=== PATIENT | male | born 1945 | race Caucasian/White ===

== ENCOUNTER → 2017-11-26 | Outpatient (CLI) | payer MEDICARE ==
[2017-11-26 09:13] LABS: HCT 44.1 % (39.0-53.0); HGB 14.8 gm/dL (13.0-17.5); MCH 30.3 pg (25.0-35.0); MCHC 33.7 g/dL (31.0-37.0); MCV 90.1 fL (80.0-100.0); Mean Platelet Volume 7.8; Platelet Count 109 k/uL (150-450); RBC 4.89 m/uL (4.30-5.90); RDW 13.8 % (11.5-15.5); WBC 4.8 k/uL (3.8-10.6)
[2017-11-26 09:18] LABS: INR 1.3 (<1.2); Prothrombin Time 12.3 sec (9.0-12.0)
[2017-11-26 09:37] LABS: ALT 45 U/L (21-72); AST 44 U/L (17-59); Albumin 3.7 g/dL (3.5-5.0); Alkaline Phosphatase 67 U/L (38-126); Anion Gap 9 mmol/L; Blood Urea Nitrogen 13 mg/dL (9-20); Calcium 9.2 mg/dL (8.4-10.2); Carbon Dioxide 33 mmol/L (22-30); Chloride 101 mmol/L (98-107); Glucose 141 mg/dL (74-99); Potassium 4.5 mmol/L (3.5-5.1); Sodium 143 mmol/L (137-145); Total Bilirubin 1.7 mg/dL (0.2-1.3); Total Protein 6.6 g/dL (6.3-8.2)
== END | disposition home or self-care (01) ==
LOC: LABWHC1 08:07
PROVIDERS: ATTEND Internal Medicine Gastroenterology
DX: K74.60 Unspecified cirrhosis of liver (principal)
CPT/HCPCS: 36415; 80053; 82105; 85027; 85610

== ENCOUNTER 2018-06-10 18:20 | Inpatient (IN) | payer MEDICARE ==
[2018-06-10] MEDS ORDERED: PANTOPRAZOLE 40 MG/10 ML VIAL IVP STA (18:28)
[2018-06-10] MEDS ORDERED: SODIUM CHLORIDE 0.9% 1,000 ML IV STA (18:28)
[2018-06-10] MEDS ORDERED: OCTREOTIDE 100 MCG/ML INJ IVP STA (18:28)
--- NOTE | 2018-06-10 18:46 | ED ---
General Adult HPI - General Chief complaint: GI Bleed Stated complaint: throwing up blood Time Seen by Provider: 06/10/18 18:35 Source: patient, family, EMS, RN notes reviewed Mode of arrival: EMS Limitations: no limitations - History of Present Illness Initial comments: This is a 73-year-old male who has a past medical history significant for esophageal varices. Patient comes in today because he is having black stools for a week and today he vomited up blood. Patient states she's also noticed lately he has been weaker lightheaded and sometimes short of breath. Patient states earlier in the week she vomited and there may been a little blood in there at that time as well per patient denies being on any blood thinners. Patient states in the past they've had ago when and take care of the bleeding in his throat. Patient denies any recent fever chills per patient denies chest pain palpitations difficulty breathing or shortness of breath. He shouldn't states he feels better laying down but he has been lightheaded recently and a one time thought he might pass out. - Related Data Home Medications Medication Instructions Recorded Confirmed Aspirin [[place] Aspirin EC] 81 mg PO HS 06/10/18 06/10/18 Benralizumab [Fasenra] 30 mg IM Q56D 06/10/18 06/10/18 Cholecalciferol [Vitamin D3] 1,000 unit PO DAILY 06/10/18 06/10/18 Cyanocobalamin (Vitamin B-12) 1,000 mcg PO DAILY 06/10/18 06/10/18 [Vitamin B-12] Ezetimibe [Zetia] 10 mg PO DAILY 06/10/18 06/10/18 Furosemide [Lasix] 20 mg PO DAILY PRN 06/10/18 06/10/18 Insulin Glargine,Hum.rec.anlog 14 unit SQ HS 06/10/18 06/10/18 [Lantus Solostar] Loratadine 10 mg PO DAILY 06/10/18 06/10/18 Losartan [Cozaar] 25 mg PO DAILY 06/10/18 06/10/18 Multivitamins, Thera [Multivitamin 1 tab PO DAILY 06/10/18 06/10/18 (formulary)] Omeprazole 20 mg PO AC-SUPPER 06/10/18 06/10/18 Propranolol [Inderal] 10 mg PO TID 06/10/18 06/10/18 Spironolactone [Aldactone] 25 mg PO DAILY 06/10/18 06/10/18 metFORMIN HCL 1,000 mg PO TID 06/10/18 06/10/18 Allergies Allergy/AdvReac Type Severity Reaction Status Date / Time naproxen Allergy Rash/Hives Verified 06/10/18 19:41 tramadol Allergy Itching Verified 06/10/18 19:41 Review of Systems ROS Statement: Those systems with pertinent positive or pertinent negative responses have been documented in the HPI. ROS Other: All systems not noted in ROS Statement are negative. Past Medical History Past Medical History: Asthma, COPD, Diabetes Mellitus History of Any Multi-Drug Resistant Organisms: None Reported Past Surgical History: Back Surgery, Joint Replacement, Orthopedic Surgery, Tonsillectomy Additional Past Surgical History / Comment(s): shoulder, foot, ankle, vein stripping, hip replacment Past Psychological History: No Psychological Hx Reported Smoking Status: Former smoker Past Alcohol Use History: None Reported Past Drug Use History: None Reported General Exam - General Exam Comments Initial Comments: GENERAL: Patient is well-developed and well-nourished. Patient is nontoxic and well- hydrated and is in mild distress. ENT: Neck is soft and supple. Oropharynx is clear. Moist mucous membranes. Neck has full range of motion without eliciting any pain. EYES: The sclera were anicteric and pale were pink and moist. Extraocular movements were intact and pupils were equal round and reactive to light. Eyelids were unremarkable. PULMONARY: Unlabored respirations. Good breath sounds bilaterally. No audible rales rhonchi or wheezing was noted. CARDIOVASCULAR: There is a regular rate and rhythm without any murmurs gallops or rubs. ABDOMEN: Soft and nontender with normal bowel sounds. No palpable organomegaly was noted. There is no palpable pulsatile mass. SKIN: Patient's skin is pale NEUROLOGIC: Patient is alert and oriented x3. Cranial nerves II through XII are grossly intact. Motor and sensory are also intact. Normal speech, volume and content. Symmetrical smile. MUSCULOSKELETAL: Normal extremities with adequate strength and full range of motion. No lower extremity swelling or edema. No calf tenderness. LYMPHATICS: No significant lymphadenopathy is noted PSYCHIATRIC: Normal psychiatric evaluation. Limitations: no limitations Course Vital Signs 06/10/18 18:32 Temperature 97.5 F L Pulse Rate 98 Respiratory 20 Rate Blood Pressure 80/41 O2 Sat by Pulse 92 L Oximetry Medical Decision Making - Medical Decision Making EKG shows normal sinus rhythm at 96 bpm TX interval 142 QRS 96 QT interval 358 QTC is 452. Patient's EKG shows no ST segment elevation or depression or T wave abnormalities are noted. Patient has Q waves in leads II, III, and F aVF. New. Patient's hemoglobin dropped 12.5 of discussed with 8.5. I gave the patient Protonix as well as octreotide. I spoke with Dr. Obrien which she agreed with the Protonix and octreotide one of them continued. Dr. Obrien wanted the patient admitted to the ICU. I wrote admitting orders I did serial CBCs I contacted Dr. Mclaughlin and Dr. Perez. - Lab Data Result diagrams: 06/10/18 18:25 06/10/18 18:25 Lab Results 06/10/18 06/10/18 06/10/18 Range/Units 18:25 18:25 18:25 WBC 11.8 H (3.8-10.6) k/uL RBC 2.70 L (4.30-5.90) m/uL Hgb 8.5 L (13.0-17.5) gm/dL Hct 25.1 L (39.0-53.0) % MCV 92.9 (80.0-100.0) fL MCH 31.5 (25.0-35.0) pg MCHC 33.9 (31.0-37.0) g/dL RDW 15.7 H (11.5-15.5) % Plt Count 195 (150-450) k/uL Neutrophils % 87 % Lymphocytes % 6 % Monocytes % 5 % Eosinophils % 1 % Basophils % 0 % Neutrophils # 10.3 H (1.3-7.7) k/uL Lymphocytes # 0.7 L (1.0-4.8) k/uL Monocytes # 0.6 (0-1.0) k/uL Eosinophils # 0.1 (0-0.7) k/uL Basophils # 0.0 (0-0.2) k/uL Poikilocytosis Slight PT (9.0-12.0) sec INR (<1.2) APTT (22.0-30.0) sec Sodium 135 L (137-145) mmol/L Potassium 4.8 (3.5-5.1) mmol/L Chloride 103 (98-107) mmol/L Carbon Dioxide 23 (22-30) mmol/L Anion Gap 9 mmol/L BUN 48 H (9-20) mg/dL Creatinine 0.72 (0.66-1.25) mg/dL Est GFR (CKD-EPI)AfAm >90 (>60 ml/min/1.73 sqM) Est GFR (CKD-EPI)NonAf >90 (>60 ml/min/1.73 sqM) Glucose 289 H (74-99) mg/dL Calcium 9.6 (8.4-10.2) mg/dL Magnesium 1.6 (1.6-2.3) mg/dL Total Bilirubin 1.2 (0.2-1.3) mg/dL AST 20 (17-59) U/L ALT 28 (21-72) U/L Alkaline Phosphatase 39 (38-126) U/L Total Creatine Kinase <20 L (55-170) U/L CK-MB (CK-2) 1.1 (0.0-2.4) ng/mL CK-MB (CK-2) Rel Index Troponin I <0.012 (0.000-0.034) ng/mL Total Protein 4.8 L (6.3-8.2) g/dL Albumin 2.5 L (3.5-5.0) g/dL 06/10/18 Range/Units 18:25 WBC (3.8-10.6) k/uL RBC (4.30-5.90) m/uL Hgb (13.0-17.5) gm/dL Hct (39.0-53.0) % MCV (80.0-100.0) fL MCH (25.0-35.0) pg MCHC (31.0-37.0) g/dL RDW (11.5-15.5) % Plt Count (150-450) k/uL Neutrophils % % Lymphocytes % % Monocytes % % Eosinophils % % Basophils % % Neutrophils # (1.3-7.7) k/uL Lymphocytes # (1.0-4.8) k/uL Monocytes # (0-1.0) k/uL Eosinophils # (0-0.7) k/uL Basophils # (0-0.2) k/uL Poikilocytosis PT 12.1 H (9.0-12.0) sec INR 1.2 H (<1.2) APTT 23.1 (22.0-30.0) sec Sodium (137-145) mmol/L Potassium (3.5-5.1) mmol/L Chloride (98-107) mmol/L Carbon Dioxide (22-30) mmol/L Anion Gap mmol/L BUN (9-20) mg/dL Creatinine (0.66-1.25) mg/dL Est GFR (CKD-EPI)AfAm (>60 ml/min/1.73 sqM) Est GFR (CKD-EPI)NonAf (>60 ml/min/1.73 sqM) Glucose (74-99) mg/dL Calcium (8.4-10.2) mg/dL Magnesium (1.6-2.3) mg/dL Total Bilirubin (0.2-1.3) mg/dL AST (17-59) U/L ALT (21-72) U/L Alkaline Phosphatase (38-126) U/L Total Creatine Kinase (55-170) U/L CK-MB (CK-2) (0.0-2.4) ng/mL CK-MB (CK-2) Rel Index Troponin I (0.000-0.034) ng/mL Total Protein (6.3-8.2) g/dL Albumin (3.5-5.0) g/dL Critical Care Time Critical Care Time: Yes Total Critical Care Time: 35 Disposition Clinical Impression: Upper GI bleed, Anemia Disposition: ADMITTED IP TO THIS [facility] Referrals: Axel Mcclure MD [Primary Care Provider] - 1-2 days Time of Disposition: 19:58
[2018-06-10 19:04] LABS: Basophils % (A) 0 %; Eosinophils # (A) 0.1 k/uL (0-0.7); Eosinophils % (A) 1 %; HCT 25.1 % (39.0-53.0); HGB 8.5 gm/dL (13.0-17.5); Lymphocytes # (A) 0.7 k/uL (1.0-4.8); Lymphocytes % (A) 6 %; MCH 31.5 pg (25.0-35.0); MCHC 33.9 g/dL (31.0-37.0); MCV 92.9 fL (80.0-100.0); Mean Platelet Volume 7.9; Monocytes # (A) 0.6 k/uL (0-1.0); Monocytes % (A) 5 %; Neutrophils # (A) 10.3 k/uL (1.3-7.7); Neutrophils % (A) 87 %; Platelet Count 195 k/uL (150-450); Poikilocytosis Slight; RDW 15.7 % (11.5-15.5); WBC 11.8 k/uL (3.8-10.6)
[2018-06-10 19:14] LABS: INR 1.2 (<1.2)
[2018-06-10 19:15] LABS: Partial Thromboplastin Time 23.1 sec (22.0-30.0); Prothrombin Time 12.1 sec (9.0-12.0)
[2018-06-10 19:16] LABS: ALT 28 U/L (21-72); AST 20 U/L (17-59); Albumin 2.5 g/dL (3.5-5.0); Alkaline Phosphatase 39 U/L (38-126); Anion Gap 9 mmol/L; Blood Urea Nitrogen 48 mg/dL (9-20); Calcium 9.6 mg/dL (8.4-10.2); Carbon Dioxide 23 mmol/L (22-30); Chloride 103 mmol/L (98-107); Creatine Kinase <20 U/L (55-170); Glucose 289 mg/dL (74-99); Magnesium 1.6 mg/dL (1.6-2.3); Potassium 4.8 mmol/L (3.5-5.1); Sodium 135 mmol/L (137-145); Total Bilirubin 1.2 mg/dL (0.2-1.3); Total Protein 4.8 g/dL (6.3-8.2)
[2018-06-10 19:28] LABS: Creatine Kinase MB 1.1 ng/mL (0.0-2.4); Troponin I <0.012 ng/mL (0.000-0.034)
[2018-06-10] MEDS ORDERED: NALOXONE 0.4 MG/ML 1 ML VIAL IV PRN (20:01)
[2018-06-10] MEDS: OCTREOTIDE 200 MCG in SODIUM CHLORIDE 0.9% 100 ML IV ONE (20:47)
[2018-06-10 21:08] LABS: Basophils % (A) 0 %; Eosinophils % (A) 0 %; HCT 23.6 % (39.0-53.0); HGB 8.2 gm/dL (13.0-17.5); Lymphocytes # (A) 0.7 k/uL (1.0-4.8); Lymphocytes % (A) 6 %; MCH 31.6 pg (25.0-35.0); MCHC 34.6 g/dL (31.0-37.0); MCV 91.5 fL (80.0-100.0); Mean Platelet Volume 7.6; Monocytes # (A) 0.5 k/uL (0-1.0); Monocytes % (A) 5 %; Neutrophils # (A) 10.5 k/uL (1.3-7.7); Neutrophils % (A) 88 %; Platelet Count 194 k/uL (150-450); Poikilocytosis Slight; RBC 2.58 m/uL (4.30-5.90); RDW 15.8 % (11.5-15.5); WBC 11.9 k/uL (3.8-10.6)
[2018-06-11 01:20] LABS: Glucose,Whole Blood 344 mg/dL (75-99)
[2018-06-11] MEDS: OCTREOTIDE 200 MCG in SODIUM CHLORIDE 0.9% 100 ML IV ONE (03:06)
[2018-06-11 03:08] LABS: Anisocytosis Slight; Basophils % (A) 0 %; Eosinophils # (A) 0.1 k/uL (0-0.7); Eosinophils % (A) 1 %; HCT 22.5 % (39.0-53.0); HGB 7.4 gm/dL (13.0-17.5); Lymphocytes # (A) 0.6 k/uL (1.0-4.8); Lymphocytes % (A) 8 %; MCH 31.4 pg (25.0-35.0); MCHC 32.8 g/dL (31.0-37.0); MCV 95.7 fL (80.0-100.0); Mean Platelet Volume 7.8; Monocytes # (A) 0.5 k/uL (0-1.0); Monocytes % (A) 6 %; Neutrophils # (A) 6.9 k/uL (1.3-7.7); Neutrophils % (A) 84 %; Platelet Count 157 k/uL (150-450); Poikilocytosis Slight; RBC 2.35 m/uL (4.30-5.90); RDW 16.3 % (11.5-15.5); WBC 8.3 k/uL (3.8-10.6)
[2018-06-11 04:05] LABS: Anion Gap 7 mmol/L; Blood Urea Nitrogen 61 mg/dL (9-20); Calcium 9.6 mg/dL (8.4-10.2); Carbon Dioxide 25 mmol/L (22-30); Chloride 106 mmol/L (98-107); Glucose 297 mg/dL (74-99); Magnesium 1.7 mg/dL (1.6-2.3); Phosphorus 4.7 mg/dL (2.5-4.5); Potassium 5.5 mmol/L (3.5-5.1); Sodium 138 mmol/L (137-145)
[2018-06-11 06:13] LABS: Glucose,Whole Blood 364 mg/dL (75-99)
[2018-06-11] MEDS: INSULIN ASPART 100 UNIT/ML 1 ML 10 ML VIAL SQ SCH ×3 (06:56→18:33)
[2018-06-11] MEDS ORDERED: Magnesium Replacement Protocol 1 EACH MISC MISCELLANE PRN (07:17)
[2018-06-11] MEDS: MAGNESIUM SULFATE-D5W PMX 1 GM in DEXTROSE/WATER 1 100ML.BAG IVPB SCH ×2 (07:34→09:39)
[2018-06-11 08:30] LABS: Anisocytosis Slight; MCHC 33.9 g/dL (31.0-37.0); MCV 94.3 fL (80.0-100.0); Mean Platelet Volume 7.8; Platelet Count 191 k/uL (150-450); Poikilocytosis Slight; RBC 2.08 m/uL (4.30-5.90); RDW 16.8 % (11.5-15.5); WBC 8.8 k/uL (3.8-10.6)
[2018-06-11 08:33] LABS: HCT 19.6 % (39.0-53.0); HGB 6.6 gm/dL (13.0-17.5)
[2018-06-11] MEDS ORDERED: PANTOPRAZOLE 40 MG/10 ML VIAL IV SCH (09:00)
[2018-06-11 09:22] LABS: Band Neutrophils % 1 %; Lymphocytes # (M) 0.79 k/uL (1.0-4.8); Monocytes # (M) 0.26 k/uL (0-1.0); Myelocytes # (M) 0.09 k/uL (0); Myelocytes % 1 %; Neutrophils % (M) 88 %; Nucleated Red Blood Cells 0 /100 WBC (0-0); Total Cells Counted 200
[2018-06-11 09:32] LABS: Poikilocytosis (M) Present; Polychromasia Present
[2018-06-11] MEDS: PANTOPRAZOLE 40 MG/10 ML VIAL IV SCH ×2 (09:39→20:16)
[2018-06-11] MEDS: SODIUM CHLORIDE 0.9% 1,000 ML IV SCH ×2 (09:39→22:13)
[2018-06-11] MEDS ORDERED: LIDOCAINE 1% INJ 10MG/ML (20 ML MDV) ONE (10:00)
[2018-06-11] MEDS ORDERED: ETOMIDATE 2 MG/ML 10 ML VIAL ONE (10:00)
[2018-06-11] MEDS ORDERED: LACTATED RINGERS 1,000 ML IV ONE (10:05)
[2018-06-11] MEDS: OCTREOTIDE 200 MCG in SODIUM CHLORIDE 0.9% 100 ML IV SCH ×2 (11:17→20:16)
--- NOTE | 2018-06-11 11:17 | P.PCN ---
Date of Procedure: 06/11/18 Description of Procedure: BRIEF HISTORY: 73-year-old male who has a past medical history significant for decompensated alcoholic cirrhosis (no longer consumed alcohol) with previously seen esophageal varices in 2015 on nonselective beta arnulfo therapy who presented with complaints of hematemesis and melena. Patient presented to the hospital because he was having black stools for a week and today he vomited up blood. Patient states he's also noticed lately he has been weaker lightheaded and sometimes short of breath. Patient states earlier in the week she vomited and there may been a little blood in there at that time as well per patient denies being on any blood thinners. Patient states in the past they've had ago when and take care of the bleeding in his throat. Patient denies any recent fever chills per patient denies chest pain palpitations difficulty breathing or shortness of breath. PROCEDURE PERFORMED: Esophagogastroduodenoscopy with variceal banding. PREOPERATIVE DIAGNOSIS: Anemia of acute blood loss, hematemesis, melena, history of esophageal varices. ESTIMATED BLOOD LOSS: Minimal. IV sedation per anesthesia. PROCEDURE: After informed consent was obtained, the patient was brought into the endoscopy unit. IV sedation was administered by Anesthesia under continuous monitoring. Initially the Olympus GIF-190 video endoscope was inserted into the mouth. Esophagus intubated without any difficulty. It was gradually advanced into the stomach and duodenum and carefully examined. The bulb and the second part of the duodenum appeared normal with evidence of hemolyzed blood. The scope at this time was withdrawn to the stomach, adequately insufflated with air , and upon careful examination, mucosa of the antrum, body, cardia and the fundus appeared grossly normal however visualization was limited as there was a large amount of hemolyzed blood in the stomach. No active bleeding was noted in the stomach. The scope was then withdrawn into the esophagus where columns of actively bleeding large varices were noted. Esophageal banding was performed with placement of 5 bands and successful hemostasis. The GE junction was located at 39 cm from the incisors. The patient tolerated the procedure well, and there was no active bleeding at the end of the procedure. IMPRESSION: 1. Actively bleeding, large esophageal varices treated with esophageal variceal banding with successful hemostasis. 2. Hemolyzed blood noted in the stomach and small bowel with no gross abnormalities seen or active bleeding noted. RECOMMENDATIONS: The findings of this examination were discussed with the patient and his . Patient to be monitored in the ICU. Continue octreotide, ceftriaxone, and Protonix therapy. Patient should remain nothing by mouth, okay for a few ice chips. Continue to monitor hemoglobin and transfuse as needed. Patient's situation is critical and prognosis is guarded given multiple comorbidities and actively bleeding esophageal varices on presentation. His has been communicated with the and all her questions were answered to her satisfaction.
--- NOTE | 2018-06-11 11:25 | P.CONS ---
History of Present Illness - Reason for Consult Consult date: 06/11/18 Hematemesis Requesting physician: Jered Mclaughlin - Chief Complaint Hematemesis - History of Present Illness 73-year-old male with a history of remote alcohol liver cirrhosis, portal hypertension, esophageal varices 2015, asthma, diabetes, COPD, cholecystectomy. Admitted with acute hematemesis and melena intermittently 1 week. Hemoglobin 8.2 decreased to 6.6. MCV 94. White count 8.8. Platelet 191. INR 1.2. BUN 48. Creatinine 0.7. LFTs within normal limits. Denies fever chills weight loss or hematochezia. He is status post EGD this morning with findings of actively bleeding large esophageal varices treated with aerosol banding 5 with hemostasis. No evidence of peptic ulcer disease. Review of Systems Constitutional: Denies fever, chills, sweats, weight gain, or loss. HEENT: Negative for migraines, blurred vision or loss, earaches, drainage, tinnitus, oral mucosal lesions, dysphagia, or odynophagia. Cardiac: Negative for chest pain, arrhythmias, or palpitation. Respiratory: Negative for shortness of breath, hemoptysis, cough, or sputum production. Gastrointestinal: See HPI for pertinent findings. Genitourinary: Negative for hematuria, urgency, frequency, polyuria, dysuria, or penile discharge. Musculoskeletal: Negative for muscle aches, swelling, arthritis, and arthralgias. Neurologic: Negative for stroke or TIA. Endocrine: Negative for thyroid problems. Skin: Negative for rash or itching. Psychiatric: Negative history for depression and anxiety Past Medical History Past Medical History: Asthma, COPD, Diabetes Mellitus, Liver Disease, Osteoarthritis (OA) Additional Past Medical History / Comment(s): Pt states, "Ischemic heart, cataracts, esophageal varices" 3L home O2 for "about a year". History of Any Multi-Drug Resistant Organisms: None Reported Past Surgical History: Back Surgery, Cholecystectomy, Joint Replacement, Orthopedic Surgery, Tonsillectomy Additional Past Surgical History / Comment(s): right rotator cuff, right foot fx with pins 1996, ankle, vein stripping, right hip replacment Past Anesthesia/Blood Transfusion Reactions: No Reported Reaction Past Psychological History: No Psychological Hx Reported Smoking Status: Former smoker Additional Past Alcohol Use History / Comment(s): Reports a history of 7-8 drinks on weekends, but no use in over a year. Past Drug Use History: None Reported - Past Family History Father Family Medical History: Cancer Additional Family Medical History / Comment(s): Lung Cancer Mother Family Medical History: COPD Sister(s) Family Medical History: Cancer Additional Family Medical History / Comment(s): Lung Cancer Medications and Allergies Home Medications Medication Instructions Recorded Confirmed Type Aspirin [[place] Aspirin EC] 81 mg PO HS 06/10/18 06/10/18 History Benralizumab [Fasenra] 30 mg IM Q56D 06/10/18 06/10/18 History Cholecalciferol [Vitamin D3] 1,000 unit PO DAILY 06/10/18 06/10/18 History Cyanocobalamin (Vitamin B-12) 1,000 mcg PO DAILY 06/10/18 06/10/18 History [Vitamin B-12] Ezetimibe [Zetia] 10 mg PO DAILY 06/10/18 06/10/18 History Furosemide [Lasix] 20 mg PO DAILY PRN 06/10/18 06/10/18 History Insulin Glargine,Hum.rec.anlog 14 unit SQ HS 06/10/18 06/10/18 History [Lantus Solostar] Loratadine 10 mg PO DAILY 06/10/18 06/10/18 History Losartan [Cozaar] 25 mg PO DAILY 06/10/18 06/10/18 History Multivitamins, Thera [Multivitamin 1 tab PO DAILY 06/10/18 06/10/18 History (formulary)] Omeprazole 20 mg PO AC-SUPPER 06/10/18 06/10/18 History Propranolol [Inderal] 10 mg PO TID 06/10/18 06/10/18 History Spironolactone [Aldactone] 25 mg PO DAILY 06/10/18 06/10/18 History metFORMIN HCL 1,000 mg PO TID 06/10/18 06/10/18 History Allergies Allergy/AdvReac Type Severity Reaction Status Date / Time naproxen Allergy Rash/Hives Verified 06/10/18 19:41 tramadol Allergy Itching Verified 06/10/18 19:41 Physical Exam Vitals: Vital Signs Temp Pulse Resp BP Pulse Ox 06/11/18 11:10 97.6 F 98 18 107/52 95 06/11/18 11:00 101 H 16 111/48 94 L 18 09:00 96 16 110/50 94 L 06/11/18 08:00 98.0 F 96 21 109/47 96 06/11/18 07:26 96 18 07:00 95 24 99/45 96 18 06:30 92 15 105/46 95 18 06:00 92 17 98/43 95 06/11/18 05:30 90 17 93/46 95 06/11/18 05:00 96 29 H 92/40 95 2018 04:30 87 19 92/43 95 06/11/18 04:00 97.8 F 92 18 96/44 95 06/11/18 03:30 94 22 93/44 94 L 06/11/18 03:00 90 14 101/46 97 06/11/18 02:30 89 11 L 94/42 97 06/11/18 02:10 89 19 94/42 95 06/11/18 02:00 98.1 F 89 17 91/43 98 06/11/18 01:50 88 20 91/43 96 06/11/18 01:40 88 16 94/45 96 06/11/18 01:30 98.1 F 87 20 90/44 95 06/11/18 01:10 106/47 06/11/18 01:00 90 19 95/60 93 L 06/11/18 00:50 90 18 95/60 94 L 06/11/18 00:49 98.6 F 06/11/18 00:47 98.6 F 06/11/18 00:40 89 18 95/47 92 L 06/11/18 00:04 89 2 L 91/44 92 L 06/10/18 23:50 89 13 91/44 95 19/18 23:40 90 12 93/46 94 L 06/10/18 23:30 92 13 94/47 93 L 06/10/18 23:20 91 15 94/47 93 L 06/10/18 23:10 90 16 95/45 94 L 06/10/18 23:00 91 16 100/56 96 19/18 22:50 91 11 L 100/56 95 19/18 22:40 90 9 L 107/48 95 06/10/18 22:30 90 19 88/35 97 12/19/18 22:20 89 10 L 108/38 98 06/10/18 22:01 87 6 L 86/40 96 06/10/18 21:50 89 19 86/43 96 06/10/18 21:40 89 14 93/44 96 06/10/18 21:30 89 19 91/45 97 06/10/18 21:20 89 16 91/45 97 06/10/18 21:10 89 14 82/62 98 06/10/18 20:53 94 95/50 95 06/10/18 20:50 92 14 95/50 96 06/10/18 20:40 92 14 94/44 98 06/10/18 20:32 92 16 99/44 98 06/10/18 20:10 89 17 90/48 100 06/10/18 19:50 92 15 106/51 98 06/10/18 19:30 91 14 102/42 06/10/18 19:10 89 16 109/58 99 06/10/18 18:32 97.5 F L 98 20 80/41 92 L 06/10/18 18:21 94 L Intake and Output 06/10/18 06/11/18 06/11/18 22:59 06:59 14:59 Intake Total 304.716 375 Output Total 350 Balance -45.284 375 Intake: IV 225 375 0.9 225 75 Intake, IV Titration 79.716 Amount Octreotide 200 mcg In 79.716 Sodium Chloride 0.9% 100 ml @ 25 MCG/HR 12.62 mls/ hr IV .Q8H1M ONE Rx#: [id number] Oral 0 Blood Product 0 Rc As-3 Unit 0 [id number] Output: Urine 350 Other: Voiding Method Urinal # Voids 0 0 Weight 130.181 kg 131 kg General appearance: The patient is alert, oriented, in no acute distress. HET: Head is normocephalic and atraumatic. Pupils are equal and reactive. Oropharynx is clear without lesions. Neck: Supple without lymphadenopathy. Trachea midline. Heart: S1 S2. Regular rate and rhythm. Lungs: No crackles or wheezes are heard. Abdomen: Soft, nontender, nondistended with bowel sounds. No peritoneal signs. No palpable organomegaly or masses. Extremities: Normal skin color and turgor. No cyanosis, rash, ulceration, clubbing, or edema. Radial and pedal pulses are 2/4 bilaterally. Neurological: No focal deficits. Strength and sensation are grossly intact. Results CBC & Chem 7: 06/11/18 07:56 06/11/18 02:45 Labs: Abnormal Lab Results - Last 24 Hours (Table) 06/10/18 06/10/18 06/10/18 Range/Units 18:25 18:25 18:25 WBC 11.8 H (3.8-10.6) k/uL RBC 2.70 L (4.30-5.90) m/uL Hgb 8.5 L (13.0-17.5) gm/dL Hct 25.1 L (39.0-53.0) % RDW 15.7 H (11.5-15.5) % Neutrophils # 10.3 H (1.3-7.7) k/uL Neutrophils # (Manual) (1.3-7.7) k/uL Lymphocytes # 0.7 L (1.0-4.8) k/uL Lymphocytes # (Manual) (1.0-4.8) k/uL Myelocytes # (Manual) (0) k/uL PT (9.0-12.0) sec INR (<1.2) Sodium 135 L (137-145) mmol/L Potassium (3.5-5.1) mmol/L BUN 48 H (9-20) mg/dL Glucose 289 H (74-99) mg/dL POC Glucose (mg/dL) (75-99) mg/dL Phosphorus (2.5-4.5) mg/dL Total Creatine Kinase <20 L (55-170) U/L Total Protein 4.8 L (6.3-8.2) g/dL Albumin 2.5 L (3.5-5.0) g/dL Crossmatch 06/10/18 06/10/18 06/10/18 Range/Units 18:25 18:25 20:55 WBC 11.9 H (3.8-10.6) k/uL RBC 2.58 L (4.30-5.90) m/uL Hgb 8.2 L (13.0-17.5) gm/dL Hct 23.6 L (39.0-53.0) % RDW 15.8 H (11.5-15.5) % Neutrophils # 10.5 H (1.3-7.7) k/uL Neutrophils # (Manual) (1.3-7.7) k/uL Lymphocytes # 0.7 L (1.0-4.8) k/uL Lymphocytes # (Manual) (1.0-4.8) k/uL Myelocytes # (Manual) (0) k/uL PT 12.1 H (9.0-12.0) sec INR 1.2 H (<1.2) Sodium (137-145) mmol/L Potassium (3.5-5.1) mmol/L BUN (9-20) mg/dL Glucose (74-99) mg/dL POC Glucose (mg/dL) (75-99) mg/dL Phosphorus (2.5-4.5) mg/dL Total Creatine Kinase (55-170) U/L Total Protein (6.3-8.2) g/dL Albumin (3.5-5.0) g/dL Crossmatch See Detail 06/11/18 06/11/18 06/11/18 Range/Units 01:18 02:45 02:45 WBC (3.8-10.6) k/uL RBC 2.35 L (4.30-5.90) m/uL Hgb 7.4 L (13.0-17.5) gm/dL Hct 22.5 L (39.0-53.0) % RDW 16.3 H (11.5-15.5) % Neutrophils # (1.3-7.7) k/uL Neutrophils # (Manual) (1.3-7.7) k/uL Lymphocytes # 0.6 L (1.0-4.8) k/uL Lymphocytes # (Manual) (1.0-4.8) k/uL Myelocytes # (Manual) (0) k/uL PT (9.0-12.0) sec INR (<1.2) Sodium (137-145) mmol/L Potassium 5.5 H (3.5-5.1) mmol/L BUN 61 H (9-20) mg/dL Glucose 297 H (74-99) mg/dL POC Glucose (mg/dL) 344 H (75-99) mg/dL Phosphorus 4.7 H (2.5-4.5) mg/dL Total Creatine Kinase (55-170) U/L Total Protein (6.3-8.2) g/dL Albumin (3.5-5.0) g/dL Crossmatch 06/11/18 06/11/18 Range/Units 06:12 07:56 WBC (3.8-10.6) k/uL RBC 2.08 L (4.30-5.90) m/uL Hgb 6.6 L* (13.0-17.5) gm/dL Hct 19.6 L* (39.0-53.0) % RDW 16.8 H (11.5-15.5) % Neutrophils # (1.3-7.7) k/uL Neutrophils # (Manual) 7.80 H (1.3-7.7) k/uL Lymphocytes # (1.0-4.8) k/uL Lymphocytes # (Manual) 0.79 L (1.0-4.8) k/uL Myelocytes # (Manual) 0.09 H (0) k/uL PT (9.0-12.0) sec INR (<1.2) Sodium (137-145) mmol/L Potassium (3.5-5.1) mmol/L BUN (9-20) mg/dL Glucose (74-99) mg/dL POC Glucose (mg/dL) 364 H (75-99) mg/dL Phosphorus (2.5-4.5) mg/dL Total Creatine Kinase (55-170) U/L Total Protein (6.3-8.2) g/dL Albumin (3.5-5.0) g/dL Crossmatch Assessment and Plan (1) Upper GI bleed Narrative/Plan: 73-year-old male with a history of remote alcohol liver cirrhosis portal hypertension and esophageal varices presents with 1 week history of intermittent melena and new onset of hematemesis status post EGD with findings of actively bleeding large esophageal varices status post banding 5. No evidence of peptic ulcer disease. Current Visit: Yes Status: Acute Code(s): K92.2 - GASTROINTESTINAL HEMORRHAGE, UNSPECIFIED SNOMED Code(s): 25256712 (2) Acute blood loss anemia Current Visit: Yes Status: Acute Code(s): D62 - ACUTE POSTHEMORRHAGIC ANEMIA SNOMED Code(s): 917266434 (3) Esophageal varices Current Visit: Yes Status: Acute Code(s): I85.00 - ESOPHAGEAL VARICES WITHOUT BLEEDING SNOMED Code(s): 12756674 (4) Portal hypertension Current Visit: Yes Status: Acute Code(s): K76.6 - PORTAL HYPERTENSION SNOMED Code(s): 73839481 (5) Liver disease, chronic, with cirrhosis Current Visit: Yes Status: Acute Code(s): K74.60 - UNSPECIFIED CIRRHOSIS OF LIVER; K76.9 - LIVER DISEASE, UNSPECIFIED SNOMED Code(s): 732627082 Plan: 1. Continue Protonix 40 mg IV twice daily. Continue with IV Sandostatin and Rocephin. Nothing by mouth except meds and ice chips. CBC monitoring. Thank you for this kind referral and the opportunity to participate in the care of your patient. This consultation was discussed with Dr. Hurley. The impression and plan of care have been directed as dictated.
--- NOTE | 2018-06-11 11:28 | CONS ---
CONSULTATION This is a very pleasant 73-year-old male who was seen in the emergency room last night by Dr. Corral. The patient apparently was vomiting up blood and had tarry stools for 1 week. He has a known history of esophageal varices presumed secondary to previous heavy alcohol abuse. He has not smoked week. He has not drunk recently, though. He came in because of the vomiting up blood and the black tarry stools. The patient was found to have a hemoglobin of 7.4. The patient was started on octreotide. He has not received any blood. The patient is currently on a saline IV at 75 mL/ hour. GI was consulted. The patient is somewhat of a poor historian. As I mentioned, he is currently on Sandostatin at 25 mcg/minute. His. PAST MEDICAL HISTORY: Is positive for previous have heavy alcohol use, diabetes, GERD, hypertension, hyperlipidemia, esophageal varices, and asthma. He is currently on a very new drug for his asthma called Benralizumab or Fasenra. Currently, the patient is doing reasonably well. Denies any pain. Denies any fever or chills. Not coughing up any phlegm. Not coughing up any blood. Patient is currently not on any blood thinners, other than a baby aspirin. HOME MEDICATIONS: Include baby aspirin, Fasenra, vitamin D3, vitamin B12, Zetia, Lasix, insulin, loratadine, Cozaar, multivitamins, omeprazole, Inderal, Aldactone, and metformin. ALLERGIES: NAPROXEN and TRAMADOL. MEDICAL HISTORY: As mentioned above includes diabetes, asthma, GERD, hypertension, hyperlipidemia , esophageal varices and previous heavy alcohol use. He is a former smoker. Does not smoke currently. No alcohol or illicit drug use currently. SURGICAL HISTORY: Includes back surgery, joint replacement, tonsillectomy, vein stripping, and some other minor procedures. FAMILY HISTORY: Not noted. OCCUPATION HISTORY: Not noted. REVIEW OF SYSTEMS: CONSTITUTIONAL: Weakness. NEUROLOGIC: Negative. HEENT: Negative. CARDIOVASCULAR: Negative. PULMONARY: Negative. GI: Black tarry stools and vomiting bright red blood. : Negative. RHEUMATOLOGIC: Negative. IMMUNOLOGIC: Negative ENDOCRINOLOGIC: Negative. Current vital signs are stable and include a temperature which is 97.8, a heart rate which is 87, respiratory rate 15, blood pressure 105/46, mean 65 and a saturation on 2 L is 95%, on 3 L 96%. Appears in no acute distress. HEENT examination is grossly unremarkable. Mucous membranes are dry. Neck is supple. Full range of motion. No adenopathy, thyromegaly or neck vein distention. Cardiovascular examination reveals regular rhythm and rate. S1, S2 normal. Heart rate about 85 beats per minute. Lungs reveal clear breath sounds. No wheezes or rhonchi. No crackles. Abdomen is soft. Bowel sounds are heard. Extremities are intact. No cyanosis, clubbing, or edema. Skin is pale. Neurologic examination is brief but nonfocal. The patient is currently on saline at 75 mL an hour. White count is 8.8, hemoglobin 6.6, hematocrit 19.6, platelet count 191,000. Sodium 138, potassium 5.5, chloride 106, CO2 is 25, BUN and creatinine were 61 and 0.85, suggesting prerenal azotemia. No chest x-ray was done. Medications are reviewed. Currently, he is on insulin. He is on magnesium replacement Narcan, Sandostatin at 25 mcg/minute, Protonix IV and saline IV. ASSESSMENT: 1. Presumed upper gastrointestinal bleed secondary to esophageal varices. 2. Previous history of heavy alcohol abuse. 3. Presumed alcoholic liver disease and portal hypertension. 4. Diabetes mellitus. 5. Gastroesophageal reflux disease. 6. Hypertension. 7. Hyperlipidemia. 8. History of asthma. 9. Anemia secondary to acute gastrointestinal bleed. PLAN: The patient medications are reviewed. Labs are reviewed. Most recent hemoglobin 6.6. The patient should receive 1 unit of blood. GI has been consulted. He is currently on octreotide 25 mcg/minute. No additional recommendations are made. Prognosis is guarded. Will continue to follow. MMODL / IJN: [id number] / TRISHA
[2018-06-11 12:14] LABS: Glucose,Whole Blood 347 mg/dL (75-99)
[2018-06-11 16:50] LABS: Anisocytosis Slight; HCT 22.5 % (39.0-53.0); HGB 7.6 gm/dL (13.0-17.5); MCH 31.4 pg (25.0-35.0); MCHC 33.6 g/dL (31.0-37.0); MCV 93.3 fL (80.0-100.0); Mean Platelet Volume 8.5; Platelet Count 179 k/uL (150-450); Poikilocytosis Slight; RBC 2.41 m/uL (4.30-5.90); RDW 16.2 % (11.5-15.5); WBC 11.1 k/uL (3.8-10.6)
[2018-06-11 18:30] LABS: Glucose,Whole Blood 324 mg/dL (75-99)
[2018-06-11 19:52] LABS: Hemoglobin A1C 7.6 % (4.0-6.0)
[2018-06-11] MEDS ORDERED: INSULIN DETEMIR 100 UNIT/ML 10 ML VIAL SQ SCH (21:00)
[2018-06-11 22:21] LABS: Anisocytosis Slight; HCT 21.6 % (39.0-53.0); HGB 7.1 gm/dL (13.0-17.5); MCH 30.6 pg (25.0-35.0); MCHC 32.7 g/dL (31.0-37.0); MCV 93.8 fL (80.0-100.0); Mean Platelet Volume 8.1; Platelet Count 179 k/uL (150-450); Poikilocytosis Slight; RBC 2.31 m/uL (4.30-5.90); RDW 17.9 % (11.5-15.5)
--- NOTE | 2018-06-11 23:16 | P.HPIM ---
History of Present Illness H&P Date: 06/11/18 Chief Complaint: Vomiting blood History of present complaint: This is a 73-year-old patient who follows with Dr. Axel Cowan. Chronic stable medical conditions include COPD, diabetes, osteoarthritis chronic hypoxic respiratory failure on 3 L oxygen at home. Patient presented to the ER. Patient did vomit blood at home.. about a cup. Also has some dark stools. Patient has been diagnosed with cirrhosis. Possibly alcohol related. Earlier today was taken to the or by Dr. Nicole from GI. Found to have bleeding esophageal varices. 5 bands were placed. Patient was transferred back to the ICU. Resting in bed. Most of the history is obtained with the at the bedside. No abdominal pain. Patient is alcohol intake gone down about 1-2 years ago. Does feel tired and rundown lethargic currently. Is in the ICU. Hemoglobin did drop from 8.5 on presentation to 6.6 this morning. Patient was given a unit of blood. Review of systems: GEN.: Tired EYES: None HEENT: None NECK: None RESPIRATORY: None CARDIOVASCULAR: None GASTROINTESTINAL: As above] GENITOURINARY: None MUSCULOSKELETAL: Pain in the joints LYMPHATICS: None HEMATOLOGICAL: None PSYCHIATRY: None NEUROLOGICAL: None Social history: Did alcohol more than the weekends previously up to the 1 or 2 years ago. Did smoke in the past. . Family history: Lung cancer Physical examination: VITAL SIGNS: 97.5, 98, 20, blood pressure 80 x 41 pulse ox 92% room air GENERAL: BMI 38.1, well built, laying in bed, lethargic but arousable. EYES: Pupils equal. Conjunctiva palel. HEENT: External appearance of nose and ears normal, oral cavity grossly normal. NECK: JVD unable to assess; masses not palpable. HEART: First and second heart sounds are normal; no edema. LUNGS: Respiratory rate normal; clear to auscultation. ABDOMEN: Soft, nontender, liver spleen not palpable, no masses palpable. LYMPHATICS: No lymph nodes palpable in the axilla and neck. PSYCH: Lethargic but arousedl. NEUROLOGICAL: Cranial nerves grossly intact; no facial asymmetry, unable to assess further Labs: Reviewed in the clinical context. Hemoglobin initially was 8.5 did drop to 6.6 platelets 195 potassium 4.8 BUN 48 creatinine 0.7 to Assessment: -Acute severe upper GI bleed from esophageal varices secondary to cirrhosis probably alcohol-related followed by emergent esophageal banding 5 -Acute severe blood loss anemia from his initial bleeding requiring blood transfusion -Acute hypotensive shock blood pressure dropping down to the 80s requiring blood transfusion -Alcoholic cirrhosis leading to portal hypertension and esophageal varices -Chronic hypoxic respiratory failure on 3 L oxygen at home -Primary osteoarthritis -Diabetes mellitus type 2 chronically on insulin -History of essential hypertension Plan: Patient remains in the ICU. at the bedside. Patient was just care unit of blood. Getting IV fluids. Status post EGD with esophageal banding. Accu- Cheks and sliding scale was started. Other medications be held. Close hemodynamic monitoring. Aspirin of course is being held. Prognosis guarded. Consultation to critical care and GI was done. Past Medical History Past Medical History: Asthma, COPD, Diabetes Mellitus, Liver Disease, Osteoarthritis (OA) Additional Past Medical History / Comment(s): Pt states, "Ischemic heart, cataracts, esophageal varices" 3L home O2 for "about a year". History of Any Multi-Drug Resistant Organisms: None Reported Past Surgical History: Back Surgery, Cholecystectomy, Joint Replacement, Orthopedic Surgery, Tonsillectomy Additional Past Surgical History / Comment(s): right rotator cuff, right foot fx with pins 1996, ankle, vein stripping, right hip replacment Past Anesthesia/Blood Transfusion Reactions: No Reported Reaction Past Psychological History: No Psychological Hx Reported Smoking Status: Former smoker Additional Past Alcohol Use History / Comment(s): Reports a history of 7-8 drinks on weekends, but no use in over a year. Past Drug Use History: None Reported - Past Family History Father Family Medical History: Cancer Additional Family Medical History / Comment(s): Lung Cancer Mother Family Medical History: COPD Sister(s) Family Medical History: Cancer Additional Family Medical History / Comment(s): Lung Cancer Medications and Allergies Home Medications Medication Instructions Recorded Confirmed Type Aspirin [[place] Aspirin EC] 81 mg PO HS 06/10/18 06/10/18 History Benralizumab [Fasenra] 30 mg IM Q56D 06/10/18 06/10/18 History Cholecalciferol [Vitamin D3] 1,000 unit PO DAILY 06/10/18 06/10/18 History Cyanocobalamin (Vitamin B-12) 1,000 mcg PO DAILY 06/10/18 06/10/18 History [Vitamin B-12] Ezetimibe [Zetia] 10 mg PO DAILY 06/10/18 06/10/18 History Furosemide [Lasix] 20 mg PO DAILY PRN 06/10/18 06/10/18 History Insulin Glargine,Hum.rec.anlog 14 unit SQ HS 06/10/18 06/10/18 History [Lantus Solostar] Loratadine 10 mg PO DAILY 06/10/18 06/10/18 History Losartan [Cozaar] 25 mg PO DAILY 06/10/18 06/10/18 History Multivitamins, Thera [Multivitamin 1 tab PO DAILY 06/10/18 06/10/18 History (formulary)] Omeprazole 20 mg PO AC-SUPPER 06/10/18 06/10/18 History Propranolol [Inderal] 10 mg PO TID 06/10/18 06/10/18 History Spironolactone [Aldactone] 25 mg PO DAILY 06/10/18 06/10/18 History metFORMIN HCL 1,000 mg PO TID 06/10/18 06/10/18 History Allergies Allergy/AdvReac Type Severity Reaction Status Date / Time naproxen Allergy Rash/Hives Verified 06/10/18 19:41 tramadol Allergy Itching Verified 06/10/18 19:41 Physical Exam Vitals: Vital Signs Temp Pulse Resp BP Pulse Ox 06/11/18 14:00 95 19 102/46 97 06/11/18 13:00 96 17 95/52 97 06/11/18 12:00 98.0 F 99 17 101/37 95 06/11/18 11:50 98.0 F 98 17 99/50 95 06/11/18 11:20 97.9 F 98 13 102/49 96 06/11/18 11:10 97.6 F 98 18 107/52 95 06/11/18 11:00 101 H 16 111/48 94 L 06/11/18 09:00 96 16 110/50 94 L 06/11/18 08:00 98.0 F 96 21 109/47 96 06/11/18 07:26 96 06/11/18 07:00 95 24 99/45 96 06/11/18 06:30 92 15 105/46 95 06/11/18 06:00 92 17 98/43 95 12/20/18 05:30 90 17 93/46 95 20/18 05:00 96 29 H 92/40 95 20/18 04:30 87 19 92/43 95 20/18 04:00 97.8 F 92 18 96/44 95 20/18 03:30 94 22 93/44 94 L 20/18 03:00 90 14 101/46 97 20/18 02:30 89 11 L 94/42 97 18 02:10 89 19 94/42 95 20/18 02:00 98.1 F 89 17 91/43 98 20/18 01:50 88 20 91/43 96 20/18 01:40 88 16 94/45 96 06/11/18 01:30 98.1 F 87 20 90/44 95 20/18 01:10 106/47 06/11/18 01:00 90 19 95/60 93 L 06/11/18 00:50 90 18 95/60 94 L 20/18 00:49 98.6 F 20/18 00:47 98.6 F 06/11/18 00:40 89 18 95/47 92 L 06/11/18 00:04 89 2 L 91/44 92 L 06/10/18 23:50 89 13 91/44 95 19/18 23:40 90 12 93/46 94 L 19/18 23:30 92 13 94/47 93 L 19/18 23:20 91 15 94/47 93 L 06/10/18 23:10 90 16 95/45 94 L 06/10/18 23:00 91 16 100/56 96 19/18 22:50 91 11 L 100/56 95 19/18 22:40 90 9 L 107/48 95 19/18 22:30 90 19 88/35 97 1219/18 22:20 89 10 L 108/38 98 19/18 22:01 87 6 L 86/40 96 19/18 21:50 89 19 86/43 96 1219/18 21:40 89 14 93/44 96 19/18 21:30 89 19 91/45 97 19/18 21:20 89 16 91/45 97 06/10/18 21:10 89 14 82/62 98 06/10/18 20:53 94 95/50 95 06/10/18 20:50 92 14 95/50 96 06/10/18 20:40 92 14 94/44 98 06/10/18 20:32 92 16 99/44 98 06/10/18 20:10 89 17 90/48 100 06/10/18 19:50 92 15 106/51 98 06/10/18 19:30 91 14 102/42 06/10/18 19:10 89 16 109/58 99 06/10/18 18:32 97.5 F L 98 20 80/41 92 L 06/10/18 18:21 94 L Intake and Output 06/11/18 06/11/18 06/11/18 06:59 14:59 22:59 Intake Total 322.471 3626.4 Output Total 350 475 Balance -45.284 925.4 Intake: IV 225 1350.4 0.9 225 75 Magnesium Sulfate-D5w Pmx 100 1 gm In Dextrose/Water 1 100ml.bag @ 100 mls/hr IVPB Q1H [facility] Rx#: [id number] Octreotide 200 mcg In 50.4 Sodium Chloride 0.9% 100 ml @ 25 MCG/HR 12.62 mls/ hr IV .Q8H1M [facility] Rx#: [id number] Sodium Chloride 0.9% 1, 775 000 ml @ 125 mls/hr IV . Q8H [facility] Rx#:[id number] cefTRIAXone 1,000 mg In 50 Sodium Chloride 0.9% 50 ml @ 100 mls/hr IVPB ONCE [facility] Rx#:[id number] Intake, IV Titration 79.716 Amount Octreotide 200 mcg In 79.716 Sodium Chloride 0.9% 100 ml @ 25 MCG/HR 12.62 mls/ hr IV .Q8H1M [facility] Rx#: [id number] Oral 0 50 Blood Product 0 Rc As-3 Unit 0 [id number] Output: Urine 350 475 Other: Voiding Method Urinal Urinal # Voids 0 350 Weight 131 kg Results CBC & Chem 7: 06/11/18 22:09 06/11/18 02:45 Labs: Abnormal Lab Results - Last 24 Hours (Table) 06/10/18 06/10/18 06/10/18 Range/Units 18:25 18:25 18:25 WBC 11.8 H (3.8-10.6) k/uL RBC 2.70 L (4.30-5.90) m/uL Hgb 8.5 L (13.0-17.5) gm/dL Hct 25.1 L (39.0-53.0) % RDW 15.7 H (11.5-15.5) % Neutrophils # 10.3 H (1.3-7.7) k/uL Neutrophils # (Manual) (1.3-7.7) k/uL Lymphocytes # 0.7 L (1.0-4.8) k/uL Lymphocytes # (Manual) (1.0-4.8) k/uL Myelocytes # (Manual) (0) k/uL PT (9.0-12.0) sec INR (<1.2) Sodium 135 L (137-145) mmol/L Potassium (3.5-5.1) mmol/L BUN 48 H (9-20) mg/dL Glucose 289 H (74-99) mg/dL POC Glucose (mg/dL) (75-99) mg/dL Phosphorus (2.5-4.5) mg/dL Total Creatine Kinase <20 L (55-170) U/L Total Protein 4.8 L (6.3-8.2) g/dL Albumin 2.5 L (3.5-5.0) g/dL Crossmatch 06/10/18 06/10/18 06/10/18 Range/Units 18:25 18:25 20:55 WBC 11.9 H (3.8-10.6) k/uL RBC 2.58 L (4.30-5.90) m/uL Hgb 8.2 L (13.0-17.5) gm/dL Hct 23.6 L (39.0-53.0) % RDW 15.8 H (11.5-15.5) % Neutrophils # 10.5 H (1.3-7.7) k/uL Neutrophils # (Manual) (1.3-7.7) k/uL Lymphocytes # 0.7 L (1.0-4.8) k/uL Lymphocytes # (Manual) (1.0-4.8) k/uL Myelocytes # (Manual) (0) k/uL PT 12.1 H (9.0-12.0) sec INR 1.2 H (<1.2) Sodium (137-145) mmol/L Potassium (3.5-5.1) mmol/L BUN (9-20) mg/dL Glucose (74-99) mg/dL POC Glucose (mg/dL) (75-99) mg/dL Phosphorus (2.5-4.5) mg/dL Total Creatine Kinase (55-170) U/L Total Protein (6.3-8.2) g/dL Albumin (3.5-5.0) g/dL Crossmatch See Detail 06/11/18 06/11/18 06/11/18 Range/Units 01:18 02:45 02:45 WBC (3.8-10.6) k/uL RBC 2.35 L (4.30-5.90) m/uL Hgb 7.4 L (13.0-17.5) gm/dL Hct 22.5 L (39.0-53.0) % RDW 16.3 H (11.5-15.5) % Neutrophils # (1.3-7.7) k/uL Neutrophils # (Manual) (1.3-7.7) k/uL Lymphocytes # 0.6 L (1.0-4.8) k/uL Lymphocytes # (Manual) (1.0-4.8) k/uL Myelocytes # (Manual) (0) k/uL PT (9.0-12.0) sec INR (<1.2) Sodium (137-145) mmol/L Potassium 5.5 H (3.5-5.1) mmol/L BUN 61 H (9-20) mg/dL Glucose 297 H (74-99) mg/dL POC Glucose (mg/dL) 344 H (75-99) mg/dL Phosphorus 4.7 H (2.5-4.5) mg/dL Total Creatine Kinase (55-170) U/L Total Protein (6.3-8.2) g/dL Albumin (3.5-5.0) g/dL Crossmatch 06/11/18 06/11/18 06/11/18 Range/Units 06:12 07:56 12:12 WBC (3.8-10.6) k/uL RBC 2.08 L (4.30-5.90) m/uL Hgb 6.6 L* (13.0-17.5) gm/dL Hct 19.6 L* (39.0-53.0) % RDW 16.8 H (11.5-15.5) % Neutrophils # (1.3-7.7) k/uL Neutrophils # (Manual) 7.80 H (1.3-7.7) k/uL Lymphocytes # (1.0-4.8) k/uL Lymphocytes # (Manual) 0.79 L (1.0-4.8) k/uL Myelocytes # (Manual) 0.09 H (0) k/uL PT (9.0-12.0) sec INR (<1.2) Sodium (137-145) mmol/L Potassium (3.5-5.1) mmol/L BUN (9-20) mg/dL Glucose (74-99) mg/dL POC Glucose (mg/dL) 364 H 347 H (75-99) mg/dL Phosphorus (2.5-4.5) mg/dL Total Creatine Kinase (55-170) U/L Total Protein (6.3-8.2) g/dL Albumin (3.5-5.0) g/dL Crossmatch Thrombosis Risk Factor Assmnt - Choose All That Apply Any of the Below Risk Factors Present?: Yes Each Factor Represents 1 point: Abnormal pulmonary function (COPD), Obesity ( BMI >25), Swollen legs (current), Varicose veins Each Risk Factor Represents 2 Points: Age 61-74 years Thrombosis Risk Factor Assessment Total Risk Factor Score: 6 Thrombosis Risk Factor Assessment Level: High Risk
[2018-06-12 00:09] LABS: Glucose,Whole Blood 315 mg/dL (75-99)
[2018-06-12] MEDS: INSULIN ASPART 100 UNIT/ML 1 ML 10 ML VIAL SQ SCH ×4 (00:26→17:20)
[2018-06-12 02:43] LABS: Glucose,Whole Blood 288 mg/dL (75-99)
[2018-06-12 05:12] LABS: Anion Gap 1 mmol/L; Blood Urea Nitrogen 49 mg/dL (9-20); Calcium 8.3 mg/dL (8.4-10.2); Carbon Dioxide 28 mmol/L (22-30); Chloride 109 mmol/L (98-107); Glucose 231 mg/dL (74-99); Magnesium 1.8 mg/dL (1.6-2.3); Phosphorus 3.1 mg/dL (2.5-4.5); Potassium 4.8 mmol/L (3.5-5.1); Sodium 138 mmol/L (137-145)
[2018-06-12 05:13] LABS: Anisocytosis Slight; HCT 20.3 % (39.0-53.0); MCH 32.1 pg (25.0-35.0); MCHC 34.4 g/dL (31.0-37.0); MCV 93.3 fL (80.0-100.0); Mean Platelet Volume 7.5; Platelet Count 160 k/uL (150-450); Poikilocytosis Slight; RBC 2.18 m/uL (4.30-5.90); RDW 17.7 % (11.5-15.5)
[2018-06-12] MEDS: MAGNESIUM SULFATE-D5W PMX 1 GM in DEXTROSE/WATER 1 100ML.BAG IVPB SCH ×2 (05:26→06:39)
[2018-06-12] MEDS: OCTREOTIDE 200 MCG in SODIUM CHLORIDE 0.9% 100 ML IV SCH ×4 (05:29→23:10)
[2018-06-12 05:34] LABS: Band Neutrophils % 1 %; Neutrophils % (M) 88 %; Nucleated Red Blood Cells 2 /100 WBC (0-0); Total Cells Counted 200
[2018-06-12 05:35] LABS: Lymphocytes # (M) 0.58 k/uL (1.0-4.8); Monocytes # (M) 0.58 k/uL (0-1.0); Polychromasia Present; WBC 9.6 k/uL (3.8-10.6)
[2018-06-12] MEDS: SODIUM CHLORIDE 0.9% 1,000 ML IV SCH ×2 (06:39→15:24)
[2018-06-12] MEDS: PANTOPRAZOLE 40 MG/10 ML VIAL IV SCH ×2 (08:28→22:57)
[2018-06-12 09:56] VITALS: BMI 39.1
--- NOTE | 2018-06-12 11:36 | P.PN ---
Subjective Progress Note Date: 06/12/18 Principal diagnosis: acute upper GI bleed s/p esophageal variceal banding yesterday. No bleeding post procedure. HGB 7. Tolerating clear liquids. Afebrile. Denies abdominal pain, N/V. Objective - Vital Signs Vital signs: Vital Signs Temp 97.6 F 06/12/18 04:00 Pulse 101 H 06/12/18 07:00 Resp 26 H 06/12/18 07:00 BP 105/51 06/12/18 07:00 Pulse Ox 96 06/12/18 07:00 Intake & Output 06/11/18 06/12/18 06/12/18 18:59 06:59 18:59 Intake Total 2498.6 2215.1 Output Total 1175 800 225 Balance 1323.6 1415.1 -225 Weight 134.4 kg 134.4 kg Intake: IV 1938.6 1863.1 0.9 75 Magnesium Sulfate-D5w Pmx 100 200 1 gm In Dextrose/Water 1 100ml.bag @ 100 mls/hr IVPB Q1H [facility] Rx#: [id number] Octreotide 200 mcg In 138.6 163.1 Sodium Chloride 0.9% 100 ml @ 25 MCG/HR 12.62 mls/ hr IV .Q8H1M [facility] Rx#: [id number] Sodium Chloride 0.9% 1, 1275 1500 000 ml @ 125 mls/hr IV . Q8H [facility] Rx#:[id number] cefTRIAXone 1,000 mg In 50 Sodium Chloride 0.9% 50 ml @ 100 mls/hr IVPB ONCE [facility] Rx#:[id number] Intake, IV Titration 202 Amount Octreotide 200 mcg In 202 Sodium Chloride 0.9% 100 ml @ 25 MCG/HR 12.62 mls/ hr IV .Q8H1M [facility] Rx#: [id number] Oral 250 150 Blood Product 310 Rc As-3 Unit 310 [id number] Output: Urine 1175 800 225 Other: Voiding Method Urinal Urinal # Voids 350 0 - Constitutional General appearance: Present: average body habitus, obese - EENT Eyes: Present: normal appearance ENT: Present: hard of hearing Ears: bilateral: normal - Neck Neck: Present: normal ROM - Respiratory Respiratory: bilateral: CTA - Cardiovascular Heart sounds: normal: S1, S2 - Gastrointestinal General gastrointestinal: Present: soft - Neurologic Neurologic: Present: CNII-XII intact - Psychiatric Psychiatric: Present: A&O x's 3 - Labs CBC & Chem 7: 06/12/18 04:26 06/12/18 04:26 Labs: Abnormal Lab Results - Last 24 Hours (Table) 06/10/18 06/11/18 06/11/18 Range/Units 18:25 07:56 12:12 WBC (3.8-10.6) k/uL RBC (4.30-5.90) m/uL Hgb (13.0-17.5) gm/dL Hct (39.0-53.0) % RDW (11.5-15.5) % Neutrophils # (Manual) (1.3-7.7) k/uL Lymphocytes # (Manual) (1.0-4.8) k/uL Nucleated RBCs (0-0) /100 WBC Chloride (98-107) mmol/L BUN (9-20) mg/dL Creatinine (0.66-1.25) mg/dL Glucose (74-99) mg/dL POC Glucose (mg/dL) 347 H (75-99) mg/dL Hemoglobin A1c 7.6 H (4.0-6.0) % Calcium (8.4-10.2) mg/dL Crossmatch See Detail 06/11/18 06/11/18 06/11/18 Range/Units 16:21 18:28 22:09 WBC 11.1 H 12.0 H (3.8-10.6) k/uL RBC 2.41 L 2.31 L (4.30-5.90) m/uL Hgb 7.6 L 7.1 L (13.0-17.5) gm/dL Hct 22.5 L 21.6 L (39.0-53.0) % RDW 16.2 H 17.9 H (11.5-15.5) % Neutrophils # (Manual) (1.3-7.7) k/uL Lymphocytes # (Manual) (1.0-4.8) k/uL Nucleated RBCs (0-0) /100 WBC Chloride (98-107) mmol/L BUN (9-20) mg/dL Creatinine (0.66-1.25) mg/dL Glucose (74-99) mg/dL POC Glucose (mg/dL) 324 H (75-99) mg/dL Hemoglobin A1c (4.0-6.0) % Calcium (8.4-10.2) mg/dL Crossmatch 06/12/18 06/12/18 06/12/18 Range/Units 00:07 02:42 04:26 WBC (3.8-10.6) k/uL RBC 2.18 L (4.30-5.90) m/uL Hgb 7.0 L (13.0-17.5) gm/dL Hct 20.3 L (39.0-53.0) % RDW 17.7 H (11.5-15.5) % Neutrophils # (Manual) 8.50 H (1.3-7.7) k/uL Lymphocytes # (Manual) 0.58 L (1.0-4.8) k/uL Nucleated RBCs 2 H (0-0) /100 WBC Chloride (98-107) mmol/L BUN (9-20) mg/dL Creatinine (0.66-1.25) mg/dL Glucose (74-99) mg/dL POC Glucose (mg/dL) 315 H 288 H (75-99) mg/dL Hemoglobin A1c (4.0-6.0) % Calcium (8.4-10.2) mg/dL Crossmatch 06/12/18 Range/Units 04:26 WBC (3.8-10.6) k/uL RBC (4.30-5.90) m/uL Hgb (13.0-17.5) gm/dL Hct (39.0-53.0) % RDW (11.5-15.5) % Neutrophils # (Manual) (1.3-7.7) k/uL Lymphocytes # (Manual) (1.0-4.8) k/uL Nucleated RBCs (0-0) /100 WBC Chloride 109 H (98-107) mmol/L BUN 49 H (9-20) mg/dL Creatinine 0.64 L (0.66-1.25) mg/dL Glucose 231 H (74-99) mg/dL POC Glucose (mg/dL) (75-99) mg/dL Hemoglobin A1c (4.0-6.0) % Calcium 8.3 L (8.4-10.2) mg/dL Crossmatch Assessment and Plan (1) Upper GI bleed Narrative/Plan: 73-year-old male with a history of remote alcohol liver cirrhosis portal hypertension and esophageal varices presents with 1 week history of intermittent melena and new onset of hematemesis status post EGD with findings of actively bleeding large esophageal varices status post banding 5. No evidence of peptic ulcer disease. Current Visit: Yes Status: Acute Code(s): K92.2 - GASTROINTESTINAL HEMORRHAGE, UNSPECIFIED SNOMED Code(s): 60699415 (2) Acute blood loss anemia Current Visit: Yes Status: Acute Code(s): D62 - ACUTE POSTHEMORRHAGIC ANEMIA SNOMED Code(s): 203004450 (3) Esophageal varices Current Visit: Yes Status: Acute Code(s): I85.00 - ESOPHAGEAL VARICES WITHOUT BLEEDING SNOMED Code(s): 64377490 (4) Portal hypertension Current Visit: Yes Status: Acute Code(s): K76.6 - PORTAL HYPERTENSION SNOMED Code(s): 97139746 (5) Liver disease, chronic, with cirrhosis Current Visit: Yes Status: Acute Code(s): K74.60 - UNSPECIFIED CIRRHOSIS OF LIVER; K76.9 - LIVER DISEASE, UNSPECIFIED SNOMED Code(s): 543280934 Plan: 1. Continue Protonix 40 mg IV twice daily. Continue with IV Sandostatin x 48 hours DC 0530 in am. Continue Rocephin/abx x 7 days. Clear liquids. CBC monitoring daily. Assessment and plan of care discussed with Dr. Hurley
[2018-06-12 11:50] LABS: Glucose,Whole Blood 285 mg/dL (75-99)
--- NOTE | 2018-06-12 12:49 | PN ---
PROGRESS NOTE DATE OF SERVICE: 06/12/2018 This is a very pleasant 73-year-old male who I saw in consultation yesterday. He has a history of previous heavy alcohol use, diabetes, GERD, hypertension, hyperlipidemia, esophageal varices and asthma. The patient was brought in because of black tarry stools and also vomiting up blood. The patient went for an EGD yesterday. He had a banding of esophageal varices x5. Today's hemoglobin is 7. The patient remains on saline at 125 mL an hour and Sandostatin which is octreotide 25 mcg/minute. The patient is doing reasonably well. Has not had any additional bleeding up to this point. The patient is on nasal O2 at 3 L. The patient is feeling reasonably well. I explained to him what happened yesterday. He understands. He is not ready to leave the unit. He is still at risk for bleeding. He is also still on the octreotide infusion. Again, that is running at 25 mcg/minute. Because of his age and because of his alcoholic liver disease, esophageal varices and previous history of GI bleed, he is at high risk for rebleeding. Current vital signs are reviewed. Temperature 97.6, heart rate 101, respiratory rate 22, blood pressure 105/51, mean 69 and 3 L saturations 96% to 97%. He appears in no acute distress. HEENT examination is grossly unremarkable. Mucous membranes are moist. No oral lesions. NECK: Supple. Full range of motion. No adenopathy or thyromegaly. Neck veins are flat. Cardiovascular examination reveals regular rhythm and rate. Heart rate right around 100 beats per minute. S1, S2 normal. No murmur. Lungs reveal clear breath sounds. No wheezes, rhonchi, or crackles. Breath sounds are equal bilaterally. Abdomen is soft. Bowel sounds are heard. No tenderness on palpation. Extremities are intact. No cyanosis, clubbing, or edema. Skin without rash. Neurologic examination is brief but nonfocal. Labs are reviewed. White count 9.6, hemoglobin 7, hematocrit 20.3, platelet count is 168,000. Sodium and potassium normal. Chloride 109, CO2 of 28. BUN and creatinine were 49 and 0.64. No chest x-ray to report. Microbiologic studies are negative or pending. Medications are reviewed. He is on the ceftriaxone, insulin, magnesium, Narcan, octreotide, Protonix, and his IV. ASSESSMENT: 1. Upper gastrointestinal bleed secondary to esophageal varices, status post EGD with banding of esophageal varices x5 on June 11, 2018. 2. Previous history of heavy alcohol abuse and presumed alcoholic liver disease with portal hypertension. 3. Diabetes mellitus. 4. Gastroesophageal reflux disease. 5. Hypertension. 6. Hyperlipidemia. 7. History of asthma. 8. Anemia secondary to acute gastrointestinal bleeding. PLAN: The patient will remain in the ICU. He is still critically ill. The patient remains on Sandostatin. Because of his age and multiple medical problems as listed above, he is a high risk for rebleed. His hemoglobin is borderline. We will continue to watch that carefully. His respiratory status and hemodynamic status at this time is relatively stable. No additional recommendations are made. Prognosis is guarded. CRITICAL CARE TIME: 32 minutes. KADI / ARTEMIO: [id number] /
[2018-06-12 13:04] LABS: Anisocytosis Slight; HCT 20.6 % (39.0-53.0); MCH 31.9 pg (25.0-35.0); MCHC 33.2 g/dL (31.0-37.0); MCV 96.1 fL (80.0-100.0); Macrocytosis Slight; Mean Platelet Volume 7.9; Platelet Count 148 k/uL (150-450); Poikilocytosis Slight; RBC 2.15 m/uL (4.30-5.90); RDW 18.4 % (11.5-15.5); WBC 9.4 k/uL (3.8-10.6)
[2018-06-12 13:16] LABS: HGB 6.8 gm/dL (13.0-17.5)
[2018-06-12 17:15] LABS: Glucose,Whole Blood 327 mg/dL (75-99)
[2018-06-12 17:22] LABS: Anisocytosis Slight; HCT 21.3 % (39.0-53.0); HGB 7.2 gm/dL (13.0-17.5); MCH 32.4 pg (25.0-35.0); MCHC 33.8 g/dL (31.0-37.0); MCV 95.9 fL (80.0-100.0); Macrocytosis Slight; Mean Platelet Volume 8.1; Platelet Count 137 k/uL (150-450); Poikilocytosis Slight; RBC 2.22 m/uL (4.30-5.90); RDW 17.7 % (11.5-15.5); WBC 9.1 k/uL (3.8-10.6)
[2018-06-12] MEDS ORDERED: INSULIN DETEMIR 100 UNIT/ML 10 ML VIAL SQ SCH (21:00)
[2018-06-12 22:12] LABS: Anisocytosis Slight; MCH 31.6 pg (25.0-35.0); MCHC 33.7 g/dL (31.0-37.0); MCV 93.8 fL (80.0-100.0); Macrocytosis Slight; Mean Platelet Volume 7.6; Platelet Count 140 k/uL (150-450); Poikilocytosis Slight; RBC 2.08 m/uL (4.30-5.90); WBC 8.3 k/uL (3.8-10.6)
[2018-06-12 22:13] LABS: HCT 19.5 % (39.0-53.0); HGB 6.6 gm/dL (13.0-17.5)
[2018-06-12 23:48] LABS: Glucose,Whole Blood 286 mg/dL (75-99)
[2018-06-13] MEDS: INSULIN ASPART 100 UNIT/ML 1 ML 10 ML VIAL SQ SCH ×5 (00:41→20:50)
[2018-06-13 05:29] LABS: Anion Gap 2 mmol/L; Blood Urea Nitrogen 23 mg/dL (9-20); Calcium 7.9 mg/dL (8.4-10.2); Carbon Dioxide 29 mmol/L (22-30); Chloride 106 mmol/L (98-107); Glucose 181 mg/dL (74-99); Magnesium 1.9 mg/dL (1.6-2.3); Phosphorus 2.5 mg/dL (2.5-4.5); Potassium 3.8 mmol/L (3.5-5.1); Sodium 137 mmol/L (137-145)
[2018-06-13 05:47] LABS: Anisocytosis Slight; Basophils % (A) 0 %; Eosinophils % (A) 0 %; HCT 20.3 % (39.0-53.0); Lymphocytes # (A) 0.6 k/uL (1.0-4.8); Lymphocytes % (A) 10 %; MCH 31.6 pg (25.0-35.0); MCHC 33.7 g/dL (31.0-37.0); MCV 93.9 fL (80.0-100.0); Macrocytosis Slight; Mean Platelet Volume 8.3; Monocytes # (A) 0.4 k/uL (0-1.0); Monocytes % (A) 7 %; Neutrophils # (A) 4.8 k/uL (1.3-7.7); Neutrophils % (A) 80 %; Platelet Count 127 k/uL (150-450); Poikilocytosis Slight; RBC 2.16 m/uL (4.30-5.90); WBC 6.1 k/uL (3.8-10.6)
[2018-06-13] MEDS ORDERED: POTASSIUM CHLORIDE ER 20 MEQ TAB.ER PO SCH (06:00)
[2018-06-13 06:03] LABS: HGB 6.8 gm/dL (13.0-17.5)
[2018-06-13] MEDS: SODIUM CHLORIDE 0.9% 1,000 ML IV SCH ×3 (06:48→14:50)
[2018-06-13 06:49] LABS: Glucose,Whole Blood 244 mg/dL (75-99)
[2018-06-13] MEDS: MAGNESIUM SULFATE-D5W PMX 1 GM in DEXTROSE/WATER 1 100ML.BAG IVPB SCH ×2 (06:49→09:25)
[2018-06-13 06:54] LABS: Anisocytosis Slight; Basophils % (A) 0 %; Eosinophils % (A) 1 %; HCT 20.4 % (39.0-53.0); Lymphocytes # (A) 0.6 k/uL (1.0-4.8); Lymphocytes % (A) 11 %; MCH 31.7 pg (25.0-35.0); MCHC 33.5 g/dL (31.0-37.0); MCV 94.6 fL (80.0-100.0); Macrocytosis Slight; Mean Platelet Volume 7.7; Monocytes # (A) 0.4 k/uL (0-1.0); Monocytes % (A) 7 %; Neutrophils % (A) 77 %; Platelet Count 121 k/uL (150-450); Poikilocytosis Slight; RBC 2.15 m/uL (4.30-5.90); RDW 18.3 % (11.5-15.5); WBC 5.2 k/uL (3.8-10.6)
[2018-06-13 06:59] LABS: HGB 6.8 gm/dL (13.0-17.5)
--- NOTE | 2018-06-13 08:44 | PN ---
PROGRESS NOTE DATE OF SERVICE: June 12, 2018. PRESENTING COMPLAINT: Hematemesis. INTERVAL HISTORY: This patient presented with a variceal bleed status post banding, remains in the ICU. Remains on octreotide drip. Is on clear liquids. Sitting up in a chair, more awake. is present. Patient did have a dark stool today. REVIEW OF SYSTEMS: Done for constitutional, cardiovascular, GI, pulmonary; relevant findings as above. MEDICATIONS: Current medications reviewed that include IV ceftriaxone and IV octreotide, IV Protonix and IV fluids. PHYSICAL EXAMINATION: VITAL SIGNS: Temperature 98.6. Pulse 101, respirations 17, blood pressure 106/49, pulse ox 94 percent on 3 L. GENERAL APPEARANCE: Sitting up in a chair, awake. More awake. EYES: Pupils equal. Conjunctivae pale. NECK: JVD unable to assess. Mass not palpable. RESPIRATORY: Effort normal. LUNGS: Clear. CARDIOVASCULAR: 1st and 2nd sounds normal. No edema. ABDOMEN: Soft, nontender. Liver and spleen not palpable. PSYCHIATRY: Awake, answering questions appropriately. INVESTIGATIONS: White count 9.1, hemoglobin 7.2. Accu-Cheks noted. ASSESSMENT: 1. Acute severe upper gastrointestinal bleed from esophageal varices secondary to cirrhosis, probably alcohol-related followed by esophageal banding x5. 2. The patient remains on IV octreotide drip. 3. Acute severe blood loss anemia from esophageal bleeding, requiring blood transfusion. 4. Acute hypotensive shock requiring blood transfusion. 5. 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 6. Chronic hypoxic respiratory failure on 3 L oxygen at home. 7. Primary osteoarthritis. 8. Diabetes mellitus type 2, chronically on insulin uncontrolled with hyperglycemia. 9. History of essential hypertension. PLAN: The patient remains in the ICU. Keep a close eye on H and H. Remains on octreotide drip, IV Protonix, IV fluids. Care was discussed with the patient and at the bedside. Follow. MMODL / IJN: [id number] /
[2018-06-13] MEDS: PANTOPRAZOLE 40 MG/10 ML VIAL IV SCH ×2 (09:25→20:52)
[2018-06-13] MEDS: OCTREOTIDE 200 MCG in SODIUM CHLORIDE 0.9% 100 ML IV SCH (09:26)
--- NOTE | 2018-06-13 10:45 | PN ---
PROGRESS NOTE DATE OF SERVICE: June 13, 2018 Patient is a 73-year-old pleasant white male admitted to hospital with acute esophageal variceal bleeding. He underwent an upper endoscopy by Dr. Hurley 2 days ago with variceal ligation. The patient is doing well. He denies any symptoms. Up in the chair. He did have one black tarry stools yesterday. He dropped his hemoglobin to 6.8 g/dL this morning, and received 1 unit of blood transfusion. So far he received total of 2 units since admission to the hospital. Last hemoglobin was 6.8, and he is scheduled to receive a third unit this morning. He denies any symptoms. PHYSICAL EXAMINATION: He appears comfortable. No apparent distress. VITAL SIGNS: Stable. Blood pressure is 110/55, pulse rate 92, temperature 98.8. HEENT examination unremarkable. Conjunctivae pink. Sclerae anicteric. Oral cavity no lesions. Neck: No jugular venous distention or lymph node enlargement. The chest was clear to auscultation. HEART: Regular rate and rhythm. ABDOMEN: Soft. Bowel sounds are positive. It was slightly distended. Extremities: Trace pedal edema. Skin no rashes. NEUROLOGIC: Alert and oriented x3. No focal deficits. LABS: From today WBC 5.2, hemoglobin 6.8, platelets 121, BUN 23, creatinine 0.6. IMPRESSION: 1. Acute esophageal variceal bleed, status post EGD with variceal ligation 2 days ago with no recurrent bleeding. Hemoglobin has gradually decreased. Today hemoglobin was 6.8, status post 2 units of blood transfusion and receiving a third unit this morning, clinically no further evidence of bleeding. He was on IV Sandostatin for 2 days, which has been stopped this morning. 2. Nonalcoholic fatty liver disease with cirrhosis/portal hypertension. 3. Mild pancytopenia. RECOMMENDATIONS: 1. Advance diet to full liquids. 2. Agree with one more unit of blood transfusion. 3. Serial CBCs every 12 hours. 4. If remains stable, he can be discharged to the floor, transferred to the floor tomorrow. Thank you for this consultation. MMPAULETTEL / ARTEMIO: [id number] /
[2018-06-13 11:58] LABS: Glucose,Whole Blood 287 mg/dL (75-99)
--- NOTE | 2018-06-13 12:14 | PN ---
PROGRESS NOTE DATE OF SERVICE: 06/13/2018. This is a 73-year-old male with a history of a previous heavy alcohol use and alcoholic liver disease, portal hypertension, esophageal varices, diabetes, GERD, hypertension, hyperlipidemia, and chronic bronchial asthma. He was brought into the ICU because of black tarry stools and also vomiting up blood. The patient went for an EGD. He was found to have esophageal varices and he was banded x5. The patient is currently doing reasonably well. He is on O2 at 2 L by nasal cannula. He has an IV 0.9 at 125 mL an hour to be dropped down to 75 mL an hour. He was on octreotide 25 mcg/minute, but it was discontinued at 5:30 am. The patient has received 1 unit of PRBCs. Hemoglobin is 6.8. He received 3 units of PRBCs since he has been here. The patient seems to be doing relatively well. He is pale. He is still at risk for additional bleeding. He will stay in the ICU at least another 24 hours. He is at high risk given a number of different factors as mentioned above, including his age. Current vital signs include a temperature which is 97.6, heart rate which is 91, respiratory rate 18, blood pressure 112/56, mean 74 and a 2 L saturation 94%. Appears in no acute distress. HEENT examination is grossly unremarkable. Mucous membranes are moist. No oral lesions. Nasal O2 in place. Neck is supple. Cardiovascular examination reveals a regular rhythm and rate. Heart rate 90. It is regular. A soft systolic murmur is heard. S1, S2 normal. Lungs reveal mostly clear breath sounds. A few scattered mild rhonchi. No wheezes or crackles. Abdomen is soft bowel sounds are heard. There is no tenderness on palpation. No masses. Extremities are intact. No cyanosis, clubbing, or edema. Skin without rash. Neurologic examination is brief but nonfocal. LABS: Reviewed. White count 5.2, hemoglobin 6.8, hematocrit 20.4, platelet count 121,000. Sodium, potassium, chloride, CO2 normal. BUN and creatinine were 23 and 0.69. Anion gap is normal. No chest x-rays reviewed. Microbiologic studies are negative. Medications are reviewed. ASSESSMENT: 1. Upper gastrointestinal bleed secondary to esophageal varices, status post EGD with banding of esophageal varices x5 on June 11, 2018. 2. Previous history of heavy alcohol abuse and presumed alcoholic liver disease with portal hypertension. 3. Diabetes mellitus. 4. Gastroesophageal reflux disease. 5. Hypertension. 6. Hyperlipidemia. 7. History of asthma. 8. History of anemia secondary to gastrointestinal bleed, requiring a total of 3 units of PRBCs thus far. PLAN: The patient will stay in the ICU. The patient's octreotide was discontinued at 5:30 am. We will continue to follow closely. His hemoglobin will be followed closely. He has received a total of 3 units of PRBCs. His respiratory status is stable. Hemodynamics are stable. He is not having any flank pain. No additional bleeding thus far. We will continue to watch closely. Critical care time is 33 minutes. KADI / EMETERION: [id number] /
[2018-06-13 13:12] LABS: Anisocytosis Slight; HCT 24.7 % (39.0-53.0); HGB 8.1 gm/dL (13.0-17.5); MCH 31.5 pg (25.0-35.0); MCV 95.7 fL (80.0-100.0); Macrocytosis Slight; Mean Platelet Volume 7.8; Platelet Count 119 k/uL (150-450); Poikilocytosis Slight; RBC 2.58 m/uL (4.30-5.90); RDW 19.1 % (11.5-15.5); WBC 6.6 k/uL (3.8-10.6)
[2018-06-13 17:09] LABS: Glucose,Whole Blood 286 mg/dL (75-99)
[2018-06-13 18:25] LABS: Anisocytosis Slight; HCT 24.5 % (39.0-53.0); HGB 8.3 gm/dL (13.0-17.5); MCH 31.7 pg (25.0-35.0); MCHC 33.9 g/dL (31.0-37.0); MCV 93.5 fL (80.0-100.0); Macrocytosis Slight; Mean Platelet Volume 8.1; Platelet Count 115 k/uL (150-450); Poikilocytosis Slight; RBC 2.62 m/uL (4.30-5.90); RDW 18.1 % (11.5-15.5); WBC 6.4 k/uL (3.8-10.6)
[2018-06-13 20:29] LABS: Glucose,Whole Blood 268 mg/dL (75-99)
[2018-06-13] MEDS ORDERED: INSULIN DETEMIR 100 UNIT/ML 10 ML VIAL SQ SCH (21:00)
--- NOTE | 2018-06-13 23:54 | PN ---
PROGRESS NOTE DATE OF SERVICE: 06/13/2018. PRESENTING COMPLAINT: Hematemesis. INTERVAL HISTORY: This patient presented with bleeding status post esophageal banding. Remains in the ICU. Octreotide drip was discontinued this morning. Hemoglobin dropped again and patient was given a unit of blood today. Overall feels better. The patient on a clear liquid diet, advanced to full liquid this afternoon. The patient had another dark stool today. No abdominal pain. Patient did sit up on a chair also. is at the bedside next. REVIEW OF SYSTEMS: Done for constitutional, cardiovascular, GI, pulmonary; relevant findings as above. CURRENT MEDICATIONS: Reviewed, include IV ceftriaxone, normal saline. EXAMINATION: VITAL SIGNS: Temp 97.9, pulse 96, respirations 22, blood pressure 105/60, pulse ox 94 percent on 2 L. GENERAL APPEARANCE: Sitting up, awake. EYES: Pupils equal. Conjunctivae pale. NECK: JVD unable to assess. Mass not palpable. Respiratory effort normal. LUNGS: Clear. CARDIOVASCULAR: 1st and 2nd sounds normal. No edema. ABDOMEN: Distended, soft. Liver and spleen not palpable. PSYCHIATRY: Alert and oriented x3. Mood and affect normal. INVESTIGATIONS: White count 6.4, hemoglobin this morning was 6.8, after transfusion went up to 8.1, platelets 119,000. Accu-Cheks noted 287, 286. ASSESSMENT: 1. Acute severe upper gastrointestinal bleed from esophageal varices secondary to cirrhosis, probably alcohol, status post esophageal banding. 2. The patient's IV octreotide drip has now been discontinued. 3. Acute severe blood loss anemia from esophageal bleeding requiring 3 units of blood. 4. Acute hypertensive shock requiring blood transfusion initially. 5. 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 6. Chronic hypoxic respiratory failure on 3 L oxygen at home. 7. Primary osteoarthritis. 8. Diabetes mellitus type 2, chronically on insulin, uncontrolled with hypoglycemia. 9. History of essential hypertension. PLAN: The patient's dose of Lantus will be increased tonight. The patient has been advanced to full liquids. Octreotide was discontinued. If hemoglobin remains stable, patient can be moved out of the ICU. MMODL / IJN: [id number] /
[2018-06-14 05:00] LABS: Anisocytosis Slight; HCT 22.6 % (39.0-53.0); HGB 7.8 gm/dL (13.0-17.5); MCH 31.8 pg (25.0-35.0); MCHC 34.5 g/dL (31.0-37.0); MCV 92.1 fL (80.0-100.0); Macrocytosis Slight; Mean Platelet Volume 7.3; Platelet Count 119 k/uL (150-450); Poikilocytosis Slight; RBC 2.45 m/uL (4.30-5.90)
[2018-06-14 05:01] LABS: Anion Gap 3 mmol/L; Blood Urea Nitrogen 14 mg/dL (9-20); Carbon Dioxide 29 mmol/L (22-30); Chloride 105 mmol/L (98-107); Glucose 142 mg/dL (74-99); Phosphorus 2.9 mg/dL (2.5-4.5); Potassium 3.5 mmol/L (3.5-5.1); Sodium 137 mmol/L (137-145)
[2018-06-14 05:02] LABS: Calcium 7.9 mg/dL (8.4-10.2)
[2018-06-14 05:32] LABS: Band Neutrophils % 1 %; Lymphocytes # (M) 0.38 k/uL (1.0-4.8); Monocytes # (M) 0.33 k/uL (0-1.0); Myelocytes # (M) 0.33 k/uL (0); Myelocytes % 7 %; Neutrophils % (M) 78 %; Nucleated Red Blood Cells 6 /100 WBC (0-0); Total Cells Counted 200; WBC 4.7 k/uL (3.8-10.6)
[2018-06-14 05:33] LABS: Basophilic Stippling Present; Polychromasia Present
[2018-06-14 06:32] LABS: Glucose,Whole Blood 168 mg/dL (75-99)
[2018-06-14] MEDS: POTASSIUM CHLORIDE ER 20 MEQ TAB.ER PO SCH ×2 (06:38→07:45)
[2018-06-14] MEDS: INSULIN ASPART 100 UNIT/ML 1 ML 10 ML VIAL SQ SCH ×5 (06:40→21:41)
[2018-06-14] MEDS: PANTOPRAZOLE 40 MG/10 ML VIAL IV SCH (08:20)
--- NOTE | 2018-06-14 09:07 | PN ---
PROGRESS NOTE DATE OF SERVICE: 06/14/2018. HISTORY: This is a very pleasant 73-year-old gentleman with a history of upper gastrointestinal bleed secondary to esophageal varices. He went to the endoscopy suite on June 11 and had EGD with banding of esophageal varices x5. The patient has a previous history of heavy alcohol abuse and presumed alcoholic liver disease and portal hypertension. He also has history of diabetes, gastroesophageal reflux disease, hypertension, hyperlipidemia, asthma, and anemia. The patient is currently on 2 L nasal cannula. He is getting an IV 0.9 at 25 mL an hour. His hemoglobin this morning is 7.8. Throughout this hospitalization he has received a total of 3 units of PRBCs. From my perspective, the patient will be transferred out of the ICU. He is stable. He is doing well. He has no major complaints. No pain. No additional bleeding. PHYSICAL EXAMINATION: Current vital signs include temperature 97.8, heart rate 92, respiratory rate 17, blood pressure 105/52, mean 69, and a 2 L saturation of 97%. Appears no acute distress. HEENT examination is grossly unremarkable. Mucous membranes are moist. No oral lesions. Neck is supple. Full range of motion. No adenopathy or thyromegaly. Cardiovascular examination reveals regular rhythm and rate. S1, S2 normal. No S3, S4, or murmur. Lungs reveal clear breath sounds. No wheezes, rhonchi, or crackles. Abdomen is mildly distended. No tenderness. Bowel sounds are noted. Abdomen is otherwise negative. Extremities are intact. No cyanosis, clubbing, or edema. Skin without rash. Neurologic examination is brief but nonfocal. LABORATORY DATA: Reviewed. White count 4.7, hemoglobin 7.8, hematocrit 22.6, platelet count 119,000. Sodium, potassium, chloride, CO2 normal. Anion gap 3. BUN and creatinine were 14, 0.63. Microbiologic studies are negative. No new chest x-ray to report. MEDICATIONS: Reviewed. ASSESSMENT: 1. Upper gastrointestinal bleed secondary to esophageal varices, status post esophagogastroduodenoscopy on June 11, with banding of esophageal varices x5. 2. History of heavy alcohol abuse with alcoholic liver disease and portal hypertension. 3. Diabetes mellitus. 4. Gastroesophageal reflux disease. 5. Hypertension. 6. Hyperlipidemia. 7. History of asthma. 8. Anemia, secondary to GI bleed, status post 3 units of PRBCs. PLAN: The patient seems to be doing relatively well. He could be transferred out of the ICU. He is on IV of 0.9 at 25 mL an hour. He is getting 2 L nasal cannula. He has received a total of 3 units of PRBCs. His morning hemoglobin was 7.8. No additional bleeding. He is from the hemodynamic and respiratory standpoint. We will continue to follow. No additional recommendations are made. Prognosis is guarded. MMODL / IJN: [id number] /
[2018-06-14 11:49] LABS: Glucose,Whole Blood 243 mg/dL (75-99)
--- NOTE | 2018-06-14 14:03 | PN ---
PROGRESS NOTE DATE OF SERVICE: June 14, 2018 Patient is a 73-year-old pleasant white female with history of fatty liver disease/cirrhosis of the liver, admitted to hospital with acute esophageal variceal bleeding. He is status post EGD with variceal ligation 3 years ago. He is doing well. He had 2 black tarry stools last night. He denies any abdominal pain. Overall, he is feeling better. He received total of 3 units of blood transfusion and last hemoglobin was 7.8 g/dL. PHYSICAL EXAMINATION: He appears comfortable. No apparent distress. VITAL SIGNS: Stable. Blood pressure is 105/56, pulse rate 103, and afebrile. HEENT examination unremarkable. Conjunctivae pink. Sclerae anicteric. Oral cavity no lesions. Neck: No JVD or lymph node enlargement. Chest was clear to auscultation. HEART: Regular rate and rhythm. Abdomen is slightly distended. Small amount of free fluid noted in the abdomen. Extremities 1+ pedal edema. Skin no rashes. NEUROLOGIC: Alert and oriented x3. No focal deficits. LABS: From today WBC 4.7, hemoglobin 7.8, platelets 119, BUN 14, creatinine 0.63. IMPRESSION: 1. Acute esophageal variceal bleeding status post recent ligation 3 days ago, was on IV Sandostatin for 2 days, discontinued yesterday. Presently on IV Protonix. No further bleeding. Hemoglobin stable at 7.8, status post total of 3 units of blood transfusion during this hospitalization. 2. Nonalcoholic fatty liver disease/cirrhosis of the liver with portal hypertension. 3. Mild ascites. RECOMMENDATIONS: 1. Advance diet as tolerated. 2. He can be transferred to [facility]. 3. Continue Protonix 40 mg b.i.d. 4. He can be discharged home tomorrow with an outpatient follow up in 2-3 weeks at which time we will plan on a repeat upper endoscopy with variceal ligation on an outpatient basis. Thank you for this consultation. MMODL / IJN: [id number] /
[2018-06-14] MEDS ORDERED: Potassium Replacement Protocol 1 EACH MISC MISCELLANE PRN (15:58)
--- NOTE | 2018-06-14 15:59 | US ---
EXAMINATION TYPE: US abdomen limited DATE OF EXAM: 06/14/2018 COMPARISON: NONE CLINICAL HISTORY: liver cirrhosis, abd distension r/o ascites. Mild amount of ascites visualized in the RUQ and RLQ IMPRESSION: This limited exam demonstrates moderate ascites fluid in the right upper quadrant and ri ght lower quadrant.
[2018-06-14] MEDS ORDERED: POTASSIUM CHLORIDE ER 20 MEQ TAB.ER PO SCH (16:00)
[2018-06-14 16:57] LABS: Glucose,Whole Blood 268 mg/dL (75-99)
[2018-06-14] MEDS: PANTOPRAZOLE 40 MG TABLET PO SCH (17:08)
[2018-06-14 20:10] LABS: Anisocytosis Slight; HCT 24.7 % (39.0-53.0); HGB 8.8 gm/dL (13.0-17.5); MCH 32.5 pg (25.0-35.0); MCHC 35.5 g/dL (31.0-37.0); MCV 91.5 fL (80.0-100.0); Mean Platelet Volume 8.4; Platelet Count 134 k/uL (150-450); Poikilocytosis Slight; RDW 18.1 % (11.5-15.5); WBC 7.2 k/uL (3.8-10.6)
[2018-06-14] MEDS ORDERED: INSULIN DETEMIR 100 UNIT/ML 10 ML VIAL SQ SCH (21:00)
[2018-06-14 21:19] LABS: Glucose,Whole Blood 249 mg/dL (75-99)
--- NOTE | 2018-06-14 23:43 | PN ---
PROGRESS NOTE DATE OF SERVICE: 06/14/2018. PRESENTING COMPLAINT: Hematemesis. INTERVAL HISTORY: This patient presented with esophageal bleeding followed by banding. The patient has underlying cirrhosis status post octreotide drip status post blood transfusion. The patient is advanced to a regular diet. Sugars were running high, hence insulin was further adjusted. The patient has been up to the bathroom. Some abdominal distention. REVIEW OF SYSTEMS: Done for constitutional, cardiovascular, GI, pulmonary; relevant findings as above. CURRENT MEDICATIONS: Reviewed, that include IV ceftriaxone, insulin. PHYSICAL EXAMINATION: Temperature 97.9, pulse 105, respirations 19, blood pressure 107/54, pulse ox 96% on room air. GENERAL APPEARANCE: Sitting in a chair, awake, comfortable eyes. HEENT: Conjunctivae pale. NECK: JVD unable to assess. Mass not palpable. Respiratory effort normal. LUNGS: Slightly decreased breath sounds. CARDIOVASCULAR: 1st and 2nd heart sounds, no edema. ABDOMEN: Distended, soft. Liver and spleen not palpable. PSYCHIATRY: Alert and oriented x3. Mood and affect normal. DIAGNOSTIC STUDIES: Ultrasound showing ascites. Hemoglobin is 8.8, platelets 134,000. ASSESSMENT: 1. Acute severe upper gastrointestinal bleeding from esophageal varices secondary to cirrhosis, probably alcohol use, status post esophageal banding. 2. IV Octreotide drip discontinued. 3. Acute severe blood loss anemia from above, requiring 3 units of blood. 4. Acute hypotensive shock requiring blood transfusion. 5. Alcoholic cirrhosis leading to portal hypertension. 6. Esophageal varices. 7. Chronic hypoxic respiratory failure, on 3 L oxygen at home. 8. Primary osteoarthritis. 9. Diabetes mellitus type 2, chronically on insulin, uncontrolled with hyper- and hypoglycemia. 10.History of essential hypertension. PLAN: The patient's dose of Lantus is further increased. The scheduled NovoLog is added as patient is getting better. The patient was found to have ascites on the ultrasound. We will resume patient's metformin, Aldactone, Inderal. Care was discussed with the patient. MMODL / IJN: [id number] /
[2018-06-15 05:49] LABS: Anion Gap 2 mmol/L; Blood Urea Nitrogen 11 mg/dL (9-20); Calcium 7.7 mg/dL (8.4-10.2); Carbon Dioxide 28 mmol/L (22-30); Chloride 105 mmol/L (98-107); Glucose 161 mg/dL (74-99); Magnesium 1.9 mg/dL (1.6-2.3); Potassium 3.6 mmol/L (3.5-5.1); Sodium 135 mmol/L (137-145)
[2018-06-15 05:51] LABS: Anisocytosis Slight; HCT 23.2 % (39.0-53.0); HGB 7.7 gm/dL (13.0-17.5); MCHC 33.2 g/dL (31.0-37.0); MCV 93.6 fL (80.0-100.0); Macrocytosis Slight; Mean Platelet Volume 8.4; Platelet Count 118 k/uL (150-450); Poikilocytosis Slight; RBC 2.48 m/uL (4.30-5.90); RDW 18.3 % (11.5-15.5)
[2018-06-15 06:06] LABS: Glucose,Whole Blood 200 mg/dL (75-99)
[2018-06-15 06:29] LABS: Band Neutrophils % 3 %; Lymphocytes # (M) 0.54 k/uL (1.0-4.8); Metamyelocytes # (M) 0.14 k/uL (0); Metamyelocytes % 3 %; Monocytes # (M) 0.32 k/uL (0-1.0); Myelocytes # (M) 0.05 k/uL (0); Myelocytes % 1 %; Neutrophils % (M) 76 %; Nucleated Red Blood Cells 4 /100 WBC (0-0); Polychromasia Present; Total Cells Counted 200; WBC 4.5 k/uL (3.8-10.6)
[2018-06-15] MEDS: PANTOPRAZOLE 40 MG TABLET PO SCH ×2 (07:05→15:17)
[2018-06-15] MEDS: INSULIN ASPART 100 UNIT/ML 1 ML 10 ML VIAL SQ SCH ×6 (07:06→15:16)
[2018-06-15] MEDS ORDERED: FUROSEMIDE 20 MG TAB PO PRN (07:49)
[2018-06-15 08:38] VITALS: PULSE 110
[2018-06-15] MEDS: PROPRANOLOL 10 MG TAB PO SCH ×2 (08:43→15:20)
[2018-06-15] MEDS ORDERED: CYANOCOBALAMIN 500 MCG TAB PO SCH (09:00)
[2018-06-15] MEDS ORDERED: metFORMIN 500 MG TAB PO SCH (09:00)
[2018-06-15] MEDS ORDERED: SPIRONOLACTONE 25 MG TAB PO SCH (09:00)
[2018-06-15] MEDS ORDERED: EZETIMIBE 10 MG TAB PO SCH (09:00)
[2018-06-15 11:13] LABS: Glucose,Whole Blood 225 mg/dL (75-99)
--- NOTE | 2018-06-15 11:31 | PN ---
PROGRESS NOTE DATE OF DICTATION: June 15, 2018 The patient is a 73 -year-old white male admitted to the hospital with acute variceal bleeding status post EGD with variceal ligation 4 days ago, doing well, transferred from the ICU yesterday. He had 1 small black tarry stools yesterday. Hemoglobin stable at 7.7 g/dL. He received total of 3 units of blood transfusion during this hospitalization. He is feeling good. No new symptoms. PHYSICAL EXAMINATION: Appears comfortable. No apparent distress. VITAL SIGNS: Stable. Blood pressure 103/76, pulse 97, temperature 97.7. HEENT examination unremarkable. Conjunctivae pale. Sclerae anicteric. Oral cavity no lesions. NECK: No jugular venous distention or lymph node enlargement. Chest was clear to auscultation. HEART: Regular rate and rhythm. Abdomen is slightly distended. EXTREMITIES: 2+ pedal edema. LABS: Today WBC 4.5, hemoglobin 7.7, platelets 118. BUN 11, creatinine 0.6. IMPRESSION: 1. Fatty liver disease/cirrhosis of the liver. 2. Upper gastrointestinal bleed secondary to esophageal varices status post EGD with variceal ligation by Dr. Hurley 4 days ago, now stable hemoglobin 7.7 g/dL. 3. History of diabetes mellitus. RECOMMENDATIONS: The patient can be discharged home today with outpatient follow up in 2 weeks. We will schedule for repeat upper endoscopy with variceal ligation on an outpatient basis. Thank you for this consultation. LARRYL / EMETERION: [id number] /
[2018-06-15] MEDS ORDERED: MULTIVITAMINS, THERA 1 EACH TAB PO SCH (12:00)
[2018-06-15 12:09] VITALS: BP 115/54; RESP 20; TEMP 98
--- NOTE | 2018-06-16 12:42 | DS ---
DISCHARGE SUMMARY DATE OF ADMISSION: 06/10/2018. DATE OF DISCHARGE: 06/15/2018. FINAL DIAGNOSES: 1. Acute upper gastrointestinal bleed from esophageal varices secondary to cirrhosis, probably from alcohol, status post esophageal banding. 2. Acute severe blood loss anemia from above, requiring 3 units of blood. 3. Acute hypertensive shock requiring blood transfusion. 4. Alcoholic cirrhosis leading to portal hypertension. 5. Esophageal varices. 6. Chronic hypoxic respiratory failure on 3 L oxygen at home. 7. Primary osteoarthritis. 8. Diabetes mellitus type 2, chronically on insulin, uncontrolled with hyper- and hypoglycemia. 9. History of essential hypertension. HOSPITAL COURSE: This is a very pleasant gentleman who presented with bloody stools. Underwent EGD with banding, 5 bands were placed. Sugars were running high, hence insulin was adjusted. The patient is currently put back on home medications. Today, tolerating his diet. Abdominal ultrasound shows some ascites. The patient was initially in the ICU. CONSULTATION: Dr. Shaheed Obrien/Dr. Hurley from GI, Dr. Guardado from Critical Care. PHYSICAL EXAMINATION: Temperature 97.3, pulse 88, respirations 20, blood pressure 105/54, pulse ox 98% on room air. Lungs fair entry. Cardiovascular 1st and 2nd sounds normal. INVESTIGATIONS: White count 4.5, hemoglobin 7.7, platelets 118, potassium 3.6. DISCHARGE MEDICATIONS: 1. Fasenra 30 mg IM every 56 days. 2. Vitamin D3, 1000 units p.o. daily. 3. Vitamin B12, 1000 mcg p.o. daily. 4. Zetia 10 mg p.o. daily. 5. Multivitamin 1 tablet p.o. daily. 6. Omeprazole 20 mg before supper. 7. Inderal 10 mg t.i.d. 8. Metformin 1000 mg b.i.d. 9. NovoLog 8 units subcu with meals and t.i.d. 10.Lantus 35 units subcu at bedtime. 11.Aldactone 100 mg p.o. daily. FOLLOWUP: 1. CBC in [address] Mcclure. 2. Followup Dr. Mcclure in 3 days. 3. Follow up with Dr. Hurley in 10 days. DISCHARGE INSTRUCTIONS: 1. Low-sodium diet. 2. Carbohydrate consistent diet. Care was discussed with the patient and his . Questions were answered. MMODL / IJN: [id number] /
== END 2018-06-15 16:04 | disposition home or self-care (01) | DRG 432 ==
LOC: EC 18:20 → 2SICU 20:01 → 3SCARD 06-15 05:03
PROVIDERS: ADMIT Hospitalist; ATTEND Hospitalist
PROC: 30233N1 Transfusion of Nonautologous Red Blood Cells into Peripheral Vein, Percutaneous Approach (ICD-10-PCS; 2018-06-11)
PROC: 06L38CZ Occlusion of Esophageal Vein with Extraluminal Device, Via Natural or Artificial Opening Endoscopic (ICD-10-PCS; principal; 2018-06-11 09:05)
DX: K70.31 Alcoholic cirrhosis of liver with ascites (principal); I85.11 Secondary esophageal varices with bleeding; R57.8 Other shock; K76.6 Portal hypertension; D62 Acute posthemorrhagic anemia; Z68.41 Body mass index [BMI] 40.0-44.9, adult; D61.818 Other pancytopenia; J96.11 Chronic respiratory failure with hypoxia; E11.649 Type 2 diabetes mellitus with hypoglycemia without coma; E66.9 Obesity, unspecified; E11.65 Type 2 diabetes mellitus with hyperglycemia; J44.9 Chronic obstructive pulmonary disease, unspecified; I25.9 Chronic ischemic heart disease, unspecified; K76.0 Fatty (change of) liver, not elsewhere classified; I10 Essential (primary) hypertension; K21.9 Gastro-esophageal reflux disease without esophagitis; E78.5 Hyperlipidemia, unspecified; M19.91 Primary osteoarthritis, unspecified site; H91.90 Unspecified hearing loss, unspecified ear; F10.21 Alcohol dependence, in remission; H26.9 Unspecified cataract; Z71.3 Dietary counseling and surveillance; Z99.81 Dependence on supplemental oxygen; Z79.82 Long term (current) use of aspirin; Z79.4 Long term (current) use of insulin; Z79.899 Other long term (current) drug therapy; Z96.641 Presence of right artificial hip joint; Z87.891 Personal history of nicotine dependence; Z90.49 Acquired absence of other specified parts of digestive tract; Z88.5 Allergy status to narcotic agent; Z88.8 Allergy status to other drugs, medicaments and biological substances; Z80.1 Family history of malignant neoplasm of trachea, bronchus and lung; Z82.5 Family history of asthma and other chronic lower respiratory diseases
CPT/HCPCS: 36415; 43255; 76705; 80048; 80053; 82550; 82553; 83036; 83735; 84100; 84132; 84484; 85025; 85027; 85610; 85730; 86850; 86900; 86901; 86920; 93005; 96361; 96374; 96375; 99291

== ENCOUNTER → 2018-07-08 | Outpatient (CLI) | payer MEDICARE ==
[2018-07-08 16:09] LABS: HCT 30.3 % (39.0-53.0); Hypochromasia Marked; MCH 28.7 pg (25.0-35.0); MCHC 32.2 g/dL (31.0-37.0); MCV 89.3 fL (80.0-100.0); Platelet Count 162 k/uL (150-450); Poikilocytosis Moderate; RDW 15.3 % (11.5-15.5); WBC 3.3 k/uL (3.8-10.6)
[2018-07-08 16:16] LABS: HGB 9.8 gm/dL (13.0-17.5)
[2018-07-08 16:21] LABS: INR 1.1 (<1.2); Prothrombin Time 11.7 sec (9.0-12.0)
[2018-07-09 04:29] LABS: Albumin 3.6 g/dL (3.80-4.90); Albumin/Globulin Ratio 1.71 (1.20-2.10); Anion Gap 6.8 mmol/L (4.00-12.00); Calcium 8.9 mg/dL (8.7-10.3); Carbon Dioxide 28.2 mmol/L (21.6-31.8); Globulin 2.1 g/dL (1.6-3.3); Potassium 4.2 mmol/L (3.5-5.5); Total Protein 5.7 g/dL (6.2-8.2)
== END | disposition home or self-care (01) ==
LOC: LABWHC1 15:07
PROVIDERS: ATTEND Internal Medicine Gastroenterology
DX: K74.60 Unspecified cirrhosis of liver (principal)
CPT/HCPCS: 36415; 80053; 82105; 85027; 85610

== ENCOUNTER 2018-07-24 12:32 | Day surgery (SDC) | payer MEDICARE ==
[2018-07-22 16:21] VITALS: BMI 38.9
[~2018-07-24 12:32] MED LIST: LACTATED RINGERS 1,000 ML IV SCH; LIDOCAINE 1% 20 ML VIAL (10MG/ML) FOR IV START INTRADERMA PRN
[2018-07-24 13:13] LABS: Glucose,Whole Blood 128 mg/dL (75-99)
[2018-07-24] MEDS ORDERED: ONDANSETRON 4 MG/2 ML VIAL IVP ONE (13:15)
[2018-07-24] MEDS ORDERED: PROPOFOL 10 MG/ML 20 ML VIAL IV ONE (13:17)
[2018-07-24] MEDS ORDERED: LIDOCAINE 1% INJ 10MG/ML (20 ML MDV) ONE (13:17)
[2018-07-24 13:26] VITALS: TEMP 97.3
[2018-07-24 13:53] VITALS: BP 112/62; PULSE 75; RESP 20
--- NOTE | 2018-07-24 14:00 | P.PCN ---
Date of Procedure: 07/24/18 Procedure(s) Performed: BRIEF HISTORY: Patient is a 73-year-old, pleasant, male, scheduled for an upper endoscopy as a part of the follow-up of esophageal varices. Patient has history of fatty liver disease with cirrhosis of the liver and recent episode of esophageal variceal bleeding for which she was admitted to the hospital in May 2018. He underwent an upper endoscopy with variceal ligation. He scheduled for a follow-up upper endoscopy today. PROCEDURE PERFORMED: Esophagogastroduodenoscopy with variceal ligation. PREOPERATIVE DIAGNOSIS: Follow-up esophageal varices. IV sedation per anesthesia. PROCEDURE: After informed consent was obtained, the patient was brought into the endoscopy unit. IV sedation was administered by Anesthesia under continuous monitoring. Initially the Olympus GIF-140 video endoscope was inserted into the mouth. Esophagus intubated without any difficulty. It was gradually advanced into the stomach and duodenum and carefully examined. The bulb and the second part of the duodenum appeared normal. The scope at this time was withdrawn to the stomach, adequately insufflated with air, and upon careful examination, mucosa of the antrum, body, had changes consistent with portal hypertensive gastropathy. The cardia and the fundus appeared normal. The scope was then withdrawn into the esophagus. The GE junction was located at 43 cm from the incisors. There were small esophageal varices noted in the mid and distal esophagus. At this time the scope was removed, esophageal variceal ligation equipment was introduced into the tip of the scope and esophagus intubated without any difficulty. It was gradually advanced into the distal esophagus. Using suction out of 5 bands were deployed in the distal and midesophagus and the patient tolerated the procedure well. IMPRESSION: 1. Small mid and distal esophageal varices status post variceal ligation as described above. 2. Mild portal hypertensive gastropathy. RECOMMENDATIONS: The findings of this examination were discussed with the patient as well as his family. He will continue with his medications. We will plan on repeat upper endoscopy with variceal ligation in 6 months.
== END 2018-07-24 14:19 | disposition home or self-care (01) ==
LOC: ORWHC2ENDO 12:32
PROVIDERS: ATTEND Internal Medicine Gastroenterology
DX: I85.00 Esophageal varices without bleeding (principal); K76.6 Portal hypertension; K31.89 Other diseases of stomach and duodenum; K76.0 Fatty (change of) liver, not elsewhere classified; K74.60 Unspecified cirrhosis of liver; J44.9 Chronic obstructive pulmonary disease, unspecified; I10 Essential (primary) hypertension; I25.10 Atherosclerotic heart disease of native coronary artery without angina pectoris; E11.9 Type 2 diabetes mellitus without complications; K21.9 Gastro-esophageal reflux disease without esophagitis; Z99.81 Dependence on supplemental oxygen; Z79.4 Long term (current) use of insulin; Z79.899 Other long term (current) drug therapy; Z88.6 Allergy status to analgesic agent; Z88.5 Allergy status to narcotic agent; Z88.8 Allergy status to other drugs, medicaments and biological substances
CPT/HCPCS: 43244; J2405; J2001; J2704; 43255

== ENCOUNTER → 2018-09-02 | Outpatient (CLI) | payer MEDICARE ==
[2018-09-02 14:56] LABS: Anisocytosis Slight; HCT 40.6 % (39.0-53.0); HGB 11.9 gm/dL (13.0-17.5); Hypochromasia Marked; MCH 24.8 pg (25.0-35.0); MCHC 29.3 g/dL (31.0-37.0); MCV 84.7 fL (80.0-100.0); Mean Platelet Volume 7.7; Platelet Count 148 k/uL (150-450); RBC 4.79 m/uL (4.30-5.90); RDW 16.5 % (11.5-15.5); WBC 4.4 k/uL (3.8-10.6)
[2018-09-02 18:39] LABS: Albumin 3.7 g/dL (3.80-4.90); Albumin/Globulin Ratio 1.61 (1.60-3.17); Anion Gap 6.3 mmol/L (4.00-12.00); Calcium 9.2 mg/dL (8.7-10.3); Carbon Dioxide 31.7 mmol/L (21.6-31.8); Globulin 2.3 g/dL (1.6-3.3); Potassium 4.2 mmol/L (3.5-5.5); Total Bilirubin 1.2 mg/dL (0.2-1.2)
== END | disposition home or self-care (01) ==
LOC: LABWHC1 13:58
PROVIDERS: ATTEND Internal Medicine Gastroenterology
DX: K74.60 Unspecified cirrhosis of liver (principal)
CPT/HCPCS: 36415; 80053; 85027

== ENCOUNTER → 2018-11-23 | Outpatient (CLI) | payer MEDICARE ==
[2018-11-23 14:43] LABS: HCT 44.4 % (39.0-53.0); HGB 13.8 gm/dL (13.0-17.5); Hypochromasia Slight; MCH 26.8 pg (25.0-35.0); MCHC 31.2 g/dL (31.0-37.0); MCV 86.1 fL (80.0-100.0); Mean Platelet Volume 7.5; Platelet Count 132 k/uL (150-450); RBC 5.15 m/uL (4.30-5.90); RDW 15.5 % (11.5-15.5); WBC 5.3 k/uL (3.8-10.6)
[2018-11-23 18:25] LABS: Albumin 3.7 g/dL (3.80-4.90); Albumin/Globulin Ratio 1.68 (1.60-3.17); Anion Gap 5.2 mmol/L (4.00-12.00); Calcium 9.2 mg/dL (8.7-10.3); Carbon Dioxide 30.8 mmol/L (21.6-31.8); Globulin 2.2 g/dL (1.6-3.3); Potassium 4.4 mmol/L (3.5-5.5); Total Bilirubin 1.5 mg/dL (0.3-1.2); Total Protein 5.9 g/dL (6.2-8.2)
== END | disposition home or self-care (01) ==
LOC: LABWHC1 13:32
PROVIDERS: ATTEND Internal Medicine Gastroenterology
DX: K74.60 Unspecified cirrhosis of liver (principal)
CPT/HCPCS: 36415; 80053; 85027

== ENCOUNTER → 2019-02-25 | Outpatient (CLI) | payer MEDICARE ==
[2019-02-25 10:25] LABS: HCT 45.8 % (39.0-53.0); HGB 15.1 gm/dL (13.0-17.5); INR 1.2 (<1.2); MCH 29.6 pg (25.0-35.0); MCV 89.6 fL (80.0-100.0); Mean Platelet Volume 7.5; Platelet Count 121 k/uL (150-450); Prothrombin Time 12.3 sec (9.0-12.0); RBC 5.11 m/uL (4.30-5.90); WBC 4.9 k/uL (3.8-10.6)
[2019-02-25 17:25] LABS: Albumin 3.9 g/dL (3.80-4.90); Albumin/Globulin Ratio 1.63 (1.60-3.17); Anion Gap 7.8 mmol/L (4.00-12.00); BUN/Creat Ratio 15.71 Ratio (12.00-20.00); Calcium 9.4 mg/dL (8.7-10.3); Carbon Dioxide 32.2 mmol/L (21.6-31.8); Chol/HDL Ratio 3.62; Globulin 2.4 g/dL (1.6-3.3); Potassium 4.7 mmol/L (3.5-5.5); Total Protein 6.3 g/dL (6.2-8.2)
== END | disposition home or self-care (01) ==
LOC: LABWHC1 09:34
PROVIDERS: ATTEND Internal Medicine Endocrinology, Diabetes & Metabolism
DX: E11.65 Type 2 diabetes mellitus with hyperglycemia (principal); K74.60 Unspecified cirrhosis of liver
CPT/HCPCS: 36415; 80053; 80061; 82043; 82105; 82570; 84443; 85027; 85610

== ENCOUNTER → 2019-03-08 | Outpatient (CLI) | payer OTHER ==
--- NOTE | 2019-03-08 10:07 | US ---
EXAMINATION TYPE: US liver DATE OF EXAM: 03/08/2019 COMPARISON: NONE CLINICAL HISTORY: 73-year-old male K74.60 Unspecified cirrhosis of liver. Patient states no symptoms, history of cholecystectomy TECHNIQUE: Multiple sonographic images of the right upper quadrant are obtained. FINDINGS: EXAM MEASUREMENTS: Liver Length: 18.6 cm Gallbladder: surgically absent CBD: 0.5 cm Right Kidney: 11.4 x 5.6 x 5.9 cm Patients Transporter notes:Difficult and limited study due to patient body habitus Pancreas: obscured by overlying midline bowel gas Liver: Mildly enlarged, heterogeneous, dilated portal vein with sluggish hepatopedal flow. Velocity is under 10 cm/s. Gallbladder: surgically absent Evidence for sonographic Rodríguez's sign: no CBD: visualized portions wnl, limited by overlying bowel gas Right Kidney: visualized portions wnl, limited by overlying bowel gas . No hydronephrosis. IMPRESSION: 1. Difficult and limited study due to patient body habitus. 2. Mild hepatomegaly with heterogeneous liver parenchyma. The main portal vein is dilated with somewh at sluggish flow. Correlate for possible cirrhosis/hepatocellular disease and secondary portal venous hypertension. 3. Status post cholecystectomy. No biliary ductal dilatation.
== END | disposition home or self-care (01) ==
LOC: RADUSWWP 08:33
DX: I87.8 Other specified disorders of veins (principal); R16.0 Hepatomegaly, not elsewhere classified; Z90.49 Acquired absence of other specified parts of digestive tract
CPT/HCPCS: 76705

== ENCOUNTER 2019-04-07 06:46 | Day surgery (SDC) | payer MEDICARE, OTHER ==
[2019-04-05 12:19] VITALS: BMI 36.9
[2019-04-07] MEDS ORDERED: LACTATED RINGERS 1,000 ML IV SCH (07:43)
[2019-04-07] MEDS ORDERED: LIDOCAINE 1% 20 ML VIAL (10MG/ML) FOR IV START INTRADERMA PRN (07:43)
[2019-04-07] MEDS ORDERED: LIDOCAINE 1% INJ 10MG/ML (20 ML MDV) ONE (07:54)
[2019-04-07] MEDS ORDERED: PROPOFOL 10 MG/ML 20 ML VIAL IV ONE (07:54)
[2019-04-07] MEDS ORDERED: LACTATED RINGERS 1,000 ML IV ONE ×2 (07:57→07:58)
[2019-04-07 08:23] VITALS: PULSE 76
--- NOTE | 2019-04-07 08:23 | P.PCN ---
Date of Procedure: 04/07/19 Procedure(s) Performed: BRIEF HISTORY: Patient is a 74-year-old, pleasant, white male, scheduled for an upper endoscopy as a part of esophageal variceal ligation as a part of follow-up of prior history of esophageal variceal bleeding in May 2018. Has history of nonalcoholic cirrhosis of the liver.. PROCEDURE PERFORMED: Esophagogastroduodenoscopy with variceal ligation. PREOPERATIVE DIAGNOSIS: Follow-up esophageal varices. IV sedation per anesthesia. PROCEDURE: After informed consent was obtained, the patient was brought into the endoscopy unit. IV sedation was administered by Anesthesia under continuous monitoring. Initially the Olympus GIF-140 video endoscope was inserted into the mouth. Esophagus intubated without any difficulty. It was gradually advanced into the stomach and duodenum and carefully examined. The bulb and the second part of the duodenum appeared normal. The scope at this time was withdrawn to the stomach, adequately insufflated with air, and upon careful examination, mucosa of the antrum, body, cardia and the fundus appeared normal had changes consistent with mild portal hypertensive gastropathy.. The scope was then withdrawn into the esophagus. The GE junction was located at 39 cm from the incisors. There where a large mid/distal esophageal varices identified. The rest of the esophagus appeared normal. There were no erosions or ulcerations seen. At this time the scope was removed esophageal variceal ligation equipment was introduced onto per the scope and esophagus intubated without any difficulty. It was gradually advanced into the distal esophagus. Using suction total of 7 bands were deployed in a spiral fashion starting from the distal eso phagus to the midesophagus. The proximal esophagus appeared normal and the patient tolerated the procedure well. IMPRESSION: 1. Large mid and distal esophageal varices status post variceal ligation as described above. 2. Mild portal hypertensive gastropathy. RECOMMENDATIONS: The findings of this examination were discussed with the patient as well as his family. He was advised to r have a repeat upper endoscopy with variceal ligation and 6 months..
[2019-04-07 08:47] VITALS: BP 117/72; RESP 18
[2019-04-07 09:44] VITALS: TEMP 97.6
[2019-04-08 08:29] LABS: Glucose,Whole Blood 155 mg/dL (75-99)
== END 2019-04-07 09:24 | disposition home or self-care (01) ==
LOC: ORWHC2ENDO 06:46
PROVIDERS: ATTEND Internal Medicine Gastroenterology
DX: I85.00 Esophageal varices without bleeding (principal); K74.69 Other cirrhosis of liver; K76.6 Portal hypertension; K31.89 Other diseases of stomach and duodenum; J44.9 Chronic obstructive pulmonary disease, unspecified; E11.9 Type 2 diabetes mellitus without complications; Z96.641 Presence of right artificial hip joint; Z79.4 Long term (current) use of insulin; Z99.81 Dependence on supplemental oxygen; Z79.899 Other long term (current) drug therapy; Z88.6 Allergy status to analgesic agent; Z88.5 Allergy status to narcotic agent; Z88.8 Allergy status to other drugs, medicaments and biological substances
CPT/HCPCS: 43244; J2001; J2704; 43255

== ENCOUNTER 2019-10-16 19:05 | Emergency (ER) | payer MEDICARE ==
--- NOTE | 2019-10-16 19:37 | ED ---
General Adult HPI - General Chief complaint: Shortness of Breath Stated complaint: SOB Time Seen by Provider: 10/16/19 19:26 Source: patient, family Mode of arrival: wheelchair Limitations: no limitations - History of Present Illness Initial comments: Patient presents the ED with his for evaluation. Patient states that he has been feeling dyspneic for the past 2 weeks or so. Patient feels that his dyspnea may be secondary to anxiety. Patient denies having any other symptoms or complaints. Patient denies having any pain, fever or chills, headache, focal neuro deficit, chest pain or pressure, cough or cold symptoms, palpitations, dizziness, nausea/vomiting/diarrhea, bloody or melanotic stool, urinary symptoms, decreased urine output, leg or calf swelling or pain, or any other symptoms or complaints. Patient states that he is normally on 3 L of home O2. - Related Data Home Medications Medication Instructions Recorded Confirmed Benralizumab [Fasenra] 30 mg IM Q56D 06/10/18 10/16/19 Ezetimibe [Zetia] 10 mg PO HS 06/10/18 10/16/19 Multivitamins, Thera [Multivitamin 1 tab PO DAILY 06/10/18 10/16/19 (formulary)] Omeprazole 20 mg PO AC-SUPPER 06/10/18 10/16/19 Propranolol [Inderal] 10 mg PO TID 06/10/18 10/16/19 metFORMIN HCL 1,000 mg PO BID 06/10/18 10/16/19 Insulin Glargine,Hum.rec.anlog 26 unit SQ HS 04/05/19 10/16/19 [Lantus Solostar] Ascorbic Acid [Vitamin C] 1,000 mg PO DAILY 10/16/19 10/16/19 Budesonide [Pulmicort] 0.5 mg INHALATION RT-BID 10/16/19 10/16/19 Furosemide [Lasix] 20 mg PO DAILY 10/16/19 10/16/19 Insulin Aspart [NovoLOG Flexpen] 8 units SQ AC-TID 10/16/19 10/16/19 Ipratropium-Albuterol Nebulize 3 ml INHALATION RT-TID 10/16/19 10/16/19 [Duoneb 0.5 mg-3 mg/3 ml Soln] Loratadine [Claritin] 10 mg PO DAILY 10/16/19 10/16/19 Spironolactone [Aldactone] 25 mg PO DAILY 10/16/19 10/16/19 Tamsulosin HCl [Flomax] 0.8 mg PO HS 10/16/19 10/16/19 Previous Rx's Medication Instructions Recorded Doxycycline Hyclate 100 mg PO BID 7 Days #14 tab 10/16/19 Allergies Allergy/AdvReac Type Severity Reaction Status Date / Time naproxen Allergy Rash/Hives Verified 10/16/19 21:24 spironolactone Allergy Itching Verified 10/16/19 21:24 tramadol Allergy Itching Verified 10/16/19 21:24 Review of Systems ROS Statement: Those systems with pertinent positive or pertinent negative responses have been documented in the HPI. ROS Other: All systems not noted in ROS Statement are negative. Past Medical History Past Medical History: Asthma, COPD, Diabetes Mellitus, Liver Disease, Osteoarthritis (OA) Additional Past Medical History / Comment(s): Pt states, "Ischemic heart, esophageal varices" 3L home O2 for "about a year". Hospitalized 2017 for bleeding from Esophageal varices. History of Any Multi-Drug Resistant Organisms: None Reported Past Surgical History: Back Surgery, Cholecystectomy, Hernia Repair, Joint Replacement, Orthopedic Surgery, Tonsillectomy Additional Past Surgical History / Comment(s): right rotator cuff, right foot fx with pins 1996, ankle, vein stripping, right hip replacment, EGD WITH DILATATION, BILAT CATARACTS REMOVED Past Anesthesia/Blood Transfusion Reactions: No Reported Reaction Additional Past Anesthesia/Blood Transfusion Reaction / Comment(s): Hard to awake. wears O2. Past Psychological History: No Psychological Hx Reported Smoking Status: Former smoker Past Alcohol Use History: None Reported Past Drug Use History: None Reported - Past Family History Father Family Medical History: Cancer Additional Family Medical History / Comment(s): Lung Cancer Mother Family Medical History: COPD Sister(s) Family Medical History: Cancer Additional Family Medical History / Comment(s): Lung Cancer General Exam Limitations: no limitations General appearance: alert, in no apparent distress Head exam: Present: atraumatic, normocephalic Eye exam: Present: normal appearance, EOMI ENT exam: Present: mucous membranes moist Neck exam: Present: other (Trachea is in midline) Respiratory exam: Present: normal lung sounds bilaterally. Absent: respiratory distress, wheezes, rales, rhonchi Cardiovascular Exam: Present: regular rate, normal rhythm, normal heart sounds, other (Normal radial pulses bilaterally) GI/Abdominal exam: Present: soft. Absent: distended, tenderness Extremities exam: Present: other (Negative Homans sign bilaterally). Absent: tenderness, pedal edema, calf tenderness Neurological exam: Present: alert, oriented X3. Absent: motor sensory deficit Psychiatric exam: Present: normal affect, normal mood Skin exam: Present: warm, dry, intact, normal color Course Vital Signs 10/16/19 10/16/19 10/16/19 19:08 20:19 21:50 Temperature 98.0 F Pulse Rate 81 76 74 Respiratory 22 18 20 Rate Blood Pressure 120/67 129/51 104/50 O2 Sat by Pulse 94 L 96 97 Oximetry - Reevaluation(s) Reevaluation #1: 10/16/19 23:30 Patient remains alert and breathing comfortably. Patient denies development of any new symptoms while in the ED, and he denies feeling dyspneic currently. Patient and are aware of the patient's test results. I have recommended hospital admission to the patient given his CT finding of infiltrates and concern for pneumonia, but patient refuses hospital admission and wishes to be treated with oral antibiotics at home. Patient understands the risks of being discharged home and the risks of this decision. Patient was clearly explained return and follow-up instructions, and he feels comfortable with this plan. Patient was instructed to follow up closely with his primary care provider, and to return to the ED immediately should he develop new or worsening symptoms. EKG Findings - EKG Comments: EKG Findings:: Normal sinus rhythm, ventricular rate of 75 bpm, no ectopy, normal CT and QRS intervals, normal QT interval, normal axis, no ST or T-wave abnormality Medical Decision Making - Medical Decision Making Patient's troponin is negative. Patient's CT angiogram chest is negative for pulmonary embolus. Patient's Covid study is negative. Patient's CT angiogram chest is positive for pulmonary infiltrates. I suspect that the patient's dyspnea is likely secondary to pneumonia. Patient has refused my recommendation for hospital admission. Will discharge the patient home with a course of oral doxycycline at this time. Patient was instructed to return to the ED should he develop new or worsening symptoms, and to follow up closely with his primary care provider. - Lab Data Result diagrams: 10/16/19 19:38 10/16/19 19:38 Lab Results 10/16/19 10/16/19 10/16/19 Range/Units 19:38 19:38 19:38 WBC 5.6 (3.8-10.6) k/uL RBC 4.95 (4.30-5.90) m/uL Hgb 14.8 (13.0-17.5) gm/dL Hct 44.5 (39.0-53.0) % MCV 89.9 (80.0-100.0) fL MCH 29.9 (25.0-35.0) pg MCHC 33.3 (31.0-37.0) g/dL RDW 14.6 (11.5-15.5) % Plt Count 125 L (150-450) k/uL Neutrophils % 84 % Lymphocytes % 6 % Monocytes % 7 % Eosinophils % 0 % Basophils % 0 % Neutrophils # 4.8 (1.3-7.7) k/uL Lymphocytes # 0.3 L (1.0-4.8) k/uL Monocytes # 0.4 (0-1.0) k/uL Eosinophils # 0.0 (0-0.7) k/uL Basophils # 0.0 (0-0.2) k/uL PT 11.4 (9.0-12.0) sec INR 1.1 (<1.2) APTT 28.5 (22.0-30.0) sec D-Dimer 1.32 H (<0.60) mg/L FEU Sodium 135 L (137-145) mmol/L Potassium 4.7 (3.5-5.1) mmol/L Chloride 98 (98-107) mmol/L Carbon Dioxide 29 (22-30) mmol/L Anion Gap 8 mmol/L BUN 11 (9-20) mg/dL Creatinine 0.57 L (0.66-1.25) mg/dL Est GFR (CKD-EPI)AfAm >90 (>60 ml/min/1.73 sqM) Est GFR (CKD-EPI)NonAf >90 (>60 ml/min/1.73 sqM) Glucose 172 H (74-99) mg/dL Plasma Lactic Acid Warner (0.7-2.0) mmol/L Calcium 9.1 (8.4-10.2) mg/dL Total Bilirubin 1.9 H (0.2-1.3) mg/dL AST 49 (17-59) U/L ALT 19 (4-49) U/L Alkaline Phosphatase 87 (38-126) U/L Troponin I (0.000-0.034) ng/mL NT-Pro-B Natriuret Pep pg/mL Total Protein 6.9 (6.3-8.2) g/dL Albumin 3.6 (3.5-5.0) g/dL Coronavirus (PCR) (Not Detectd) Influenza Type A RNA Influenza Type B (PCR) 10/16/19 10/16/19 10/16/19 Range/Units 19:38 19:38 19:38 WBC (3.8-10.6) k/uL RBC (4.30-5.90) m/uL Hgb (13.0-17.5) gm/dL Hct (39.0-53.0) % MCV (80.0-100.0) fL MCH (25.0-35.0) pg MCHC (31.0-37.0) g/dL RDW (11.5-15.5) % Plt Count (150-450) k/uL Neutrophils % % Lymphocytes % % Monocytes % % Eosinophils % % Basophils % % Neutrophils # (1.3-7.7) k/uL Lymphocytes # (1.0-4.8) k/uL Monocytes # (0-1.0) k/uL Eosinophils # (0-0.7) k/uL Basophils # (0-0.2) k/uL PT (9.0-12.0) sec INR (<1.2) APTT (22.0-30.0) sec D-Dimer (<0.60) mg/L FEU Sodium (137-145) mmol/L Potassium (3.5-5.1) mmol/L Chloride (98-107) mmol/L Carbon Dioxide (22-30) mmol/L Anion Gap mmol/L BUN (9-20) mg/dL Creatinine (0.66-1.25) mg/dL Est GFR (CKD-EPI)AfAm (>60 ml/min/1.73 sqM) Est GFR (CKD-EPI)NonAf (>60 ml/min/1.73 sqM) Glucose (74-99) mg/dL Plasma Lactic Acid Warner 3.0 H* (0.7-2.0) mmol/L Calcium (8.4-10.2) mg/dL Total Bilirubin (0.2-1.3) mg/dL AST (17-59) U/L ALT (4-49) U/L Alkaline Phosphatase (38-126) U/L Troponin I <0.012 (0.000-0.034) ng/mL NT-Pro-B Natriuret Pep 121 pg/mL Total Protein (6.3-8.2) g/dL Albumin (3.5-5.0) g/dL Coronavirus (PCR) (Not Detectd) Influenza Type A RNA Influenza Type B (PCR) 10/16/19 Range/Units 19:55 WBC (3.8-10.6) k/uL RBC (4.30-5.90) m/uL Hgb (13.0-17.5) gm/dL Hct (39.0-53.0) % MCV (80.0-100.0) fL MCH (25.0-35.0) pg MCHC (31.0-37.0) g/dL RDW (11.5-15.5) % Plt Count (150-450) k/uL Neutrophils % % Lymphocytes % % Monocytes % % Eosinophils % % Basophils % % Neutrophils # (1.3-7.7) k/uL Lymphocytes # (1.0-4.8) k/uL Monocytes # (0-1.0) k/uL Eosinophils # (0-0.7) k/uL Basophils # (0-0.2) k/uL PT (9.0-12.0) sec INR (<1.2) APTT (22.0-30.0) sec D-Dimer (<0.60) mg/L FEU Sodium (137-145) mmol/L Potassium (3.5-5.1) mmol/L Chloride (98-107) mmol/L Carbon Dioxide (22-30) mmol/L Anion Gap mmol/L BUN (9-20) mg/dL Creatinine (0.66-1.25) mg/dL Est GFR (CKD-EPI)AfAm (>60 ml/min/1.73 sqM) Est GFR (CKD-EPI)NonAf (>60 ml/min/1.73 sqM) Glucose (74-99) mg/dL Plasma Lactic Acid Warner (0.7-2.0) mmol/L Calcium (8.4-10.2) mg/dL Total Bilirubin (0.2-1.3) mg/dL AST (17-59) U/L ALT (4-49) U/L Alkaline Phosphatase (38-126) U/L Troponin I (0.000-0.034) ng/mL NT-Pro-B Natriuret Pep pg/mL Total Protein (6.3-8.2) g/dL Albumin (3.5-5.0) g/dL Coronavirus (PCR) Not Detected (Not Detectd) Influenza Type A RNA Cancelled Influenza Type B (PCR) Cancelled - Radiology Data Radiology results: report reviewed (Chest x-ray shows: Borderline cardiomegaly, left hilar prominence, diffuse interstitial density, mild patchy atelectasis versus early infiltrate at left lung base; CT angiogram chest shows: Mild interstitial pulmonary infiltrates, right pleural effusion and right basilar infiltrate and atelectasis, no evidence of pulmonary embolus, mild bronchial adenopathy ) Disposition Clinical Impression: Pneumonia Disposition: HOME SELF-CARE Condition: Stable Instructions (If sedation given, give patient instructions): Dyspnea (ED), Pneumonia (ED) Additional Instructions: Return to the ER immediately should you develop increased shortness of breath, chest pain, a fever, vomiting, feeling dizzy or faint, or new or worsening symptoms. Follow up closely with your primary care provider. Prescriptions: Doxycycline Hyclate 100 mg PO BID 7 Days #14 tab Is patient prescribed a controlled substance at d/c from ED?: No Referrals: Axel Mcclure MD [Primary Care Provider] - 1-2 days Time of Disposition: 23:37
[2019-10-16 20:01] LABS: Basophils % (A) 0 %; Eosinophils % (A) 0 %; HCT 44.5 % (39.0-53.0); HGB 14.8 gm/dL (13.0-17.5); Lymphocytes # (A) 0.3 k/uL (1.0-4.8); Lymphocytes % (A) 6 %; MCH 29.9 pg (25.0-35.0); MCHC 33.3 g/dL (31.0-37.0); MCV 89.9 fL (80.0-100.0); Mean Platelet Volume 7.8; Monocytes # (A) 0.4 k/uL (0-1.0); Monocytes % (A) 7 %; Neutrophils # (A) 4.8 k/uL (1.3-7.7); Neutrophils % (A) 84 %; Platelet Count 125 k/uL (150-450); RBC 4.95 m/uL (4.30-5.90); RDW 14.6 % (11.5-15.5); WBC 5.6 k/uL (3.8-10.6)
--- NOTE | 2019-10-16 20:05 | XR ---
EXAMINATION TYPE: XR chest 2V DATE OF EXAM: 10/16/2019 COMPARISON: None HISTORY: 74 year-old male shortness of breath, difficulty breathing TECHNIQUE: PA and lateral views FINDINGS: Heart borderline enlarged. Diffuse interstitial density. Mild patchy left basilar opacity. Left hilar prominence. No consolidation or pleural effusion. IMPRESSION: 1. Borderline cardiomegaly. 2. Left hilar prominence, possible underlying pulmonary arterial hypertension. Follow-up nonemergent contrast enhanced CT chest to exclude underlying lymphadenopathy. 3. Diffuse interstitial density of unknown chronicity; correlate to exclude bronchitis or chronic ast hma. 4. Mild patchy atelectasis versus early infiltrate at the left base.
[2019-10-16 20:14] LABS: INR 1.1 (<1.2); Partial Thromboplastin Time 28.5 sec (22.0-30.0); Prothrombin Time 11.4 sec (9.0-12.0)
[2019-10-16 20:22] LABS: D-Dimer 1.32 mg/L FEU (<0.60)
[2019-10-16 20:26] LABS: ALT 19 U/L (4-49); AST 49 U/L (17-59); African American GFR (CKD) >90 (>60 ml/min/1.73 sqM); Albumin 3.6 g/dL (3.5-5.0); Alkaline Phosphatase 87 U/L (38-126); Anion Gap 8 mmol/L; Blood Urea Nitrogen 11 mg/dL (9-20); Calcium 9.1 mg/dL (8.4-10.2); Carbon Dioxide 29 mmol/L (22-30); Chloride 98 mmol/L (98-107); Glucose 172 mg/dL (74-99); Non-African American GFR(CKD) >90 (>60 ml/min/1.73 sqM); Potassium 4.7 mmol/L (3.5-5.1); Sodium 135 mmol/L (137-145); Total Bilirubin 1.9 mg/dL (0.2-1.3); Total Protein 6.9 g/dL (6.3-8.2)
[2019-10-16] MEDS ORDERED: SODIUM CHLORIDE 0.9% 1,000 ML IV ONE (21:21)
--- NOTE | 2019-10-16 22:27 | CT ---
EXAMINATION TYPE: CT chest angio for PE DATE OF EXAM: 10/16/2019 COMPARISON: None HISTORY: Dyspnea, elevated d-dimer. CT DLP: 957.1 mGycm Automated exposure control for dose reduction was used. CONTRAST: Performed with IV Contrast, patient injected with 100 mL of Isovue 370. There are 3-D post processed images. There is no mediastinal adenopathy. There are a few paratracheal lymph nodes that measure up to 1 cm. There is no pericardial effusion. There is pleural fluid and infiltrate or atelectasis right lung ba se. There is no pericardial effusion. There is small hiatal hernia. There are bilateral multiple bronchial lymph nodes that measure up to 1 cm. I see no filling defects in the pulmonary arteries. Thoracic aorta is atheromatous. There is no aneurysm or dissection. Ascend ing aorta measures 3.3 cm. There is coarse groundglass interstitial density in the lungs. There are spondylotic changes in the t horacic spine. IMPRESSION: Mild interstitial pulmonary infiltrates. Right pleural effusion and right basilar infiltrate and atel ectasis. No evidence of pulmonary embolism. Mild bronchial adenopathy.
[2019-10-16] MEDS ORDERED: DOXYCYCLINE 100 MG CAP PO STA (23:30)
[2019-10-16 23:47] VITALS: BP 123/63; PULSE 73; RESP 18; TEMP 98.1
== END 2019-10-16 23:47 | disposition home or self-care (01) ==
LOC: EC 19:05
DX: Z03.818 Encounter for observation for suspected exposure to other biological agents ruled out (principal); J18.9 Pneumonia, unspecified organism; J44.9 Chronic obstructive pulmonary disease, unspecified; E11.9 Type 2 diabetes mellitus without complications; M19.90 Unspecified osteoarthritis, unspecified site; Z79.51 Long term (current) use of inhaled steroids; Z79.899 Other long term (current) drug therapy; Z79.4 Long term (current) use of insulin; Z88.8 Allergy status to other drugs, medicaments and biological substances; Z88.5 Allergy status to narcotic agent; Z88.6 Allergy status to analgesic agent; Z99.81 Dependence on supplemental oxygen; Z53.20 Procedure and treatment not carried out because of patient's decision for unspecified reasons; Z87.891 Personal history of nicotine dependence; Z86.79 Personal history of other diseases of the circulatory system; Z96.641 Presence of right artificial hip joint
CPT/HCPCS: 36415; 93005; 85379; 83880; 80053; 83605; 84484; 85025; 85610; 85730; 87635; 71046; 71275; 99285; 96360; 96361; Q9967

== ENCOUNTER → 2019-10-28 | Outpatient (CLI) | payer MEDICARE ==
[2019-10-28 08:53] LABS: HCT 43.3 % (39.0-53.0); MCH 29.5 pg (25.0-35.0); MCHC 32.3 g/dL (31.0-37.0); MCV 91.2 fL (80.0-100.0); Mean Platelet Volume 8.4; Platelet Count 111 k/uL (150-450); RBC 4.75 m/uL (4.30-5.90); RDW 14.3 % (11.5-15.5); WBC 4.5 k/uL (3.8-10.6)
[2019-10-28 09:02] LABS: INR 1.3 (<1.2); Prothrombin Time 12.9 sec (9.0-12.0)
[2019-10-28 17:09] LABS: African American GFR (CKD) 109.3 (60.0-200.0); Albumin 3.5 g/dL (3.80-4.90); Albumin/Globulin Ratio 1.35 (1.60-3.17); Anion Gap 12.8 mmol/L (4.00-12.00); BUN/Creat Ratio 15.71 Ratio (12.00-20.00); Calcium 9.2 mg/dL (8.7-10.3); Carbon Dioxide 33.2 mmol/L (21.6-31.8); Globulin 2.6 g/dL (1.6-3.3); Non-African American GFR(CKD) 94.3 (60.0-200.0); Potassium 3.9 mmol/L (3.5-5.5); Total Bilirubin 2.5 mg/dL (0.3-1.2); Total Protein 6.1 g/dL (6.2-8.2)
== END | disposition home or self-care (01) ==
LOC: LABWHC1 08:30
PROVIDERS: ATTEND Internal Medicine Gastroenterology
DX: K74.60 Unspecified cirrhosis of liver (principal)
CPT/HCPCS: 36415; 80053; 82105; 85027; 85610

== ENCOUNTER 2019-12-31 06:45 | Day surgery (SDC) | payer MEDICARE ==
[~2019-12-31 06:45] MED LIST changes: +LIDOCAINE 1% (10MG/ML) FOR IV START INTRADERMA PRN; -LIDOCAINE 1% 20 ML VIAL (10MG/ML) FOR IV START INTRADERMA PRN
[2019-12-31] MEDS ORDERED: PROPOFOL 10 MG/ML 20 ML VIAL IV ONE (07:38)
[2019-12-31] MEDS ORDERED: LIDOCAINE 1% INJ 10MG/ML (20 ML MDV) ONE (07:38)
--- NOTE | 2019-12-31 07:58 | P.PCN ---
Date of Procedure: 12/31/19 Procedure(s) Performed: BRIEF HISTORY: Patient is a 74-year-old, pleasant, white male scheduled for an upper endoscopy as a part of follow-up of esophageal varices with possible variceal ligation today. Patient with history of nonalcoholic cirrhosis of the liver and prior history of esophageal variceal bleeding.. Last EGD with variceal ligation was in July 2018.. PROCEDURE PERFORMED: Esophagogastroduodenoscopy with variceal ligation. PREOPERATIVE DIAGNOSIS: History of esophageal varices/cirrhosis of the liver. IV sedation per anesthesia. PROCEDURE: After informed consent was obtained, the patient was brought into the endoscopy unit. IV sedation was administered by Anesthesia under continuous monitoring. Initially the Olympus GIF-140 video endoscope was inserted into the mouth. Esophagus intubated without any difficulty. It was gradually advanced into the stomach and duodenum and carefully examined. The bulb and the second part of the duodenum appeared normal. The scope at this time was withdrawn to the stomach, adequately insufflated with air, and upon careful examination, muco sa of the antrum, body, cardia and the fundus showed changes consistent with portal hypertensive gastropathy. No gastric varices seen. The scope was then withdrawn into the esophagus. The GE junction was located at 39 cm from the incisors. There were large mid esophageal varices seen and small distal esophageal varices. At this time the scope was removed and esophageal varices elective ligation equipment was introduced onto the tip of the scope and esophagus intubated without any difficulty. It was gradually advanced into the distal esophagus. Total of 5 bands were deployed in a fight spiral fashion in the distal and mid esophagus of esophageal varices and the patient tolerated the procedure well. IMPRESSION: 1. Large mid esophageal varices status post variceal ligation as described above. 2. Mild to moderate portal hypertensive gastropathy. RECOMMENDATIONS: The findings of this examination were discussed with the patient as well as his family. He will be on a soft diet today. He will continue with Inderal 10 mg 3 times daily. He'll be seen in office in 3-4 weeks. Will plan repeat EGD with variceal ligation in 3 months.
[2019-12-31 08:23] LABS: Glucose,Whole Blood 146 mg/dL (75-99)
[2019-12-31 09:22] VITALS: BP 124/66; PULSE 69; RESP 16; TEMP 96.9; BMI 37.4
[2019-12-31 14:06] LABS: Glucose,Whole Blood 149 mg/dL (75-99)
== END 2019-12-31 08:49 | disposition home or self-care (01) ==
LOC: ORWHC2ENDO 06:45
PROVIDERS: ATTEND Internal Medicine Gastroenterology
DX: K74.60 Unspecified cirrhosis of liver (principal); I85.10 Secondary esophageal varices without bleeding; K31.89 Other diseases of stomach and duodenum; K76.6 Portal hypertension; I10 Essential (primary) hypertension; J44.9 Chronic obstructive pulmonary disease, unspecified; E11.9 Type 2 diabetes mellitus without complications; K21.9 Gastro-esophageal reflux disease without esophagitis; Z99.81 Dependence on supplemental oxygen; Z88.6 Allergy status to analgesic agent; Z88.8 Allergy status to other drugs, medicaments and biological substances; Z79.4 Long term (current) use of insulin; Z79.51 Long term (current) use of inhaled steroids; Z79.899 Other long term (current) drug therapy
CPT/HCPCS: 43244; J2001; J2704

== ENCOUNTER 2020-08-04 06:35 | Day surgery (SDC) | payer MEDICARE ==
[2020-08-03 13:09] VITALS: BMI 38.6
[2020-08-04 07:24] VITALS: RESP 16; TEMP 98.3
[2020-08-04 07:30] LABS: Glucose,Whole Blood 169 mg/dL (75-99)
[2020-08-04] MEDS ORDERED: PROPOFOL 10 MG/ML 20 ML VIAL IV ONE (07:50)
[2020-08-04] MEDS ORDERED: LIDOCAINE 1% INJ 10MG/ML (20 ML MDV) ONE (07:50)
--- NOTE | 2020-08-04 08:04 | P.PCN ---
Date of Procedure: 08/04/20 Procedure(s) Performed: BRIEF HISTORY: Patient is a 75-year-old, pleasant, white male with history of fatty liver disease with cirrhosis of the liver and prior history of esophageal variceal bleeding is scheduled for an upper endoscopy as a part of follow-up esophageal varices and possible esophageal variceal ligation.. PROCEDURE PERFORMED: Esophagogastroduodenoscop with variceal ligation y. PREOPERATIVE DIAGNOSIS: Follow-up esophageal varices/history of esophageal variceal bleeding. IV sedation per anesthesia. PROCEDURE: After informed consent was obtained, the patient was brought into the endoscopy unit. IV sedation was administered by Anesthesia under continuous monitoring. Initially the Olympus GIF-140 video endoscope was inserted into the mouth. Esophagus intubated without any difficulty. It was gradually advanced into the stomach and duodenum and carefully examined. The bulb and the second part of the duodenum appeared normal. The scope at this time was withdrawn to the stomach, adequately insufflated with air, and upon careful examination, mucosa of the antrum, appeared normal. There was changes of mild portal hypertensive gastropathy in the body, cardia and the fundus l. The scope was then withdrawn into the esophagus. The GE junction was located at 45 cm from the incisors. There were large mid/distal esophageal varices with red paz signs noted. No bleeding noted. At this time the scope was removed and esophageal basal ligation equipment was introduced onto the tip of the scope and esophagus intubated without any difficulty. The scope was advanced into the distal esophagus. Variceal ligation was performed in a spiral fashion and total of 6 bands were deployed. The proximal cervical esophagus appeared normal. Patient tolerated the procedure well. IMPRESSION: 1. Large mid/distal esophageal varices with red paz signs status post variceal ligation as discussed Above. 2. Mild portal hypertensive gastropathy. RECOMMENDATIONS: The findings of this examination were discussed with the patient as well as his family. He will continue with propranolol 10 mg 3 times daily and will schedule for repeat upper endoscopy in 6 months for follow-up of esophageal varices.
[2020-08-04 08:21] VITALS: BP 134/76; PULSE 68
== END 2020-08-04 08:37 | disposition home or self-care (01) ==
LOC: ORWHC2ENDO 06:35
PROVIDERS: ATTEND Internal Medicine Gastroenterology
DX: K74.60 Unspecified cirrhosis of liver (principal); I85.10 Secondary esophageal varices without bleeding; K76.6 Portal hypertension; K31.89 Other diseases of stomach and duodenum; Z79.4 Long term (current) use of insulin; Z79.51 Long term (current) use of inhaled steroids; Z79.899 Other long term (current) drug therapy; Z88.6 Allergy status to analgesic agent; J44.9 Chronic obstructive pulmonary disease, unspecified; E11.9 Type 2 diabetes mellitus without complications; M19.90 Unspecified osteoarthritis, unspecified site; Z97.2 Presence of dental prosthetic device (complete) (partial)
CPT/HCPCS: 43244; J2001; J2704

== ENCOUNTER 2021-05-28 19:41 | Inpatient (IN) | payer MEDICARE ==
[2021-05-28 20:32] LABS: Basophils % (A) 0 %; Eosinophils % (A) 0 %; HGB 13.9 gm/dL (13.0-17.5); Hyperchromasia Slight; Lymphocytes # (A) 0.4 k/uL (1.0-4.8); Lymphocytes % (A) 5 %; MCH 32.1 pg (25.0-35.0); MCHC 35.7 g/dL (31.0-37.0); MCV 89.9 fL (80.0-100.0); Mean Platelet Volume 7.9; Monocytes # (A) 0.6 k/uL (0-1.0); Monocytes % (A) 8 %; Neutrophils % (A) 84 %; Platelet Count 173 k/uL (150-450); Poikilocytosis Slight; RBC 4.33 m/uL (4.30-5.90); RDW 13.9 % (11.5-15.5); WBC 7.1 k/uL (3.8-10.6)
[2021-05-28 20:51] LABS: ALT 21 U/L (4-49); AST 39 U/L (17-59); African American GFR (CKD) >90 (>60 ml/min/1.73 sqM); Albumin 3.1 g/dL (3.5-5.0); Alkaline Phosphatase 107 U/L (38-126); Anion Gap 7 mmol/L; Blood Urea Nitrogen 21 mg/dL (9-20); C Reactive Protein 7.4 mg/dL (<1.0); Calcium 9.3 mg/dL (8.4-10.2); Carbon Dioxide 33 mmol/L (22-30); Chloride 98 mmol/L (98-107); Glucose 106 mg/dL (74-99); LDH 414 U/L (313-618); Magnesium 1.2 mg/dL (1.6-2.3); Non-African American GFR(CKD) 88 (>60 ml/min/1.73 sqM); Potassium 4.3 mmol/L (3.5-5.1); Sodium 138 mmol/L (137-145); Total Bilirubin 1.9 mg/dL (0.2-1.3); Total Protein 6.1 g/dL (6.3-8.2)
--- NOTE | 2021-05-28 20:57 | XR ---
EXAMINATION TYPE: XR chest 1V portable DATE OF EXAM: 05/28/2021 COMPARISON: 10/16/2019 HISTORY: Short of breath TECHNIQUE: Single view FINDINGS: There is opacification of the right hemithorax consistent with pleural effusion and right l ower lobe consolidation. There is some pulmonary vascular congestion. There is interstitial edema in the left lung. There are chest leads. Thoracic aorta is atheromatous. IMPRESSION: Pulmonary interstitial edema. Right pleural effusion and right lower lobe consolidation a ppears mostly new compared to old exam and consistent with pneumonia and congestive heart failure.
--- NOTE | 2021-05-28 21:38 | ED ---
SOB HPI - General Chief Complaint: Shortness of Breath Stated Complaint: Chest congestion Time Seen by Provider: 05/28/21 19:55 Source: patient, RN notes reviewed Mode of arrival: ambulatory Limitations: no limitations - History of Present Illness Initial Comments: Patient is a 76-year-old male that presents to the emergency department complaining of chest congestion and has a history of pneumonia. States that he has been having increasing shortness of breath over the past several days. Patient is on 3 L oxygen at home. Patient also has a history of COPD diabetes liver disease nostril started. Patient is otherwise well-appearing in no apparent distress. He notes that he is vaccinated for Covid. She denied any other issues or complaints at this time. He denied chest pain headache nausea vomiting diarrhea constipation fever fatigue chills. - Related Data Home Medications Medication Instructions Recorded Confirmed Benralizumab [Fasenra] 30 mg IM Q56D 06/10/18 08/04/20 Ezetimibe [Zetia] 10 mg PO HS 06/10/18 08/04/20 Multivitamins, Thera [Multivitamin 1 tab PO DAILY 06/10/18 08/04/20 (formulary)] Omeprazole 20 mg PO AC-SUPPER 06/10/18 08/04/20 Propranolol [Inderal] 10 mg PO TID 06/10/18 08/04/20 metFORMIN HCL [Glucophage] 1,000 mg PO BID 06/10/18 08/04/20 Insulin Glargine,Hum.rec.anlog 25 unit SQ HS 04/05/19 08/04/20 [Lantus Solostar Pen] Ascorbic Acid [Vitamin C] 1,000 mg PO DAILY 10/16/19 08/04/20 Budesonide [Pulmicort] 0.5 mg INHALATION RT-BID 10/16/19 08/04/20 Furosemide [Lasix] 20 mg PO DAILY 10/16/19 08/04/20 Insulin Aspart [NovoLOG Flexpen] 10 units SQ AC-TID 10/16/19 08/04/20 Ipratropium-Albuterol Nebulize 3 ml INHALATION RT-TID 10/16/19 08/04/20 [Duoneb 0.5 mg-3 mg/3 ml Soln] Loratadine [Claritin] 10 mg PO DAILY 10/16/19 08/04/20 Spironolactone [Aldactone] 25 mg PO DAILY 10/16/19 08/04/20 Cholecalciferol (Vitamin D3) 125 mcg PO DAILY 12/29/19 08/04/20 [Vitamin D3] Allergies Allergy/AdvReac Type Severity Reaction Status Date / Time naproxen Allergy Rash/Hives Verified 05/28/21 19:47 Review of Systems ROS Statement: Those systems with pertinent positive or pertinent negative responses have been documented in the HPI. ROS Other: All systems not noted in ROS Statement are negative. Past Medical History Past Medical History: Asthma, COPD, Diabetes Mellitus, GERD/Reflux, Liver Disease, Osteoarthritis (OA) Additional Past Medical History / Comment(s): Pt states, "Ischemic heart, esophageal varices" 3L home O2 for "about a year". PNEUMONIA 09/2019 History of Any Multi-Drug Resistant Organisms: None Reported Past Surgical History: Back Surgery, Cholecystectomy, Hernia Repair, Joint Replacement, Orthopedic Surgery, Tonsillectomy Additional Past Surgical History / Comment(s): right rotator cuff, right foot fx with pins 1996, ankle, vein stripping, right hip replacment, EGD WITH D ILATATION, BILAT CATARACTS REMOVED Past Anesthesia/Blood Transfusion Reactions: No Reported Reaction Additional Past Anesthesia/Blood Transfusion Reaction / Comment(s): Hard to awake. wears O2. Past Psychological History: No Psychological Hx Reported Smoking Status: Former smoker Past Alcohol Use History: None Reported Past Drug Use History: None Reported - Past Family History Father Family Medical History: Cancer Additional Family Medical History / Comment(s): Lung Cancer Mother Family Medical History: COPD Sister(s) Family Medical History: Cancer Additional Family Medical History / Comment(s): Lung Cancer General Exam Limitations: no limitations General appearance: alert, in no apparent distress Head exam: Present: atraumatic, normocephalic, normal inspection Eye exam: Present: normal appearance, PERRL, EOMI. Absent: scleral icterus, conjunctival injection, periorbital swelling ENT exam: Present: normal exam, mucous membranes moist Neck exam: Present: normal inspection Respiratory exam: Present: normal lung sounds bilaterally, decreased breath sounds (Lower lobes). Absent: respiratory distress, wheezes, rales, rhonchi, stridor Cardiovascular Exam: Present: regular rate, normal rhythm, normal heart sounds. Absent: systolic murmur, diastolic murmur, rubs, gallop, clicks GI/Abdominal exam: Present: soft, normal bowel sounds. Absent: distended, tenderness, guarding, rebound, rigid Extremities exam: Present: normal inspection Back exam: Present: normal inspection Neurological exam: Present: alert, oriented X3, CN II-XII intact Psychiatric exam: Present: normal affect, normal mood Skin exam: Present: warm, dry, intact, normal color. Absent: rash Course Vital Signs 05/28/21 19:44 Temperature 98.3 F Pulse Rate 79 Respiratory 20 Rate Blood Pressure 121/69 O2 Sat by Pulse 91 L Oximetry Procedures - [place] Protocol (Time Out) Nurse: Peggy Wiseman Medical Decision Making - Medical Decision Making 76-year-old male complaining of increased shortness of breath. Labs, EKG, visual merchandising specialist, 3 L of oxygen via nasal cannula, chest x-ray ordered. Labs: CBC unremarkable, CMP shows a lactic acid of 3.6, magnesium 1.2 C-reactive protein 7.4, Covid negative. 2 g of magnesium ordered to replenish. X-ray shows a right-sided pleural effusion and right sided lower lobe consolidation consistent with pneumonia. Levaquin and Zosyn ordered. Case discussed with Dr. Oconnor, patient will be admitted. Dr. Mclaughlin was consulted and will except the admit. - Lab Data Result diagrams: 05/28/21 20:27 05/28/21 20:27 Lab Results 05/28/21 05/28/21 05/28/21 Range/Units 20:27 20:27 20:27 WBC 7.1 (3.8-10.6) k/uL RBC 4.33 (4.30-5.90) m/uL Hgb 13.9 (13.0-17.5) gm/dL Hct 39.0 (39.0-53.0) % MCV 89.9 (80.0-100.0) fL MCH 32.1 (25.0-35.0) pg MCHC 35.7 (31.0-37.0) g/dL RDW 13.9 (11.5-15.5) % Plt Count 173 (150-450) k/uL MPV 7.9 Neutrophils % 84 % Lymphocytes % 5 % Monocytes % 8 % Eosinophils % 0 % Basophils % 0 % Neutrophils # 6.0 (1.3-7.7) k/uL Lymphocytes # 0.4 L (1.0-4.8) k/uL Monocytes # 0.6 (0-1.0) k/uL Eosinophils # 0.0 (0-0.7) k/uL Basophils # 0.0 (0-0.2) k/uL Hyperchromasia Slight Poikilocytosis Slight Sodium 138 (137-145) mmol/L Potassium 4.3 (3.5-5.1) mmol/L Chloride 98 (98-107) mmol/L Carbon Dioxide 33 H (22-30) mmol/L Anion Gap 7 mmol/L BUN 21 H (9-20) mg/dL Creatinine 0.80 (0.66-1.25) mg/dL Est GFR (CKD-EPI)AfAm >90 (>60 ml/min/1.73 sqM) Est GFR (CKD-EPI)NonAf 88 (>60 ml/min/1.73 sqM) Glucose 106 H (74-99) mg/dL Plasma Lactic Acid Warner 3.6 H* (0.7-2.0) mmol/L Calcium 9.3 (8.4-10.2) mg/dL Magnesium 1.2 L (1.6-2.3) mg/dL Total Bilirubin 1.9 H (0.2-1.3) mg/dL AST 39 (17-59) U/L ALT 21 (4-49) U/L Alkaline Phosphatase 107 (38-126) U/L Lactate Dehydrogenase 414 (313-618) U/L C-Reactive Protein 7.4 H (<1.0) mg/dL Total Protein 6.1 L (6.3-8.2) g/dL Albumin 3.1 L (3.5-5.0) g/dL Coronavirus (PCR) (Not Detectd) 05/28/21 Range/Units 20:30 WBC (3.8-10.6) k/uL RBC (4.30-5.90) m/uL Hgb (13.0-17.5) gm/dL Hct (39.0-53.0) % MCV (80.0-100.0) fL MCH (25.0-35.0) pg MCHC (31.0-37.0) g/dL RDW (11.5-15.5) % Plt Count (150-450) k/uL MPV Neutrophils % % Lymphocytes % % Monocytes % % Eosinophils % % Basophils % % Neutrophils # (1.3-7.7) k/uL Lymphocytes # (1.0-4.8) k/uL Monocytes # (0-1.0) k/uL Eosinophils # (0-0.7) k/uL Basophils # (0-0.2) k/uL Hyperchromasia Poikilocytosis Sodium (137-145) mmol/L Potassium (3.5-5.1) mmol/L Chloride (98-107) mmol/L Carbon Dioxide (22-30) mmol/L Anion Gap mmol/L BUN (9-20) mg/dL Creatinine (0.66-1.25) mg/dL Est GFR (CKD-EPI)AfAm (>60 ml/min/1.73 sqM) Est GFR (CKD-EPI)NonAf (>60 ml/min/1.73 sqM) Glucose (74-99) mg/dL Plasma Lactic Acid Warner (0.7-2.0) mmol/L Calcium (8.4-10.2) mg/dL Magnesium (1.6-2.3) mg/dL Total Bilirubin (0.2-1.3) mg/dL AST (17-59) U/L ALT (4-49) U/L Alkaline Phosphatase (38-126) U/L Lactate Dehydrogenase (313-618) U/L C-Reactive Protein (<1.0) mg/dL Total Protein (6.3-8.2) g/dL Albumin (3.5-5.0) g/dL Coronavirus (PCR) Not Detected (Not Detectd) - EKG Data -: EKG Interpreted by Ok EKG shows normal: sinus rhythm Rate: normal EKG Comments: Ventricular rate 85 bpm, HI interval 132 ms, QRS duration 98 ms, QTC 440 ms, PRT axes 5/72/63, normal sinus rhythm, normal EKG. - Radiology Data Radiology results: report reviewed, image reviewed Chest x-ray: Pulmonary interstitial edema. Right pleural effusion and right lower lobe consolidation appears mostly new compared to old exam consistent with pneumonia and congestive heart failure. Disposition Clinical Impression: Pneumonia, COPD exacerbation, Hypomagnesemia Disposition: ADMITTED IP TO THIS HOSP Condition: Stable Is patient prescribed a controlled substance at d/c from ED?: No Referrals: Axel Mcclure MD [Primary Care Provider] - 1-2 days Time of Disposition: 21:57
[2021-05-28] MEDS ORDERED: NALOXONE 0.4 MG/ML 1 ML VIAL IV PRN (21:54)
[2021-05-28] MEDS ORDERED: LEVOFLOXACIN 750MG-D5W PMX 750 MG in DEXTROSE/WATER 1 150ML.BAG IVPB SCH (22:00)
[2021-05-28] MEDS: SODIUM CHLORIDE 0.9% 1,000 ML IV SCH (22:26)
[2021-05-28] MEDS: PROPRANOLOL 10 MG TAB PO SCH (22:27)
[2021-05-28] MEDS: MAGNESIUM SULFATE-D5W PMX 1 GM in DEXTROSE/WATER 1 100ML.BAG IVPB SCH ×2 (22:31→23:12)
[2021-05-28] MEDS: PIPERACILLIN-TAZOBACTAM 3.375 GM in SODIUM CHLORIDE 0.9% 100 ML IVPB SCH (23:13)
[2021-05-28 23:20] LABS: INR 1.2 (<1.2); Prothrombin Time 12.3 sec (9.0-12.0)
[2021-05-29] MEDS: SODIUM CHLORIDE 0.9% 1,000 ML IV SCH ×2 (05:44→13:43)
[2021-05-29] MEDS: BUDESONIDE 0.5 MG/2 ML NEBU INHALATION SCH ×2 (07:07→19:17)
[2021-05-29] MEDS: IPRATROPIUM-ALBUTEROL 3 ML NEB INHALATION SCH ×4 (07:07→19:17)
[2021-05-29 07:44] LABS: Glucose,Whole Blood 136 mg/dL (75-99)
[2021-05-29] MEDS: SPIRONOLACTONE 25 MG TAB PO SCH (08:42)
[2021-05-29] MEDS: ASCORBIC ACID 500 MG TAB PO SCH (08:42)
[2021-05-29] MEDS: LORATADINE 10 MG TAB PO SCH (08:42)
[2021-05-29] MEDS: FUROSEMIDE 20 MG TAB PO SCH (08:42)
[2021-05-29] MEDS: metFORMIN 500 MG TAB PO SCH ×2 (08:42→21:29)
[2021-05-29] MEDS: MULTIVITAMINS, THERA 1 EACH TAB PO SCH (08:43)
[2021-05-29] MEDS: INSULIN ASPART (NovoLOG) 100 UNIT/ML VIAL SQ SCH ×3 (08:43→17:45)
[2021-05-29] MEDS: PIPERACILLIN-TAZOBACTAM 3.375 GM in SODIUM CHLORIDE 0.9% 100 ML IVPB SCH ×2 (08:44→16:27)
--- NOTE | 2021-05-29 08:44 | US ---
EXAMINATION TYPE: US chest DATE OF EXAM: 05/29/2021 COMPARISON: NONE CLINICAL HISTORY: Markings for thoracentesis by pulmonary staff. TECHNIQUE: Targeted ultrasound of the posterior lower bilateral hemithoraces Exam done portable EXAM MEASUREMENTS: Right Pleural Effusion pocket size: 14.9 cm Right skin surface to fluid distance: 4.2 cm Right side marked for possible thoracentesis outside the dept. Left side not marked for possible thoracentesis outside the dept. Pulmonologists are able to review the images in the patient?s EMR. IMPRESSIONS: Right pleural effusion
[2021-05-29] MEDS: PROPRANOLOL 10 MG TAB PO SCH ×3 (08:46→21:29)
[2021-05-29] MEDS: CHOLECALCIFEROL 125 MCG (5000 IU) TABLET PO SCH (08:53)
--- NOTE | 2021-05-29 09:10 | XR ---
EXAMINATION TYPE: XR chest 1V portable DATE OF EXAM: 05/29/2021 COMPARISON: 05/28/2021 INDICATION: Postthoracentesis right side TECHNIQUE: Single frontal view of the chest is obtained. FINDINGS: The heart size is normal. The pulmonary vasculature is somewhat prominent. Scattered infiltrates through the left lung. There is small right pleural effusion. This is diminishe d from prior examination. No pneumothorax is evident. IMPRESSION: 1. No pneumothorax postthoracentesis. 2. Small right pleural effusion, diminished. 3. Diffuse infiltrate in the left lung
--- NOTE | 2021-05-29 11:08 | PCN ---
PROCEDURE NOTE OPERATIVE REPORT: Right-sided thoracentesis. PREOPERATIVE DIAGNOSIS: Right sided pleural effusion. POSTOPERATIVE DIAGNOSIS: Right sided pleural effusion. ANESTHESIA USED: 2 mL of 1% lidocaine. PROCEDURE: The patient was placed in the upright position, the area below the right scapula was prepared in a sterile fashion. Drapes were applied. The fluid marking was done earlier by ultrasound guidance, and it correlated to the level of the ninth intercostal space and tip of the scapula. The area was locally anesthetized with lidocaine, and a 26-gauge needle was inserted at the same site, advanced into the pleural space until the fluid was localized. Then a small tiny incision was made. A 9-Liberian thoracentesis catheter was used, inserted at the same site, advanced into the pleural space until fluid was obtained and as soon as the fluid was obtained, the catheter was advanced over of the needle, the needle was pulled out of the pleural space. Freely flowing fluid was removed, roughly 2000 mL of dark yellow and slightly serosanguineous fluid was removed from the right pleural space. The fluid was sent for different diagnostic studies. Chest x-ray ordered postoperatively, no immediate postoperative complications. A chest x-ray is pending. MMODL / IJN: [id number] /
[2021-05-29 11:37] VITALS: BMI 38.0
[2021-05-29 11:45] LABS: Glucose,Whole Blood 107 mg/dL (75-99)
--- NOTE | 2021-05-29 12:41 | P.CNPUL ---
History of Present Illness Consult date: 05/29/21 Requesting physician: Jered Mclaughlin Reason for consult: dyspnea, abnormal CXR/CT Chief complaint: Shortness of breath History of present illness: This is a pleasant 76-year-old male patient who has a history of morbid obesity, limited mobility utilizes a motorized scooter, diabetes mellitus, chemical asthma and has home oxygen. 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 Previous heavy chronic tobacco dependence however quit in 1985. He presented here to the hospital with worsening shortness of breath cough and congestion. Chest x-ray revealed a moderate right-sided pleural effusion. We are consulted for the same. Ultrasound of the chest revealed a 14.9 cm pocket. White count 7.1. Hemoglobin 13.9. Lymphocytes 0.4. INR 1.2. Sodium 138. Potassium 4.3. Creatinine 0.80. Glucose 107. Pro-calcitonin 0.17. Ibrahim virus by PCR not detected. He is seen today in consultation on the regular medical floor. He is currently sitting up in a chair at the bedside. Awake and alert in no acute distress. Dyspneic with minimal conversation. Dyspneic with minimal exertion. No fever or chills. No hemoptysis. He had been initiated on Zosyn and Levaquin, oral diuretics, bronchodilators Review of Systems REVIEW OF SYSTEMS: CONSTITUTIONAL: Denies any recent significant weight loss or weight gain. EYES: Denies change in vision. EARS, NOSE, MOUTH, THROAT: Denies headaches, denies sore throat. CARDIOVASCULAR: Denies chest pain, palpitations or syncopal episodes. RESPIRATORY: Positive for shortness of breath, cough, congestion no hemoptysis. GASTROINTESTINAL: Denies change in appetite, denies abdominal pain GENITOURINARY: Denies hematuria, denies infections. MUSKULOSKELETAL: Denies pain, denies swelling. INTEGUMENTARY: Denies rash, denies eczema. NEUROLOGICAL: Denies recent memory loss, no recent seizure activity. PSYCHIATRIC: Denies anxiety, denies depression. HEMATOLOGIC/LYMPHATIC: Denies anemia, denies enlarged lymph nodes. Past Medical History Past Medical History: Asthma, COPD, Diabetes Mellitus, GERD/Reflux, Liver Disease, Osteoarthritis (OA) Additional Past Medical History / Comment(s): Pt states, "Ischemic heart, esophageal varices" 3L home O2. PNEUMONIA 09/2019 History of Any Multi-Drug Resistant Organisms: None Reported Past Surgical History: Back Surgery, Cholecystectomy, Hernia Repair, Joint Re placement, Orthopedic Surgery, Tonsillectomy Additional Past Surgical History / Comment(s): right rotator cuff, right foot fx with pins 1995, ankle, vein stripping, right hip replacment, EGD WITH DILATATION, BILAT CATARACTS REMOVED Past Anesthesia/Blood Transfusion Reactions: No Reported Reaction Additional Past Anesthesia/Blood Transfusion Reaction / Comment(s): Hard to awaken. wears O2. Past Psychological History: No Psychological Hx Reported Smoking Status: Former smoker Past Alcohol Use History: None Reported Additional Past Alcohol Use History / Comment(s): Reports a history of 7-8 drinks on weekends, but no use in many years. QUIT SMOKING 1985 Past Drug Use History: None Reported - Past Family History Father Family Medical History: Cancer Additional Family Medical History / Comment(s): Lung Cancer Mother Family Medical History: COPD Sister(s) Family Medical History: Cancer Additional Family Medical History / Comment(s): Lung Cancer Medications and Allergies Home Medications Medication Instructions Recorded Confirmed Type Benralizumab [Fasenra] 30 mg IM Q56D 06/10/18 05/28/21 History Ezetimibe [Zetia] 10 mg PO PC-SUPPER 06/10/18 05/28/21 History Multivitamins, Thera [Multivitamin 1 tab PO DAILY 06/10/18 05/28/21 History (formulary)] Omeprazole 20 mg PO AC-SUPPER 06/10/18 05/28/21 History Propranolol [Inderal] 10 mg PO TID 06/10/18 05/28/21 History metFORMIN HCL [Glucophage] 1,000 mg PO BID 06/10/18 05/28/21 History Insulin Glargine,Hum.rec.anlog 25 unit SQ HS 04/05/19 05/28/21 History [Lantus Solostar Pen] Ascorbic Acid [Vitamin C] 1,000 mg PO DAILY 10/16/19 05/28/21 History Budesonide [Pulmicort] 0.5 mg INHALATION RT-BID 10/16/19 05/28/21 History Furosemide [Lasix] 20 mg PO DAILY 10/16/19 05/28/21 History Insulin Aspart [NovoLOG Flexpen] 10 units SQ AC-TID 10/16/19 05/28/21 History Ipratropium-Albuterol Nebulize 3 ml INHALATION RT-TID 10/16/19 05/28/21 History [Duoneb 0.5 mg-3 mg/3 ml Soln] Loratadine [Claritin] 10 mg PO DAILY 10/16/19 05/28/21 History Spironolactone [Aldactone] 25 mg PO DAILY 10/16/19 05/28/21 History Cholecalciferol (Vitamin D3) 125 mcg PO DAILY 12/29/19 05/28/21 History [Vitamin D3] Allergies Allergy/AdvReac Type Severity Reaction Status Date / Time naproxen Allergy Rash/Hives Verified 05/28/21 19:47 Physical Exam Vitals: Vital Signs Temp Pulse Pulse Resp BP BP Pulse Ox 05/29/21 12:09 97.9 F 79 17 106/46 98 05/29/21 08:20 90 122/61 05/29/21 07:27 95 05/29/21 07:08 94 95 05/29/21 05:00 97.6 F 90 18 130/71 96 05/28/21 23:16 98.4 F 83 18 123/65 94 L 05/28/21 19:44 98.3 F 79 20 121/69 91 L Intake and Output 05/28/21 05/29/21 05/29/21 22:59 06:59 14:59 Other: Voiding Method Urinal Weight 127.006 kg 127.006 kg GENERAL EXAM: Alert, pleasant, morbidly obese 76-year-old gentleman, on 4 liters nasal cannula, fairly comfortable in no apparent distress. HEAD: Normocephalic. EYES: Normal reaction of pupils, equal size. NOSE: Clear with pink turbinates. THROAT: No erythema or exudates. NECK: No masses, no JVD. CHEST: No chest wall deformity. LUNGS: Equal air entry with crackles in the right lung base, diminished. CVS: S1 and S2 normal with no audible murmur, regular rhythm. ABDOMEN: No hepatosplenomegaly, normal bowel sounds, no guarding or rigidity. SPINE: No scoliosis or deformity SKIN: No rashes CENTRAL NERVOUS SYSTEM: No focal deficits, tone is normal in all 4 extremities. EXTREMITIES: There is no peripheral edema. No clubbing, no cyanosis. Per ipheral pulses are intact. Results - Laboratory Findings CBC and BMP: 05/28/21 20:27 05/28/21 20:27 PT/INR, D-dimer PT 12.3 sec (9.0-12.0) H 05/28/21 22:40 INR 1.2 (<1.2) H 05/28/21 22:40 Abnormal lab findings: Abnormal Labs 05/28/21 05/28/21 05/28/21 20:27 20:27 20:27 Lymphocytes # 0.4 L PT INR Carbon Dioxide 33 H BUN 21 H Glucose 106 H POC Glucose (mg/dL) Plasma Lactic Acid Warner 3.6 H* Magnesium 1.2 L Total Bilirubin 1.9 H C-Reactive Protein 7.4 H Total Protein 6.1 L Albumin 3.1 L Procalcitonin 05/28/21 05/28/21 05/28/21 20:27 22:40 23:28 Lymphocytes # PT 12.3 H INR 1.2 H Carbon Dioxide BUN Glucose POC Glucose (mg/dL) Plasma Lactic Acid Warner 2.4 H* Magnesium Total Bilirubin C-Reactive Protein Total Protein Albumin Procalcitonin 0.17 H 05/29/21 05/29/21 07:42 11:43 Lymphocytes # PT INR Carbon Dioxide BUN Glucose POC Glucose (mg/dL) 136 H 107 H Plasma Lactic Acid Warner Magnesium Total Bilirubin C-Reactive Protein Total Protein Albumin Procalcitonin - Diagnostic Findings Chest x-ray: image reviewed Assessment and Plan Assessment: 1 Acute on chronic hypoxemic respiratory failure secondary to an acute moderate to large side right pleural effusion. Status post thoracentesis today with 2 L of dark turbulent fluid removed. Suspect exudate in nature. 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 Marion performed a right-sided thoracentesis 2 L of turbulent fluid removed, suspect exudate Cultures, fluid analysis and cytology pending Continue antibiotics Check a proBNP Check an echocardiogram Titrate the FiO2 as tolerated Continue bronchodilators We will continue to follow and make further recommendations based on his clinical status I, the cosigning physician, performed a history & physical examination of the patient. Lungs sounds with crackles in the right lung base, diminished. Maintaining good O2 saturations in the 90s on 4 L/m per nasal cannula. I discussed the assessment and plan of care with my nurse practitioner, Karin Richardson. I attest to the above consultation as dictated by her. Time with Patient: Greater than 30
[2021-05-29 15:20] LABS: Appearance,BF Cloudy; Color,BF Orange
[2021-05-29 15:21] LABS: Nucleated Cells, Body Fluid 900 /uL
[2021-05-29 15:22] LABS: RBC, Body Fluid 6100 /uL
[2021-05-29 15:24] LABS: Mononuclear WBC,Body Fluid 100 %; Total Cells Counted,Body Fluid 100
[2021-05-29] MEDS ORDERED: MELATONIN 3 MG TABLET PO PRN (16:21)
[2021-05-29] MEDS ORDERED: ACETAMINOPHEN TAB 325 MG TAB PO PRN (16:21)
[2021-05-29] MEDS ORDERED: CALCIUM CARBONATE 500 MG CHEWABLE PO PRN (16:21)
[2021-05-29] MEDS ORDERED: ALPRAZolam 0.25 MG TAB PO PRN (16:21)
[2021-05-29] MEDS ORDERED: LACTULOSE 20 GM/30 ML CUP PO PRN (16:21)
--- NOTE | 2021-05-29 16:23 | P.HPIM ---
History of Present Illness H&P Date: 05/29/21 Chief Complaint: Short of breath This is a pleasant 76-year-old patient who follows with Dr. Axel Cowan. Chronic stable medical conditions include cirrhosis with esophageal varices this, osteoarthritis, diabetes, COPD on home oxygen 3 L. Patient is chronically short of breath. More so in the last 2 weeks. Also some cough. Was bringing up some phlegm but decreased in the last 2 days. No fever no chills. Decreased appetite. She also lost some weight. Tired. Earlier today 2 L of harriet colored pleural effusion removed from the right site by Dr. Marion. Review of systems: GEN.: Tired decreased appetite and weight loss EYES: None HEENT: None NECK: None RESPIRATORY: As above CARDIOVASCULAR: None GASTROINTESTINAL: None GENITOURINARY: None MUSCULOSKELETAL: Some joint pains LYMPHATICS: None HEMATOLOGICAL: None PSYCHIATRY: None NEUROLOGICAL: Does use a scooter to get about Past medical history to include: COPD, diabetes, GERD, cirrhosis with esophageal varices, home oxygen 3 L Social history: . Used to drink 7-8 drinks on the weekends not certain a few years. Did smoke in the past, stopped smoking in 1985. Family history: Lung cancer Physical examination: VITAL SIGNS: 98.3, 79, 20, 121/69, 91% on 3 L GENERAL: BMI 38, sitting up in a chair reclining awake. EYES: Pupils equal. Conjunctiva normal. HEENT: External appearance of nose and ears normal, oral cavity grossly normal. NECK: JVD not raised; masses not palpable. HEART: First and second heart sounds are normal; edema present. LUNGS: Respiratory rate increased decreased breath sound. ABDOMEN: Soft, nontender, liver spleen not palpable, no masses palpable. PSYCH: Alert and oriented x3; mood and affect normal. NEUROLOGICAL: Cranial nerves grossly intact; no facial asymmetry, power and sensation grossly intact. LYMPHATICS: No lymph nodes palpable in the axilla and neck INVESTIGATIONS, reviewed in the clinical context: White count 7.1 hemoglobin 13.9 platelets 173 sodium 138 potassium 4.3 BUN 21- 0.8 CRP 7.4 pro-calcitonin 0.17 Coronavirus [PCR]: Not detected EKG tracing personally reviewed by me-normal sinus rhythm, rate 85 Chest x-ray film personally reviewed by me-large right pleural effusion. 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 Thoracentesis carried out 2 L removed. Sent off for biochemical and microbiology studies - cirrhosis with esophageal varices secondary to alcoholism in the past Follow clinically. Aldactone -Portal hypertension from cirrhosis Inderal 10 mg 3 times a day -COPD in a prior smoker Pulmicort 0.5 mg twice a day. DuoNeb 4 times a day -Diabetes mellitus type 2, on oral hypoglycemic, insulin Metformin thousand milligrams twice a day, Lantus. Follow Accu-Cheks -GERD Protonix 40 mg -Primary osteoarthritis Pain medications as needed -Hyperlipidemia zetia 10 mg daily Right-sided thoracentesis carried out. IV Zosyn. Oxygen. Home medications resumed. DC IV fluids. Follow Accu-Cheks. Pulmonary consulted. Discussed with the patient. Given the complexity and severity of patient's condition expect the patient to be in the hospital at least for 2 overnights Past Medical History Past Medical History: Asthma, COPD, Diabetes Mellitus, GERD/Reflux, Liver Disease, Osteoarthritis (OA) Additional Past Medical History / Comment(s): Pt states, "Ischemic heart, esophageal varices" 3L home O2. PNEUMONIA 09/2019 History of Any Multi-Drug Resistant Organisms: None Reported Past Surgical History: Back Surgery, Cholecystectomy, Hernia Repair, Joint Replacement, Orthopedic Surgery, Tonsillectomy Additional Past Surgical History / Comment(s): right rotator cuff, right foot fx with pins 1996, ankle, vein stripping, right hip replacment, EGD WITH DILATATION, BILAT CATARACTS REMOVED Past Anesthesia/Blood Transfusion Reactions: No Reported Reaction Additional Past Anesthesia/Blood Transfusion Reaction / Comment(s): Hard to awaken. wears O2. Past Psychological History: No Psychological Hx Reported Smoking Status: Former smoker Past Alcohol Use History: None Reported Additional Past Alcohol Use History / Comment(s): Reports a history of 7-8 drinks on weekends, but no use in many years. QUIT SMOKING 1985 Past Drug Use History: None Reported - Past Family History Father Family Medical History: Cancer Additional Family Medical History / Comment(s): Lung Cancer Mother Family Medical History: COPD Sister(s) Family Medical History: Cancer Additional Family Medical History / Comment(s): Lung Cancer Medications and Allergies Home Medications Medication Instructions Recorded Confirmed Type Benralizumab [Fasenra] 30 mg IM Q56D 06/10/18 05/28/21 History Ezetimibe [Zetia] 10 mg PO PC-SUPPER 06/10/18 05/28/21 History Multivitamins, Thera [Multivitamin 1 tab PO DAILY 06/10/18 05/28/21 History (formulary)] Omeprazole 20 mg PO AC-SUPPER 06/10/18 05/28/21 History Propranolol [Inderal] 10 mg PO TID 06/10/18 05/28/21 History metFORMIN HCL [Glucophage] 1,000 mg PO BID 06/10/18 05/28/21 History Insulin Glargine,Hum.rec.anlog 25 unit SQ HS 04/05/19 05/28/21 History [Lantus Solostar Pen] Ascorbic Acid [Vitamin C] 1,000 mg PO DAILY 10/16/19 05/28/21 History Budesonide [Pulmicort] 0.5 mg INHALATION RT-BID 10/16/19 05/28/21 History Furosemide [Lasix] 20 mg PO DAILY 10/16/19 05/28/21 History Insulin Aspart [NovoLOG Flexpen] 10 units SQ AC-TID 10/16/19 05/28/21 History Ipratropium-Albuterol Nebulize 3 ml INHALATION RT-TID 10/16/19 05/28/21 History [Duoneb 0.5 mg-3 mg/3 ml Soln] Loratadine [Claritin] 10 mg PO DAILY 10/16/19 05/28/21 History Spironolactone [Aldactone] 25 mg PO DAILY 10/16/19 05/28/21 History Cholecalciferol (Vitamin D3) 125 mcg PO DAILY 12/29/19 05/28/21 History [Vitamin D3] Allergies Allergy/AdvReac Type Severity Reaction Status Date / Time naproxen Allergy Rash/Hives Verified 05/28/21 19:47 Physical Exam Vitals: Vital Signs Temp Pulse Pulse Resp BP BP Pulse Ox 05/29/21 08:20 90 122/61 05/29/21 07:27 95 05/29/21 07:08 94 95 05/29/21 05:00 97.6 F 90 18 130/71 96 05/28/21 23:16 98.4 F 83 18 123/65 94 L 05/28/21 19:44 98.3 F 79 20 121/69 91 L Intake and Output 05/28/21 05/29/21 05/29/21 22:59 06:59 14:59 Other: Weight 127.006 kg Results CBC & Chem 7: 05/28/21 20:27 05/28/21 20:27 Labs: Abnormal Lab Results - Last 24 Hours (Table) 05/28/21 05/28/21 05/28/21 Range/Units 20:27 20:27 20:27 Lymphocytes # 0.4 L (1.0-4.8) k/uL PT (9.0-12.0) sec INR (<1.2) Carbon Dioxide 33 H (22-30) mmol/L BUN 21 H (9-20) mg/dL Glucose 106 H (74-99) mg/dL POC Glucose (mg/dL) (75-99) mg/dL Plasma Lactic Acid Warner 3.6 H* (0.7-2.0) mmol/L Magnesium 1.2 L (1.6-2.3) mg/dL Total Bilirubin 1.9 H (0.2-1.3) mg/dL C-Reactive Protein 7.4 H (<1.0) mg/dL Total Protein 6.1 L (6.3-8.2) g/dL Albumin 3.1 L (3.5-5.0) g/dL Procalcitonin (0.02-0.09) ng/mL 05/28/21 05/28/21 05/28/21 Range/Units 20:27 22:40 23:28 Lymphocytes # (1.0-4.8) k/uL PT 12.3 H (9.0-12.0) sec INR 1.2 H (<1.2) Carbon Dioxide (22-30) mmol/L BUN (9-20) mg/dL Glucose (74-99) mg/dL POC Glucose (mg/dL) (75-99) mg/dL Plasma Lactic Acid Warner 2.4 H* (0.7-2.0) mmol/L Magnesium (1.6-2.3) mg/dL Total Bilirubin (0.2-1.3) mg/dL C-Reactive Protein (<1.0) mg/dL Total Protein (6.3-8.2) g/dL Albumin (3.5-5.0) g/dL Procalcitonin 0.17 H (0.02-0.09) ng/mL 05/29/21 Range/Units 07:42 Lymphocytes # (1.0-4.8) k/uL PT (9.0-12.0) sec INR (<1.2) Carbon Dioxide (22-30) mmol/L BUN (9-20) mg/dL Glucose (74-99) mg/dL POC Glucose (mg/dL) 136 H (75-99) mg/dL Plasma Lactic Acid Warner (0.7-2.0) mmol/L Magnesium (1.6-2.3) mg/dL Total Bilirubin (0.2-1.3) mg/dL C-Reactive Protein (<1.0) mg/dL Total Protein (6.3-8.2) g/dL Albumin (3.5-5.0) g/dL Procalcitonin (0.02-0.09) ng/mL Thrombosis Risk Factor Assmnt - Choose All That Apply Each Factor Represents 1 point: Obesity (BMI >25) Each Risk Factor Represents 2 Points: Age 61-74 years Thrombosis Risk Factor Assessment Total Risk Factor Score: 3 Thrombosis Risk Factor Assessment Level: Moderate Risk
[2021-05-29 17:21] LABS: Glucose,Whole Blood 156 mg/dL (75-99)
[2021-05-29] MEDS ORDERED: PANTOPRAZOLE 40 MG TABLET PO SCH (17:30)
[2021-05-29 20:11] LABS: Glucose,Whole Blood 157 mg/dL (75-99)
[2021-05-29] MEDS ORDERED: INSULIN DETEMIR (LEVEMIR) 100 UNIT/ML SYR SQ SCH (21:00)
[2021-05-29] MEDS ORDERED: EZETIMIBE 10 MG TAB PO SCH (21:00)
[2021-05-30] MEDS: PIPERACILLIN-TAZOBACTAM 3.375 GM in SODIUM CHLORIDE 0.9% 100 ML IVPB SCH ×2 (03:53→08:13)
[2021-05-30 06:04] LABS: Glucose, BF Source Pleural Fluid; Glucose, Body Fluid 113 mg/dL; LDH, Body Fluid Source Pleural Fluid; Total Protein, Body Fluid 4130 mg/dL
[2021-05-30 07:41] LABS: Glucose,Whole Blood 103 mg/dL (75-99)
[2021-05-30] MEDS: SPIRONOLACTONE 25 MG TAB PO SCH (08:12)
[2021-05-30] MEDS: LORATADINE 10 MG TAB PO SCH (08:12)
[2021-05-30] MEDS: FUROSEMIDE 20 MG TAB PO SCH (08:12)
[2021-05-30] MEDS: metFORMIN 500 MG TAB PO SCH (08:12)
[2021-05-30] MEDS: ASCORBIC ACID 500 MG TAB PO SCH (08:12)
[2021-05-30] MEDS: PROPRANOLOL 10 MG TAB PO SCH (08:13)
[2021-05-30] MEDS: CHOLECALCIFEROL 125 MCG (5000 IU) TABLET PO SCH (08:13)
[2021-05-30] MEDS: MULTIVITAMINS, THERA 1 EACH TAB PO SCH (08:13)
[2021-05-30] MEDS: INSULIN ASPART (NovoLOG) 100 UNIT/ML VIAL SQ SCH (08:13)
[2021-05-30] MEDS: IPRATROPIUM-ALBUTEROL 3 ML NEB INHALATION SCH ×2 (08:43→11:08)
[2021-05-30] MEDS: BUDESONIDE 0.5 MG/2 ML NEBU INHALATION SCH (08:43)
--- NOTE | 2021-05-30 09:57 | ECHOF ---
Referral Reason:Pleural effusion, CHF MEASUREMENTS -------- HEIGHT: 182.9 cm WEIGHT: 127.0 kg BP: 106/46 IVSd: 1.3 cm (0.6 - 1.1) LVIDd: 4.2 cm (3.9 - 5.3) LVPWd: 1.3 cm (0.6 - 1.1) EDV(Teich): 78 ml IVSs: 1.7 cm LVIDs: 3.1 cm LVPWs: 1.4 cm %IVS Thck: 33 % ESV(Teich): 37 ml EF(Teich): 52 % %FS: 26 % SV(Teich): 40 ml LALs A4C: 5.9 cm LAAs A4C: 21.4 cm LAESV A-L A4C: 66 ml LAESV MOD A4C: 59 ml MV E Keshav: 0.80 m/s MV DecT: 208 ms MV Dec [place]: 3.9 m/s MV A Keshav: 1.02 m/s MV E/A Ratio: 0.79 MV PHT: 60 ms LVOT Vmax: 0.95 m/s LVOT maxP.63 mmHg AV Vmax: 1.85 m/s AV maxP.64 mmHg FINDINGS -------- Sinus rhythm. This was a technically difficult study with suboptimal views. The left ventricular size is normal. There is mild concentric left ventricular hypertrophy. Overa ll left ventricular systolic function is mildly impaired with, an EF between 45 - 50 %. Mid anteros eptal LV wall motion is hypokinetic. Apical septum LV wall motion is hypokinetic. The RV was not well visualized. The left atrium was not well visualized. The right atrium was not well visualized. xx ml of Lumason was utilized for enhancement of images. The aortic valve was not well visualized. There is no evidence of aortic regurgitation. There is no evidence of aortic stenosis. The mitral valve was not well visualized. No mitral regurgitation. The tricuspid valve was not well visualized. Unable to estimate RVSP due to inadequate TR jet spect ral doppler profile. The pulmonic valve was not well visualized. IVC Not well visulized. There is no pericardial effusion. CONCLUSIONS -------- 1. The left ventricular size is normal. 2. There is mild concentric left ventricular hypertrophy. 3. Overall left ventricular systolic function is mildly impaired with, an EF between 45 - 50 %. 4. Mid anteroseptal LV wall motion is hypokinetic. 5. Apical septum LV wall motion is hypokinetic. PLANT ETIOLOGIST: Glenna Lala RDCS
[2021-05-30] MEDS ORDERED: RX INFO: IV CONTRAST WAS GIVEN 1 EACH MISC MISCELLANE PRN (11:34)
--- NOTE | 2021-05-30 11:46 | P.PN ---
Subjective Progress Note Date: 05/30/21 This is a pleasant 76-year-old male patient who has a history of morbid obesity, limited mobility utilizes a motorized scooter, diabetes mellitus, chemical asthma and has home oxygen. 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 Previous heavy chronic tobacco dependence however quit in 1985. He presented here to the hospital with worsening shortness of breath cough and congestion. Chest x-ray revealed a moderate right-sided pleural effusion. We are consulted for the same. Ultrasound of the chest revealed a 14.9 cm pocket. White count 7.1. Hemoglobin 13.9. Lymphocytes 0.4. INR 1.2. Sodium 138. Potassium 4.3. Creatinine 0.80. Glucose 107. Pro-calcitonin 0.17. Ibrahim virus by PCR not detected. He is seen today in consultation on the regular medical floor. He is currently sitting up in a chair at the bedside. Awake and alert in no acute distress. Dyspneic with minimal conversation. Dyspneic with minimal exertion. No fever or chills. No hemoptysis. He had been initiated on Zosyn and Levaquin, oral diuretics, bronchodilators The patient is seen today 05/30/2021 in follow-up on the regular medical floor. He is currently sitting up in bed. Awake and alert in no acute distress. He did undergo thoracentesis on the right chest yesterday with 2 L of dark turbid fluid removed. Exudative. Protein 4.1, LDH 215. Cultures and cytology pending. He denies any worsening shortness of breath, cough or congestion. He's been afebrile. Hemodynamically stable. He is maintaining good O2 saturations in the 90s on 4 L/m per nasal cannula. He remains on DuoNeb inhal ations, Pulmicort inhalations, antibiotics in the form of Zosyn. Oral diuretics. ProBNP 219. Mildly impaired left ventricular systolic function with ejection fraction 45-50%. Suboptimal study. Objective - Vital Signs Vital signs: Vital Signs Temp 98.8 F 05/30/21 05:00 Pulse 92 05/30/21 11:19 Resp 20 05/30/21 05:00 BP 114/66 05/30/21 05:00 Pulse Ox 94 L 05/30/21 09:58 Intake & Output 05/29/21 05/30/21 05/30/21 18:59 06:59 18:59 Intake Total 1300 100 Output Total 240 420 Balance 1060 -320 Weight 127.006 kg Intake: Intake, IV Titration 1300 100 Amount Piperacillin-Tazobactam 3 100 .375 gm In Sodium Chloride 0.9% 100 ml @ 25 mls/hr IVPB Q8HR MARNIE Rx# :[id number] Sodium Chloride 0.9% 1, 1300 000 ml @ 130 mls/hr IV . [id number] MARNIE Rx#:[id number] Output: Urine 240 420 Other: Voiding Method Toilet Toilet Urinal Urinal # Voids 2 # Bowel Movements 1 - Exam GENERAL EXAM: Alert, pleasant, morbidly obese 76-year-old gentleman, on 4 liters nasal cannula, fairly comfortable in no apparent distress. HEAD: Normocephalic. EYES: Normal reaction of pupils, equal size. NOSE: Clear with pink turbinates. THROAT: No erythema or exudates. NECK: No masses, no JVD. CHEST: No chest wall deformity. LUNGS: Equal air entry with crackles in the right lung base, diminished. CVS: S1 and S2 normal with no audible murmur, regular rhythm. ABDOMEN: No hepatosplenomegaly, normal bowel sounds, no guarding or rigidity. SPINE: No scoliosis or deformity SKIN: No rashes CENTRAL NERVOUS SYSTEM: No focal deficits, tone is normal in all 4 extremities. EXTREMITIES: There is no peripheral edema. No clubbing, no cyanosis. Peripheral pulses are intact. - Labs CBC & Chem 7: 05/28/21 20:27 05/28/21 20:27 Labs: Abnormal Lab Results - Last 24 Hours (Table) 05/29/21 05/29/21 05/29/21 Range/Units 11:43 17:20 19:51 POC Glucose (mg/dL) 107 H 156 H 157 H (75-99) mg/dL 05/30/21 Range/Units 07:40 POC Glucose (mg/dL) 103 H (75-99) mg/dL Microbiology - Last 24 Hours (Table) 05/29/21 08:30 Gram Stain - Preliminary Pleural Fluid Body Fluid Culture - Preliminary 05/29/21 08:30 Acid Fast Bacilli Culture - Preliminary Pleural Fluid 05/29/21 08:30 Fungal Culture - Preliminary Pleural Fluid Assessment and Plan Assessment: 1 Acute on chronic hypoxemic respiratory failure secondary to an acute moderate to large side right pleural effusion. Status post thoracentesis 05/29/2021 with 2 L of dark turbulent fluid removed. Exudate in nature. Suspect malignancy versus parapneumonic 2 Chronic hypoxic respiratory failure secondary to asthma/COPD 3 History of heavy tobacco dependence however quit in 1985 4 Morbid obesity 5 Diabetes mellitus 6 Poor functional performance and utilizes a motorized scooter with limited ambulation Plan: The patient was seen and evaluated today Status right-sided thoracentesis 2 L of turbulent fluid removed, exudate Cultures and cytology pending Computed tomography scan of the chest pending Titrate the FiO2 as tolerated, has home O2 Continue bronchodilators Could be discharged from the pulmonary standpoint if no significant findings on computed tomography scan Follow up in the office in 1 week for cytology results I, the cosigning physician, performed a history & physical examination of the patient. Lungs sounds with crackles in the right lung base, diminished. Maintaining good O2 saturations in the 90s on 4 L/m per nasal cannula. I discussed the assessment and plan of care with my nurse practitioner, Karin dempsey. I attest to the above note as dictated by her.
[2021-05-30 11:53] LABS: Glucose,Whole Blood 130 mg/dL (75-99)
[2021-05-30 12:24] VITALS: BP 108/47; PULSE 90; RESP 19; TEMP 98.1
--- NOTE | 2021-05-30 15:43 | CT ---
EXAMINATION TYPE: CT chest w con DATE OF EXAM: 05/30/2021 COMPARISON: Chest CT 10/16/2019 HISTORY: Shortness of breath CT DLP: 913 mGycm Automated exposure control for dose reduction was used. CONTRAST: CT scan of the chest is performed with IV Contrast, patient injected with 100 mL of Isovue 300. FINDINGS: LUNGS: The lungs are remarkable for emphysematous changes at the apices, some scattered areas of grou ndglass opacity are present within the lungs, interstitium is increased. There are air bronchograms i n the right lower lobe, associated right pleural effusion. Scattered granuloma are present. There i s no pleural effusion or pneumothorax seen. The tracheobronchial tree is patent. MEDIASTINUM: There is a soft tissue mass anterior to the right atrium, axial image 56 measuring 2.3 x 3.3 cm which has increased in size compared to prior exam. Pulmonary artery is dilated, correlate fo r pulmonary artery hypertension. There are coronary artery calcifications. AORTA: Proximal descending aorta is aneurysmal at 3.9 cm, calcifications are present along the aorti c valves OTHER: Serpiginous areas of increased density noted at the level of the left upper quadrant may repr esent varices. Liver shows a nodular contour. Nonobstructive right renal calculi are noted, larger me asures approximately 5 mm. Spleen is enlarged. Bridging osteophytes with preservation of disc height suggest underlying diffuse idiopathic skeletal hyperostosis. IMPRESSION: Correlate for possible pneumonia or interstitial edema. There is a right pleural effusio n, evidence of old granulomatous disease. Suspect lymphadenopathy in the mediastinum, correlate for p ulmonary artery hypertension, there is aortic aneurysm. Possible underlying cirrhosis, gastroesophage al varices, consider portal hypertension, splenomegaly. Right nephrolithiasis. Additional findings ab ove.
--- NOTE | 2021-05-30 21:34 | P.DS ---
Providers Date of admission: 05/28/21 21:54 Expected date of discharge: 05/30/21 Attending physician: Jered Mclaughlin Consults: 05/28/21 21:54 Consult Physician Urgent Consulting Provider: Rosa Marion Reason/Comments: pneumonia, copd Do you want consulting provider notified?: Yes Primary care physician: [facility] Course: Chief Complaint: Short of breath This is a pleasant 76-year-old patient who follows with Dr. Axel Cowan. Chronic stable medical conditions include cirrhosis with esophageal varices this, osteoarthritis, diabetes, COPD on home oxygen 3 L. Patient is chronically short of breath. More so in the last 2 weeks. Also some cough. Was bringing up some phlegm but decreased in the last 2 days. No fever no chills. Decreased appetite. She also lost some weight. Tired. Earlier today 2 L of harriet colored pleural effusion removed from the right site by Dr. Marion. Today: Computed tomography scan of the chest showed possible right-sided pneumonia. Other findings noted. Patient doing well.. By pulmonary for discharge. She'll follow-up in that office. Respiratory symptoms improved. Will switch to oral Augmentin. Discussion and discharge planning more than 35 minutes Consultation: Dr. Marion from pulmonary Past medical history to include: COPD, diabetes, GERD, cirrhosis with esophageal varices, home oxygen 3 L Social history: . Used to drink 7-8 drinks on the weekends not certain a few years. Did smoke in the past, stopped smoking in 1985. Family history: Lung cancer Physical examination: VITAL SIGNS: 98.1, 90, 19, 108/47, 97% on 4 L GENERAL: BMI 38, sitting up in a chair reclining comfortable EYES: Pupils equal. Conjunctiva normal. HEENT: External appearance of nose and ears normal, oral cavity grossly normal. NECK: JVD not raised; masses not palpable. HEART: First and second heart sounds are normal; edema present. LUNGS: Respiratory rate increased decreased breath sound. ABDOMEN: Soft, nontender, liver spleen not palpable, no masses palpable. PSYCH: Alert and oriented x3; mood and affect normal. INVESTIGATIONS, reviewed in the clinical context: CT chest: Some right pleural effusion. Infiltrate. Signs of cirrhosis and portal hypertension. Kidney stones. White count 7.1 hemoglobin 13.9 platelets 173 sodium 138 potassium 4.3 BUN 21- 0.8 CRP 7.4 pro-calcitonin 0.17 Coronavirus [PCR]: Not detected EKG tracing personally reviewed by me-normal sinus rhythm, rate 85 Chest x-ray film personally reviewed by me-large right pleural effusion. Assessment and plan: -Right-sided pneumonia with a parapneumonic effusion. 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 Thoracentesis carried out 2 L removed. Sent off for biochemical and microbiology studies - cirrhosis with esophageal varices secondary to alcoholism in the past Follow clinically. Aldactone -Portal hypertension from cirrhosis Inderal 10 mg 3 times a day -COPD in a prior smoker Pulmicort 0.5 mg twice a day. DuoNeb 4 times a day -Diabetes mellitus type 2, on oral hypoglycemic, insulin Metformin thousand milligrams twice a day, Lantus. Follow Accu-Cheks -GERD Protonix 40 mg -Primary osteoarthritis Pain medications as needed -Hyperlipidemia zetia 10 mg daily Disposition: Home Plan - Discharge Summary New Discharge Prescriptions: New Amoxicillin/Potassium Clav [Augmentin 875-125 Tablet] 1 tab PO BID 1 Days #10 tab Continue metFORMIN HCL [Glucophage] 1,000 mg PO BID Propranolol [Inderal] 10 mg PO TID Omeprazole 20 mg PO AC-SUPPER Multivitamins, Thera [Multivitamin (formulary)] 1 tab PO DAILY Ezetimibe [Zetia] 10 mg PO PC-SUPPER Benralizumab [Fasenra] 30 mg IM Q56D Insulin Glargine,Hum.rec.anlog [Lantus Solostar Pen] 25 unit SQ HS Loratadine [Claritin] 10 mg PO DAILY Ipratropium-Albuterol Nebulize [Duoneb 0.5 mg-3 mg/3 ml Soln] 3 ml INHALATION RT-TID Budesonide [Pulmicort] 0.5 mg INHALATION RT-BID Ascorbic Acid [Vitamin C] 1,000 mg PO DAILY Insulin Aspart [NovoLOG Flexpen] 10 units SQ AC-TID Furosemide [Lasix] 20 mg PO DAILY Spironolactone [Aldactone] 25 mg PO DAILY Cholecalciferol (Vitamin D3) [Vitamin D3 (5000 Iu)] 125 mcg PO DAILY Discharge Medication List Benralizumab [Fasenra] 30 mg IM Q56D 06/10/18 [History] Ezetimibe [Zetia] 10 mg PO PC-SUPPER 06/10/18 [History] Multivitamins, Thera [Multivitamin (formulary)] 1 tab PO DAILY 06/10/18 [History] Omeprazole 20 mg PO AC-SUPPER 06/10/18 [History] Propranolol [Inderal] 10 mg PO TID 06/10/18 [History] metFORMIN HCL [Glucophage] 1,000 mg PO BID 06/10/18 [History] Insulin Glargine,Hum.rec.anlog [Lantus Solostar Pen] 25 unit SQ HS 04/05/19 [History] Ascorbic Acid [Vitamin C] 1,000 mg PO DAILY 10/16/19 [History] Budesonide [Pulmicort] 0.5 mg INHALATION RT-BID 10/16/19 [History] Furosemide [Lasix] 20 mg PO DAILY 10/16/19 [History] Insulin Aspart [NovoLOG Flexpen] 10 units SQ AC-TID 10/16/19 [History] Ipratropium-Albuterol Nebulize [Duoneb 0.5 mg-3 mg/3 ml Soln] 3 ml INHALATION RT-TID 10/16/19 [History] Loratadine [Claritin] 10 mg PO DAILY 10/16/19 [History] Spironolactone [Aldactone] 25 mg PO DAILY 10/16/19 [History] Cholecalciferol (Vitamin D3) [Vitamin D3 (5000 Iu)] 125 mcg PO DAILY 12/29/19 [History] Amoxicillin/Potassium Clav [Augmentin 875-125 Tablet] 1 tab PO BID 1 Days #10 tab 05/30/21 [Rx] Follow up Appointment(s)/Referral(s): Rosa Marion MD [STAFF PHYSICIAN] - 06/21/21 2:45 pm (You will see Karin.) Axel Mcclure MD [Primary Care Provider] - 1-2 days (The office is closed for lunch please call and make follow up appointment.) Discharge Disposition: HOME SELF-CARE
[2021-06-01] MEDS ORDERED: metFORMIN 500 MG TAB PO SCH (21:00)
[2021-06-08] MEDS ORDERED: NON FORMULARY DRUG (Benralizumab [Fasenra] 30 MG/ML Syringe) IM SCH (09:00)
== END 2021-05-30 14:21 | disposition home or self-care (01) | DRG 193 ==
LOC: EC 19:41 → 5NMEDONC 21:54
PROVIDERS: ADMIT Hospitalist; ATTEND Hospitalist
PROC: 0W993ZX Drainage of Right Pleural Cavity, Percutaneous Approach, Diagnostic (ICD-10-PCS; principal; 2021-05-29)
DX: J18.9 Pneumonia, unspecified organism (principal); J96.21 Acute and chronic respiratory failure with hypoxia; J91.8 Pleural effusion in other conditions classified elsewhere; J44.0 Chronic obstructive pulmonary disease with (acute) lower respiratory infection; J44.1 Chronic obstructive pulmonary disease with (acute) exacerbation; I85.10 Secondary esophageal varices without bleeding; K76.6 Portal hypertension; K70.30 Alcoholic cirrhosis of liver without ascites; F10.20 Alcohol dependence, uncomplicated; E11.9 Type 2 diabetes mellitus without complications; J68.3 Other acute and subacute respiratory conditions due to chemicals, gases, fumes and vapors; E66.01 Morbid (severe) obesity due to excess calories; Z79.4 Long term (current) use of insulin; Z20.822 Contact with and (suspected) exposure to COVID-19; E83.42 Hypomagnesemia; E78.5 Hyperlipidemia, unspecified; K21.9 Gastro-esophageal reflux disease without esophagitis; M19.91 Primary osteoarthritis, unspecified site; T54.91XS Toxic effect of unspecified corrosive substance, accidental (unintentional), sequela; Z68.38 Body mass index [BMI] 38.0-38.9, adult; Z99.81 Dependence on supplemental oxygen; Z87.01 Personal history of pneumonia (recurrent); Z79.84 Long term (current) use of oral hypoglycemic drugs; Z79.51 Long term (current) use of inhaled steroids; Z79.899 Other long term (current) drug therapy; Z87.891 Personal history of nicotine dependence; Z88.6 Allergy status to analgesic agent; Z90.49 Acquired absence of other specified parts of digestive tract; Z87.19 Personal history of other diseases of the digestive system; Z90.89 Acquired absence of other organs; Z96.641 Presence of right artificial hip joint; Z87.39 Personal history of other diseases of the musculoskeletal system and connective tissue; Z87.81 Personal history of (healed) traumatic fracture; Z98.42 Cataract extraction status, left eye; Z98.41 Cataract extraction status, right eye; Z86.79 Personal history of other diseases of the circulatory system; Z71.3 Dietary counseling and surveillance; Z98.890 Other specified postprocedural states; Z80.1 Family history of malignant neoplasm of trachea, bronchus and lung; Z82.5 Family history of asthma and other chronic lower respiratory diseases
CPT/HCPCS: 36415; 71045; 71260; 76604; 80053; 82728; 82945; 83605; 83615; 83735; 83880; 84145; 84157; 85025; 85610; 85730; 86140; 87070; 87102; 87116; 87205; 87206; 87252; 87496; 87498; 87502; 87529; 87634; 87635; 87798; 88108; 88305; 88341; 88342; 89050; 93005; 93306; 94640; 94667; 94760; 99285

== ENCOUNTER 2021-07-24 13:01 | Emergency (ER) | payer MEDICARE ==
[2021-07-24 13:17] VITALS: TEMP 97.6
[2021-07-24 15:08] LABS: Basophils % (A) 0 %; Eosinophils # (A) 0.2 k/uL (0-0.7); Eosinophils % (A) 3 %; HCT 34.9 % (39.0-53.0); HGB 11.4 gm/dL (13.0-17.5); Lymphocytes # (A) 0.3 k/uL (1.0-4.8); Lymphocytes % (A) 5 %; MCH 31.6 pg (25.0-35.0); MCHC 32.6 g/dL (31.0-37.0); Mean Platelet Volume 7.5; Monocytes # (A) 0.3 k/uL (0-1.0); Monocytes % (A) 5 %; Neutrophils # (A) 4.6 k/uL (1.3-7.7); Neutrophils % (A) 84 %; Platelet Count 167 k/uL (150-450); RDW 14.1 % (11.5-15.5); WBC 5.5 k/uL (3.8-10.6)
[2021-07-24 15:09] LABS: MCV 96.9 fL (80.0-100.0)
[2021-07-24 15:13] LABS: Albumin 3.2 g/dL (3.5-5.0); Calcium 9.7 mg/dL (8.4-10.2); Potassium 5.1 mmol/L (3.5-5.1); Total Bilirubin 1.3 mg/dL (0.2-1.3); Total Protein 6.7 g/dL (6.3-8.2)
[2021-07-24 15:15] LABS: INR 1.1 (<1.2); Partial Thromboplastin Time 27.1 sec (22.0-30.0)
--- NOTE | 2021-07-24 16:16 | XR ---
EXAMINATION TYPE: XR chest 2V DATE OF EXAM: 07/24/2021 COMPARISON: 05/29/2021 HISTORY: Shortness of breath TECHNIQUE: Frontal and lateral views of the chest are obtained. FINDINGS: Scattered senescent parenchymal changes noted. Hyperinflation compatible with COPD. Increasing right lower lobe opacities likely combination of effusion, atelectasis and/or infiltrate. Appropriate follow-up is advised. Heart size is stable. Mediastinal structures are stable and grossly unremarkable. No evidence for hilar prominence. Degenerative changes dorsal spine. IMPRESSION: 1. Increasing right lower lobe opacities likely combination of effusion, atelectasis and/or infiltrat e. Appropriate follow-up is advised.
--- NOTE | 2021-07-24 16:23 | ED ---
SOB HPI - General Chief Complaint: Shortness of Breath Stated Complaint: SOB Source: patient, family Mode of arrival: wheelchair Limitations: no limitations - History of Present Illness Initial Comments: 76-year-old male past history of COPD, diabetes, liver disease who wears 3 L of oxygen presents to emergency room with shortness of breath. States that for the past month he has had increased worker breathing. He checks his pulse ox and it is normally between 90 and 94 however he feels as if he is working harder. 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 He denies fevers or sick contacts. Does have a chronic cough that is no worse than his baseline. He denies any chest pain. He has been using his inhalers as directed without any improvement in his symptoms. Last hospitalization the patient did have considerable pleural effusion that needed drainage. Patient is concerned for similar at this time. He is increased lower extremity edema. Patient is on 2 diuretics and states he has been taking them as directed without any missed doses. He follows with Dr. Narayan from pulmonology. No other alleviating, precipitating or modifying factors - Related Data Home Medications Medication Instructions Recorded Confirmed Benralizumab [Fasenra] 30 mg IM Q56D 06/10/18 05/28/21 Ezetimibe [Zetia] 10 mg PO PC-SUPPER 06/10/18 05/28/21 Multivitamins, Thera [Multivitamin 1 tab PO DAILY 06/10/18 05/28/21 (formulary)] Omeprazole 20 mg PO AC-SUPPER 06/10/18 05/28/21 Propranolol [Inderal] 10 mg PO TID 06/10/18 05/28/21 metFORMIN HCL [Glucophage] 1,000 mg PO BID 06/10/18 05/28/21 Insulin Glargine,Hum.rec.anlog 25 unit SQ HS 04/05/19 05/28/21 [Lantus Solostar Pen] Ascorbic Acid [Vitamin C] 1,000 mg PO DAILY 10/16/19 05/28/21 Budesonide [Pulmicort] 0.5 mg INHALATION RT-BID 10/16/19 05/28/21 Furosemide [Lasix] 20 mg PO DAILY 10/16/19 05/28/21 Insulin Aspart [NovoLOG Flexpen] 10 units SQ AC-TID 10/16/19 05/28/21 Ipratropium-Albuterol Nebulize 3 ml INHALATION RT-TID 10/16/19 05/28/21 [Duoneb 0.5 mg-3 mg/3 ml Soln] Loratadine [Claritin] 10 mg PO DAILY 10/16/19 05/28/21 Spironolactone [Aldactone] 25 mg PO DAILY 10/16/19 05/28/21 Cholecalciferol (Vitamin D3) 125 mcg PO DAILY 12/29/19 05/28/21 [Vitamin D3 (5000 Iu)] Previous Rx's Medication Instructions Recorded Amoxicillin/Potassium Clav 1 tab PO BID 1 Days #10 tab 05/30/21 [Augmentin 875-125 Tablet] Allergies Allergy/AdvReac Type Severity Reaction Status Date / Time naproxen Allergy Rash/Hives Verified 07/24/21 13:13 Review of Systems ROS Statement: Those systems with pertinent positive or pertinent negative responses have been documented in the HPI. ROS Other: All systems not noted in ROS Statement are negative. Past Medical History Past Medical History: Asthma, COPD, Diabetes Mellitus, GERD/Reflux, Liver Disea se, Osteoarthritis (OA) Additional Past Medical History / Comment(s): Pt states, "Ischemic heart, esophageal varices" 3L home O2. PNEUMONIA 09/2019 History of Any Multi-Drug Resistant Organisms: None Reported Past Surgical History: Back Surgery, Cholecystectomy, Hernia Repair, Joint Replacement, Orthopedic Surgery, Tonsillectomy Additional Past Surgical History / Comment(s): right rotator cuff, right foot fx with pins 1996, ankle, vein stripping, right hip replacment, EGD WITH DILATATION, BILAT CATARACTS REMOVED Past Anesthesia/Blood Transfusion Reactions: No Reported Reaction Additional Past Anesthesia/Blood Transfusion Reaction / Comment(s): Hard to awaken. wears O2. Past Psychological History: No Psychological Hx Reported Smoking Status: Former smoker Past Alcohol Use History: None Reported Past Drug Use History: None Reported - Past Family History Father Family Medical History: Cancer Additional Family Medical History / Comment(s): Lung Cancer Mother Family Medical History: COPD Sister(s) Family Medical History: Cancer Additional Family Medical History / Comment(s): Lung Cancer General Exam Limitations: no limitations Course Vital Signs 07/24/21 07/24/21 07/24/21 13:13 15:44 17:26 Temperature 97.6 F Pulse Rate 88 93 103 H Respiratory 22 20 18 Rate Blood Pressure 99/63 123/69 110/32 O2 Sat by Pulse 97 100 100 Oximetry Medical Decision Making - Medical Decision Making Upon arrival patient was placed into room 4. History and physical exam is performed. IV is established laboratory studies are conducted. Creatinine sightly elevated at 1.2. Coban not detected. Chest x-ray demonstrates a increasing right lower lobe opacity with a combination of effusion, atelectasis and infiltrate. I do speak with Dr. Freeman in regards the patient. He does come down to the ED and performs a thoracentesis with 1.9 L out. Chest x-ray is performed after the procedure and demonstrates decreased pleural effusion. Patient will be discharged home at this time and follow up in office. Return for any worsening symptoms. Patient discharged in stable condition - Lab Data Result diagrams: 07/24/21 14:53 07/24/21 14:53 Lab Results 07/24/21 07/24/21 07/24/21 Range/Units 13:20 14:53 14:53 WBC 5.5 (3.8-10.6) k/uL RBC 3.60 L (4.30-5.90) m/uL Hgb 11.4 L (13.0-17.5) gm/dL Hct 34.9 L (39.0-53.0) % MCV 96.9 D (80.0-100.0) fL MCH 31.6 (25.0-35.0) pg MCHC 32.6 (31.0-37.0) g/dL RDW 14.1 (11.5-15.5) % Plt Count 167 (150-450) k/uL MPV 7.5 Neutrophils % 84 % Lymphocytes % 5 % Monocytes % 5 % Eosinophils % 3 % Basophils % 0 % Neutrophils # 4.6 (1.3-7.7) k/uL Lymphocytes # 0.3 L (1.0-4.8) k/uL Monocytes # 0.3 (0-1.0) k/uL Eosinophils # 0.2 (0-0.7) k/uL Basophils # 0.0 (0-0.2) k/uL PT 12.0 (9.0-12.0) sec INR 1.1 (<1.2) APTT 27.1 (22.0-30.0) sec Sodium (137-145) mmol/L Potassium (3.5-5.1) mmol/L Chloride (98-107) mmol/L Carbon Dioxide (22-30) mmol/L Anion Gap mmol/L BUN (9-20) mg/dL Creatinine (0.66-1.25) mg/dL Est GFR (CKD-EPI)AfAm (>60 ml/min/1.73 sqM) Est GFR (CKD-EPI)NonAf (>60 ml/min/1.73 sqM) Glucose (74-99) mg/dL Calcium (8.4-10.2) mg/dL Total Bilirubin (0.2-1.3) mg/dL AST (17-59) U/L ALT (4-49) U/L Alkaline Phosphatase (38-126) U/L Troponin I (0.000-0.034) ng/mL NT-Pro-B Natriuret Pep pg/mL Total Protein (6.3-8.2) g/dL Albumin (3.5-5.0) g/dL Coronavirus (PCR) Not Detected (Not Detectd) 07/24/21 07/24/21 07/24/21 Range/Units 14:53 14:53 14:53 WBC (3.8-10.6) k/uL RBC (4.30-5.90) m/uL Hgb (13.0-17.5) gm/dL Hct (39.0-53.0) % MCV (80.0-100.0) fL MCH (25.0-35.0) pg MCHC (31.0-37.0) g/dL RDW (11.5-15.5) % Plt Count (150-450) k/uL MPV Neutrophils % % Lymphocytes % % Monocytes % % Eosinophils % % Basophils % % Neutrophils # (1.3-7.7) k/uL Lymphocytes # (1.0-4.8) k/uL Monocytes # (0-1.0) k/uL Eosinophils # (0-0.7) k/uL Basophils # (0-0.2) k/uL PT (9.0-12.0) sec INR (<1.2) APTT (22.0-30.0) sec Sodium 138 (137-145) mmol/L Potassium 5.1 (3.5-5.1) mmol/L Chloride 97 L (98-107) mmol/L Carbon Dioxide 35 H (22-30) mmol/L Anion Gap 6 mmol/L BUN 27 H (9-20) mg/dL Creatinine 1.28 H (0.66-1.25) mg/dL Est GFR (CKD-EPI)AfAm 63 (>60 ml/min/1.73 sqM) Est GFR (CKD-EPI)NonAf 55 (>60 ml/min/1.73 sqM) Glucose 116 H (74-99) mg/dL Calcium 9.7 (8.4-10.2) mg/dL Total Bilirubin 1.3 (0.2-1.3) mg/dL AST 42 (17-59) U/L ALT 22 (4-49) U/L Alkaline Phosphatase 128 H (38-126) U/L Troponin I <0.012 (0.000-0.034) ng/mL NT-Pro-B Natriuret Pep 445 pg/mL Total Protein 6.7 (6.3-8.2) g/dL Albumin 3.2 L (3.5-5.0) g/dL Coronavirus (PCR) (Not Detectd) - EKG Data EKG Comments: EKG demonstrates a sinus tachycardia with ventricular rate of 102. WA interval 138. QRS 84. QTC 458. No acute ST segment elevations or depressions concerning for ischemic changes Disposition Clinical Impression: Pleural effusion, S/P thoracentesis Disposition: HOME SELF-CARE Condition: Stable Instructions (If sedation given, give patient instructions): Pleural Effusion (ED), Thoracentesis (DC) Additional Instructions: Please follow-up with the pulmonology office for further workup. Return for any new or worsening symptoms Is patient prescribed a controlled substance at d/c from ED?: No Referrals: Dale Mcclure MD [Primary Care Provider] - 1-2 days Rosa Marion MD [STAFF PHYSICIAN] - 1-2 days Time of Disposition: 17:38
[2021-07-24 17:27] VITALS: BP 110/32; PULSE 103; RESP 18
--- NOTE | 2021-07-24 17:29 | P.CNPUL ---
History of Present Illness Consult date: 07/24/21 Reason for consult: dyspnea, pleural effusion History of present illness: I was asked to evaluate this patient in the emergency department because of a recurrent right-sided pleural effusion. The patient was hospitalized back in May 2021 for the same. At that time, the total of 2 L of pleural fluid was aspirated from the right lung. The fluid wasn't next day based on the high protein and LDH content. Fluid cytology came back negative. There was incomplete expansion of the right lung. A CAT scan of the chest was also done that showed some atelectatic changes in the right lung base in addition to significant mediastinal lymphadenopathy and the subcarinal area. The CAT scan of the chest showed that the lungs showed some emphysematous changes and the patient had some scattered areas of groundglass opacity bilaterally. There was a 2.3 x 3.3 cm right atrial soft tissue mass that was noted. The pulmonary arteries were also dilated consistent with pulmonary hypertension. Liver was nodular consistent with liver cirrhosis. For now, the patient is coming in for the same complaint. The white cell count is at 5.5 with a hemoglobin of 11.4. Correlation profile was normal. Patient has serum bicarbonate 35 with a sodium level of 138, creatinine is at 1.2 with a BUN of 27. ProBNP level is 445. Echocardiogram that was done during his last admission showed mild impairment of the LV function with an ejection fraction of 40-45%. The patient was negative for COVID 19. His already been vaccinated. He does have home oxygen. He is on 2-3 L per minute nasal cannula and his current 99%. Review of Systems Constitutional: Reports fatigue, Reports weakness, Reports weight loss Eyes: denies as per HPI, denies blurred vision, denies bulging eye, denies decr eased vision, denies diplopia, denies discharge, denies dry eye, denies irritation, denies itching, denies pain, denies photophobia, denies loss of peripheral vision, denies loss of vision, denies tunnel vision/blind spots Ears: deny: decreased hearing, ear discharge, earache, tinnitus Ears, nose, mouth and throat: Reports as per HPI Breasts: absent: as per HPI, gynecomastia Cardiovascular: Reports decreased exercise tolerance, Reports dyspnea on exertion Respiratory: Reports cough, Reports dyspnea Gastrointestinal: Reports as per HPI, Reports loss of appetite Genitourinary: Reports as per HPI Musculoskeletal: Reports as per HPI Musculoskeletal: absent: ankle pain, ankle stiffness, ankle swelling Integumentary: Reports as per HPI Neurological: Reports as per HPI Psychiatric: Reports as per HPI Endocrine: Reports as per HPI Hematologic/Lymphatic: Reports as per HPI Allergic/Immunologic: Reports as per HPI Past Medical History Past Medical History: COPD, Diabetes Mellitus, GERD/Reflux, Liver Disease, Osteoarthritis (OA) Additional Past Medical History / Comment(s): Pt states, "Ischemic heart, esophageal varices" 3L home O2. PNEUMONIA 09/2019 History of Any Multi-Drug Resistant Organisms: None Reported Past Surgical History: Back Surgery, Cholecystectomy, Hernia Repair, Joint Replacement, Orthopedic Surgery, Tonsillectomy Additional Past Surgical History / Comment(s): right rotator cuff, right foot fx with pins 1995, ankle, vein stripping, right hip replacment, EGD WITH DILATATION, BILAT CATARACTS REMOVED Past Anesthesia/Blood Transfusion Reactions: No Reported Reaction Additional Past Anesthesia/Blood Transfusion Reaction / Comment(s): Hard to awaken. wears O2. Past Psychological History: No Psychological Hx Reported Smoking Status: Former smoker Past Alcohol Use History: None Reported Past Drug Use History: None Reported - Past Family History Father Family Medical History: Cancer Additional Family Medical History / Comment(s): Lung Cancer Mother Family Medical History: COPD Sister(s) Family Medical History: Cancer Additional Family Medical History / Comment(s): Lung Cancer Medications and Allergies Home Medications Medication Instructions Recorded Confirmed Type Benralizumab [Fasenra] 30 mg IM Q56D 06/10/18 05/28/21 History Ezetimibe [Zetia] 10 mg PO PC-SUPPER 06/10/18 05/28/21 History Multivitamins, Thera [Multivitamin 1 tab PO DAILY 06/10/18 05/28/21 History (formulary)] Omeprazole 20 mg PO AC-SUPPER 06/10/18 05/28/21 History Propranolol [Inderal] 10 mg PO TID 06/10/18 05/28/21 History metFORMIN HCL [Glucophage] 1,000 mg PO BID 06/10/18 05/28/21 History Insulin Glargine,Hum.rec.anlog 25 unit SQ HS 04/05/19 05/28/21 History [Lantus Solostar Pen] Ascorbic Acid [Vitamin C] 1,000 mg PO DAILY 10/16/19 05/28/21 History Budesonide [Pulmicort] 0.5 mg INHALATION RT-BID 10/16/19 05/28/21 History Furosemide [Lasix] 20 mg PO DAILY 10/16/19 05/28/21 History Insulin Aspart [NovoLOG Flexpen] 10 units SQ AC-TID 10/16/19 05/28/21 History Ipratropium-Albuterol Nebulize 3 ml INHALATION RT-TID 10/16/19 05/28/21 History [Duoneb 0.5 mg-3 mg/3 ml Soln] Loratadine [Claritin] 10 mg PO DAILY 10/16/19 05/28/21 History Spironolactone [Aldactone] 25 mg PO DAILY 10/16/19 05/28/21 History Cholecalciferol (Vitamin D3) 125 mcg PO DAILY 12/29/19 05/28/21 History [Vitamin D3 (5000 Iu)] Amoxicillin/Potassium Clav 1 tab PO BID 1 Days #10 tab 05/30/21 Rx [Augmentin 875-125 Tablet] Allergies Allergy/AdvReac Type Severity Reaction Status Date / Time naproxen Allergy Rash/Hives Verified 07/24/21 13:13 Physical Exam Vitals: Vital Signs Temp Pulse Resp BP Pulse Ox 07/24/21 15:44 93 20 123/69 100 07/24/21 13:13 97.6 F 88 22 99/63 97 Intake and Output 07/24/21 07/24/21 07/24/21 06:59 14:59 22:59 Other: Weight 113.398 kg GENERAL EXAM: Alert, pleasant, morbidly obese 76-year-old gentleman, on 3 liters nasal cannula, fairly comfortable in no apparent distress. HEAD: Normocephalic. EYES: Normal reaction of pupils, equal size. NOSE: Clear with pink turbinates. THROAT: No erythema or exudates. NECK: No masses, no JVD. CHEST: No chest wall deformity. LUNGS: Equal air entry with crackles in the right lung base, diminished. CVS: S1 and S2 normal with no audible murmur, regular rhythm. ABDOMEN: No hepatosplenomegaly, normal bowel sounds, no guarding or rigidity. SPINE: No scoliosis or deformity SKIN: No rashes CENTRAL NERVOUS SYSTEM: No focal deficits, tone is normal in all 4 extremities. EXTREMITIES: There is no peripheral edema. No clubbing, no cyanosis. Peripheral pulses are intact. Results - Laboratory Findings CBC and BMP: 07/24/21 14:53 07/24/21 14:53 ABG WBC 5.5 k/uL (3.8-10.6) 07/24/21 14:53 RBC 3.60 m/uL (4.30-5.90) L 07/24/21 14:53 Hgb 11.4 gm/dL (13.0-17.5) L 07/24/21 14:53 Hct 34.9 % (39.0-53.0) L 07/24/21 14:53 MCV 96.9 fL (80.0-100.0) D 07/24/21 14:53 MCH 31.6 pg (25.0-35.0) 07/24/21 14:53 MCHC 32.6 g/dL (31.0-37.0) 07/24/21 14:53 RDW 14.1 % (11.5-15.5) 07/24/21 14:53 Plt Count 167 k/uL (150-450) 07/24/21 14:53 MPV 7.5 07/24/21 14:53 Neutrophils % 84 % 07/24/21 14:53 Lymphocytes % 5 % 07/24/21 14:53 Monocytes % 5 % 07/24/21 14:53 Eosinophils % 3 % 07/24/21 14:53 Basophils % 0 % 07/24/21 14:53 Neutrophils # 4.6 k/uL (1.3-7.7) 07/24/21 14:53 Lymphocytes # 0.3 k/uL (1.0-4.8) L 07/24/21 14:53 Monocytes # 0.3 k/uL (0-1.0) 07/24/21 14:53 Eosinophils # 0.2 k/uL (0-0.7) 07/24/21 14:53 Basophils # 0.0 k/uL (0-0.2) 07/24/21 14:53 PT 12.0 sec (9.0-12.0) 07/24/21 14:53 INR 1.1 (<1.2) 07/24/21 14:53 APTT 27.1 sec (22.0-30.0) 07/24/21 14:53 Sodium 138 mmol/L (137-145) 07/24/21 14:53 Potassium 5.1 mmol/L (3.5-5.1) 07/24/21 14:53 Chloride 97 mmol/L (98-107) L 07/24/21 14:53 Carbon Dioxide 35 mmol/L (22-30) H 07/24/21 14:53 Anion Gap 6 mmol/L 07/24/21 14:53 BUN 27 mg/dL (9-20) H 07/24/21 14:53 Creatinine 1.28 mg/dL (0.66-1.25) H 07/24/21 14:53 Est GFR (CKD-EPI)AfAm 63 (>60 ml/min/1.73 sqM) 07/24/21 14:53 Est GFR (CKD-EPI)NonAf 55 (>60 ml/min/1.73 sqM) 07/24/21 14:53 Glucose 116 mg/dL (74-99) H 07/24/21 14:53 Calcium 9.7 mg/dL (8.4-10.2) 07/24/21 14:53 Total Bilirubin 1.3 mg/dL (0.2-1.3) 07/24/21 14:53 AST 42 U/L (17-59) 07/24/21 14:53 ALT 22 U/L (4-49) 07/24/21 14:53 Alkaline Phosphatase 128 U/L (38-126) H 07/24/21 14:53 Troponin I <0.012 ng/mL (0.000-0.034) 07/24/21 14:53 NT-Pro-B Natriuret Pep 445 pg/mL 07/24/21 14:53 Total Protein 6.7 g/dL (6.3-8.2) 07/24/21 14:53 Albumin 3.2 g/dL (3.5-5.0) L 07/24/21 14:53 Coronavirus (PCR) Not Detected (Not Detectd) 07/24/21 13:20 PT/INR, D-dimer PT 12.0 sec (9.0-12.0) 07/24/21 14:53 INR 1.1 (<1.2) 07/24/21 14:53 Abnormal lab findings: Abnormal Labs 07/24/21 07/24/21 14:53 14:53 RBC 3.60 L Hgb 11.4 L Hct 34.9 L Lymphocytes # 0.3 L Chloride 97 L Carbon Dioxide 35 H BUN 27 H Creatinine 1.28 H Glucose 116 H Alkaline Phosphatase 128 H Albumin 3.2 L - Diagnostic Findings Chest x-ray: image reviewed Assessment and Plan Plan: 1 Acute on chronic hypoxemic respiratory failure secondary to an acute moderate to large side right pleural effusion. Status post thoracentesis 05/29/2021 with 2 L of dark turbulent fluid removed. Exudate in nature. Suspect malignancy , y et the fluid cytology came back negative for malignancy. The patient came into the emergency room because of recurrent right-sided pleural effusion. I performed another thoracentesis for a total of 1.9 L of pleural fluid was aspirated. The chest x-ray postthoracentesis showed incomplete expansion of the right lung and there is some volume loss. As such, this abnormality needs to be further investigated. Clinically the patient felt better. Less short of breath for now. He needs obviously further investigation. 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 This was not seen on the echocardiogram. 9 COPD 10 exposure to agent orange 11 history of liver cirrhosis Plan: Thoracentesis was done for symptom medical reasons in the emergency department and a total of 1.9 L of pleural fluid was aspirated. The pleural fluid will be sent for analysis again. Recommend outpatient PET scan and this will be arranged through our office The patient can potentially go home on the same medication to be followed up in the office and this will be a short-term follow-up within a week or so. Clinically felt better following the thoracentesis. Patient wants to go home and I think it's reasonable to discharge him home today to be followed up in the office.
--- NOTE | 2021-07-24 17:30 | P.PCN ---
Date of Procedure: 07/24/21 Preoperative Diagnosis: Pleural effusion, right-sided Postoperative Diagnosis: Pleural effusion, right-sided Procedure(s) Performed: Thoracentesis, right-sided Anesthesia: local Surgeon: Carlos Bermudez Estimated Blood Loss (ml): 0 Pathology: other Condition: stable Disposition: same day Operative Findings: A time out was performed and the chest x-ray was reviewed, the appropriate side was confirmed and marked. My hands were washed immediately prior to the procedure. I wore a surgical cap, mask with protective eyewear, sterile gown and sterile gloves throughout the procedure. The patient was prepped and draped in a sterile manner using chlorhexidine scrub after the appropriate level was percussed and confirmed by ultrasound. 1% lidocaine was used to anesthesize the skin, subcutaneous tissue, superior aspect of the rib periosteum and parietal pleura. A finder needle was then introduced over the superior aspect of the rib to locate the pleural fluid; 2colored fluid was aspirated at a depth of approximately 2 cm. A 10-blade scalpel was used to edson the skin at the in sertion site. The [id number] needle was then introduced through the skin incision into the pleural space using negative aspiration pressure and the red colometric indicator to confirm appropriate positioning of the needle. The thoracentesis catheter was then threaded without difficulty. 1900 ml of turbid colored fluid was removed without difficulty. The catheter was then removed. No immediate complications were noted during the procedure. A post-procedure chest x-ray is pending at the time of this note. The fluid will be sent for studies. Estimated blood loss is 0cc
--- NOTE | 2021-07-24 18:04 | XR ---
EXAMINATION TYPE: XR chest 1V portable DATE OF EXAM: 07/24/2021 COMPARISON: 07/24/2021 HISTORY: Short of breath thoracentesis TECHNIQUE: Single view FINDINGS: There is moderate size right pleural effusion. There is no obvious heart failure. Heart is probably enlarged. Left lung is clear consolidation. IMPRESSION: Right pleural effusion and right lower lobe consolidation. There is decrease in the pleur al fluid compared to exam earlier today before the thoracentesis. No pneumothorax.
[2021-07-25 02:12] LABS: Appearance,BF Cloudy
[2021-07-25 11:14] LABS: Cholesterol,BF Source Pleural Fluid; Cholesterol,Body Fluid 86 mg/dL; Glucose, BF Source Pleural Fluid; Glucose, Body Fluid 108 mg/dL; LDH, Body Fluid Source Pleural Fluid; Total Protein, Body Fluid 4700 mg/dL
== END 2021-07-24 17:53 | disposition home or self-care (01) ==
LOC: EC 13:01
DX: J90 Pleural effusion, not elsewhere classified (principal); E11.9 Type 2 diabetes mellitus without complications; J44.9 Chronic obstructive pulmonary disease, unspecified; K21.9 Gastro-esophageal reflux disease without esophagitis; M19.90 Unspecified osteoarthritis, unspecified site; Z87.891 Personal history of nicotine dependence; Z79.4 Long term (current) use of insulin; Z79.84 Long term (current) use of oral hypoglycemic drugs; Z79.899 Other long term (current) drug therapy
CPT/HCPCS: 32554; 36415; 71045; 71046; 80053; 82465; 82945; 83615; 83880; 84157; 84484; 85025; 85610; 85730; 87070; 87205; 87635; 89050; 93005; 99285

== ENCOUNTER 2021-08-24 12:04 | Inpatient (IN) | payer MEDICARE ==
[2021-08-24 13:00] LABS: Basophils % (A) 0 %; Eosinophils # (A) 0.1 k/uL (0-0.7); Eosinophils % (A) 2 %; HCT 28.1 % (39.0-53.0); Lymphocytes # (A) 0.3 k/uL (1.0-4.8); Lymphocytes % (A) 5 %; MCH 32.1 pg (25.0-35.0); MCHC 32.7 g/dL (31.0-37.0); MCV 98.4 fL (80.0-100.0); Mean Platelet Volume 7.7; Monocytes # (A) 0.4 k/uL (0-1.0); Monocytes % (A) 7 %; Neutrophils # (A) 5.2 k/uL (1.3-7.7); Neutrophils % (A) 84 %; Platelet Count 282 k/uL (150-450); RBC 2.85 m/uL (4.30-5.90); RDW 13.9 % (11.5-15.5); WBC 6.2 k/uL (3.8-10.6)
[2021-08-24 13:09] LABS: HGB 9.2 gm/dL (13.0-17.5)
[2021-08-24 13:11] LABS: Calcium 9.4 mg/dL (8.4-10.2); Potassium 5.4 mmol/L (3.5-5.1)
[2021-08-24 13:12] LABS: Magnesium 1.4 mg/dL (1.6-2.3)
--- NOTE | 2021-08-24 13:42 | ED ---
General Adult HPI - General Source: patient, RN notes reviewed Mode of arrival: wheelchair Limitations: no limitations <Gerry Acosta - Last Filed: 08/24/21 13:51> <Lauren Mendez - Last Filed: 08/26/21 16:34> - General Chief complaint: Recheck/Abnormal Lab/Rx Stated complaint: Abnormal Labs,Dr sent pt in Time Seen by Provider: 08/24/21 12:20 - History of Present Illness Initial comments: This a 76-year-old male presents emergency Department chief complaint of abnormal labs. Patient states that he received a phone call stating that his potassium was 5.8. Patient states he has no specific complaints she does admit that he is tired he doesn't present to diuretics. Patient states she is non-no potassium replacement. Patient states that he had labs for cough, and appointment with GI. Patient denies any increasing shortness breath denies chest pain. Denies fevers or chills. (Gerry Acosta) - Related Data Home Medications Medication Instructions Recorded Confirmed Ezetimibe [Zetia] 10 mg PO PC-SUPPER 06/10/18 08/24/21 Propranolol [Inderal] 10 mg PO TID 06/10/18 08/24/21 metFORMIN HCL [Glucophage] 1,000 mg PO BID 06/10/18 08/24/21 Insulin Glargine,Hum.rec.anlog 10 unit SQ HS 04/05/19 08/24/21 [Lantus Solostar Pen] Budesonide [Pulmicort] 0.5 mg INHALATION RT-BID 10/16/19 08/24/21 Ipratropium-Albuterol Nebulize 3 ml INHALATION RT-TID 10/16/19 08/24/21 [Duoneb 0.5 mg-3 mg/3 ml Soln] Loratadine [Claritin] 10 mg PO DAILY PRN 10/16/19 08/24/21 Spironolactone [Aldactone] 25 mg PO DAILY 10/16/19 08/24/21 Furosemide [Lasix] 40 mg PO DAILY 08/24/21 08/24/21 Omeprazole 40 mg PO DAILY 08/24/21 08/24/21 traMADol HCL 50 mg PO DAILY PRN 08/24/21 08/24/21 Allergies Allergy/AdvReac Type Severity Reaction Status Date / Time naproxen Allergy Rash/Hives Verified 08/24/21 13:26 Review of Systems ROS Other: All systems not noted in ROS Statement are negative. <Gerry Acosta - Last Filed: 08/24/21 13:51> ROS Other: All systems not noted in ROS Statement are negative. <Lauren Mendez Shannon - Last Filed: 08/26/21 16:34> ROS Statement: Those systems with pertinent positive or pertinent negative responses have been documented in the HPI. Past Medical History Past Medical History: Asthma, COPD, Diabetes Mellitus, GERD/Reflux, Liver Disease, Osteoarthritis (OA) Additional Past Medical History / Comment(s): Pt states, "Ischemic heart, esophageal varices" 3L home O2. PNEUMONIA 09/2019 History of Any Multi-Drug Resistant Organisms: None Reported Past Surgical History: Back Surgery, Cholecystectomy, Hernia Repair, Joint Replacement, Orthopedic Surgery, Tonsillectomy Additional Past Surgical History / Comment(s): right rotator cuff, right foot fx with pins 1996, ankle, vein stripping, right hip replacment, EGD WITH DILATA TION, BILAT CATARACTS REMOVED Past Anesthesia/Blood Transfusion Reactions: No Reported Reaction Additional Past Anesthesia/Blood Transfusion Reaction / Comment(s): Hard to awaken. wears O2. Past Psychological History: No Psychological Hx Reported Smoking Status: Former smoker Past Alcohol Use History: None Reported Past Drug Use History: None Reported - Past Family History Father Family Medical History: Cancer Additional Family Medical History / Comment(s): Lung Cancer Mother Family Medical History: COPD Sister(s) Family Medical History: Cancer Additional Family Medical History / Comment(s): Lung Cancer <Gerry Acosta - Last Filed: 08/24/21 13:51> General Exam Limitations: no limitations General appearance: alert, in no apparent distress Head exam: Present: atraumatic, normocephalic, normal inspection Eye exam: Present: normal appearance, PERRL, EOMI. Absent: scleral icterus, conjunctival injection, periorbital swelling Respiratory exam: Present: decreased breath sounds. Absent: normal lung sounds bilaterally, respiratory distress, wheezes, rales, rhonchi, stridor Cardiovascular Exam: Present: regular rate, normal rhythm, normal heart sounds. Absent: systolic murmur, diastolic murmur, rubs, gallop, clicks GI/Abdominal exam: Present: soft, normal bowel sounds. Absent: distended, tenderness, guarding, rebound, rigid <Gerry Acosta - Last Filed: 08/24/21 13:51> Course Vital Signs 08/24/21 12:10 Temperature 98.2 F Pulse Rate 78 Respiratory 18 Rate Blood Pressure 116/60 O2 Sat by Pulse 95 Oximetry Medical Decision Making - Lab Data Result diagrams: 08/24/21 12:44 08/24/21 12:44 <Gerry Acosta - Last Filed: 08/24/21 13:51> - Lab Data Result diagrams: 08/26/21 06:01 08/26/21 06:01 <Lauren Mendez - Last Filed: 08/26/21 16:34> - Medical Decision Making 76-year-old presented for possible abnormal labs. Patient potassium 5.4 though mag is 1.4, patient acute renal failure with creatinine of 2.1, GFR 33 which is new for the patient. Patient's been having increasing diuresis stated he the cause. (Gerry Acosta) I was available for consultation in the emergency department. The history and physical exam were done by the midlevel provider. I was consulted for this patients care. I reviewed the case with the midlevel provider and based on their presentation of the patient, I agree with the assessment, medical decision making and plan of care as documented. Chart was dictated using [employer]isu dictation software. Attempts were made to correct any dictation errors however some typographical errors may persist. (Lauren Mendez) - Lab Data Lab Results 08/24/21 08/24/21 Range/Units 12:44 12:44 WBC 6.2 (3.8-10.6) k/uL RBC 2.85 L (4.30-5.90) m/uL Hgb 9.2 L D (13.0-17.5) gm/dL Hct 28.1 L (39.0-53.0) % MCV 98.4 (80.0-100.0) fL MCH 32.1 (25.0-35.0) pg MCHC 32.7 (31.0-37.0) g/dL RDW 13.9 (11.5-15.5) % Plt Count 282 (150-450) k/uL MPV 7.7 Neutrophils % 84 % Lymphocytes % 5 % Monocytes % 7 % Eosinophils % 2 % Basophils % 0 % Neutrophils # 5.2 (1.3-7.7) k/uL Lymphocytes # 0.3 L (1.0-4.8) k/uL Monocytes # 0.4 (0-1.0) k/uL Eosinophils # 0.1 (0-0.7) k/uL Basophils # 0.0 (0-0.2) k/uL Sodium 136 L (137-145) mmol/L Potassium 5.4 H (3.5-5.1) mmol/L Chloride 103 (98-107) mmol/L Carbon Dioxide 29 (22-30) mmol/L Anion Gap 4 mmol/L BUN 37 H (9-20) mg/dL Creatinine 2.10 H (0.66-1.25) mg/dL Est GFR (CKD-EPI)AfAm 35 (>60 ml/min/1.73 sqM) Est GFR (CKD-EPI)NonAf 30 (>60 ml/min/1.73 sqM) Glucose 102 H (74-99) mg/dL Calcium 9.4 (8.4-10.2) mg/dL Magnesium 1.4 L (1.6-2.3) mg/dL Disposition <Gerry Acosta - Last Filed: 08/24/21 13:51> <Lauren Mendez - Last Filed: 08/26/21 16:34> Clinical Impression: Hyperkalemia, Acute renal failure, Hypomagnesemia Disposition: ADMITTED IP TO THIS HOSP Condition: Fair
[2021-08-24] MEDS ORDERED: MAGNESIUM SULFATE-D5W PMX 1 GM in DEXTROSE/WATER 1 100ML.BAG IVPB ONE (13:51)
[2021-08-24] MEDS ORDERED: NALOXONE 0.4 MG/ML 1 ML VIAL IV PRN (13:57)
[2021-08-24] MEDS ORDERED: ACETAMINOPHEN TAB 325 MG TAB PO PRN (13:57)
[2021-08-24] MEDS ORDERED: ONDANSETRON 4 MG/2 ML VIAL IVP PRN (13:57)
[2021-08-24] MEDS ORDERED: traMADol 50 MG TAB PO PRN (13:58)
[2021-08-24] MEDS ORDERED: LORATADINE 10 MG TAB PO PRN (13:58)
[2021-08-24] MEDS: PROPRANOLOL 10 MG TAB PO SCH ×2 (16:55→21:18)
[2021-08-24] MEDS ORDERED: SODIUM ZIRCONIUM CYCLOSILICATE 10 GM PACKET PO ONE (17:00)
[2021-08-24 17:44] LABS: Glucose,Whole Blood 128 mg/dL (75-99)
[2021-08-24] MEDS: INSULIN ASPART (NovoLOG) 100 UNIT/ML VIAL SQ SCH ×2 (17:51→21:18)
[2021-08-24] MEDS: EZETIMIBE 10 MG TAB PO SCH (19:05)
[2021-08-24 20:08] LABS: Glucose,Whole Blood 144 mg/dL (75-99)
[2021-08-24] MEDS: IPRATROPIUM-ALBUTEROL 3 ML NEB INHALATION SCH (20:21)
[2021-08-24] MEDS: BUDESONIDE 0.5 MG/2 ML NEBU INHALATION SCH (20:21)
[2021-08-24] MEDS: INSULIN DETEMIR (LEVEMIR) 100 UNIT/ML SYR SQ SCH (21:19)
--- NOTE | 2021-08-24 23:15 | P.HPIM ---
History of Present Illness H&P Date: 08/24/21 Chief Complaint: High potassium This is a pleasant 76-year-old patient who follows with Dr. Axel Mcclure. Chronic stable medical conditions include cirrhosis with esophageal varices , osteoarthritis, diabetes, COPD on home oxygen 3 L. chronically short of breath. Patient was sent in because he had his labs drawn at the [place]. Found to have a potassium of 5.8. Patient chronically feels tired and weak. Increase appetite. Does drink V8 and drape and cranberry juice every morning. Denies any fever and chills. Fair urine output. Tired and rundown. Does use electric wheelchair to get about Review of systems: GEN.: Tired decreased appetite EYES: None HEENT: Decreased hearing NECK: None RESPIRATORY: None CARDIOVASCULAR: None GASTROINTESTINAL: None GENITOURINARY: None MUSCULOSKELETAL: Joint pains LYMPHATICS: None HEMATOLOGICAL: None PSYCHIATRY: None NEUROLOGICAL: None Past medical history to include: COPD, diabetes, GERD, cirrhosis with esophageal varices, home oxygen 3 L Social history: . Used to drink 7-8 drinks on the weekends not certain a few years. Did smoke in the past, stopped smoking in 1985. Family history: Lung cancer Physical examination: VITAL SIGNS: 97.9, 71, 18, 108/62, 97% on 3 L GENERAL: BMI 35.6, reclining by diabetic tired. EYES: Pupils equal. Conjunctiva normal. HEENT: External appearance of nose and ears normal, oral cavity grossly normal. NECK: JVD not raised; masses not palpable. HEART: First and second heart sounds are normal; no edema. LUNGS: Respiratory rate normal; decreased breath sounds. ABDOMEN: Soft, nontender, liver spleen not palpable, no masses palpable. PSYCH: Alert and oriented x3; mood and affect normal. MUSCULOSKELETAL:No Clubbing/cyanosis;muscles-grossly intact NEUROLOGICAL: Cranial nerves grossly intact; no facial asymmetry, power and sensation grossly intact. LYMPHATICS: No lymph nodes palpable in the axilla and neck INVESTIGATIONS, reviewed in the clinical context: White count 6.2 hemoglobin 9.2 platelets 22 potassium 5.4 BUN 37 creatinine 2.10 magnesium 1.4 Previous labs: Creatinine 1.28 on 06/23/2021, 0.8 on 05/28/2021 Assessment and plan: -Hyperkalemia secondary to acute kidney injury. 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 Gentle hydration - cirrhosis with esophageal varices secondary to alcoholism in the past Follow clinically. Fluid restriction -Portal hypertension from cirrhosis Inderal 10 mg 3 times a day -COPD in a prior smoker Pulmicort 0.5 mg twice a day. DuoNeb 4 times a day -Diabetes mellitus type 2, on oral hypoglycemic, insulin Metformin thousand milligrams twice a day, Lantus. Follow Accu-Cheks -GERD Protonix 40 mg -Primary osteoarthritis Pain medications as needed -Hyperlipidemia zetia 10 mg daily Hold Lasix, Aldactone. lokelma. Renal diet. Saline at 50 mL an hour. Nephrology consulted. Other home medications resumed. Follow labs Past Medical History Past Medical History: Asthma, COPD, Diabetes Mellitus, GERD/Reflux, Liver Disease, Osteoarthritis (OA), Pneumonia, Respiratory Disorder Additional Past Medical History / Comment(s): Chronic asthma, chronic hypoxic respiratory failure, home oxygen at 3L/NC ATC, IDDM type II, neuriopathy bilateral feet, ischemic heart disease, liver cirrhosis/past ETOH abuse, portal hypertension, esophageal varicies, pneumonia, pneumonia with parapneumonic effusions/thoracentesis, umbilical hernias. History of Any Multi-Drug Resistant Organisms: None Reported Past Surgical History: Back Surgery, Cholecystectomy, Hernia Repair, Joint Replacement, Orthopedic Surgery, Tonsillectomy Additional Past Surgical History / Comment(s): Lumbar back surgery, R rotator cu ff repair, R foot fracture with hardware since removed, R ankle has hardware, r total hip arthroplasty, varicose vein stripping/pt cannot recall laterality, bilateral inguinal hernia repairs, EGD, colonoscopy, bilateral cataract removal/lens implants Past Anesthesia/Blood Transfusion Reactions: No Reported Reaction Additional Past Anesthesia/Blood Transfusion Reaction / Comment(s): Hard to awaken. wears O2. Smoking Status: Former smoker - Past Family History Father Family Medical History: Cancer Additional Family Medical History / Comment(s): Lung Cancer Mother Family Medical History: COPD Sister(s) Family Medical History: Cancer Additional Family Medical History / Comment(s): Lung Cancer Medications and Allergies Home Medications Medication Instructions Recorded Confirmed Type Ezetimibe [Zetia] 10 mg PO PC-SUPPER 06/10/18 08/24/21 History Propranolol [Inderal] 10 mg PO TID 06/10/18 08/24/21 History metFORMIN HCL [Glucophage] 1,000 mg PO BID 06/10/18 08/24/21 History Insulin Glargine,Hum.rec.anlog 10 unit SQ HS 04/05/19 08/24/21 History [Lantus Solostar Pen] Budesonide [Pulmicort] 0.5 mg INHALATION RT-BID 10/16/19 08/24/21 History Ipratropium-Albuterol Nebulize 3 ml INHALATION RT-TID 10/16/19 08/24/21 History [Duoneb 0.5 mg-3 mg/3 ml Soln] Loratadine [Claritin] 10 mg PO DAILY PRN 10/16/19 08/24/21 History Spironolactone [Aldactone] 25 mg PO DAILY 10/16/19 08/24/21 History Furosemide [Lasix] 40 mg PO DAILY 08/24/21 08/24/21 History Omeprazole 40 mg PO DAILY 08/24/21 08/24/21 History traMADol HCL 50 mg PO DAILY PRN 08/24/21 08/24/21 History Allergies Allergy/AdvReac Type Severity Reaction Status Date / Time naproxen Allergy Rash/Hives Verified 08/24/21 13:26 Physical Exam Vitals: Vital Signs Temp Pulse Pulse Resp BP BP Pulse Ox 08/24/21 20:51 98 F 80 18 112/61 100 08/24/21 20:37 97 08/24/21 20:32 72 08/24/21 20:22 83 08/24/21 15:28 97.9 F 71 18 108/62 100 08/24/21 12:10 98.2 F 78 18 116/60 95 Intake and Output 08/24/21 08/24/21 08/25/21 14:59 22:59 06:59 Intake Total 100 Balance 100 Intake: Intake, IV Titration 100 Amount Magnesium Sulfate-D5w Pmx 100 1 gm In Dextrose/Water 1 100ml.bag @ 100 mls/hr IVPB ONCE ONE Rx#: [id number] Other: Weight 122.47 kg Results CBC & Chem 7: 08/24/21 12:44 08/24/21 12:44 Labs: Abnormal Lab Results - Last 24 Hours (Table) 08/24/21 08/24/21 08/24/21 Range/Units 12:44 12:44 17:43 RBC 2.85 L (4.30-5.90) m/uL Hgb 9.2 L D (13.0-17.5) gm/dL Hct 28.1 L (39.0-53.0) % Lymphocytes # 0.3 L (1.0-4.8) k/uL Sodium 136 L (137-145) mmol/L Potassium 5.4 H (3.5-5.1) mmol/L BUN 37 H (9-20) mg/dL Creatinine 2.10 H (0.66-1.25) mg/dL Glucose 102 H (74-99) mg/dL POC Glucose (mg/dL) 128 H (75-99) mg/dL Magnesium 1.4 L (1.6-2.3) mg/dL 08/24/21 Range/Units 20:06 RBC (4.30-5.90) m/uL Hgb (13.0-17.5) gm/dL Hct (39.0-53.0) % Lymphocytes # (1.0-4.8) k/uL Sodium (137-145) mmol/L Potassium (3.5-5.1) mmol/L BUN (9-20) mg/dL Creatinine (0.66-1.25) mg/dL Glucose (74-99) mg/dL POC Glucose (mg/dL) 144 H (75-99) mg/dL Magnesium (1.6-2.3) mg/dL Thrombosis Risk Factor Assmnt - Choose All That Apply Any of the Below Risk Factors Present?: Yes Each Factor Represents 1 point: Abnormal pulmonary function (COPD), Obesity (BMI >25) Other Risk Factors: Yes Each Risk Factor Represents 2 Points: Age 61-74 years Other congenital or acquired thrombophilia - If yes, enter type in comment: No Thrombosis Risk Factor Assessment Total Risk Factor Score: 4 Thrombosis Risk Factor Assessment Level: Moderate Risk
[2021-08-25] MEDS: SODIUM CHLORIDE 0.9% 1,000 ML IV SCH ×3 (06:25→21:11)
[2021-08-25 07:35] LABS: Glucose,Whole Blood 93 mg/dL (75-99)
[2021-08-25] MEDS: BUDESONIDE 0.5 MG/2 ML NEBU INHALATION SCH ×2 (07:54→20:11)
[2021-08-25] MEDS: IPRATROPIUM-ALBUTEROL 3 ML NEB INHALATION SCH ×3 (07:55→20:11)
[2021-08-25 08:01] LABS: African American GFR (CKD) 37 (>60 ml/min/1.73 sqM); Anion Gap 0 mmol/L; Blood Urea Nitrogen 36 mg/dL (9-20); Calcium 9.2 mg/dL (8.4-10.2); Carbon Dioxide 31 mmol/L (22-30); Chloride 104 mmol/L (98-107); Glucose 91 mg/dL (74-99); Non-African American GFR(CKD) 32 (>60 ml/min/1.73 sqM); Potassium 5.3 mmol/L (3.5-5.1); Sodium 135 mmol/L (137-145)
[2021-08-25] MEDS: INSULIN ASPART (NovoLOG) 100 UNIT/ML VIAL SQ SCH ×4 (09:17→21:09)
[2021-08-25] MEDS: PROPRANOLOL 10 MG TAB PO SCH ×3 (09:29→20:52)
[2021-08-25] MEDS: PANTOPRAZOLE 40 MG TABLET PO SCH (09:30)
--- NOTE | 2021-08-25 09:45 | P.NPCON ---
History of Present Illness - Reason for Consult acute renal failure - History of Present Illness Reason for consultation: Acute kidney injury History of present illness: Patient is a 76-year-old male seen in consultation for acute kidney injury. Patient's baseline creatinine is near 1 and was elevated at 2.1 on admission and is 1.98 today. Patient had blood work done outpatient and potassium level was noted to be high at 5.8. He was advised to come to the hospital for further management. On admission his potassium was 5.4 and is 5.3 this morning. Patient denies history of kidney disease. He denies use of nonsteroidals. He was taking spironolactone at home which is currently held. He is receiving IV fluids. Blood pressure as controlled. Good urine output. No hematuria. Patient does have long-standing history of diabetes and is maintained on insulin. Also takes metformin. No evidence of acidosis. No chest pain or shortness of breath. No vomiting or diarrhea. No fever or chills. Vital signs are stable. General: The patient appeared well nourished and normally developed. HEENT: Head exam is unremarkable. LUNGS: Breath sounds decreased. HEART: Rate and Rhythm are regular. ABDOMEN: Soft, no distention. EXTREMITITES: No edema. Past Medical History Past Medical History: Asthma, COPD, Diabetes Mellitus, GERD/Reflux, Liver Disease, Osteoarthritis (OA), Pneumonia, Respiratory Disorder Additional Past Medical History / Comment(s): Chronic asthma, chronic hypoxic respiratory failure, home oxygen at 3L/[place] ATC, IDDM type II, neuriopathy bilateral feet, ischemic heart disease, liver cirrhosis/past ETOH abuse, portal hypertension, esophageal varicies, pneumonia, pneumonia with parapneumonic effusions/thoracentesis, umbilical hernias. History of Any Multi-Drug Resistant Organisms: None Reported Past Surgical History: Back Surgery, Cholecystectomy, Hernia Repair, Joint Replacement, Orthopedic Surgery, Tonsillectomy Additional Past Surgical History / Comment(s): Lumbar back surgery, R rotator cuff repair, R foot fracture with hardware since removed, R ankle has hardware, r total hip arthroplasty, varicose vein stripping/pt cannot recall laterality, bilateral inguinal hernia repairs, EGD, colonoscopy, bilateral cataract remova l/lens implants Past Anesthesia/Blood Transfusion Reactions: No Reported Reaction Additional Past Anesthesia/Blood Transfusion Reaction / Comment(s): Hard to awaken. wears O2. Smoking Status: Former smoker - Past Family History Father Family Medical History: Cancer Additional Family Medical History / Comment(s): Lung Cancer Mother Family Medical History: COPD Sister(s) Family Medical History: Cancer Additional Family Medical History / Comment(s): Lung Cancer Medications and Allergies Home Medications Medication Instructions Recorded Confirmed Type Ezetimibe [Zetia] 10 mg PO PC-SUPPER 06/10/18 08/24/21 History Propranolol [Inderal] 10 mg PO TID 06/10/18 08/24/21 History metFORMIN HCL [Glucophage] 1,000 mg PO BID 06/10/18 08/24/21 History Insulin Glargine,Hum.rec.anlog 10 unit SQ HS 04/05/19 08/24/21 History [Lantus Solostar Pen] Budesonide [Pulmicort] 0.5 mg INHALATION RT-BID 10/16/19 08/24/21 History Ipratropium-Albuterol Nebulize 3 ml INHALATION RT-TID 10/16/19 08/24/21 History [Duoneb 0.5 mg-3 mg/3 ml Soln] Loratadine [Claritin] 10 mg PO DAILY PRN 10/16/19 08/24/21 History Spironolactone [Aldactone] 25 mg PO DAILY 10/16/19 08/24/21 History Furosemide [Lasix] 40 mg PO DAILY 08/24/21 08/24/21 History Omeprazole 40 mg PO DAILY 08/24/21 08/24/21 History traMADol HCL 50 mg PO DAILY PRN 08/24/21 08/24/21 History Allergies Allergy/AdvReac Type Severity Reaction Status Date / Time naproxen Allergy Rash/Hives Verified 08/24/21 13:26 Physical Exam Vitals: Vital Signs Temp Pulse Pulse Resp BP BP Pulse Ox 08/25/21 09:24 80 116/78 08/25/21 08:10 86 08/25/21 07:57 90 08/25/21 05:05 98.0 F 84 18 107/63 99 08/24/21 20:51 98 F 80 18 112/61 100 08/24/21 20:37 97 08/24/21 20:32 72 08/24/21 20:22 83 08/24/21 15:28 97.9 F 71 18 108/62 100 08/24/21 12:10 98.2 F 78 18 116/60 95 Intake and Output 08/24/21 08/25/21 08/25/21 22:59 06:59 14:59 Intake Total 100 690 Balance 100 690 Intake: Intake, IV Titration 100 150 Amount Magnesium Sulfate-D5w Pmx 100 1 gm In Dextrose/Water 1 100ml.bag @ 100 mls/hr IVPB ONCE ONE Rx#: [id number] Sodium Chloride 0.9% 1, 150 000 ml @ 75 mls/hr IV . [id number] [facility] Rx#:[id number] Oral 540 Other: Voiding Method Urinal # Voids 6 Results - Lab Results Most recent lab results Calcium 9.2 mg/dL (8.4-10.2) 08/25/21 06:34 Magnesium 1.4 mg/dL (1.6-2.3) L 08/24/21 12:44 08/24/21 12:44 08/25/21 06:34 Assessment and Plan Plan: Assessment: 1. Acute kidney injury secondary to ATN. Rule out retention and obstruction. Creatinine 2.1 on admission and is stable at 1.98 today. Creatinine was 0.8 in May 2021. 2. Hyperkalemia secondary to acute kidney injury and spironolactone. 3. Diabetes mellitus. 4. Hypomagnesemia anemia from poor intake and diuretic. Replaced. Plan: Maintain IV fluids. Check UA. Check renal ultrasound. Check bladder scan to rule out urinary retention. Hold spironolactone. Repeat lokelman 10 g once today. Continue to monitor renal function and urine output. Thank you for the consultation. I will continue to follow the patient with you during his hospital stay.
[2021-08-25] MEDS ORDERED: SODIUM ZIRCONIUM CYCLOSILICATE 10 GM PACKET PO ONE (10:00)
[2021-08-25 11:06] VITALS: BMI 35.6
[2021-08-25 11:31] LABS: Appearance,Urine Turbid (Clear); Bacteria,Urine Occasional /hpf; Bilirubin,Urine Negative (Negative); Blood,Urine Small (Negative); Color,Urine Yellow; Glucose,Urine (UA) Negative (Negative); Ketones,Urine Negative (Negative); Leukocyte Esterase,Urine Large (Negative); Mucus,Urine Rare /hpf; Nitrite,Urine Negative (Negative); Protein,Urine Trace (Negative); RBC,Urine 7 /hpf (0-5); Specific Gravity,Urine 1.013 (1.001-1.035); Squamous Epithelial Cell,Urine 1 /hpf (0-4); Urobilinogen,Urine <2.0 mg/dL (<2.0); WBC,Urine >182 /hpf (0-5)
--- NOTE | 2021-08-25 11:40 | US ---
EXAMINATION TYPE: US kidneys/renal and bladder DATE OF EXAM: 08/25/2021 COMPARISON: NONE CLINICAL HISTORY: grady. GRADY EXAM MEASUREMENTS: Right Kidney: 11.7 x 4.6 x 6.0 cm Left Kidney: not seen Right Kidney: 1.8cm simple cyst superior pole Left Kidney: not seen due to enlarged spleen and bowel gas obstructing view Bladder: not distended There is no evidence for hydronephrosis at this point in time. No nephrolithiasis is seen. No solid masses are identified. The urinary bladder is anechoic. Bilateral ureteral jets are seen. IMPRESSION: 1. Splenomegaly. 2. Poor visualization left kidney. 3. Right renal simple cysts.
[2021-08-25 12:09] LABS: Glucose,Whole Blood 114 mg/dL (75-99)
--- NOTE | 2021-08-25 14:50 | P.PN ---
Progress Note - Text Progress Note Date: 08/25/21 Chief Complaint: High potassium This is a pleasant 76-year-old patient who follows with Dr. Axel Mcclure. Chronic stable medical conditions include cirrhosis with esophageal varices , osteoarthritis, diabetes, COPD on home oxygen 3 L. chronically short of breath. Patient was sent in because he had his labs drawn at the [place]. Found to have a potassium of 5.8. Patient chronically feels tired and weak. Increase appetite. Does drink V8 and drape and cranberry juice every morning. Denies any fever and chills. Fair urine output. Tired and rundown. Does use electric wheelchair to get about Admitted with acute kidney injury, hyperkalemia. Diuretics held. August 25.: at the bedside. Continue with IV fluids 75 mL an hour. Care was discussed with the patient and at the bedside. Explained to the patient via needs to be here. Active Medications Acetaminophen (Acetaminophen Tab 325 Mg Tab) 650 mg PO Q6HR PRN PRN Reason: Mild Pain or Fever > 100.5 Albuterol/Ipratropium (Ipratropium-Albuterol 3 Ml Neb) 3 ml INHALATION RT-TID [facility] Last Admin: 08/25/21 11:37 Dose: 3 ml Documented by: Budesonide (Budesonide 0.5 Mg/2 Ml Nebu) 0.5 mg INHALATION RT-BID [facility] Last Admin: 08/25/21 07:54 Dose: 0.5 mg Documented by: Ezetimibe (Ezetimibe 10 Mg Tab) 10 mg PO PC-SUPPER [facility] Last Admin: 08/24/21 19:05 Dose: 10 mg Documented by: Sodium Chloride (Saline 0.9%) 1,000 mls @ 75 mls/hr IV .[id number] [facility] Last Admin: 08/25/21 06:25 Dose: 75 mls/hr Documented by: Insulin Aspart (Insulin Aspart (Novolog) 100 Unit/Ml Vial) 0 unit SQ [facility]; Protocol Last Admin: 08/25/21 13:28 Dose: Not Given Documented by: Insulin Detemir (Insulin Detemir (Levemir) 100 Unit/Ml Syr) 10 unit SQ [facility] Last Admin: 08/24/21 21:19 Dose: 10 unit Documented by: Loratadine (Loratadine 10 Mg Tab) 10 mg PO DAILY PRN PRN Reason: Allergy Symptoms Naloxone HCl (Naloxone 0.4 Mg/Ml 1 Ml Vial) 0.2 mg IV Q2M PRN PRN Reason: Opioid Reversal Ondansetron HCl (Ondansetron 4 Mg/2 Ml Vial) 4 mg IVP Q8HR PRN PRN Reason: Nausea And Vomiting Pantoprazole Sodium (Pantoprazole 40 Mg Tablet) 40 mg PO AC-BRKFST [facility] Last Admin: 08/25/21 09:30 Dose: 40 mg Documented by: Propranolol HCl (Propranolol 10 Mg Tab) 10 mg PO TID [facility] Last Admin: 08/25/21 09:29 Dose: 10 mg Documented by: Tramadol HCl (Tramadol 50 Mg Tab) 50 mg PO DAILY PRN PRN Reason: Pain Past medical history to include: COPD, diabetes, GERD, cirrhosis with esophageal varices, home oxygen 3 L Social history: . Used to drink 7-8 drinks on the weekends not certain a few years. Did smoke in the past, stopped smoking in 1985. Family history: Lung cancer Physical examination: VITAL SIGNS: 98, 83, 19, 110/62, 99% room air GENERAL: He planning in bed, awake EYES: Pupils equal. Conjunctiva normal. HEENT: External appearance of nose and ears normal, oral cavity grossly normal. NECK: JVD not raised; masses not palpable. HEART: First and second heart sounds are normal; no edema. LUNGS: Respiratory rate normal; decreased breath sounds. ABDOMEN: Soft, nontender, liver spleen not palpable, no masses palpable. PSYCH: Alert and oriented x3; mood and affect normal. MUSCULOSKELETAL:No Clubbing/cyanosis;muscles-grossly intact INVESTIGATIONS, reviewed in the clinical context: August 25: Potassium 5.3. BUN 36, creatinine 1.98 UA positive for leukoesterase WBC trace protein White count 6.2 hemoglobin 9.2 platelets 22 potassium 5.4 BUN 37 creatinine 2.10 magnesium 1.4 Previous labs: Creatinine 1.28 on 06/23/2021, 0.8 on 05/28/2021 Assessment and plan: -Hyperkalemia secondary to acute kidney injury. 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 Saline at 75 mL an hour. - cirrhosis with esophageal varices secondary to alcoholism in the past Follow clinically. Fluid restriction -Portal hypertension from cirrhosis Inderal 10 mg 3 times a day -COPD in a prior smoker Pulmicort 0.5 mg twice a day. DuoNeb 4 times a day -Diabetes mellitus type 2, on oral hypoglycemic, insulin Metformin thousand milligrams twice a day, Lantus. Follow Accu-Cheks -GERD Protonix 40 mg -Primary osteoarthritis Pain medications as needed -Hyperlipidemia zetia 10 mg daily Continue to hold diuretics.. Renal diet. Saline at 75 mL an hour. Discussed length with the patient later the bedside. Questions answered. Follow labs. Total time spent today 40 minutes with over 20 minutes of discussion.
[2021-08-25 17:14] LABS: Glucose,Whole Blood 154 mg/dL (75-99)
[2021-08-25] MEDS: EZETIMIBE 10 MG TAB PO SCH (17:24)
[2021-08-25 20:56] LABS: Glucose,Whole Blood 156 mg/dL (75-99)
[2021-08-25] MEDS: INSULIN DETEMIR (LEVEMIR) 100 UNIT/ML SYR SQ SCH (21:09)
[2021-08-26] MEDS: SODIUM CHLORIDE 0.9% 1,000 ML IV SCH ×2 (06:02→20:48)
[2021-08-26 06:39] LABS: African American GFR (CKD) 42 (>60 ml/min/1.73 sqM); Anion Gap 2 mmol/L; Blood Urea Nitrogen 34 mg/dL (9-20); Carbon Dioxide 29 mmol/L (22-30); Chloride 104 mmol/L (98-107); Glucose 100 mg/dL (74-99); Magnesium 1.6 mg/dL (1.6-2.3); Non-African American GFR(CKD) 37 (>60 ml/min/1.73 sqM); Potassium 4.6 mmol/L (3.5-5.1); Sodium 135 mmol/L (137-145)
[2021-08-26 07:06] LABS: Glucose,Whole Blood 113 mg/dL (75-99)
[2021-08-26] MEDS: INSULIN ASPART (NovoLOG) 100 UNIT/ML VIAL SQ SCH ×4 (07:21→20:47)
[2021-08-26] MEDS: PANTOPRAZOLE 40 MG TABLET PO SCH (07:23)
[2021-08-26] MEDS: PROPRANOLOL 10 MG TAB PO SCH ×3 (07:23→20:47)
[2021-08-26] MEDS: BUDESONIDE 0.5 MG/2 ML NEBU INHALATION SCH ×2 (07:34→19:48)
[2021-08-26] MEDS: IPRATROPIUM-ALBUTEROL 3 ML NEB INHALATION SCH ×3 (07:35→19:46)
--- NOTE | 2021-08-26 09:36 | P.PN ---
Subjective Patient is seen in follow-up for acute kidney injury. Renal function slowly improving. Good urine output. Blood pressure stable. No vomiting or diarrhea. Vital signs are stable. General: The patient appeared well nourished and normally developed. HEENT: Head exam is unremarkable. LUNGS: Breath sounds decreased. HEART: Rate and Rhythm are regular. ABDOMEN: Soft, no distention. EXTREMITITES: No edema. Objective - Vital Signs Vital signs: Vital Signs Temp 98 F 08/26/21 04:35 Pulse 84 08/26/21 07:54 Resp 20 08/26/21 04:35 BP 120/62 08/26/21 07:23 Pulse Ox 98 08/26/21 04:35 Intake & Output 08/25/21 08/26/21 08/26/21 18:59 06:59 18:59 Intake Total 240 300 Output Total 450 Balance -210 300 Weight 122.47 kg Intake: Oral 240 300 Output: Urine 400 Post Void Residual 50 Other: Voiding Method Urinal Urinal # Voids 1 3 # Bowel Movements 1 - Labs CBC & Chem 7: 08/24/21 12:44 08/26/21 06:01 Labs: Abnormal Lab Results - Last 24 Hours (Table) 08/25/21 08/25/21 08/25/21 Range/Units 10:45 12:08 17:12 Sodium (137-145) mmol/L BUN (9-20) mg/dL Creatinine (0.66-1.25) mg/dL Glucose (74-99) mg/dL POC Glucose (mg/dL) 114 H 154 H (75-99) mg/dL Urine Protein Trace H (Negative) Urine Blood Small H (Negative) Ur Leukocyte Esterase Large H (Negative) Urine RBC 7 H (0-5) /hpf Urine WBC >182 H (0-5) /hpf Urine WBC Clumps Many H (None) /hpf Urine Bacteria Occasional H (None) /hpf Urine Mucus Rare H (None) /hpf 08/25/21 08/26/21 08/26/21 Range/Units 20:48 06:01 07:05 Sodium 135 L (137-145) mmol/L BUN 34 H (9-20) mg/dL Creatinine 1.79 H (0.66-1.25) mg/dL Glucose 100 H (74-99) mg/dL POC Glucose (mg/dL) 156 H 113 H (75-99) mg/dL Urine Protein (Negative) Urine Blood (Negative) Ur Leukocyte Esterase (Negative) Urine RBC (0-5) /hpf Urine WBC (0-5) /hpf Urine WBC Clumps (None) /hpf Urine Bacteria (None) /hpf Urine Mucus (None) /hpf Assessment and Plan Plan: Assessment: 1. Acute kidney injury secondary to ATN. Rule out retention and obstruction. Creatinine 2.1 on admission and is 1.79 today. Creatinine was 0.8 in May 2021. Trace protein on UA. No hydronephrosis noted on kidney ultrasound. Left kidney poorly visualized. 2. Hyperkalemia secondary to acute kidney injury and spironolactone. Improved. 3. Diabetes mellitus. 4. Hypomagnesemia anemia from poor intake and diuretic. Replaced. Better. Plan: Maintain IV fluids. Hold spironolactone. Continue to monitor renal function and urine output. Add oral magnesium oxide.
[2021-08-26] MEDS: MAGNESIUM OXIDE 400 MG TAB PO SCH ×2 (10:33→20:47)
[2021-08-26 12:16] LABS: Glucose,Whole Blood 121 mg/dL (75-99)
[2021-08-26 13:42] LABS: Basophils % (A) 1 %; Eosinophils # (A) 0.1 k/uL (0-0.7); Eosinophils % (A) 3 %; HCT 24.7 % (39.0-53.0); HGB 7.8 gm/dL (13.0-17.5); Hypochromasia Moderate; Lymphocytes # (A) 0.2 k/uL (1.0-4.8); Lymphocytes % (A) 7 %; MCHC 31.7 g/dL (31.0-37.0); Macrocytosis Slight; Mean Platelet Volume 8.6; Monocytes # (A) 0.3 k/uL (0-1.0); Monocytes % (A) 8 %; Neutrophils # (A) 2.7 k/uL (1.3-7.7); Neutrophils % (A) 79 %; Platelet Count 180 k/uL (150-450); RBC 2.44 m/uL (4.30-5.90); RDW 14.5 % (11.5-15.5); WBC 3.4 k/uL (3.8-10.6)
--- NOTE | 2021-08-26 15:54 | P.PN ---
Progress Note - Text Progress Note Date: 08/26/21 Chief Complaint: High potassium This is a pleasant 76-year-old patient who follows with Dr. Axel Mcclure. Chronic stable medical conditions include cirrhosis with esophageal varices , osteoarthritis, diabetes, COPD on home oxygen 3 L. chronically short of breath. Patient was sent in because he had his labs drawn at the [place]. Found to have a potassium of 5.8. Patient chronically feels tired and weak. Increase appetite. Does drink V8 and drape and cranberry juice every morning. Denies any fever and chills. Fair urine output. Tired and rundown. Does use electric wheelchair to get about Admitted with acute kidney injury, hyperkalemia. Diuretics held. August 25.: at the bedside. Continue with IV fluids 75 mL an hour. Care was discussed with the patient and at the bedside. Explained to the patient via needs to be here. August 26: Continue with IV fluids 75 mL an hour. Slow improvement in creatinine. Discussed with patient. Active Medications Acetaminophen (Acetaminophen Tab 325 Mg Tab) 650 mg PO Q6HR PRN PRN Reason: Mild Pain or Fever > 100.5 Albuterol/Ipratropium (Ipratropium-Albuterol 3 Ml Neb) 3 ml INHALATION RT-TID [facility] Last Admin: 08/26/21 11:41 Dose: 3 ml Documented by: Budesonide (Budesonide 0.5 Mg/2 Ml Nebu) 0.5 mg INHALATION RT-BID [facility] Last Admin: 08/26/21 07:34 Dose: 0.5 mg Documented by: Ezetimibe (Ezetimibe 10 Mg Tab) 10 mg PO PC-SUPPER [facility] Last Admin: 08/25/21 17:24 Dose: 10 mg Documented by: Sodium Chloride (Saline 0.9%) 1,000 mls @ 75 mls/hr IV .[id number] [facility] Last Admin: 08/26/21 06:02 Dose: 75 mls/hr Documented by: Insulin Aspart (Insulin Aspart (Novolog) 100 Unit/Ml Vial) 0 unit SQ [facility]; Protocol Last Admin: 08/26/21 13:03 Dose: Not Given Documented by: Insulin Detemir (Insulin Detemir (Levemir) 100 Unit/Ml Syr) 10 unit SQ HS [facility] Last Admin: 08/25/21 21:09 Dose: 10 unit Documented by: Loratadine (Loratadine 10 Mg Tab) 10 mg PO DAILY PRN PRN Reason: Allergy Symptoms Magnesium Oxide (Magnesium Oxide 400 Mg Tab) 400 mg PO BID [facility] Last Admin: 08/26/21 10:33 Dose: 400 mg Documented by: Naloxone HCl (Naloxone 0.4 Mg/Ml 1 Ml Vial) 0.2 mg IV Q2M PRN PRN Reason: Opioid Reversal Ondansetron HCl (Ondansetron 4 Mg/2 Ml Vial) 4 mg IVP Q8HR PRN PRN Reason: Nausea And Vomiting Pantoprazole Sodium (Pantoprazole 40 Mg Tablet) 40 mg PO AC-BRKFST [facility] Last Admin: 08/26/21 07:23 Dose: 40 mg Documented by: Propranolol HCl (Propranolol 10 Mg Tab) 10 mg PO TID [facility] Last Admin: 08/26/21 07:23 Dose: 10 mg Documented by: Tramadol HCl (Tramadol 50 Mg Tab) 50 mg PO DAILY PRN PRN Reason: Pain Past medical history to include: COPD, diabetes, GERD, cirrhosis with esophageal varices, home oxygen 3 L Social history: . Used to drink 7-8 drinks on the weekends not certain a few years. Did smoke in the past, stopped smoking in 1985. Family history: Lung cancer Physical examination: VITAL SIGNS: 97.8, 92, 19, 116/67, 99% on 3 L GENERAL: A declining in bed, awake EYES: Pupils equal. Conjunctiva normal. HEENT: External appearance of nose and ears normal, oral cavity grossly normal. NECK: JVD not raised; masses not palpable. HEART: First and second heart sounds are normal; no edema. LUNGS: Respiratory rate normal; decreased breath sounds. ABDOMEN: Soft, nontender, liver spleen not palpable, no masses palpable. PSYCH: Alert and oriented x3; mood and affect normal. MUSCULOSKELETAL:No Clubbing/cyanosis;muscles-grossly intact INVESTIGATIONS, reviewed in the clinical context: August 26: White count 3.4 hemoglobin 7.8 potassium 4.6 BUN 34 creatinine 1.79 August 25: Potassium 5.3. BUN 36, creatinine 1.98 UA positive for leukoesterase WBC trace protein White count 6.2 hemoglobin 9.2 platelets 22 potassium 5.4 BUN 37 creatinine 2.10 magnesium 1.4 Previous labs: Creatinine 1.28 on 06/23/2021, 0.8 on 05/28/2021 Assessment and plan: -Hyperkalemia secondary to acute kidney injury. 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 Saline at 75 mL an hour. - cirrhosis with esophageal varices secondary to alcoholism in the past Follow clinically. Fluid restriction -Portal hypertension from cirrhosis Inderal 10 mg 3 times a day -COPD in a prior smoker Pulmicort 0.5 mg twice a day. DuoNeb 4 times a day -Diabetes mellitus type 2, on oral hypoglycemic, insulin Metformin thousand milligrams twice a day, Lantus. Follow Accu-Cheks -GERD Protonix 40 mg -Primary osteoarthritis Pain medications as needed -Hyperlipidemia zetia 10 mg daily Continue to hold diuretics.. Renal diet. Saline at 75 mL an hour. Discussed length with the patient later the bedside. Repeat labs
[2021-08-26] MEDS: EZETIMIBE 10 MG TAB PO SCH (17:10)
[2021-08-26 17:31] LABS: Glucose,Whole Blood 212 mg/dL (75-99)
[2021-08-26 20:30] LABS: Glucose,Whole Blood 196 mg/dL (75-99)
[2021-08-26] MEDS: INSULIN DETEMIR (LEVEMIR) 100 UNIT/ML SYR SQ SCH (20:47)
[2021-08-26 21:52] VITALS: RESP 16
[2021-08-27 07:37] LABS: Glucose,Whole Blood 109 mg/dL (75-99)
[2021-08-27] MEDS: IPRATROPIUM-ALBUTEROL 3 ML NEB INHALATION SCH ×2 (07:55→12:06)
[2021-08-27] MEDS: BUDESONIDE 0.5 MG/2 ML NEBU INHALATION SCH (07:55)
[2021-08-27] MEDS: INSULIN ASPART (NovoLOG) 100 UNIT/ML VIAL SQ SCH ×2 (08:04→12:54)
[2021-08-27] MEDS: MAGNESIUM OXIDE 400 MG TAB PO SCH (08:06)
[2021-08-27] MEDS: PANTOPRAZOLE 40 MG TABLET PO SCH (08:06)
[2021-08-27] MEDS: PROPRANOLOL 10 MG TAB PO SCH (08:06)
[2021-08-27 09:09] LABS: African American GFR (CKD) 40.7 (60.0-200.0); Anion Gap 8.8 mmol/L (10.00-18.00); BUN/Creat Ratio 13.62 Ratio (12.00-20.00); Blood Urea Nitrogen 25.2 mg/dL (9.0-27.0); Calcium 9.3 mg/dL (8.7-10.3); Carbon Dioxide 25.2 mmol/L (20.0-27.5); Magnesium 1.7 mg/dL (1.5-2.4); Non-African American GFR(CKD) 35.1 (60.0-200.0); Potassium 4.9 mmol/L (3.5-5.5)
[2021-08-27 11:54] VITALS: BP 96/52; TEMP 97.9
[2021-08-27 12:16] VITALS: PULSE 76
[2021-08-27 12:17] LABS: Glucose,Whole Blood 135 mg/dL (75-99)
--- NOTE | 2021-08-27 13:27 | P.PN ---
Subjective Patient is seen for follow-up for acute kidney injury. His renal function has been fluctuating with serum creatinine staying about 1.7-1.9 mg/dL. Previous creatinine was 0.8 on 05/28/2021. No evidence of obstruction on ultrasound. UA shows evidence of pyuria. Patient is asymptomatic Currently maintained on normal saline at 75 mL an hour. Lasix and Aldactone currently on hold Post void residual residual is not elevated Objective - Vital Signs Vital signs: Vital Signs Temp 97.9 F 08/27/21 11:14 Pulse 76 08/27/21 12:16 Resp 16 08/27/21 11:14 BP 96/52 08/27/21 11:14 Pulse Ox 99 08/27/21 11:14 Intake & Output 08/26/21 08/27/21 08/27/21 18:59 06:59 18:59 Intake Total 840 2090 Output Total 400 Balance 440 2090 Intake: Intake, IV Titration 600 1500 Amount Sodium Chloride 0.9% 1, 600 1500 000 ml @ 75 mls/hr IV . [id number] [facility] Rx#:[id number] Oral 240 590 Output: Urine 400 Other: Voiding Method Bedside Commode Bedside Commode Urinal Urinal # Voids 4 # Bowel Movements 1 - Exam Patient is comfortable awake not in any acute distress. Examination of the heart S1 and S2 Examination lungs bilateral breath sounds are heard Abdomen is soft nontender Examination lower extremity shows no evidence of edema JAVAS[employer]INE[employer] exam grossly intact - Labs CBC & Chem 7: 08/26/21 06:01 08/27/21 05:51 Labs: Abnormal Lab Results - Last 24 Hours (Table) 08/26/21 08/26/21 08/26/21 Range/Units 06:01 17:29 20:27 WBC 3.4 L (3.8-10.6) k/uL RBC 2.44 L (4.30-5.90) m/uL Hgb 7.8 L (13.0-17.5) gm/dL Hct 24.7 L (39.0-53.0) % MCV 101.0 H (80.0-100.0) fL Lymphocytes # 0.2 L (1.0-4.8) k/uL Anion Gap (10.00-18.00) mmol/L Creatinine (0.6-1.5) mg/dL Est GFR (CKD-EPI)AfAm (60.0-200.0) Est GFR (CKD-EPI)NonAf (60.0-200.0) Glucose (70-110) mg/dL POC Glucose (mg/dL) 212 H 196 H (75-99) mg/dL 08/27/21 08/27/21 08/27/21 Range/Units 05:51 07:34 12:10 WBC (3.8-10.6) k/uL RBC (4.30-5.90) m/uL Hgb (13.0-17.5) gm/dL Hct (39.0-53.0) % MCV (80.0-100.0) fL Lymphocytes # (1.0-4.8) k/uL Anion Gap 8.80 L (10.00-18.00) mmol/L Creatinine 1.9 H (0.6-1.5) mg/dL Est GFR (CKD-EPI)AfAm 40.7 L (60.0-200.0) Est GFR (CKD-EPI)NonAf 35.1 L (60.0-200.0) Glucose 116 H (70-110) mg/dL POC Glucose (mg/dL) 109 H 135 H (75-99) mg/dL Assessment and Plan Assessment: 1. Acute kidney injury, nonoliguric, most likely ATN, consider acute interstitial nephritis if renal function does not improve down the road. 2. History of liver cirrhosis 3. Hyperkalemia associated with acute kidney injury and Aldactone currently improved 4. Hypomagnesemia from poor oral intake and diuresis, status post replacement Plan: Okay to discharge patient. We will follow patient in 1 week as outpatient. Check random urine for eosinophils prior to discharge. We'll follow-up as outpatient Hold Azra for now
--- NOTE | 2021-08-27 16:49 | P.DS ---
Providers Date of admission: 08/24/21 14:01 Expected date of discharge: 08/27/21 Attending physician: Jered Mclaughlin Consults: 08/24/21 13:57 Consult Physician Urgent Consulting Provider: Jack Dubon Consult Reason/Comments: ARF Do you want consulting provider notified?: Yes Primary care physician: Axel Magallanes [facility] Course: Chief Complaint: High potassium This is a pleasant 76-year-old patient who follows with Dr. Axel Mcclure. Chronic stable medical conditions include cirrhosis with esophageal varices , osteoarthritis, diabetes, COPD on home oxygen 3 L. chronically short of breath. Patient was sent in because he had his labs drawn at the [facility]. Found to have a potassium of 5.8. Patient chronically feels tired and weak. Increase appetite. Does drink V8 and drape and cranberry juice every morning. Denies any fever and chills. Fair urine output. Tired and rundown. Does use electric wheelchair to get about Admitted with acute kidney injury, hyperkalemia. Diuretics held. August 25.: at the bedside. Continue with IV fluids 75 mL an hour. Care was discussed with the patient and at the bedside. Explained to the patient via needs to be here. August 26: Continue with IV fluids 75 mL an hour. Slow improvement in creatinine. Discussed with patient. August 27: Creatinine 1.9. Discussed with Dr. Ryan from nephrology. Okay for discharge. Nephrology will follow up outpatient.. We'll continue to hold patient's Lasix and Aldactone. Fluid restriction 2000 mL a day. Discussed with patient and Discussion and discharge planning more than 35 minutes Past medical history to include: COPD, diabetes, GERD, cirrhosis with esophageal varices, home oxygen 3 L Social history: . Used to drink 7-8 drinks on the weekends not certain a few years. Did smoke in the past, stopped smoking in 1985. Family history: Lung cancer Physical examination: VITAL SIGNS: 97.9, 80, 16, 96/52, 99% room air GENERAL: Reclining in chair, awake EYES: Pupils equal. Conjunctiva normal. HEENT: External appearance of nose and ears normal, oral cavity grossly normal. NECK: JVD not raised; masses not palpable. HEART: First and second heart sounds are normal; no edema. LUNGS: Respiratory rate normal; decreased breath sounds. ABDOMEN: Soft, nontender, liver spleen not palpable, no masses palpable. PSYCH: Alert and oriented x3; mood and affect normal. MUSCULOSKELETAL:No Clubbing/cyanosis;muscles-grossly intact INVESTIGATIONS, reviewed in the clinical context: August 27: BUN 25 creatinine 1.9 UA positive for leukoesterase WBC trace protein White count 6.2 hemoglobin 9.2 platelets 22 potassium 5.4 BUN 37 creatinine 2.10 magnesium 1.4 Previous labs: Creatinine 1.28 on 06/23/2021, 0.8 on 05/28/2021 Assessment and plan: -Hyperkalemia secondary to acute kidney injury. 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 Fluid restriction 2000 mL a day - cirrhosis with esophageal varices secondary to alcoholism in the past Follow clinically. Fluid restriction -Portal hypertension from cirrhosis Inderal 10 mg 3 times a day -COPD in a prior smoker Pulmicort 0.5 mg twice a day. DuoNeb 4 times a day -Diabetes mellitus type 2, on oral hypoglycemic, insulin Metformin discontinued, Lantus. Follow Accu-Cheks -GERD Protonix 40 mg -Primary osteoarthritis Pain medications as needed -Hyperlipidemia zetia 10 mg daily Disposition: Home Patient Condition at Discharge: Fair Plan - Discharge Summary Discharge Rx Participant: No New Discharge Prescriptions: Continue Propranolol [Inderal] 10 mg PO TID Ezetimibe [Zetia] 10 mg PO PC-SUPPER Insulin Glargine,Hum.rec.anlog [Lantus Solostar Pen] 10 unit SQ HS Loratadine [Claritin] 10 mg PO DAILY PRN PRN Reason: Allergy Symptoms Ipratropium-Albuterol Nebulize [Duoneb 0.5 mg-3 mg/3 ml Soln] 3 ml INHALATION RT-TID Budesonide [Pulmicort] 0.5 mg INHALATION RT-BID Omeprazole 40 mg PO DAILY traMADol HCL 50 mg PO DAILY PRN PRN Reason: Pain Discontinued metFORMIN HCL [Glucophage] 1,000 mg PO BID Spironolactone [Aldactone] 25 mg PO DAILY Furosemide [Lasix] 40 mg PO DAILY Discharge Medication List Ezetimibe [Zetia] 10 mg PO PC-SUPPER 06/10/18 [History] Propranolol [Inderal] 10 mg PO TID 06/10/18 [History] Insulin Glargine,Hum.rec.anlog [Lantus Solostar Pen] 10 unit SQ HS 04/05/19 [History] Budesonide [Pulmicort] 0.5 mg INHALATION RT-BID 10/16/19 [History] Ipratropium-Albuterol Nebulize [Duoneb 0.5 mg-3 mg/3 ml Soln] 3 ml INHALATION RT-TID 10/16/19 [History] Loratadine [Claritin] 10 mg PO DAILY PRN 10/16/19 [History] Omeprazole 40 mg PO DAILY 08/24/21 [History] traMADol HCL 50 mg PO DAILY PRN 08/24/21 [History] Follow up Appointment(s)/Referral(s): Axel Mcclure MD [Primary Care Provider] - 1-2 days (Patient instructed to call to make a follow up appointment.) Caterina Belcher [NON-STAFF] - 1 Week Jack Dubon DO [STAFF PHYSICIAN] - 09/18/21 2:40 pm Patient Instructions/Handouts: Acute Kidney Injury (DC), Hyperkalemia (DC), Hypomagnesemia (DC) Activity/Diet/Wound Care/Special Instructions: [facility] [place] [address] Ramp Construction ~ [facility] ([facility] serves adults with intellectual & developmental disabilities. Their programs are designed to help individuals in their quest to live & work in the community. Are you or someone you know in need of a wheelchair ramp? [facility] can help! The [employer] has been building in our community since 1996. They offer quality workmanship at competitive prices including decks, porches, whe elchair ramps, low-tread steps and other wood projects. Their ramps are constructed according to a design by the [facility] [employer] in [place]. Ramps conform to ADA standards and are ideal for northern climates. Moreover, compliance with local code requirements is guaranteed. [facility] funding provides financial assistance for qualifying residents who cannot afford necessary accessibility construction and repairs. COMMODE: [facility] - [phone] Counseling on Aging - [phone] [employer] - [phone] Lab work to be drawn - BMP in 5 days Discharge Disposition: HOME WITH HOME HEALTH SERVICES
== END 2021-08-27 15:29 | disposition home health service (06) | DRG 683 ==
LOC: EC 12:04 → SUPCPDRO 12:04 → 5NMEDONC 14:01
PROVIDERS: ADMIT Hospitalist; ATTEND Hospitalist
DX: N17.0 Acute kidney failure with tubular necrosis (principal); I85.10 Secondary esophageal varices without bleeding; J96.11 Chronic respiratory failure with hypoxia; K76.6 Portal hypertension; E11.9 Type 2 diabetes mellitus without complications; E78.5 Hyperlipidemia, unspecified; E83.42 Hypomagnesemia; E87.5 Hyperkalemia; I25.9 Chronic ischemic heart disease, unspecified; J44.9 Chronic obstructive pulmonary disease, unspecified; T54.91XD Toxic effect of unspecified corrosive substance, accidental (unintentional), subsequent encounter; J68.3 Other acute and subacute respiratory conditions due to chemicals, gases, fumes and vapors; J45.909 Unspecified asthma, uncomplicated; D64.9 Anemia, unspecified; K21.9 Gastro-esophageal reflux disease without esophagitis; K70.30 Alcoholic cirrhosis of liver without ascites; F10.21 Alcohol dependence, in remission; M19.91 Primary osteoarthritis, unspecified site; T50.2X5A Adverse effect of carbonic-anhydrase inhibitors, benzothiadiazides and other diuretics, initial encounter; Z79.4 Long term (current) use of insulin; Z99.81 Dependence on supplemental oxygen; Z79.51 Long term (current) use of inhaled steroids; Z79.84 Long term (current) use of oral hypoglycemic drugs; Z79.899 Other long term (current) drug therapy; Z80.1 Family history of malignant neoplasm of trachea, bronchus and lung; Z82.5 Family history of asthma and other chronic lower respiratory diseases; Z85.118 Personal history of other malignant neoplasm of bronchus and lung; Z87.891 Personal history of nicotine dependence; Z96.641 Presence of right artificial hip joint; Z98.42 Cataract extraction status, left eye; Z98.41 Cataract extraction status, right eye; Z96.1 Presence of intraocular lens; Z98.890 Other specified postprocedural states; Z87.01 Personal history of pneumonia (recurrent)
CPT/HCPCS: 36415; 76770; 80048; 81001; 83735; 85025; 87205; 94640; 94760; 99285

== ENCOUNTER 2021-10-12 10:45 | Inpatient (IN) | payer MEDICARE ==
--- NOTE | 2021-10-12 11:40 | ED ---
General Adult HPI - General Chief complaint: Weakness Stated complaint: weakness Time Seen by Provider: 10/12/21 10:51 Source: patient, RN notes reviewed, old records reviewed Mode of arrival: EMS - History of Present Illness Initial comments: 76-year-old male presenting for evaluation of increased confusion and generalized weakness. Patient is nonambulatory at baseline. History of dementia. Over the past one week he's had increased weakness and confusion. No headache, no fever, no pain complaints. No vomiting or diarrhea. - Related Data Home Medications Medication Instructions Recorded Confirmed Ezetimibe [Zetia] 10 mg PO PC-SUPPER 06/10/18 08/24/21 Propranolol [Inderal] 10 mg PO TID 06/10/18 08/24/21 Insulin Glargine,Hum.rec.anlog 10 unit SQ HS 04/05/19 08/24/21 [Lantus Solostar Pen] Budesonide [Pulmicort] 0.5 mg INHALATION RT-BID 10/16/19 08/24/21 Ipratropium-Albuterol Nebulize 3 ml INHALATION RT-TID 10/16/19 08/24/21 [Duoneb 0.5 mg-3 mg/3 ml Soln] Loratadine [Claritin] 10 mg PO DAILY PRN 10/16/19 08/24/21 Omeprazole 40 mg PO DAILY 08/24/21 08/24/21 traMADol HCL 50 mg PO DAILY PRN 08/24/21 08/24/21 Allergies Allergy/AdvReac Type Severity Reaction Status Date / Time naproxen Allergy Rash/Hives Verified 08/24/21 13:26 Review of Systems ROS Statement: Those systems with pertinent positive or pertinent negative responses have been documented in the HPI. ROS Other: All systems not noted in ROS Statement are negative. Past Medical History Past Medical History: Asthma, COPD, Diabetes Mellitus, GERD/Reflux, Liver Disease, Osteoarthritis (OA), Pneumonia, Respiratory Disorder Additional Past Medical History / Comment(s): Chronic asthma, chronic hypoxic respiratory failure, home oxygen at 3L/NC ATC, IDDM type II, neuriopathy bilateral feet, ischemic heart disease, liver cirrhosis/past ETOH abuse, portal hypertension, esophageal varicies, pneumonia, pneumonia with parapneumonic effusions/thoracentesis, umbilical hernias. History of Any Multi-Drug Resistant Organisms: None Reported Past Surgical History: Back Surgery, Cholecystectomy, Hernia Repair, Joint Replacement, Orthopedic Surgery, Tonsillectomy Additional Past Surgical History / Comment(s): Lumbar back surgery, R rotator cuff repair, R foot fracture with hardware since removed, R ankle has hardware, r total hip arthroplasty, varicose vein stripping/pt cannot recall laterality, bilateral inguinal hernia repairs, EGD, colonoscopy, bilateral cataract removal/lens implants Past Anesthesia/Blood Transfusion Reactions: No Reported Reaction Additional Past Anesthesia/Blood Transfusion Reaction / Comment(s): Hard to awaken. wears O2. Smoking Status: Former smoker - Past Family History Father Family Medical History: Cancer Additional Family Medical History / Comment(s): Lung Cancer Mother Family Medical History: COPD Sister(s) Family Medical History: Cancer Additional Family Medical History / Comment(s): Lung Cancer General Exam General appearance: alert, in no apparent distress Head exam: Present: atraumatic, normocephalic Eye exam: Present: normal appearance, PERRL ENT exam: Present: mucous membranes dry Neck exam: Present: normal inspection. Absent: tenderness, meningismus Respiratory exam: Present: decreased breath sounds. Absent: respiratory distress, wheezes, rales, rhonchi Cardiovascular Exam: Present: regular rate, normal rhythm, systolic murmur GI/Abdominal exam: Present: soft. Absent: distended, tenderness, guarding Extremities exam: Present: normal capillary refill, pedal edema Neurological exam: Present: alert, CN II-XII intact. Absent: oriented X3, motor sensory deficit Skin exam: Present: warm, dry, intact. Absent: cyanosis, diaphoretic Course Vital Signs 10/12/21 10:47 Temperature 97.7 F Pulse Rate 91 Respiratory 24 Rate Blood Pressure 112/63 O2 Sat by Pulse 99 Oximetry EKG Findings - EKG Comments: EKG Findings:: EKG: Sinus rhythm ventricular rate of 90 MN interval 177, QRS dur ation 87, QTC 384, no ST segment elevation. Medical Decision Making - Medical Decision Making 76-year-old male with increased weakness, confusion. Patient has normal white blood cell count, stable anemia with hemoglobin 9.3. He is acute on chronic renal failure with a creatinine of 3.96. Urinalysis and urine culture are pending but the urine is purulent. Cultures are obtained and the patient started on antibiotics as well as IV fluid. He's admitted to Dr. echevarria. - Lab Data Result diagrams: 10/12/21 11:33 10/12/21 11:33 Lab Results 10/12/21 10/12/21 10/12/21 Range/Units 11:33 11:33 11:33 WBC 6.8 (3.8-10.6) k/uL RBC 2.93 L (4.30-5.90) m/uL Hgb 9.3 L D (13.0-17.5) gm/dL Hct 28.7 L (39.0-53.0) % MCV 97.9 (80.0-100.0) fL MCH 31.8 (25.0-35.0) pg MCHC 32.4 (31.0-37.0) g/dL RDW 14.5 (11.5-15.5) % Plt Count 200 (150-450) k/uL MPV 7.3 Neutrophils % 83 % Lymphocytes % 4 % Monocytes % 7 % Eosinophils % 3 % Basophils % 1 % Neutrophils # 5.6 (1.3-7.7) k/uL Lymphocytes # 0.3 L (1.0-4.8) k/uL Monocytes # 0.5 (0-1.0) k/uL Eosinophils # 0.2 (0-0.7) k/uL Basophils # 0.0 (0-0.2) k/uL PT 12.3 H (9.0-12.0) sec INR 1.2 H (<1.2) APTT 18.8 L (22.0-30.0) sec Sodium 134 L (137-145) mmol/L Potassium 4.6 (3.5-5.1) mmol/L Chloride 95 L (98-107) mmol/L Carbon Dioxide 31 H (22-30) mmol/L Anion Gap 8 mmol/L BUN 65 H (9-20) mg/dL Creatinine 3.96 H (0.66-1.25) mg/dL Est GFR (CKD-EPI)AfAm 16 (>60 ml/min/1.73 sqM) Est GFR (CKD-EPI)NonAf 14 (>60 ml/min/1.73 sqM) Glucose 91 (74-99) mg/dL Calcium 12.0 H (8.4-10.2) mg/dL Magnesium 2.2 (1.6-2.3) mg/dL Total Bilirubin 1.3 (0.2-1.3) mg/dL AST 39 (17-59) U/L ALT 11 (4-49) U/L Alkaline Phosphatase 80 (38-126) U/L Total Protein 5.6 L (6.3-8.2) g/dL Albumin 2.5 L (3.5-5.0) g/dL Disposition Clinical Impression: Acute renal failure, Dehydration, UTI (urinary tract infection) Disposition: ADMITTED IP TO THIS [facility] Condition: Stable Is patient prescribed a controlled substance at d/c from ED?: No Referrals: Axel Mcclure MD [Primary Care Provider] - 1-2 days Time of Disposition: 13:06 Decision to Admit Reason: Admit from EC Decision Date: 10/12/21 Decision Time: 13:06
[2021-10-12 11:44] LABS: Basophils % (A) 1 %; Eosinophils # (A) 0.2 k/uL (0-0.7); Eosinophils % (A) 3 %; HCT 28.7 % (39.0-53.0); Lymphocytes # (A) 0.3 k/uL (1.0-4.8); Lymphocytes % (A) 4 %; MCH 31.8 pg (25.0-35.0); MCHC 32.4 g/dL (31.0-37.0); MCV 97.9 fL (80.0-100.0); Mean Platelet Volume 7.3; Monocytes # (A) 0.5 k/uL (0-1.0); Monocytes % (A) 7 %; Neutrophils # (A) 5.6 k/uL (1.3-7.7); Neutrophils % (A) 83 %; Platelet Count 200 k/uL (150-450); RBC 2.93 m/uL (4.30-5.90); RDW 14.5 % (11.5-15.5); WBC 6.8 k/uL (3.8-10.6)
[2021-10-12 11:54] LABS: INR 1.2 (<1.2); Prothrombin Time 12.3 sec (9.0-12.0)
[2021-10-12 11:58] LABS: Albumin 2.5 g/dL (3.5-5.0); Magnesium 2.2 mg/dL (1.6-2.3); Potassium 4.6 mmol/L (3.5-5.1); Total Bilirubin 1.3 mg/dL (0.2-1.3); Total Protein 5.6 g/dL (6.3-8.2)
[2021-10-12 12:08] LABS: HGB 9.3 gm/dL (13.0-17.5)
[2021-10-12 12:12] LABS: Partial Thromboplastin Time 18.8 sec (22.0-30.0)
[2021-10-12] MEDS ORDERED: SODIUM CHLORIDE 0.9% 500 ML 500 ML IV ONE (12:31)
[2021-10-12] MEDS ORDERED: ACETAMINOPHEN TAB 325 MG TAB PO PRN (13:03)
[2021-10-12] MEDS ORDERED: NALOXONE 0.4 MG/ML 1 ML VIAL IV PRN (13:03)
[2021-10-12] MEDS ORDERED: cefTRIAXone IN SWFI 1,000 MG/10 ML SYRINGE IVP STA (13:04)
[2021-10-12 13:34] LABS: Appearance,Urine Turbid (Clear); Bilirubin,Urine Negative (Negative); Blood,Urine Trace (Negative); Glucose,Urine (UA) Negative (Negative); Ketones,Urine Negative (Negative); Leukocyte Esterase,Urine Large (Negative); Nitrite,Urine Negative (Negative); Protein,Urine 2+ (Negative); RBC,Urine >182 /hpf (0-5); Urobilinogen,Urine <2.0 mg/dL (<2.0); WBC,Urine >182 /hpf (0-5)
[2021-10-12 13:40] LABS: Specific Gravity,Urine 1.015 (1.001-1.035)
[2021-10-12 13:41] LABS: Color,Urine Yellow
--- NOTE | 2021-10-12 14:21 | US ---
EXAMINATION TYPE: US renals and bladder DATE OF EXAM: 10/12/2021 COMPARISON: US dated 08/25/2021 CLINICAL HISTORY: bernie. EXAM MEASUREMENTS: Right Kidney: 12.8 x 5.6 x 6.3 cm Left Kidney: not seen Right Kidney: cyst measures 1.5 x 1.9 x 1.6 cm Left Kidney: not seen, enlarged spleen noted Bladder: not imaged, patient has catheter. IMPRESSION: 1. Right renal cyst. 2. Free fluid may be adjacent to the liver.
[2021-10-12] MEDS ORDERED: traMADol 50 MG TAB PO PRN (15:23)
--- NOTE | 2021-10-12 15:26 | P.HPIM ---
History of Present Illness This is a pleasant 76 years old male with past medical history of Asthma, COPD, Diabetes Mellitus, GERD/Reflux, Liver Disease, Osteoarthritis (OA), chronic hypoxic respiratory failure, home oxygen at 3L/NC ATC, IDDM type II, neuriopathy bilateral feet, ischemic heart disease, liver cirrhosis/past ETOH abuse, portal hypertension, esophageal varicies, pneumonia, pneumonia with parapneumonic effusions/thoracentesis, umbilical hernias.s/p Lumbar back surgery, EGD, colonoscopy, bilateral cataract removal/lens implants He presents accompanied by his with complaint of generalized weakness and. Of confusion on and off while he is mildly confused today as per at bedside however he is able to answer questions appropriately and follows commands His weakness was getting worse over the last few days. Patient also has poor eating habits although he is morbidly obese with BMI of 39.3 but our patient and he has history of dysphagia for the last 3 months with choking without obvious aspiration. Vitals are stable. Labs reviewed, CBC is unremarkable except for hemoglobin of 9.3, INR 1.2. Cre atinine elevated 3.9 compared to baseline of 1.9-2.1 He has EGD and colonoscopy done on 08/04/2020 Echocardiogram done on 05/2021 showed ejection fraction of 45-50% He was started on ceftriaxone and normal saline Review of Systems CONSTITUTIONAL: No fever, no malaise, no fatigue. HEENT: No recent visual problems or hearing problems. Denied any sore throat. CARDIOVASCULAR: No orthopnea, PND, no palpitations, no syncope. PULMONARY: No shortness of breath, no cough, no hemoptysis. GASTROINTESTINAL: No diarrhea, no nausea, no vomiting, no abdominal pain. Normoactive bowel sounds. NEUROLOGICAL: No headaches, no weakness, no numbness. HEMATOLOGICAL: Denies any bleeding or petechiae. GENITOURINARY: Denies any burning micturition, frequency, or urgency. MUSCULOSKELETAL/RHEUMATOLOGICAL: Denies any joint pain, swelling, or any muscle pain. ENDOCRINE: Denies any polyuria or polydipsia. Past Medical History Past Medical History: Asthma, COPD, Diabetes Mellitus, GERD/Reflux, Liver Disease, Osteoarthritis (OA), Pneumonia, Respiratory Disorder Additional Past Medical History / Comment(s): Chronic asthma, chronic hypoxic respiratory failure, home oxygen at 3L/NC ATC, IDDM type II, neuriopathy bilateral feet, ischemic heart disease, liver cirrhosis/past ETOH abuse, portal hypertension, esophageal varicies, pneumonia, pneumonia with parapneumonic effusions/thoracentesis, umbilical hernias. History of Any Multi-Drug Resistant Organisms: None Reported Past Surgical History: Back Surgery, Cholecystectomy, Hernia Repair, Joint Replacement, Orthopedic Surgery, Tonsillectomy Additional Past Surgical History / Comment(s): Lumbar back surgery, R rotator cuff repair, R foot fracture with hardware since removed, R ankle has hardware, r total hip arthroplasty, varicose vein stripping/pt cannot recall laterality, bilateral inguinal hernia repairs, EGD, colonoscopy, bilateral cataract removal/lens implants Past Anesthesia/Blood Transfusion Reactions: No Reported Reaction Additional Past Anesthesia/Blood Transfusion Reaction / Comment(s): Hard to awaken. wears O2. Smoking Status: Former smoker - Past Family History Father Family Medical History: Cancer Additional Family Medical History / Comment(s): Lung Cancer Mother Family Medical History: COPD Sister(s) Family Medical History: Cancer Additional Family Medical History / Comment(s): Lung Cancer Medications and Allergies Home Medications Medication Instructions Recorded Confirmed Type Ezetimibe [Zetia] 10 mg PO PC-SUPPER 06/10/18 10/12/21 History Propranolol [Inderal] 10 mg PO TID 06/10/18 10/12/21 History Insulin Glargine,Hum.rec.anlog 10 unit SQ HS 04/05/19 10/12/21 History [Lantus Solostar Pen] Budesonide [Pulmicort] 0.5 mg INHALATION RT-BID 10/16/19 10/12/21 History Ipratropium-Albuterol Nebulize 3 ml INHALATION RT-QID 10/16/19 10/12/21 History [Duoneb 0.5 mg-3 mg/3 ml Soln] Loratadine [Claritin] 10 mg PO DAILY PRN 10/16/19 10/12/21 History Omeprazole 40 mg PO DAILY 08/24/21 10/12/21 History traMADol HCL 50 mg PO DAILY PRN 08/24/21 10/12/21 History Ammonium Lactate Cream [Lac-Hydrin 1 applic TOPICAL DAILY PRN 10/12/21 10/12/21 History 12% Cream] Furosemide [Lasix] 40 mg PO BID 10/12/21 10/12/21 History Magnesium Oxide [Magox 400] 400 mg PO DAILY 10/12/21 10/12/21 History Allergies Allergy/AdvReac Type Severity Reaction Status Date / Time naproxen Allergy Rash/Hives Verified 08/24/21 13:26 Physical Exam Vitals: Vital Signs Temp Pulse Resp BP Pulse Ox 10/12/21 13:07 90 20 103/50 98 10/12/21 10:47 97.7 F 91 24 112/63 99 Intake and Output 10/12/21 10/12/21 10/12/21 06:59 14:59 22:59 Other: Weight 131.542 kg -GENERAL: The patient is alert and oriented x3, not in any acute distress. Generally weak, morbidly obese HEENT: Pupils are round and equally reacting to light. EOMI. No scleral icterus. No conjunctival pallor. Normocephalic, atraumatic. No pharyngeal erythema. No thyromegaly. CARDIOVASCULAR: S1 and S2 present. No murmurs, rubs, or gallops. PULMONARY: Chest is clear to auscultation, no wheezing or crackles. ABDOMEN: Soft, nontender, nondistended, normoactive bowel sounds. No palpable organomegaly. MUSCULOSKELETAL: No joint swelling or deformity. EXTREMITIES: No cyanosis, clubbing, or pedal edema. NEUROLOGICAL: Gross neurological examination did not reveal any focal deficits. SKIN: No rashes. No petechiae Results CBC & Chem 7: 10/12/21 11:33 10/12/21 11:33 Labs: Abnormal Lab Results - Last 24 Hours (Table) 10/12/21 10/12/21 10/12/21 Range/Units 11:33 11:33 11:33 RBC 2.93 L (4.30-5.90) m/uL Hgb 9.3 L D (13.0-17.5) gm/dL Hct 28.7 L (39.0-53.0) % Lymphocytes # 0.3 L (1.0-4.8) k/uL PT 12.3 H (9.0-12.0) sec INR 1.2 H (<1.2) APTT 18.8 L (22.0-30.0) sec Sodium 134 L (137-145) mmol/L Chloride 95 L (98-107) mmol/L Carbon Dioxide 31 H (22-30) mmol/L BUN 65 H (9-20) mg/dL Creatinine 3.96 H (0.66-1.25) mg/dL Calcium 12.0 H (8.4-10.2) mg/dL Total Protein 5.6 L (6.3-8.2) g/dL Albumin 2.5 L (3.5-5.0) g/dL Urine Protein (Negative) Urine Blood (Negative) Ur Leukocyte Esterase (Negative) Urine RBC (0-5) /hpf Urine WBC (0-5) /hpf Urine WBC Clumps (None) /hpf 10/12/21 Range/Units 11:50 RBC (4.30-5.90) m/uL Hgb (13.0-17.5) gm/dL Hct (39.0-53.0) % Lymphocytes # (1.0-4.8) k/uL PT (9.0-12.0) sec INR (<1.2) APTT (22.0-30.0) sec Sodium (137-145) mmol/L Chloride (98-107) mmol/L Carbon Dioxide (22-30) mmol/L BUN (9-20) mg/dL Creatinine (0.66-1.25) mg/dL Calcium (8.4-10.2) mg/dL Total Protein (6.3-8.2) g/dL Albumin (3.5-5.0) g/dL Urine Protein 2+ H (Negative) Urine Blood Trace H (Negative) Ur Leukocyte Esterase Large H (Negative) Urine RBC >182 H (0-5) /hpf Urine WBC >182 H (0-5) /hpf Urine WBC Clumps Many H (None) /hpf Assessment and Plan Assessment: Acute kidney injury Chronic swallowing difficulty, probable dysphagia Chronic kidney disease, stage IIIb, most likely diabetic nephropathy possible acute trigger tract infection Chronic hypoxic respiratory failure on 3 L/m of oxygen secondary to his COPD, no acute exacerbation Diabetes mellitus with diabetic neuropathy History of liver cirrhosis History of osteoarthritis Hyperlipidemia History of coronary artery disease History of pneumonia and pleural effusion. Chronic back pain Morbid obesity with BMI of 39.3 Plan: This is a pleasant 76 years old male who presents with a KI Start ceftriaxone Check renal ultrasound Follow-up creatinine Nephrology consult Swallow evaluation if abnormal then we will recommend further evaluation Continue with insulin sliding scale. Hold Lantus 10 units Labs and treatment reviewed . Resume home medication. Monitor lytes and vitals. DVT and GI prophylaxis. Further recommendations depends on the clinical course of the patient DVT prophylaxis: Subcutaneous heparin GI Prophylaxis: Pepcid PT/OT: Pending Prognosis is guarded
[2021-10-12] MEDS: IPRATROPIUM-ALBUTEROL 3 ML NEB INHALATION SCH ×2 (15:51→20:27)
[2021-10-12] MEDS ORDERED: EZETIMIBE 10 MG TAB PO SCH (18:30)
[2021-10-12] MEDS: SODIUM CHLORIDE 0.9% 1,000 ML IV SCH (18:54)
[2021-10-12] MEDS: FUROSEMIDE 40 MG TAB PO SCH (18:55)
[2021-10-12] MEDS: PROPRANOLOL 10 MG TAB PO SCH ×2 (19:04→23:15)
[2021-10-12] MEDS: BUDESONIDE 0.5 MG/2 ML NEBU INHALATION SCH (20:27)
[2021-10-12] MEDS: HEPARIN SODIUM,PORCINE/PF 5,000 UNIT/0.5 ML SYRINGE SQ SCH (23:15)
[2021-10-12] MEDS: FAMOTIDINE 20 MG/2 ML VIAL IV SCH (23:15)
[2021-10-13] MEDS: BUDESONIDE 0.5 MG/2 ML NEBU INHALATION SCH ×2 (07:05→19:47)
[2021-10-13] MEDS: IPRATROPIUM-ALBUTEROL 3 ML NEB INHALATION SCH ×4 (07:05→19:47)
[2021-10-13] MEDS: SODIUM CHLORIDE 0.9% 1,000 ML IV SCH ×2 (08:06→10:59)
[2021-10-13] MEDS: FUROSEMIDE 40 MG TAB PO SCH (08:30)
[2021-10-13] MEDS: HEPARIN SODIUM,PORCINE/PF 5,000 UNIT/0.5 ML SYRINGE SQ SCH ×2 (08:37→21:15)
--- NOTE | 2021-10-13 08:43 | P.NPCON ---
History of Present Illness - Reason for Consult acute renal failure - Chief Complaint Acute kidney injury - History of Present Illness This is a 76-year-old male seen in consultation for an acute kidney injury. He was recently admitted a month ago on 08/24/2021 and discharged on 08/27/2021 with hyperkalemia and acute kidney injury. At that time and was thought to be from ATN etiology not determined, possibly from diuretics that included Aldactone. he was sent home on with a creatinine of 1.9 down a bit from 2.1 on admission at the time He came in now with confusion dysphagia and generalized weakness. On admission creatinine is 3.96. Additionally his calcium is 12, although last month and was normal. No nausea vomiting diarrhea reported. No fever chills no cough Admission vital signs blood pressure in the 100 to 112 range. His creatinines previously 0.8 on 05/28/2021, 1.28 on 07/24/2021 since then has been consistently going up. Previous workup has included an ultrasound of the kidney shows absent left kidney right kidney is 12.8 cm of visit right kidney stone nonobstructing on a computed tomography scan 05/30/2021. Further a computed tomography scan of the chest shows a possible right mediastinal mass near the atrium. Previous admission he had a pleural tap which was negative for malignancy. Past Medical History Past Medical History: Asthma, COPD, Diabetes Mellitus, GERD/Reflux, Liver Disease, Osteoarthritis (OA), Pneumonia, Respiratory Disorder Additional Past Medical History / Comment(s): Chronic asthma, chronic hypoxic respiratory failure, home oxygen at 3L/NC ATC, IDDM type II, neuriopathy bilateral feet, ischemic heart disease, liver cirrhosis/past ETOH abuse, portal hypertension, esophageal varicies, pneumonia, pneumonia with parapneumonic effusions/thoracentesis, umbilical hernias. History of Any Multi-Drug Resistant Organisms: None Reported Past Surgical History: Back Surgery, Cholecystectomy, Hernia Repair, Joint Replacement, Orthopedic Surgery, Tonsillectomy Additional Past Surgical History / Comment(s): Lumbar back surgery, R rotator cuff repair, R foot fracture with hardware since removed, R ankle has hardware, r total hip arthroplasty, varicose vein stripping/pt cannot recall laterality, bilateral inguinal hernia repairs, EGD, colonoscopy, bilateral cataract removal /lens implants Past Anesthesia/Blood Transfusion Reactions: No Reported Reaction Additional Past Anesthesia/Blood Transfusion Reaction / Comment(s): Hard to awaken. wears O2. Past Psychological History: No Psychological Hx Reported Additional Psychological History / Comment(s): Pt resides with his spouse. He is in a wheelchair. He has home oxygen and a glucometer. His spouse is his caregiver. Smoking Status: Former smoker Past Alcohol Use History: None Reported Additional Past Alcohol Use History / Comment(s): Pt started smoking in 1959 and quit in 1985. He quit drinking alcohol many years ago. Past Drug Use History: None Reported - Past Family History Father Family Medical History: Cancer Additional Family Medical History / Comment(s): Lung Cancer Mother Family Medical History: COPD Sister(s) Family Medical History: Cancer Additional Family Medical History / Comment(s): Lung Cancer Medications and Allergies Home Medications Medication Instructions Recorded Confirmed Type Ezetimibe [Zetia] 10 mg PO PC-SUPPER 06/10/18 10/12/21 History Propranolol [Inderal] 10 mg PO TID 06/10/18 10/12/21 History Insulin Glargine,Hum.rec.anlog 10 unit SQ HS 04/05/19 10/12/21 History [Lantus Solostar Pen] Budesonide [Pulmicort] 0.5 mg INHALATION RT-BID 10/16/19 10/12/21 History Ipratropium-Albuterol Nebulize 3 ml INHALATION RT-QID 10/16/19 10/12/21 History [Duoneb 0.5 mg-3 mg/3 ml Soln] Loratadine [Claritin] 10 mg PO DAILY PRN 10/16/19 10/12/21 History Omeprazole 40 mg PO DAILY 08/24/21 10/12/21 History traMADol HCL 50 mg PO DAILY PRN 08/24/21 10/12/21 History Ammonium Lactate Cream [Lac-Hydrin 1 applic TOPICAL DAILY PRN 10/12/21 10/12/21 History 12% Cream] Furosemide [Lasix] 40 mg PO BID 10/12/21 10/12/21 History Magnesium Oxide [Magox 400] 400 mg PO DAILY 10/12/21 10/12/21 History Allergies Allergy/AdvReac Type Severity Reaction Status Date / Time naproxen Allergy Rash/Hives Verified 08/24/21 13:26 Physical Exam Vitals: Vital Signs Temp Pulse Pulse Resp BP BP Pulse Ox 10/13/21 08:00 97.4 F L 68 94/55 100 10/13/21 07:18 84 18 10/13/21 07:05 83 18 96 10/13/21 06:00 98.7 F 90 18 103/52 98 10/13/21 05:00 80 20 107/48 98 10/13/21 04:00 87 24 101/50 98 10/13/21 03:00 80 20 101/50 97 10/13/21 01:00 81 24 100/49 99 10/13/21 00:00 80 22 110/58 97 10/12/21 23:00 96 22 104/43 97 10/12/21 20:40 89 10/12/21 20:28 90 10/12/21 18:35 97 20 104/43 99 10/12/21 16:00 84 18 10/12/21 15:51 87 18 10/12/21 13:07 90 20 103/50 98 10/12/21 10:47 97.7 F 91 24 112/63 99 Intake and Output 10/12/21 10/13/21 10/13/21 22:59 06:59 14:59 Other: Weight 131.542 kg On examination is awake alert. No JVP no lymphadenopathy in the neck Lungs are significant for diminished breath sounds. He is known with COPD Heart sounds are unremarkable for any murmur rub gallop Abdomen soft nontender no organomegaly noted Extremity exam was no edema Neurologically awake alert but has asterixis. He is profoundly weak. Results - Lab Results Most recent lab results Calcium 12.0 mg/dL (8.4-10.2) H 10/12/21 11:33 Magnesium 2.2 mg/dL (1.6-2.3) 10/12/21 11:33 10/12/21 11:33 10/12/21 11:33 Assessment and Plan Assessment: Impression 1. Acute kidney injury with creatinine going up from 0.8 on 05/28/2021 to 1.28 and 07/24/2021, further going up consistently to 1.98 on 08/25/2021 and 23.96 on admission. Urinalysis shows 2+ protein and ketones negative trace blood urine leukocyte esterase positive W BC is greater than 182 RBCs greater than 182 cultures are pending. Ultrasound dated 10/12/2021 yesterday shows absent left kidney on ultrasound cause not very clear right kidney is 12.8 cm. The cause of this worsening creatinine is not clear at this time. He has a Molina catheter. Part of the acute kidney injury is from hypercalcemia but last month his calcium was normal. His blood pressure is low that might be adding to his acute kidney injury. Rule out glomera nephritis or interstitial nephritis 2. Hypercalcemia rule out malignancy, computed tomography scan had reported a mediastinal mass near the atrium dated 05/30/2021. Pleural tap was negative for malignant cells. Rule out other causes 3. History of liver cirrhosis from past history of alcohol use. Patient also supposedly has dialysis but currently does not have ascites or edema 4. Generalized weakness. 5. COPD on home oxygen 6. Diabetes mellitus with microalbumin to creatinine ratio of 16 dated 02/25/2019. More recent urinalysis has 2+ proteinuria. 7. Dysphagia rule out malignancy. 8. Confusion rule out hepatic encephalopathy. Recommendation 1. IV fluid normal saline at 75 an hour. 2. Hold propranolol if less than 100 systolic. 3. Obtain urine protein to creatinine ratio, urine immunofixation. PTH, vitamin D 1 25-hydroxy level and PTH related peptide 4. Urine culture is pending. 5. Serum ammonia 6. Workup for the mediastinal mass to rule out malignancy. 7. Follow-up labs. 8 strict I's and O's Thank you for this consultation we'll continue to follow closely
[2021-10-13 11:59] LABS: Glucose,Whole Blood 103 mg/dL (75-99)
[2021-10-13] MEDS ORDERED: ACETAMINOPHEN IV (For NPO) 1,000 MG in EMPTY BAG 1 BAG IVPB PRN (12:05)
[2021-10-13 16:32] LABS: Glucose,Whole Blood 91 mg/dL (75-99)
--- NOTE | 2021-10-13 17:03 | XR ---
EXAMINATION TYPE: XR chest 1V portable DATE OF EXAM: 10/13/2021 COMPARISON: 07/24/2021 HISTORY: Pneumonia. Short of breath TECHNIQUE: FINDINGS: There is pulmonary vascular congestion. There is blunting of the costophrenic angles and mo re on the right side. There is large right pleural effusion. Bony thorax is intact. IMPRESSION: Congestive heart failure with pleural effusions. Pleural fluid increased compared to last exam.
[2021-10-13] MEDS ORDERED: diphenhydrAMINE 50 MG CAP PO PRN (17:27)
--- NOTE | 2021-10-13 19:19 | PN ---
PROGRESS NOTE DATE OF SERVICE: 10/13/2021 This 76-year-old gentleman who was admitted with chronic swallowing difficulty and acute kidney injury is being closely monitored. No chest pain. No palpitation. Modified barium swallow has been suggested. The patient also had significant cough while eating. UA shows some UTI. Chest x-ray is not available. Past medical history reviewed. Review of systems could not be taken. CURRENT MEDICATIONS: Reviewed. They include DuoNeb, Rocephin, Pulmicort. Doses and other medications are reviewed. PHYSICAL EXAMINATION: Pulse is 80, blood pressure is 103/61, respiration 20, temperature 97.6. HEENT: Conjunctivae normal. NECK: No jugular venous distention. CARDIOVASCULAR: S1, S2 muffled. RESPIRATION: A few scattered rhonchi and crackles. ABDOMEN: Soft. LEGS: No edema. No swelling. NERVOUS SYSTEM: Diffusely weak. LABS: Noted. Creatinine 3.2. ASSESSMENT: 1. Acute urinary tract infection with sepsis. 2. Dysphagia. 3. Acute on chronic kidney failure. 4. Gait dysfunction. 5. Anemia. 6. Asthma, chronic obstructive pulmonary disease. 7. Chronic liver disease. RECOMMENDATIONS AND DISCUSSION: In this 76 -year-old gentleman who presented with multiple complex medical issues, we will continue the current medications, continue symptomatic treatment. Cultures are negative so far. Continue the antibiotics. Also recommend modified barium swallow with Speech Pathology. Prognosis guarded. Bronchodilators. Chest x-ray will be reviewed. PT/OT evaluation; possible ECF rehab. Discussed at length with the family at the bedside. MMODL / IJN: [id number] /
[2021-10-13] MEDS: diphenhydrAMINE 50 MG/ML 1 ML VIAL IVP PRN (19:34)
[2021-10-13 20:05] LABS: Glucose,Whole Blood 94 mg/dL (75-99)
[2021-10-13] MEDS ORDERED: EZETIMIBE 10 MG TAB PO SCH (21:00)
[2021-10-13] MEDS: FAMOTIDINE 20 MG/2 ML VIAL IV SCH (21:15)
[2021-10-14 06:51] LABS: Glucose,Whole Blood 89 mg/dL (75-99)
[2021-10-14] MEDS: SODIUM CHLORIDE 0.9% 1,000 ML IV SCH ×2 (07:45→20:14)
[2021-10-14] MEDS: HEPARIN SODIUM,PORCINE/PF 5,000 UNIT/0.5 ML SYRINGE SQ SCH ×2 (07:45→20:14)
[2021-10-14] MEDS: BUDESONIDE 0.5 MG/2 ML NEBU INHALATION SCH ×2 (09:26→20:46)
[2021-10-14] MEDS: IPRATROPIUM-ALBUTEROL 3 ML NEB INHALATION SCH ×4 (09:26→20:46)
--- NOTE | 2021-10-14 09:38 | P.PN ---
Subjective Progress Note Date: 10/14/21 Principal diagnosis: This is a 76-year-old male seen in consultation for an acute kidney injury. Creatinine has been steadily going up since July 2021. Acute kidney injury with creatinine going up from 0.8 on 05/28/2021 to 1.28 and 07/24/2021, further going up consistently to 1.98 on 08/25/2021 and 23.96 on admission. Urinalysis shows 2+ protein and ketones negative trace blood urine leukocyte esterase positive W BC is greater than 182 RBCs greater than 182 cultures are pending. Ultrasound dated 10/12/2021 yesterday shows absent left kidney on ultrasound cause not very clear right kidney is 12.8 cm. The cause of this worsening creatinine is not clear at this time. He has a Molina catheter. Part of the acute kidney injury is from hypercalcemia but last month his calcium was normal. His blood pressure is low that might be adding to his acute kidney injury. Rule out glomera nephritis or interstitial nephritis started on NS and bp remains 90s to 102. UO ?? and labs pending This morning he is arousable follows commands but very weak. He was recently admitted a month ago on 08/24/2021 and discharged on 08/27/2021 with hyperkalemia and acute kidney injury. At that time and was thought to be from ATN etiology not determined, possibly from diuretics that included Aldactone. he was sent home on with a creatinine of 1.9 down a bit from 2.1 on admission at the time He came in now with confusion dysphagia and generalized weakness. On admission creatinine is 3.96. Additionally his calcium is 12, although last month and was normal. No nausea vomiting diarrhea reported. No fever chills no cough Admission vital signs blood pressure in the 100 to 112 range. His creatinines previously 0.8 on 05/28/2021, 1.28 on 07/24/2021 since then has been consistently going up. Previous workup has included an ultrasound of the kidney shows absent left kidney right kidney is 12.8 cm of visit right kidney stone nonobstructing on a computed tomography scan 05/30/2021. Further a computed tomography scan of the chest shows a possible right mediastinal mass near the atrium. Previous admission he had a pleural tap which was negative for malignancy. Objective - Vital Signs Vital signs: Vital Signs Temp 97.8 F 10/14/21 08:00 Pulse 99 10/14/21 08:00 Resp 19 10/14/21 01:31 BP 91/53 10/14/21 08:00 Pulse Ox 93 L 10/14/21 08:00 Intake & Output 10/13/21 10/14/21 10/14/21 18:59 06:59 18:59 Output Total 500 Balance -500 Weight 131.542 kg Output: Urine 500 Other: Voiding Method Indwelling Catheter Indwelling Catheter Examination sleepy but arousable. No JVP neck is supple no facial asymmetry Lungs clear to auscultation but does not optimal air entry Heart sounds unremarkable with some irregular extrasystoles Abdomen soft nontender nondistended Extremity exam was trace edema Neurologically arousable moves all his extremities follows commands - Labs CBC & Chem 7: 10/12/21 11:33 10/12/21 11:33 Labs: Abnormal Lab Results - Last 24 Hours (Table) 10/13/21 10/13/21 Range/Units 08:50 11:58 POC Glucose (mg/dL) 103 H (75-99) mg/dL PTH Intact 12.5 L (14.0-72.0) pg/mL Microbiology - Last 24 Hours (Table) 10/12/21 13:45 Blood Culture - Preliminary Blood No Growth after 24 hours 10/12/21 13:25 Blood Culture - Preliminary Blood No Growth after 24 hours Assessment and Plan Assessment: Impression 1. Acute kidney injury with creatinine going up from 0.8 on 05/28/2021 to 1.28 and 07/24/2021, further going up consistently to 1.98 on 08/25/2021 and 23.96 on admission. Urinalysis shows 2+ protein and ketones negative trace blood urine leukocyte esterase positive W BC is greater than 182 RBCs greater than 182 cultures are pending. Ultrasound dated 10/12/2021 yesterday shows absent left kidney on ultrasound cause not very clear right kidney is 12.8 cm. The cause of this worsening creatinine is not clear at this time. He has a Molina catheter. Part of the acute kidney injury is from hypercalcemia but last month his calcium was normal. His blood pressure is low that might be adding to his acute kidney injury. Rule out glomera nephritis or interstitial nephritis 2. Hypercalcemia rule out malignancy, computed tomography scan had reported a mediastinal mass near the atrium dated 05/30/2021. Pleural tap was negative for malignant cells. Rule out other causes 3. History of liver cirrhosis from past history of alcohol use. Patient currently does not have ascites or edema 4. Generalized weakness. 5. COPD on home oxygen 6. Diabetes mellitus with microalbumin to creatinine ratio of 16 dated 02/25/2019. More recent urinalysis has 2+ proteinuria. 7. Dysphagia rule out malignancy. 8. Confusion rule out hepatic encephalopathy. Ammonia level is less than 9. 9.Chest x-ray shows congestive heart failure but in spite of IV fluid normal saline at 75 an hour he is comfortable at 2 L nasal cannula currently. Recommendation 1. Pending labs. will give lasix 20 q 12 IV as he has CHF and he needs saline for hypercalecemia 2. Hold propranolol if less than 100 systolic. 3. Obtain urine protein to creatinine ratio, urine immunofixation. PTH, vitamin D 1 25-hydroxy level and PTH related peptide 4. Urine culture is pending. 5. Workup for the mediastinal mass to rule out malignancy. 7. Follow-up labs. 8. strict I's and O's
[2021-10-14] MEDS: FUROSEMIDE 10 MG/ML 2 ML VIAL IV SCH (10:59)
[2021-10-14] MEDS: diphenhydrAMINE 50 MG/ML 1 ML VIAL IVP PRN ×2 (11:00→20:13)
[2021-10-14 11:34] LABS: Glucose,Whole Blood 84 mg/dL (75-99)
[2021-10-14 11:41] LABS: Basophils # (A) 0.02 X 10*3/uL (0.00-0.10); Basophils % (A) 0.3 %; Eosinophils # (A) 0.23 X 10*3/uL (0.04-0.35); Eosinophils % (A) 3.6 %; HCT 25.6 % (39.6-50.0); HGB 7.7 g/dL (13.0-17.0); Immature Grans, Automated 0.5 %; Lymphocytes # (A) 0.29 X 10*3/uL (0.90-5.00); Lymphocytes % (A) 4.6 %; MCH 30.2 pg (27.0-32.0); MCHC 30.1 g/dL (32.0-37.0); MCV 100.4 fL (80.0-97.0); Mean Platelet Volume 9.4 fL (9.5-12.2); Monocytes # (A) 0.57 X 10*3/uL (0.20-1.00); NRBC Per 100 WBC 0 /100 WBCS (0.0-0.0); Neutrophils # (A) 5.19 X 10*3/uL (1.80-7.70); Platelet Count 144 X 10*3/uL (140-440); RBC 2.55 X 10*6/uL (4.40-5.60); RDW 15.4 % (11.5-14.5); WBC 6.33 X 10*3/uL (4.50-10.00)
[2021-10-14 11:52] LABS: African American GFR (CKD) 13.2 (60.0-200.0); Anion Gap 12.9 mmol/L (10.00-18.00); BUN/Creat Ratio 13.62 Ratio (12.00-20.00); Calcium 11.9 mg/dL (8.7-10.3); Carbon Dioxide 27.1 mmol/L (20.0-27.5); Non-African American GFR(CKD) 11.4 (60.0-200.0); Potassium 4.3 mmol/L (3.5-5.5)
[2021-10-14] MEDS ORDERED: ZOLEDRONIC ACID 4 MG in SODIUM CHLORIDE 0.9% 100 ML IV ONE (13:30)
[2021-10-14 16:37] LABS: Glucose,Whole Blood 77 mg/dL (75-99)
--- NOTE | 2021-10-14 19:56 | PN ---
PROGRESS NOTE DATE OF SERVICE: 10/13/2021 This 76-year-old gentleman who was admitted with acute urinary tract infection with sepsis is being closely monitored. No chest pain. No palpitations. No fever. PHYSICAL EXAMINATION: Pulse is 98, blood pressure 106/64, respirations 20, temperature 98.8. HEENT: Conjunctivae normal. Neck: No JVD. Cardiovascular: S1, S2, muffled. Respiratory: Diminished breath sounds at the bases. A few scattered rhonchi. Abdomen: Soft. Nervous system: Diffusely weak. LABS: Reviewed. Creatinine is 4.7, hemoglobin 7.7. ASSESSMENT: 1. Acute urinary tract infection with sepsis. 2. Dysphagia. 3. Acute on chronic kidney disease. 4. Gait dysfunction. 5. Anemia. 6. Asthma/chronic obstructive pulmonary disease. 7. Chronic liver disease. RECOMMENDATIONS AND DISCUSSION: Recommend to continue current medications and symptomatic treatment. Otherwise, speech pathology, swallow evaluation. Continue with IV fluids cautiously. The prognosis guarded. Further recommendations to follow. Discussed with the family at the bedside. MMPAULETTEL / IJN: [id number] /
[2021-10-14] MEDS: FAMOTIDINE 20 MG/2 ML VIAL IV SCH (20:14)
[2021-10-14 20:39] LABS: Glucose,Whole Blood 67 mg/dL (75-99)
[2021-10-14] MEDS ORDERED: DEXTROSE 50% SYRINGE 50 ML IVP ONE (20:39)
[2021-10-14 20:55] LABS: Glucose,Whole Blood 106 mg/dL (75-99)
[2021-10-15 01:38] LABS: Glucose,Whole Blood 80 mg/dL (75-99)
[2021-10-15] MEDS ORDERED: FUROSEMIDE 10 MG/ML 2 ML VIAL ONE (08:42)
[2021-10-15] MEDS ORDERED: HEPARIN SODIUM,PORCINE 5,000 UNIT/ML 1 ML VIAL ONE (08:42)
[2021-10-15 10:48] LABS: Glucose,Whole Blood 84 mg/dL (75-99)
[2021-10-15 11:51] LABS: Glucose,Whole Blood 99 mg/dL (75-99)
--- NOTE | 2021-10-15 12:26 | CT ---
EXAMINATION TYPE: CT neck chest without con DATE OF EXAM: 10/15/2021 COMPARISON: 05/30/2021 HISTORY: rule out any airway obstruction CT DLP: 1029.[address] of the chest was performed with lung and mediastinal window settings submitted. The la ck of contrast limits evaluation of the vascular, mediastinal and parenchymal structures including th e upper abdomen. LUNGS: Bilateral pleural effusions right greater than left with maximal AP dimension on the right wit h basilar atelectasis and/or infiltrates. Groundglass density left upper lobe 5.4 cm and on the left 3.5 cm. There is basilar compressive atelectasis with underlying infiltrates or other process is not excluded. Narrowing of the lower lobe bronchi. Mild groundglass density left upper lobe may reflect a cute inflammatory process or edema. MEDIASTINUM/LYDIA: Ectasia of the thoracic aorta without aneurysm. There is evidence of cardiomegaly. Right epicardial soft tissue nodule measures 3.3 cm may reflect a lymph node. Subcarinal increased de nsity may reflect additional adenopathy measuring 2.2 cm. No additional lymph nodes greater than 1 cm seen with a few. UPPER ABDOMEN: Small amount of free fluid adjacent to the liver edge. OTHER: No significant other abnormality. IMPRESSION: 1. Bilateral pleural effusions as noted above with basilar compressive atelectasis and/or infiltrate s. Groundglass density left upper lobe may reflect acute edema or inflammatory process. 2. Right epicardial enlarged lymph node as well as subcarinal adenopathy. EXAMINATION TYPE: CT neck chest without con DATE OF EXAM: 10/15/2021 COMPARISON: None HISTORY: rule out any airway obstruction CT DLP: 1029.5 mGycm CONTRAST: CT scan of the neck is performed without intravenous contrast which does limit evaluation. Contrast enhanced CT of the neck was performed from the skull base through the lung apices. AIRWAY: The supraglottic, glottic, and subglottic portions of the airway appear patent and free of mass. SALIVARY GLANDS: The submandibular and parotid glands are free of mass or inflammatory process. THYROID GLAND: No nodules or masses seen. LYMPH NODES: No adenopathy seen greater than 1cm. LUNG APICES: No nodule or mass is seen. OTHER: Vascular structures are patent. Moderate degenerative changes cervical spine. No abscess seen . Right maxillary chronic sinusitis. IMPRESSION: No significant abnormality of the neck.
--- NOTE | 2021-10-15 13:08 | P.PN ---
Subjective Patient is seen in follow-up for acute kidney injury. Renal function has been worsening. Creatinine 4.7 yesterday. Morning labs pending. Patient is resting in bed. He failed swallow eval and will need PEG tube. He is receiving IV fluids. Urine output was 100 mL overnight. present at bedside. Vital signs are stable. General: Awake. Quite lethargic. HEENT: Head exam is unremarkable. LUNGS: Breath sounds decreased. HEART: Tachycardic. ABDOMEN: Soft, no distention. EXTREMITITES: 1+ edema. Objective - Vital Signs Vital signs: Vital Signs Temp 97.5 F L 10/15/21 01:25 Pulse 105 H 10/15/21 02:05 Resp 16 10/15/21 01:25 BP 108/59 10/15/21 01:25 Pulse Ox 100 10/15/21 02:05 Intake & Output 10/14/21 10/15/21 10/15/21 18:59 06:59 18:59 Output Total 200 Balance -200 Output: Urine 200 Other: Voiding Method Indwelling Catheter Indwelling Catheter - Labs CBC & Chem 7: 10/14/21 06:45 10/14/21 06:45 Labs: Abnormal Lab Results - Last 24 Hours (Table) 10/14/21 10/14/21 Range/Units 20:36 20:52 POC Glucose (mg/dL) 67 L 106 H (75-99) mg/dL Microbiology - Last 24 Hours (Table) 10/12/21 11:50 Urine Culture - Final Urine,Voided Enterococcus faecalis 10/12/21 13:45 Blood Culture - Preliminary Blood No Growth after 48 hours 10/12/21 13:25 Blood Culture - Preliminary Blood No Growth after 48 hours Assessment and Plan Plan: Assessment: 1. Acute kidney injury secondary to ATN secondary to hypercalcemia. Renal function is improving progressively worsening since May 2021 when his creatinine was 0.8. Renal ultrasound showed absent left kidney with no hydronephrosis in the right kidney. Oliguric. 2. Hypercalcemia. PTH appropriately suppressed. Rest of the workup pending. Rule out malignancy. 3. Dysphagia. Failed swallow eval. PEG tube pending. 4. Diabetes mellitus. 5. UTI. Urine culture positive for enterococcus on antibiotics. 6. Anemia. Rule out iron deficiency. Rule out hematologic cause. 7. Diabetes mellitus. Plan: Maintain IV fluids and Lasix. Status post Zometa 10/14/2021. Follow-up workup for hypercalcemia. Consult hematology oncology. Check iron studies. Check serologies to quantify proteinuria. Discussed with patient and his potential need to start renal replacement therapy if no improvement in renal function in the next 24 hours. Agreeable to start. Follow-up morning labs.
[2021-10-15] MEDS: BUDESONIDE 0.5 MG/2 ML NEBU INHALATION SCH ×2 (13:11→19:25)
[2021-10-15] MEDS: IPRATROPIUM-ALBUTEROL 3 ML NEB INHALATION SCH ×4 (13:11→19:25)
[2021-10-15] MEDS: FUROSEMIDE 10 MG/ML 2 ML VIAL IV SCH (13:48)
[2021-10-15] MEDS: SODIUM CHLORIDE 0.9% 1,000 ML IV SCH ×2 (13:48→17:27)
[2021-10-15] MEDS: HEPARIN SODIUM,PORCINE/PF 5,000 UNIT/0.5 ML SYRINGE SQ SCH ×2 (13:48→22:37)
[2021-10-15 15:49] LABS: ALT 12 U/L (4-49); AST 35 U/L (17-59); African American GFR (CKD) 11 (>60 ml/min/1.73 sqM); Albumin 2.3 g/dL (3.5-5.0); Albumin/Globulin Ratio 0.8; Alkaline Phosphatase 73 U/L (38-126); Anion Gap 9 mmol/L; Blood Urea Nitrogen 69 mg/dL (9-20); Calcium 11.6 mg/dL (8.4-10.2); Carbon Dioxide 27 mmol/L (22-30); Chloride 102 mmol/L (98-107); Globulin 2.9 g/dL; Glucose 84 mg/dL (74-99); Magnesium 2.1 mg/dL (1.6-2.3); Non-African American GFR(CKD) 9 (>60 ml/min/1.73 sqM); Potassium 4.2 mmol/L (3.5-5.1); Sodium 138 mmol/L (137-145); Total Bilirubin 0.9 mg/dL (0.2-1.3); Total Protein 5.2 g/dL (6.3-8.2)
[2021-10-15] MEDS ORDERED: CALCITONIN INJ 200 UNIT/ML (MDV) VIAL IM ONE (16:00)
[2021-10-15] MEDS ORDERED: IOPAMIDOL CONTRAST (ORAL USE) VIAL PO PRN (16:19)
--- NOTE | 2021-10-15 17:02 | P.CONS ---
History of Present Illness - Reason for Consult Consult date: 10/15/21 hypercalcemia Requesting physician: Jack Dubon - History of Present Illness Mr. Trejo presents with for concerns of mental status changes, found to be in acute renal failure and hypercalcemia. CT neck and chest revealed non- diagnostic adenopathy and abnormalities. Nephrology has asked us to see for possibility of underlying malignancy. Macrocytic anemia Review of Systems ROS unobtainable: due to mental status Past Medical History Past Medical History: Asthma, COPD, Diabetes Mellitus, GERD/Reflux, Liver Disease, Osteoarthritis (OA), Pneumonia, Respiratory Disorder Additional Past Medical History / Comment(s): Chronic asthma, chronic hypoxic respiratory failure, home oxygen at 3L/NC ATC, IDDM type II, neuriopathy bilateral feet, ischemic heart disease, liver cirrhosis/past ETOH abuse, portal hypertension, esophageal varicies, pneumonia, pneumonia with parapneumonic effusions/thoracentesis, umbilical hernias. History of Any Multi-Drug Resistant Organisms: None Reported Past Surgical History: Back Surgery, Cholecystectomy, Hernia Repair, Joint Replacement, Orthopedic Surgery, Tonsillectomy Additional Past Surgical History / Comment(s): Lumbar back surgery, R rotator cuff repair, R foot fracture with hardware since removed, R ankle has hardware, r total hip arthroplasty, varicose vein stripping/pt cannot recall laterality, bilateral inguinal hernia repairs, EGD, colonoscopy, bilateral cataract removal/lens implants Past Anesthesia/Blood Transfusion Reactions: No Reported Reaction Additional Past Anesthesia/Blood Transfusion Reaction / Comm: Hard to awaken. wears O2. Past Psychological History: No Psychological Hx Reported Additional Psychological History / Comment(s): Pt resides with his spouse. He is in a wheelchair. He has home oxygen and a glucometer. His spouse is his caregiver. Smoking Status: Former smoker Past Alcohol Use History: None Reported Additional Past Alcohol Use History / Comment(s): Pt started smoking in 1959 and quit in 1985. He quit drinking alcohol many years ago. Past Drug Use History: None Reported - Past Family History Father Family Medical History: Cancer Additional Family Medical History / Comment(s): Lung Cancer Mother Family Medical History: COPD Sister(s) Family Medical History: Cancer Additional Family Medical History / Comment(s): Lung Cancer Medications and Allergies Home Medications Medication Instructions Recorded Confirmed Type Ezetimibe [Zetia] 10 mg PO PC-SUPPER 06/10/18 10/12/21 History Propranolol [Inderal] 10 mg PO TID 06/10/18 10/12/21 History Insulin Glargine,Hum.rec.anlog 10 unit SQ HS 04/05/19 10/12/21 History [Lantus Solostar Pen] Budesonide [Pulmicort] 0.5 mg INHALATION RT-BID 10/16/19 10/12/21 History Ipratropium-Albuterol Nebulize 3 ml INHALATION RT-QID 10/16/19 10/12/21 History [Duoneb 0.5 mg-3 mg/3 ml Soln] Loratadine [Claritin] 10 mg PO DAILY PRN 10/16/19 10/12/21 History Omeprazole 40 mg PO DAILY 08/24/21 10/12/21 History traMADol HCL 50 mg PO DAILY PRN 08/24/21 10/12/21 History Ammonium Lactate Cream [Lac-Hydrin 1 applic TOPICAL DAILY PRN 10/12/21 10/12/21 History 12% Cream] Furosemide [Lasix] 40 mg PO BID 10/12/21 10/12/21 History Magnesium Oxide [Magox 400] 400 mg PO DAILY 10/12/21 10/12/21 History Allergies Allergy/AdvReac Type Severity Reaction Status Date / Time naproxen Allergy Rash/Hives Verified 08/24/21 13:26 Physical Exam Vitals: Vital Signs Temp Pulse Pulse Resp BP Pulse Ox 10/15/21 15:26 92 10/15/21 15:16 90 10/15/21 14:00 98.2 F 107 H 17 105/56 99 10/15/21 02:05 105 H 100 10/15/21 01:25 97.5 F L 124 H 16 108/59 93 L 10/14/21 21:00 92 10/14/21 20:46 94 10/14/21 20:12 98.1 F 104 H 16 100/55 92 L 10/14/21 16:29 96 10/14/21 16:16 98 Tachy Pale General lethargic. HEENT: Head exam is unremarkable. LUNGS: Breath sounds decreased. HEART: Tachycardic. ABDOMEN: Soft, no distention. EXT: 1+ edema ble. Results CBC & Chem 7: 10/14/21 06:45 10/15/21 13:14 Labs: Abnormal Lab Results - Last 24 Hours (Table) 10/14/21 10/14/21 10/15/21 Range/Units 20:36 20:52 13:14 BUN 69 H (9-20) mg/dL Creatinine 5.47 H (0.66-1.25) mg/dL POC Glucose (mg/dL) 67 L 106 H (75-99) mg/dL Calcium 11.6 H (8.4-10.2) mg/dL Total Protein 5.2 L (6.3-8.2) g/dL Albumin 2.3 L (3.5-5.0) g/dL Microbiology - Last 24 Hours (Table) 10/12/21 13:25 Blood Culture - Preliminary Blood No Growth after 72 hours 10/12/21 11:50 Urine Culture - Final Urine,Voided Enterococcus faecalis 10/12/21 13:45 Blood Culture - Preliminary Blood No Growth after [address] scan - chest: report reviewed Assessment and Plan (1) Macrocytic anemia Narrative/Plan: Full anemia and monoclonal work-up pending Current Visit: Yes Status: Acute Code(s): D53.9 - NUTRITIONAL ANEMIA, UNSPECIFIED SNOMED Code(s): 11552896 (2) Acute renal failure Narrative/Plan: Nephrology following Current Visit: Yes Status: Acute Code(s): N17.9 - ACUTE KIDNEY FAILURE, UNSPECIFIED SNOMED Code(s): 40817473 (3) Dehydration Current Visit: Yes Status: Acute Code(s): E86.0 - DEHYDRATION SNOMED Code(s): 83251354 (4) Hypercalcemia Narrative/Plan: Receiving bisphos and calcitonin per nephro work-up pending bone scan pending Current Visit: Yes Status: Acute Code(s): E83.52 - HYPERCALCEMIA SNOMED Code(s): 89044966
[2021-10-15 17:06] LABS: Glucose,Whole Blood 87 mg/dL (75-99)
--- NOTE | 2021-10-15 19:41 | P.GSCN ---
History of Present Illness History of present illness: 76-year-old gentleman I was consulted for placement of urgent dialysis catheter. Patient kidney function are worsening history of diabetes, hypertension, dysphagia, Neck examination neck is supple no bruit appreciated Chest patient has a decreased breath sounds bilateral Abdomen soft nontender Femorals are 1+ bilateral Plan is placement I's catheter for dialysis risk and complication discussed Past Medical History Past Medical History: Asthma, COPD, Diabetes Mellitus, GERD/Reflux, Liver Disease, Osteoarthritis (OA), Pneumonia, Respiratory Disorder Additional Past Medical History / Comment(s): Chronic asthma, chronic hypoxic respiratory failure, home oxygen at 3L/[place] ATC, IDDM type II, neuriopathy bilateral feet, ischemic heart disease, liver cirrhosis/past ETOH abuse, portal hypertension, esophageal varicies, pneumonia, pneumonia with parapneumonic effusions/thoracentesis, umbilical hernias. History of Any Multi-Drug Resistant Organisms: None Reported Past Surgical History: Back Surgery, Cholecystectomy, Hernia Repair, Joint Replacement, Orthopedic Surgery, Tonsillectomy Additional Past Surgical History / Comment(s): Lumbar back surgery, R rotator cuff repair, R foot fracture with hardware since removed, R ankle has hardware, r total hip arthroplasty, varicose vein stripping/pt cannot recall laterality, bilateral inguinal hernia repairs, EGD, colonoscopy, bilateral cataract removal/lens implants Past Anesthesia/Blood Transfusion Reactions: No Reported Reaction Additional Past Anesthesia/Blood Transfusion Reaction / Comm: Hard to awaken. wears O2. Past Psychological History: No Psychological Hx Reported Additional Psychological History / Comment(s): Pt resides with his spouse. He is in a wheelchair. He has home oxygen and a glucometer. His spouse is his caregiver. Smoking Status: Former smoker Past Alcohol Use History: None Reported Additional Past Alcohol Use History / Comment(s): Pt started smoking in 1959 and quit in 1985. He quit drinking alcohol many years ago. Past Drug Use History: None Reported - Past Family History Father Family Medical History: Cancer Additional Family Medical History / Comment(s): Lung Cancer Mother Family Medical History: COPD Sister(s) Family Medical History: Cancer Additional Family Medical History / Comment(s): Lung Cancer Medications and Allergies Home Medications Medication Instructions Recorded Confirmed Type Ezetimibe [Zetia] 10 mg PO PC-SUPPER 06/10/18 10/12/21 History Propranolol [Inderal] 10 mg PO TID 06/10/18 10/12/21 History Insulin Glargine,Hum.rec.anlog 10 unit SQ HS 04/05/19 10/12/21 History [Lantus Solostar Pen] Budesonide [Pulmicort] 0.5 mg INHALATION RT-BID 10/16/19 10/12/21 History Ipratropium-Albuterol Nebulize 3 ml INHALATION RT-QID 10/16/19 10/12/21 History [Duoneb 0.5 mg-3 mg/3 ml Soln] Loratadine [Claritin] 10 mg PO DAILY PRN 10/16/19 10/12/21 History Omeprazole 40 mg PO DAILY 08/24/21 10/12/21 History traMADol HCL 50 mg PO DAILY PRN 08/24/21 10/12/21 History Ammonium Lactate Cream [Lac-Hydrin 1 applic TOPICAL DAILY PRN 10/12/21 10/12/21 History 12% Cream] Furosemide [Lasix] 40 mg PO BID 10/12/21 10/12/21 History Magnesium Oxide [Magox 400] 400 mg PO DAILY 10/12/21 10/12/21 History Allergies Allergy/AdvReac Type Severity Reaction Status Date / Time naproxen Allergy Rash/Hives Verified 08/24/21 13:26 Surgical - Exam Vital Signs Temp Pulse Resp BP Pulse Ox 97.7 F 91 24 112/63 99 10/12/21 10:47 10/12/21 10:47 10/12/21 10:47 10/12/21 10:47 10/12/21 10:47 Results - Labs 10/14/21 06:45 10/15/21 13:14 Abnormal Lab Results - Last 24 Hours (Table) 10/14/21 10/14/21 10/15/21 Range/Units 20:36 20:52 13:14 BUN 69 H (9-20) mg/dL Creatinine 5.47 H (0.66-1.25) mg/dL POC Glucose (mg/dL) 67 L 106 H (75-99) mg/dL Calcium 11.6 H (8.4-10.2) mg/dL Total Protein 5.2 L (6.3-8.2) g/dL Albumin 2.3 L (3.5-5.0) g/dL Microbiology - Last 24 Hours (Table) 10/12/21 13:45 Blood Culture - Preliminary Blood No Growth after 72 hours 10/12/21 13:25 Blood Culture - Preliminary Blood No Growth after 72 hours 10/12/21 11:50 Urine Culture - Final Urine,Voided Enterococcus faecalis Diabetes panel 10/15/21 Range/Units 13:14 Sodium 138 (137-145) mmol/L Potassium 4.2 (3.5-5.1) mmol/L Chloride 102 (98-107) mmol/L Carbon Dioxide 27 (22-30) mmol/L BUN 69 H (9-20) mg/dL Creatinine 5.47 H (0.66-1.25) mg/dL Glucose 84 (74-99) mg/dL Calcium 11.6 H (8.4-10.2) mg/dL AST 35 (17-59) U/L ALT 12 (4-49) U/L Alkaline Phosphatase 73 (38-126) U/L Total Protein 5.2 L (6.3-8.2) g/dL Albumin 2.3 L (3.5-5.0) g/dL Calcium panel 10/15/21 Range/Units 13:14 Calcium 11.6 H (8.4-10.2) mg/dL Albumin 2.3 L (3.5-5.0) g/dL Pituitary panel 10/15/21 Range/Units 13:14 Sodium 138 (137-145) mmol/L Potassium 4.2 (3.5-5.1) mmol/L Chloride 102 (98-107) mmol/L Carbon Dioxide 27 (22-30) mmol/L BUN 69 H (9-20) mg/dL Creatinine 5.47 H (0.66-1.25) mg/dL Glucose 84 (74-99) mg/dL Calcium 11.6 H (8.4-10.2) mg/dL Adrenal panel 10/15/21 Range/Units 13:14 Sodium 138 (137-145) mmol/L Potassium 4.2 (3.5-5.1) mmol/L Chloride 102 (98-107) mmol/L Carbon Dioxide 27 (22-30) mmol/L BUN 69 H (9-20) mg/dL Creatinine 5.47 H (0.66-1.25) mg/dL Glucose 84 (74-99) mg/dL Calcium 11.6 H (8.4-10.2) mg/dL Total Bilirubin 0.9 (0.2-1.3) mg/dL AST 35 (17-59) U/L ALT 12 (4-49) U/L Alkaline Phosphatase 73 (38-126) U/L Total Protein 5.2 L (6.3-8.2) g/dL Albumin 2.3 L (3.5-5.0) g/dL
[2021-10-15] MEDS ORDERED: LIDOCAINE 1% INJ 10MG/ML (30 ML VIAL-PF) SQ ONE (20:10)
--- NOTE | 2021-10-15 20:10 | P.PN ---
Progress Note - Text Progress Note Date: 10/15/21 This is a pleasant 76-year-old patient who follows with Dr. Axel Mcclure. Chronic stable medical conditions include cirrhosis with esophageal varices , osteoarthritis, diabetes, COPD on home oxygen 3 L. chronically short of breath. He presents accompanied by his with complaint of generalized weakness and. Of confusion on and off while he is mildly confused today as per at bedside however he is able to answer questions appropriately and follows commands His weakness was getting worse over the last few days. Patient also has poor eating habits although he is morbidly obese with BMI of 39.3 but our patient and he has history of dysphagia for the last 3 months with choking without obvious aspiration. Admitted with elevated creatinine. Acute kidney injury. Congested cough. October 15: Patient congested cough. Failed modified barium swallow. Discussed with the patient insisted the bedside. PEG tube will be ordered. Nephrology spoke to the patient and family about possible dialysis. Patient tired. In bed. Accu-Cheks running on the low side. We'll change IV fluids to D5W. Active Medications Albuterol/Ipratropium (Ipratropium-Albuterol 3 Ml Neb) 3 ml INHALATION RT-QID MARNIE Last Admin: 10/15/21 19:25 Dose: 3 ml Documented by: Budesonide (Budesonide 0.5 Mg/2 Ml Nebu) 0.5 mg INHALATION RT-BID [facility] Last Admin: 10/15/21 19:25 Dose: 0.5 mg Documented by: Diphenhydramine HCl (Diphenhydramine 50 Mg/Ml 1 Ml Vial) 25 mg IVP Q6HR PRN PRN Reason: Allergy Symptoms Last Admin: 10/14/21 20:13 Dose: 25 mg Documented by: Famotidine (Famotidine 20 Mg/2 Ml Vial) 20 mg IV HS MARNIE Last Admin: 10/14/21 20:14 Dose: 20 mg Documented by: Furosemide (Furosemide 10 Mg/Ml 2 Ml Vial) 20 mg IV DAILY [facility] Last Admin: 10/15/21 13:48 Dose: Not Given Documented by: Heparin Sodium (Porcine) (Heparin Sodium,Porcine/Pf 5,000 Unit/0.5 Ml Syringe) 5,000 unit SQ Q12HR MARNIE Last Admin: 10/15/21 13:48 Dose: Not Given Documented by: Sodium Chloride (Saline 0.9%) 1,000 mls @ 75 mls/hr IV .[id number] MARNIE Last Admin: 10/15/21 17:27 Dose: 75 mls/hr Documented by: Acetaminophen 1,000 mg/ IV (Solution) 100 mls @ 400 mls/hr IVPB Q6HR PRN PRN Reason: Fever and/or Mild Pain Stop: 10/16/21 06:00 Ampicillin Sodium/Sulbactam (Sodium 3 gm/ Sodium Chloride) 100 mls @ 200 mls/hr IVPB Q12HR [facility]; Protocol Iopamidol (Iopamidol Contrast (Oral Use) Vial) 30 ml PO Q60M PRN PRN Reason: CT Scan Stop: 10/16/21 16:19 Naloxone HCl (Naloxone 0.4 Mg/Ml 1 Ml Vial) 0.2 mg IV Q2M PRN PRN Reason: Opioid Reversal Past medical history to include: COPD, diabetes, GERD, cirrhosis with esophageal varices, home oxygen 3 L Social history: . Used to drink 7-8 drinks on the weekends not certain a few years. Did smoke in the past, stopped smoking in 1985. Family history: Lung cancer Physical examination: VITAL SIGNS: 98.2, 107, 17, 105/56, 99% on 3 L GENERAL: Laying in bed, congested cough, tired EYES: Pupils equal. Conjunctiva normal. HEENT: External appearance of nose and ears normal, oral cavity grossly normal. NECK: JVD not raised; masses not palpable. HEART: First and second heart sounds are normal; no edema. LUNGS: Respiratory rate increased; decreased breath sounds. ABDOMEN: Soft, nontender, liver spleen not palpable, no masses palpable. PSYCH: Able to answer simple questions MUSCULOSKELETAL:No Clubbing/cyanosis;muscles-grossly intact INVESTIGATIONS, reviewed in the clinical context: Sodium 138 potassium 4.2 BUN 69 creatinine 5.47 magnesium 11.6 Previous labs: Creatinine 1.28 on 06/23/2021, 0.8 on 05/28/2021 Assessment and plan: -Acute kidney injury secondary to ATN. Also prerenal component from poor oral intake.: Worsening Being followed by nephrology. 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 DuoNeb 4 times a day -Diabetes mellitus type 2, on oral hypoglycemic, uncontrolled with hypoglycemia. Add D5W. -GERD Protonix 40 mg -Severe dysphagia. With higher risk of aspiration. Failed modified barium swallow. Consult surgery for PEG tube placement. Nothing by mouth -Primary osteoarthritis Pain medications as needed -Hyperlipidemia zetia 10 mg daily Patient has been made nothing by mouth. Consult surgery for PEG tube placement. Vascular surgery being consulted for dialysis catheter placement. Care was discussed at length with the patient's the patient and sister the bedside. Questions answered. Prognosis guarded. Total time spent today 45 minutes with over 25 minutes of discussion.
[2021-10-15] MEDS ORDERED: HEPARIN SODIUM 1,000 UN/ML (10ML VL) ONE (20:11)
[2021-10-15] MEDS ORDERED: DEXTROSE 5%-0.45% NACL 1,000 ML IV SCH (20:15)
--- NOTE | 2021-10-15 20:27 | P.PCN ---
Description of Procedure: Preoperative diagnoses is acute chronic renal failure Same Procedure performed guided 30 seem dialysis catheter placement right femoral approach Patient brought to the [facility] right groin were prepped and draped applied in standard manner 1% lidocaine for infected in the groin area. Ultrasound-guided micropuncture introducer right femoral vein and micropuncture guidewire was passed. Then 4-Greek dilator advanced. The guidewire. Then we passed a regular guidewire under fluoroscopy control dilator was advanced on the top the guidewire then 30 seem dialysis catheter placed guidewire was removed flushed with heparin saline and Hep-Lock secured with 3-0 nylon dressing applied patient tolerated the procedure well
[2021-10-15] MEDS: AMPICILLIN-SULBACTAM 3 GM in SODIUM CHLORIDE 0.9% 100 ML IVPB SCH (22:37)
[2021-10-15] MEDS: FAMOTIDINE 20 MG/2 ML VIAL IV SCH (22:37)
[2021-10-15] MEDS: DEXTROSE 5%-0.9% NACL 1,000 ML IV SCH (22:42)
[2021-10-15 23:38] LABS: % Iron Saturation 29.52 (15.00-50.00); Complement C3 80.6 mg/dL (80.0-207.0); Iron 43 ug/dL (65-175); Total Iron Binding Capacity 147 ug/dL (228-460)
--- NOTE | 2021-10-16 00:11 | P.CONS ---
History of Present Illness - Reason for Consult Consult date: 10/15/21 Stage III pressure ulcer and UTI Requesting physician: Roberta Garcia - Chief Complaint Mental status changes x Few days - History of Present Illness Patient is a 76-year-old male presenting to the ER 3 days ago for evaluation of increasing confusion and generalized weakness in this patient symptom has been going on for few days before presentation to the hospital no clear history of any headache URI symptoms no vomiting or any diarrhea patient on presentation to the hospital was afebrile and no fever have been recorded subsequently patient did have a normal white count did have elevated BUN and creatinine no enzymes are normal patient did have a positive UA with urine culture finalized Enterococcus faecalis blood culture has been negative patient also noticed to have a sacral pressure ulcer that has prompted this infectious disease consultation patient chest x-ray with congestive heart failure pleural effusion, patient himself not have adequate historian however family at the bedside and mention she did have this pressure ulcer going on for couple of weeks patient is usually bedbound and is hard to roll him around because of his weight and less mobility denies any foul-smelling drainage from the area Review of Systems Positive point has been mentioned in the HPI rest of the systems are negative Past Medical History Past Medical History: Asthma, COPD, Diabetes Mellitus, GERD/Reflux, Liver Disease, Osteoarthritis (OA), Pneumonia, Respiratory Disorder Additional Past Medical History / Comment(s): Chronic asthma, chronic hypoxic respiratory failure, home oxygen at 3L/NC ATC, IDDM type II, neuriopathy bilateral feet, ischemic heart disease, liver cirrhosis/past ETOH abuse, portal hypertension, esophageal varicies, pneumonia, pneumonia with parapneumonic effusions/thoracentesis, umbilical hernias. History of Any Multi-Drug Resistant Organisms: None Reported Past Surgical History: Back Surgery, Cholecystectomy, Hernia Repair, Joint Replacement, Orthopedic Surgery, Tonsillectomy Additional Past Surgical History / Comment(s): Lumbar back surgery, R rotator cuff repair, R foot fracture with hardware since removed, R ankle has hardware, r total hip arthroplasty, varicose vein stripping/pt cannot recall laterality, bilateral inguinal hernia repairs, EGD, colonoscopy, bilateral cataract removal/lens implants Past Anesthesia/Blood Transfusion Reactions: No Reported Reaction Additional Past Anesthesia/Blood Transfusion Reaction / Comm: Hard to awaken. wears O2. Past Psychological History: No Psychological Hx Reported Additional Psychological History / Comment(s): Pt resides with his spouse. He is in a wheelchair. He has home oxygen and a glucometer. His spouse is his caregiver. Smoking Status: Former smoker Past Alcohol Use History: None Reported Additional Past Alcohol Use History / Comment(s): Pt started smoking in 1959 and quit in 1985. He quit drinking alcohol many years ago. Past Drug Use History: None Reported - Past Family History Father Family Medical History: Cancer Additional Family Medical History / Comment(s): Lung Cancer Mother Family Medical History: COPD Sister(s) Family Medical History: Cancer Additional Family Medical History / Comment(s): Lung Cancer Medications and Allergies Home Medications Medication Instructions Recorded Confirmed Type Ezetimibe [Zetia] 10 mg PO PC-SUPPER 06/10/18 10/12/21 History Propranolol [Inderal] 10 mg PO TID 06/10/18 10/12/21 History Insulin Glargine,Hum.rec.anlog 10 unit SQ HS 04/05/19 10/12/21 History [Lantus Solostar Pen] Budesonide [Pulmicort] 0.5 mg INHALATION RT-BID 10/16/19 10/12/21 History Ipratropium-Albuterol Nebulize 3 ml INHALATION RT-QID 10/16/19 10/12/21 History [Duoneb 0.5 mg-3 mg/3 ml Soln] Loratadine [Claritin] 10 mg PO DAILY PRN 10/16/19 10/12/21 History Omeprazole 40 mg PO DAILY 08/24/21 10/12/21 History traMADol HCL 50 mg PO DAILY PRN 08/24/21 10/12/21 History Ammonium Lactate Cream [Lac-Hydrin 1 applic TOPICAL DAILY PRN 10/12/21 10/12/21 History 12% Cream] Furosemide [Lasix] 40 mg PO BID 10/12/21 10/12/21 History Magnesium Oxide [Magox 400] 400 mg PO DAILY 10/12/21 10/12/21 History Allergies Allergy/AdvReac Type Severity Reaction Status Date / Time naproxen Allergy Rash/Hives Verified 08/24/21 13:26 Physical Exam Vitals: Vital Signs Temp Pulse Pulse Resp BP Pulse Ox 10/15/21 02:05 105 H 100 10/15/21 01:25 97.5 F L 124 H 16 108/59 93 L 10/14/21 21:00 92 10/14/21 20:46 94 10/14/21 20:12 98.1 F 104 H 16 100/55 92 L 10/14/21 16:29 96 10/14/21 16:16 98 10/14/21 14:00 98.2 F 98 106/64 99 10/14/21 12:48 99 10/14/21 12:39 98 Intake and Output 10/14/21 10/15/21 10/15/21 22:59 06:59 14:59 Output Total 200 Balance -200 Output: Urine 200 Other: Voiding Method Indwelling Catheter GENERAL DESCRIPTION: Elderly male lying in bed, no distress. No tachypnea or accessory muscle of respiration use. HEENT: Shows Pallor , no scleral icterus. Oral mucous membrane is dry. No pharyngeal erythema or thrush NECK: Trachea central, no thyromegaly. LUNGS: Unlabored breathing. Decreased breath sound the bases. No wheeze or crackle. HEART: S1, S2, regular rate and rhythm. No loud murmur ABDOMEN: Soft, no tenderness , guarding or rigidity, no organomegaly EXTREMITIES: No edema of feet. SKIN: No rash, no masses palpable. Stage III sacral pressure ulcer did have significant surrounding maceration no slough tissue NEUROLOGICAL: The patient is awake, alert, oriented x3, mood and affect normal. Results CBC & Chem 7: 10/14/21 06:45 10/15/21 13:14 Labs: Abnormal Lab Results - Last 24 Hours (Table) 10/14/21 10/14/21 Range/Units 20:36 20:52 POC Glucose (mg/dL) 67 L 106 H (75-99) mg/dL Microbiology - Last 24 Hours (Table) 10/12/21 11:50 Urine Culture - Final Urine,Voided Enterococcus faecalis 10/12/21 13:45 Blood Culture - Preliminary Blood No Growth after 48 hours 10/12/21 13:25 Blood Culture - Preliminary Blood No Growth after 48 hours Assessment and Plan (1) UTI (urinary tract infection) Current Visit: Yes Status: Acute Code(s): N39.0 - URINARY TRACT INFECTION, SITE NOT SPECIFIED SNOMED Code(s): 00324044 Plan: 1patient presented to hospital with weakness mental status changes likely multifactorial in this patient did have a worsening of his kidney function and likely metabolic he also have a positive UA and a possible component of symptomatic urinary tract infection with the urine showing Enterococcus faecalis. 2patient with a stage II sacral pressure ulcer but no slough tissue however did have significant maceration and high risk of contamination from stool. 3discontinue Rocephin start the patient on Unasyn to better cover for the Enterococcus in the urine. 4we will apply Triad cream to the sacral wound to protect it from the student maceration and keep the area of the pressure. We will follow on clinical condition and cultures to further adjust medication if needed Thank you for this consultation will follow this patient along with you Time with Patient: Greater than 30
[2021-10-16 00:53] LABS: Glucose,Whole Blood 126 mg/dL (75-99)
[2021-10-16 01:14] LABS: Hepatitis B Core IgM Nonreactive (Nonreactive); Hepatitis B Surface Antigen Nonreactive (Nonreactive)
[2021-10-16 02:03] LABS: Appearance,Urine Cloudy (Clear); Bacteria,Urine Few /hpf; Bilirubin,Urine Negative (Negative); Blood,Urine Moderate (Negative); Color,Urine Yellow; Glucose,Urine (UA) Negative (Negative); Hyaline Casts,Urine 5 /lpf (0-2); Ketones,Urine Trace (Negative); Leukocyte Esterase,Urine Large (Negative); Mucus,Urine Rare /hpf; Nitrite,Urine Negative (Negative); Protein,Urine 1+ (Negative); RBC,Urine 55 /hpf (0-5); Specific Gravity,Urine 1.013 (1.001-1.035); Squamous Epithelial Cell,Urine 1 /hpf (0-4); Urobilinogen,Urine <2.0 mg/dL (<2.0); WBC,Urine >182 /hpf (0-5)
[2021-10-16 05:19] LABS: Rheumatoid Factor, Qnt 65 IU/mL (0-15)
[2021-10-16 05:46] LABS: Immunoglobulin M 68.4 mg/dL (40.0-280.0)
[2021-10-16 06:33] LABS: Anti-DNA, DS unit <1.0 IU/mL; DNA Double-Stranded NEGATIVE (NEGATIVE)
[2021-10-16 06:57] LABS: Glucose,Whole Blood 150 mg/dL (75-99)
[2021-10-16] MEDS: BUDESONIDE 0.5 MG/2 ML NEBU INHALATION SCH ×2 (08:49→20:19)
[2021-10-16] MEDS: IPRATROPIUM-ALBUTEROL 3 ML NEB INHALATION SCH ×4 (08:50→20:18)
[2021-10-16] MEDS: DEXTROSE 5%-0.9% NACL 1,000 ML IV SCH ×2 (08:54→23:50)
[2021-10-16] MEDS: FUROSEMIDE 10 MG/ML 2 ML VIAL IV SCH (08:55)
[2021-10-16] MEDS: AMPICILLIN-SULBACTAM 3 GM in SODIUM CHLORIDE 0.9% 100 ML IVPB SCH ×2 (08:55→21:54)
[2021-10-16] MEDS: HEPARIN SODIUM,PORCINE/PF 5,000 UNIT/0.5 ML SYRINGE SQ SCH ×2 (08:55→20:53)
[2021-10-16 09:28] LABS: Magnesium 2.1 mg/dL (1.5-2.4)
[2021-10-16 09:30] LABS: African American GFR (CKD) 10.2 (60.0-200.0); Albumin 2.3 g/dL (3.8-4.9); Albumin/Globulin Ratio 0.88 (1.60-3.17); BUN/Creat Ratio 11.84 Ratio (12.00-20.00); Blood Urea Nitrogen 68.7 mg/dL (9.0-27.0); Globulin 2.6 g/dL (1.6-3.3); Non-African American GFR(CKD) 8.8 (60.0-200.0); Potassium 4.2 mmol/L (3.5-5.5); Total Bilirubin 0.5 mg/dL (0.30-1.20); Total Protein 4.9 g/dL (6.2-8.2)
--- NOTE | 2021-10-16 09:43 | IR ---
EXAMINATION TYPE: IR cvc insert central tunneled DATE OF EXAM: 10/16/2021 COMPARISON: NONE HISTORY: Dialysis, renal failure Fluoroscopy support supplied to the referring clinician. See dictated report from last year surgery, 0.5 minutes fluoroscopy time, 69 intraoperative images document the procedure
--- NOTE | 2021-10-16 09:47 | CDI ---
Documentation Clarification Form Date: 10/16/2021 09:34:40 AM From: Janet Tinsley CCS, CCDS Admit Date: 10/12/2021 01:03:00 PM Patient Name: Tor Trejo Visit Number: [id number] Discharge Date: ATTENTION: The Clinical Documentation Specialists (CDI) and [facility] Coding Staff appreciate your assistance in clarifying documentation. Please respond to the clarification below the line at the bottom and electronically sign. The CDI & [facility] Coding staff will review the response and follow-up if needed. Please note: Queries are made part of the Legal Health Record. If you have any questions, please contact the author of this message via ITS. Dr. Jered Mclaughlin: CHF is documented in the 10/14 Nephrology Progress note: Pending labs will give Lasix 20 q12 IV as he has CHF and he needs saline for hypercalcemia Heart Failure is documented in the 10/15 Infectious Disease Consult: Patient's chest x-ray with congestive heart failure pleural effusion. Additional information regarding the Acuity & Type of CHF is requested. History/Risk Factors per the 10/12 H/P: Asthma, COPD, IDDM II, Neuropathy, GERD, Alcoholic Liver Cirrhosis, OA, Chronic Respiratory Failure on Home O2 3Lnc atc, Portal Hypertension, Esophageal Varices, Pneumonia with previous Paraneumonic Effusions & Thoracentesis. Clinical Indicators: Presented to the ED on 10/12 via EMS with Generalized Weakness and Increased Confusion with history of Dementia. Admit with GRADY, Dehydration and UTI. 10/12 VS: T 97.7, P 91, R 24, BP 112/63, PO 99 4Lnc, BMI 39.3 10/12 LAB: Hgb 9.3, Hct 28.7, Lymphocytes 0.3; PT 12.3, INR 1.2, APTT 18.8; Na 134, Chloride 95, CO2 31, BUN 65, Creatinine 3.96, Calcium 12.0, total protein 5.6, albumin 2.5 BNP not done 10/13 CXR: CHF with pleural effusions. Pleural fluid is increased compared to last exam. BNP: Echocardiogram Results (Most Recent 05/29/2021): Left ventricular size is normal, Mild concentric LVH, Left ventricular systolic function is mildly impaired with EF 45-50%. Mid anteroseptal LV wall motion is hypokinetic, Apical septum LV wall motion is hypokinetic. Treatment 10/12: Bladder Scan, Molina Catheter, O2 4Lnc, Blood cultures, IV Fluid Na Cl 500 mls @ 999 mls/hr q31M, IV Na Cl 1,000 mls @ 75 mls/hr q13H, IV Rocephin 1,000 ms x1, po Lasix 40 mg BID, IV Heparin 4,000 units sq q12H. Cardiology is not consulted. In your professional opinion, can you please clarify the Type & Acuity of CHF if known? [ ] Acute Systolic Heart Failure [ ] Chronic Systolic Heart Failure [ ] Acute on Chronic Systolic Heart Failure [ ] CHF is ruled out [ ] Other, please specify: [ ] Unable to determine (Template Last Revised: July 2020) Unable to determine MTDD
[2021-10-16 10:17] LABS: Hepatitis C IgG Antibody Nonreactive (Nonreactive)
--- NOTE | 2021-10-16 11:23 | P.GSCN ---
History of Present Illness Consult date: 10/16/21 History of present illness: CHIEF COMPLAINT: Weakness HISTORY OF PRESENT ILLNESS: This is a 76-year-old male who presented with mental status changes and generalized weakness. Evidence of a UTI with sepsis. As well as acute kidney injury. He is scheduled for temporary dialysis catheter today and to initiate dialysis today. Patient was evaluated by speech therapy he did fail his swallow eval. There is evidence of signs of aspiration. He is also followed by oncology regarding his hypercalcemia. They've ordered a bone scan and computed tomography scan of abdomen and pelvis for malignancy workup. Patient has poor nutritional status. Surgical service has been consulted for PEG tube placement. PAST MEDICAL HISTORY: Asthma, COPD, Diabetes Mellitus, GERD/Reflux, Liver Disease, Osteoarthritis (OA), Pneumonia, Respiratory Disorder, ischemic heart disease, liver cirrhosis/past ETOH abuse, portal hypertension, esophageal varicies, pneumonia, pneumonia with parapneumonic effusions/thoracentesis, umbilical hernias. PAST SURGICAL HISTORY: Cholecystectomy, hernia repair MEDICATIONS: See list. ALLERGIES: See list. SOCIAL HISTORY: No illicit drug use. REVIEW OF SYSTEMS: CONSTITUTIONAL: Denies fever or chills. HEENT: Denies blurred vision, vision changes, or eye pain. Denies hemoptysis CARDIOVASCULAR: Denies chest pain or pressure. RESPIRATORY: No shortness of breath. GASTROINTESTINAL: Denies any nausea or vomiting. Denies any abdominal pain HEMATOLOGIC: Denies bleeding disorders. GENITOURINARY: Denies any blood in urine or increased urinary frequency. SKIN: Denies pruitis. Denies rash. PHYSICAL EXAM: VITAL SIGNS: Reviewed GENERAL: Well-developed in no acute distress. HEENT: No sclera icterus. Extraocular movements grossly intact. Moist buccal mucosa. Head is atraumatic, normocephalic. No nasal drainage. ABDOMEN: Soft. Nondistended. Nontender NEUROLOGIC: Confused LABORATORY DATA: WBC is 6.33 hemoglobin 7.7 platelets 144 Sodium 142 potassium 4.2 creatinine 5.8 Iron 42 Albumin 2.3 Calcium 12 on admission IMAGING: ASSESSMENT: 1. Severe protein calorie malnutrition 2. Dysphagia. Failed swallow eval PLAN: -Patient scheduled for PEG tube placement , 10/18/[address] priest -Continue supportive care Thank you for this consultation Physician Staff Therapist note has been reviewed by physician. Signing provider agrees with the documented findings, assessment, and plan of care. 7 consult physical Past Medical History Past Medical History: Asthma, COPD, Diabetes Mellitus, GERD/Reflux, Liver Disease, Osteoarthritis (OA), Pneumonia, Respiratory Disorder Additional Past Medical History / Comment(s): Chronic asthma, chronic hypoxic respiratory failure, home oxygen at 3L/NC ATC, IDDM type II, neuriopathy bilateral feet, ischemic heart disease, liver cirrhosis/past ETOH abuse, portal hypertension, esophageal varicies, pneumonia, pneumonia with parapneumonic effusions/thoracentesis, umbilical hernias. History of Any Multi-Drug Resistant Organisms: None Reported Past Surgical History: Back Surgery, Cholecystectomy, Hernia Repair, Joint Replacement, Orthopedic Surgery, Tonsillectomy Additional Past Surgical History / Comment(s): Lumbar back surgery, R rotator cuff repair, R foot fracture with hardware since removed, R ankle has hardware, r total hip arthroplasty, varicose vein stripping/pt cannot recall laterality, bilateral inguinal hernia repairs, EGD, colonoscopy, bilateral cataract removal/lens implants Past Anesthesia/Blood Transfusion Reactions: No Reported Reaction Additional Past Anesthesia/Blood Transfusion Reaction / Comm: Hard to awaken. wears O2. Past Psychological History: No Psychological Hx Reported Additional Psychological History / Comment(s): Pt resides with his spouse. He is in a wheelchair. He has home oxygen and a glucometer. His spouse is his caregiver. Smoking Status: Former smoker Past Alcohol Use History: None Reported Additional Past Alcohol Use History / Comment(s): Pt started smoking in 1959 and quit in 1985. He quit drinking alcohol many years ago. Past Drug Use History: None Reported - Past Family History Father Family Medical History: Cancer Additional Family Medical History / Comment(s): Lung Cancer Mother Family Medical History: COPD Sister(s) Family Medical History: Cancer Additional Family Medical History / Comment(s): Lung Cancer Medications and Allergies Home Medications Medication Instructions Recorded Confirmed Type Ezetimibe [Zetia] 10 mg PO PC-SUPPER 06/10/18 10/12/21 History Propranolol [Inderal] 10 mg PO TID 06/10/18 10/12/21 History Insulin Glargine,Hum.rec.anlog 10 unit SQ HS 04/05/19 10/12/21 History [Lantus Solostar Pen] Budesonide [Pulmicort] 0.5 mg INHALATION RT-BID 10/16/19 10/12/21 History Ipratropium-Albuterol Nebulize 3 ml INHALATION RT-QID 10/16/19 10/12/21 History [Duoneb 0.5 mg-3 mg/3 ml Soln] Loratadine [Claritin] 10 mg PO DAILY PRN 10/16/19 10/12/21 History Omeprazole 40 mg PO DAILY 08/24/21 10/12/21 History traMADol HCL 50 mg PO DAILY PRN 08/24/21 10/12/21 History Ammonium Lactate Cream [Lac-Hydrin 1 applic TOPICAL DAILY PRN 10/12/21 10/12/21 History 12% Cream] Furosemide [Lasix] 40 mg PO BID 10/12/21 10/12/21 History Magnesium Oxide [Magox 400] 400 mg PO DAILY 10/12/21 10/12/21 History Allergies Allergy/AdvReac Type Severity Reaction Status Date / Time naproxen Allergy Rash/Hives Verified 08/24/21 13:26 Surgical - Exam Vital Signs Temp Pulse Resp BP Pulse Ox 97.7 F 91 24 112/63 99 10/12/21 10:47 10/12/21 10:47 10/12/21 10:47 10/12/21 10:47 10/12/21 10:47 Results - Labs 10/14/21 06:45 10/16/21 06:05 Abnormal Lab Results - Last 24 Hours (Table) 10/13/21 10/15/21 10/15/21 Range/Units 08:50 13:14 13:14 ESR (0-15) mm/hr BUN 69 H (9-20) mg/dL Creatinine 5.47 H (0.66-1.25) mg/dL Est GFR (CKD-EPI)AfAm (60.0-200.0) Est GFR (CKD-EPI)NonAf (60.0-200.0) BUN/Creatinine Ratio (12.00-20.00) Ratio Glucose (70-110) mg/dL POC Glucose (mg/dL) (75-99) mg/dL Calcium 11.6 H (8.4-10.2) mg/dL Iron 43 L 42 L (65-175) ug/dL TIBC 147 L (228-460) ug/dL Transferrin 105.0 L (204.0-354.0) mg/dL Ferritin 572.0 H (22.0-322.0) ng/mL C-Reactive Protein (0.00-0.80) mg/dL Total Protein 5.2 L (6.3-8.2) g/dL Total Protein (PEP) (6.2-8.2) g/dL Albumin 2.3 L (3.5-5.0) g/dL Albumin/Globulin Ratio (1.60-3.17) g/dL Vit D 1,25-Dihydroxy 117 H (20 - 79) pg/mL Urine Protein (Negative) Urine Ketones (Negative) Urine Blood (Negative) Ur Leukocyte Esterase (Negative) Urine RBC (0-5) /hpf Urine WBC (0-5) /hpf Urine WBC Clumps (None) /hpf Urine Bacteria (None) /hpf Hyaline Casts (0-2) /lpf Urine Mucus (None) /hpf Rheumatoid Factor (0-15) IU/mL 10/15/21 10/15/21 10/15/21 Range/Units 18:26 18:26 18:26 ESR 61 H (0-15) mm/hr BUN (9-20) mg/dL Creatinine (0.66-1.25) mg/dL Est GFR (CKD-EPI)AfAm (60.0-200.0) Est GFR (CKD-EPI)NonAf (60.0-200.0) BUN/Creatinine Ratio (12.00-20.00) Ratio Glucose (70-110) mg/dL POC Glucose (mg/dL) (75-99) mg/dL Calcium (8.4-10.2) mg/dL Iron (65-175) ug/dL TIBC (228-460) ug/dL Transferrin (204.0-354.0) mg/dL Ferritin (22.0-322.0) ng/mL C-Reactive Protein 13.50 H (0.00-0.80) mg/dL Total Protein (6.3-8.2) g/dL Total Protein (PEP) 5.0 L (6.2-8.2) g/dL Albumin (3.5-5.0) g/dL Albumin/Globulin Ratio (1.60-3.17) g/dL Vit D 1,25-Dihydroxy (20 - 79) pg/mL Urine Protein (Negative) Urine Ketones (Negative) Urine Blood (Negative) Ur Leukocyte Esterase (Negative) Urine RBC (0-5) /hpf Urine WBC (0-5) /hpf Urine WBC Clumps (None) /hpf Urine Bacteria (None) /hpf Hyaline Casts (0-2) /lpf Urine Mucus (None) /hpf Rheumatoid Factor 65 H (0-15) IU/mL 10/16/21 10/16/21 10/16/21 Range/Units 00:51 00:55 06:05 ESR (0-15) mm/hr BUN 68.7 H (9-20) mg/dL Creatinine 5.8 H (0.66-1.25) mg/dL Est GFR (CKD-EPI)AfAm 10.2 L (60.0-200.0) Est GFR (CKD-EPI)NonAf 8.8 L (60.0-200.0) BUN/Creatinine Ratio 11.84 L (12.00-20.00) Ratio Glucose 144 H (70-110) mg/dL POC Glucose (mg/dL) 126 H (75-99) mg/dL Calcium 11.0 H (8.4-10.2) mg/dL Iron (65-175) ug/dL TIBC (228-460) ug/dL Transferrin (204.0-354.0) mg/dL Ferritin (22.0-322.0) ng/mL C-Reactive Protein (0.00-0.80) mg/dL Total Protein 4.9 L (6.3-8.2) g/dL Total Protein (PEP) (6.2-8.2) g/dL Albumin 2.3 L (3.5-5.0) g/dL Albumin/Globulin Ratio 0.88 L (1.60-3.17) g/dL Vit D 1,25-Dihydroxy (20 - 79) pg/mL Urine Protein 1+ H (Negative) Urine Ketones Trace H (Negative) Urine Blood Moderate H (Negative) Ur Leukocyte Esterase Large H (Negative) Urine RBC 55 H (0-5) /hpf Urine WBC >182 H (0-5) /hpf Urine WBC Clumps Many H (None) /hpf Urine Bacteria Few H (None) /hpf Hyaline Casts 5 H (0-2) /lpf Urine Mucus Rare H (None) /hpf Rheumatoid Factor (0-15) IU/mL 10/16/21 Range/Units 06:55 ESR (0-15) mm/hr BUN (9-20) mg/dL Creatinine (0.66-1.25) mg/dL Est GFR (CKD-EPI)AfAm (60.0-200.0) Est GFR (CKD-EPI)NonAf (60.0-200.0) BUN/Creatinine Ratio (12.00-20.00) Ratio Glucose (70-110) mg/dL POC Glucose (mg/dL) 150 H (75-99) mg/dL Calcium (8.4-10.2) mg/dL Iron (65-175) ug/dL TIBC (228-460) ug/dL Transferrin (204.0-354.0) mg/dL Ferritin (22.0-322.0) ng/mL C-Reactive Protein (0.00-0.80) mg/dL Total Protein (6.3-8.2) g/dL Total Protein (PEP) (6.2-8.2) g/dL Albumin (3.5-5.0) g/dL Albumin/Globulin Ratio (1.60-3.17) g/dL Vit D 1,25-Dihydroxy (20 - 79) pg/mL Urine Protein (Negative) Urine Ketones (Negative) Urine Blood (Negative) Ur Leukocyte Esterase (Negative) Urine RBC (0-5) /hpf Urine WBC (0-5) /hpf Urine WBC Clumps (None) /hpf Urine Bacteria (None) /hpf Hyaline Casts (0-2) /lpf Urine Mucus (None) /hpf Rheumatoid Factor (0-15) IU/mL Microbiology - Last 24 Hours (Table) 10/12/21 13:45 Blood Culture - Preliminary Blood No Growth after 72 hours 10/12/21 13:25 Blood Culture - Preliminary Blood No Growth after 72 hours Diabetes panel 10/15/21 10/16/21 Range/Units 13:14 06:05 Sodium 138 142 (137-145) mmol/L Potassium 4.2 4.2 (3.5-5.1) mmol/L Chloride 102 103 (98-107) mmol/L Carbon Dioxide 27 21.0 (22-30) mmol/L BUN 69 H 68.7 H (9-20) mg/dL Creatinine 5.47 H 5.8 H (0.66-1.25) mg/dL Glucose 84 144 H (74-99) mg/dL Calcium 11.6 H 11.0 H (8.4-10.2) mg/dL AST 35 33 (17-59) U/L ALT 12 11 (4-49) U/L Alkaline Phosphatase 73 71 (38-126) U/L Total Protein 5.2 L 4.9 L (6.3-8.2) g/dL Albumin 2.3 L 2.3 L (3.5-5.0) g/dL Thyroid panel 10/15/21 Range/Units 18: TSH 1.320 (0.350-5.500) uIU/mL Calcium panel 10/15/21 10/16/21 Range/Units 13:14 06:05 Calcium 11.6 H 11.0 H (8.4-10.2) mg/dL Albumin 2.3 L 2.3 L (3.5-5.0) g/dL Pituitary panel 10/15/21 10/15/21 10/16/21 Range/Units 13:14 18:26 06:05 Sodium 138 142 (137-145) mmol/L Potassium 4.2 4.2 (3.5-5.1) mmol/L Chloride 102 103 (98-107) mmol/L Carbon Dioxide 27 21.0 (22-30) mmol/L BUN 69 H 68.7 H (9-20) mg/dL Creatinine 5.47 H 5.8 H (0.66-1.25) mg/dL Glucose 84 144 H (74-99) mg/dL Calcium 11.6 H 11.0 H (8.4-10.2) mg/dL TSH 1.320 (0.350-5.500) uIU/mL Adrenal panel 10/15/21 10/16/21 Range/Units 13:14 06:05 Sodium 138 142 (137-145) mmol/L Potassium 4.2 4.2 (3.5-5.1) mmol/L Chloride 102 103 (98-107) mmol/L Carbon Dioxide 27 21.0 (22-30) mmol/L BUN 69 H 68.7 H (9-20) mg/dL Creatinine 5.47 H 5.8 H (0.66-1.25) mg/dL Glucose 84 144 H (74-99) mg/dL Calcium 11.6 H 11.0 H (8.4-10.2) mg/dL Total Bilirubin 0.9 0.50 (0.2-1.3) mg/dL AST 35 33 (17-59) U/L ALT 12 11 (4-49) U/L Alkaline Phosphatase 73 71 (38-126) U/L Total Protein 5.2 L 4.9 L (6.3-8.2) g/dL Albumin 2.3 L 2.3 L (3.5-5.0) g/dL
[2021-10-16 11:33] LABS: Glucose,Whole Blood 166 mg/dL (75-99)
--- NOTE | 2021-10-16 11:39 | P.PN ---
Subjective Patient is seen in follow-up for acute kidney injury. Renal function has been worsening. Calcium level 11.0. Patient is resting in bed. He failed swallow eval and will need PEG tube. He is receiving IV fluids and IV Lasix. Urine output was <150 mL overnight. Sister present at bedside. Vital signs are stable. General: Awake. Quite lethargic. HEENT: Head exam is unremarkable. LUNGS: Breath sounds decreased. HEART: Tachycardic. ABDOMEN: Soft, no distention. EXTREMITITES: 1+ edema. Objective - Vital Signs Vital signs: Vital Signs Temp 97.9 F 10/16/21 07:51 Pulse 111 H 10/16/21 07:51 Resp 18 10/16/21 07:51 BP 107/64 10/16/21 07:51 Pulse Ox 93 L 10/16/21 07:51 Intake & Output 10/15/21 10/16/21 10/16/21 18:59 06:59 18:59 Output Total 120 125 Balance -120 -125 Weight 131.542 kg Output: Urine 120 125 Other: Voiding Method Indwelling Catheter - Labs CBC & Chem 7: 10/14/21 06:45 10/16/21 06:05 Labs: Abnormal Lab Results - Last 24 Hours (Table) 10/13/21 10/15/21 10/15/21 Range/Units 08:50 13:14 13:14 ESR (0-15) mm/hr BUN 69 H (9-20) mg/dL Creatinine 5.47 H (0.66-1.25) mg/dL Est GFR (CKD-EPI)AfAm (60.0-200.0) Est GFR (CKD-EPI)NonAf (60.0-200.0) BUN/Creatinine Ratio (12.00-20.00) Ratio Glucose (70-110) mg/dL POC Glucose (mg/dL) (75-99) mg/dL Calcium 11.6 H (8.4-10.2) mg/dL Iron 43 L 42 L (65-175) ug/dL TIBC 147 L (228-460) ug/dL Transferrin 105.0 L (204.0-354.0) mg/dL Ferritin 572.0 H (22.0-322.0) ng/mL C-Reactive Protein (0.00-0.80) mg/dL Total Protein 5.2 L (6.3-8.2) g/dL Total Protein (PEP) (6.2-8.2) g/dL Albumin 2.3 L (3.5-5.0) g/dL Albumin/Globulin Ratio (1.60-3.17) g/dL Vit D 1,25-Dihydroxy 117 H (20 - 79) pg/mL Urine Protein (Negative) Urine Ketones (Negative) Urine Blood (Negative) Ur Leukocyte Esterase (Negative) Urine RBC (0-5) /hpf Urine WBC (0-5) /hpf Urine WBC Clumps (None) /hpf Urine Bacteria (None) /hpf Hyaline Casts (0-2) /lpf Urine Mucus (None) /hpf Rheumatoid Factor (0-15) IU/mL 10/15/21 10/15/21 10/15/21 Range/Units 18:26 18:26 18:26 ESR 61 H (0-15) mm/hr BUN (9-20) mg/dL Creatinine (0.66-1.25) mg/dL Est GFR (CKD-EPI)AfAm (60.0-200.0) Est GFR (CKD-EPI)NonAf (60.0-200.0) BUN/Creatinine Ratio (12.00-20.00) Ratio Glucose (70-110) mg/dL POC Glucose (mg/dL) (75-99) mg/dL Calcium (8.4-10.2) mg/dL Iron (65-175) ug/dL TIBC (228-460) ug/dL Transferrin (204.0-354.0) mg/dL Ferritin (22.0-322.0) ng/mL C-Reactive Protein 13.50 H (0.00-0.80) mg/dL Total Protein (6.3-8.2) g/dL Total Protein (PEP) 5.0 L (6.2-8.2) g/dL Albumin (3.5-5.0) g/dL Albumin/Globulin Ratio (1.60-3.17) g/dL Vit D 1,25-Dihydroxy (20 - 79) pg/mL Urine Protein (Negative) Urine Ketones (Negative) Urine Blood (Negative) Ur Leukocyte Esterase (Negative) Urine RBC (0-5) /hpf Urine WBC (0-5) /hpf Urine WBC Clumps (None) /hpf Urine Bacteria (None) /hpf Hyaline Casts (0-2) /lpf Urine Mucus (None) /hpf Rheumatoid Factor 65 H (0-15) IU/mL 10/16/21 10/16/21 10/16/21 Range/Units 00:51 00:55 06:05 ESR (0-15) mm/hr BUN 68.7 H (9-20) mg/dL Creatinine 5.8 H (0.66-1.25) mg/dL Est GFR (CKD-EPI)AfAm 10.2 L (60.0-200.0) Est GFR (CKD-EPI)NonAf 8.8 L (60.0-200.0) BUN/Creatinine Ratio 11.84 L (12.00-20.00) Ratio Glucose 144 H (70-110) mg/dL POC Glucose (mg/dL) 126 H (75-99) mg/dL Calcium 11.0 H (8.4-10.2) mg/dL Iron (65-175) ug/dL TIBC (228-460) ug/dL Transferrin (204.0-354.0) mg/dL Ferritin (22.0-322.0) ng/mL C-Reactive Protein (0.00-0.80) mg/dL Total Protein 4.9 L (6.3-8.2) g/dL Total Protein (PEP) (6.2-8.2) g/dL Albumin 2.3 L (3.5-5.0) g/dL Albumin/Globulin Ratio 0.88 L (1.60-3.17) g/dL Vit D 1,25-Dihydroxy (20 - 79) pg/mL Urine Protein 1+ H (Negative) Urine Ketones Trace H (Negative) Urine Blood Moderate H (Negative) Ur Leukocyte Esterase Large H (Negative) Urine RBC 55 H (0-5) /hpf Urine WBC >182 H (0-5) /hpf Urine WBC Clumps Many H (None) /hpf Urine Bacteria Few H (None) /hpf Hyaline Casts 5 H (0-2) /lpf Urine Mucus Rare H (None) /hpf Rheumatoid Factor (0-15) IU/mL 10/16/21 Range/Units 06:55 ESR (0-15) mm/hr BUN (9-20) mg/dL Creatinine (0.66-1.25) mg/dL Est GFR (CKD-EPI)AfAm (60.0-200.0) Est GFR (CKD-EPI)NonAf (60.0-200.0) BUN/Creatinine Ratio (12.00-20.00) Ratio Glucose (70-110) mg/dL POC Glucose (mg/dL) 150 H (75-99) mg/dL Calcium (8.4-10.2) mg/dL Iron (65-175) ug/dL TIBC (228-460) ug/dL Transferrin (204.0-354.0) mg/dL Ferritin (22.0-322.0) ng/mL C-Reactive Protein (0.00-0.80) mg/dL Total Protein (6.3-8.2) g/dL Total Protein (PEP) (6.2-8.2) g/dL Albumin (3.5-5.0) g/dL Albumin/Globulin Ratio (1.60-3.17) g/dL Vit D 1,25-Dihydroxy (20 - 79) pg/mL Urine Protein (Negative) Urine Ketones (Negative) Urine Blood (Negative) Ur Leukocyte Esterase (Negative) Urine RBC (0-5) /hpf Urine WBC (0-5) /hpf Urine WBC Clumps (None) /hpf Urine Bacteria (None) /hpf Hyaline Casts (0-2) /lpf Urine Mucus (None) /hpf Rheumatoid Factor (0-15) IU/mL Microbiology - Last 24 Hours (Table) 10/12/21 13:45 Blood Culture - Preliminary Blood No Growth after 72 hours 10/12/21 13:25 Blood Culture - Preliminary Blood No Growth after 72 hours Assessment and Plan Plan: Assessment: 1. Acute kidney injury secondary to ATN secondary to hypercalcemia. Renal function is improving progressively worsening since May 2021 when his creatinine was 0.8. Renal ultrasound showed absent left kidney with no hydronephrosis in the right kidney. Oliguric. 2. Hypercalcemia. PTH appropriately suppressed. Vitamin D level 68.1,25 D3 level high at 117. Rest of the workup pending. Rule out malignancy. 3. Dysphagia. Failed swallow eval. PEG tube pending. 4. Diabetes mellitus. 5. UTI. Urine culture positive for enterococcus on antibiotics. 6. Anemia. Iron replete. Hematology following. Workup pending. 7. Diabetes mellitus. Plan: Decrease rate of IV fluids to 50 mL an hour. Maintain IV Lasix 20 mg daily. Status post Zometa 10/14/2021. Also received a dose of calcitonin 10/15/2021. Follow-up pending workup for hypercalcemia. Follow-up CAT scan and bone scan. Check serologies to quantify proteinuria - JAKOB, double-stranded DNA antibody and complements normal. Plan for first and if hemodialysis today and second treatment tomorrow. I will use a low calcium bath.
--- NOTE | 2021-10-16 12:31 | P.PN ---
Subjective Progress Note Date: 10/16/21 Principal diagnosis: hypercalcemia, anemia in follow-up today patient is mildly confused, not sure what his baseline is as was not at bedside yet this morning. He is pleasant, denies any pain or nausea. Objective - Vital Signs Vital signs: Vital Signs Temp 97.9 F 10/16/21 07:51 Pulse 111 H 10/16/21 07:51 Resp 18 10/16/21 07:51 BP 107/64 10/16/21 07:51 Pulse Ox 93 L 10/16/21 07:51 Intake & Output 10/15/21 10/16/21 10/16/21 18:59 06:59 18:59 Output Total 120 125 Balance -120 -125 Weight 131.542 kg Output: Urine 120 125 Other: Voiding Method Indwelling Catheter Indwelling Catheter - Constitutional General appearance: Present: cooperative, no acute distress, obese - EENT Eyes: Present: anicteric sclerae, EOMI ENT: Present: hard of hearing - Respiratory Respiratory: bilateral: CTA, diminished - Cardiovascular Rhythm: regular Heart sounds: normal: S1, S2 Abnormal Heart Sounds: Absent: systolic murmur, diastolic murmur, rub, S3 Gallop, S4 Gallop, click, other - Peripheral edema leg Peripheral Edema: bilateral: 2+, Pitting - Gastrointestinal General gastrointestinal: Present: normal bowel sounds, soft - Integumentary Integumentary: Present: pale - Neurologic Neurologic: Present: CNII-XII intact (grossly) - Musculoskeletal Musculoskeletal: Present: generalized weakness - Psychiatric Psychiatric: Present: appropriate affect - Labs CBC & Chem 7: 10/14/21 06:45 10/16/21 06:05 Labs: Abnormal Lab Results - Last 24 Hours (Table) 10/13/21 10/15/21 10/15/21 Range/Units 08:50 13:14 13:14 ESR (0-15) mm/hr BUN 69 H (9-20) mg/dL Creatinine 5.47 H (0.66-1.25) mg/dL Est GFR (CKD-EPI)AfAm (60.0-200.0) Est GFR (CKD-EPI)NonAf (60.0-200.0) BUN/Creatinine Ratio (12.00-20.00) Ratio Glucose (70-110) mg/dL POC Glucose (mg/dL) (75-99) mg/dL Calcium 11.6 H (8.4-10.2) mg/dL Iron 43 L 42 L (65-175) ug/dL TIBC 147 L (228-460) ug/dL Transferrin 105.0 L (204.0-354.0) mg/dL Ferritin 572.0 H (22.0-322.0) ng/mL C-Reactive Protein (0.00-0.80) mg/dL Total Protein 5.2 L (6.3-8.2) g/dL Total Protein (PEP) (6.2-8.2) g/dL Albumin 2.3 L (3.5-5.0) g/dL Albumin/Globulin Ratio (1.60-3.17) g/dL Vit D 1,25-Dihydroxy 117 H (20 - 79) pg/mL Urine Protein (Negative) Urine Ketones (Negative) Urine Blood (Negative) Ur Leukocyte Esterase (Negative) Urine RBC (0-5) /hpf Urine WBC (0-5) /hpf Urine WBC Clumps (None) /hpf Urine Bacteria (None) /hpf Hyaline Casts (0-2) /lpf Urine Mucus (None) /hpf Rheumatoid Factor (0-15) IU/mL 10/15/21 10/15/21 10/15/21 Range/Units 18:26 18:26 18:26 ESR 61 H (0-15) mm/hr BUN (9-20) mg/dL Creatinine (0.66-1.25) mg/dL Est GFR (CKD-EPI)AfAm (60.0-200.0) Est GFR (CKD-EPI)NonAf (60.0-200.0) BUN/Creatinine Ratio (12.00-20.00) Ratio Glucose (70-110) mg/dL POC Glucose (mg/dL) (75-99) mg/dL Calcium (8.4-10.2) mg/dL Iron (65-175) ug/dL TIBC (228-460) ug/dL Transferrin (204.0-354.0) mg/dL Ferritin (22.0-322.0) ng/mL C-Reactive Protein 13.50 H (0.00-0.80) mg/dL Total Protein (6.3-8.2) g/dL Total Protein (PEP) 5.0 L (6.2-8.2) g/dL Albumin (3.5-5.0) g/dL Albumin/Globulin Ratio (1.60-3.17) g/dL Vit D 1,25-Dihydroxy (20 - 79) pg/mL Urine Protein (Negative) Urine Ketones (Negative) Urine Blood (Negative) Ur Leukocyte Esterase (Negative) Urine RBC (0-5) /hpf Urine WBC (0-5) /hpf Urine WBC Clumps (None) /hpf Urine Bacteria (None) /hpf Hyaline Casts (0-2) /lpf Urine Mucus (None) /hpf Rheumatoid Factor 65 H (0-15) IU/mL 10/16/21 10/16/21 10/16/21 Range/Units 00:51 00:55 06:05 ESR (0-15) mm/hr BUN 68.7 H (9-20) mg/dL Creatinine 5.8 H (0.66-1.25) mg/dL Est GFR (CKD-EPI)AfAm 10.2 L (60.0-200.0) Est GFR (CKD-EPI)NonAf 8.8 L (60.0-200.0) BUN/Creatinine Ratio 11.84 L (12.00-20.00) Ratio Glucose 144 H (70-110) mg/dL POC Glucose (mg/dL) 126 H (75-99) mg/dL Calcium 11.0 H (8.4-10.2) mg/dL Iron (65-175) ug/dL TIBC (228-460) ug/dL Transferrin (204.0-354.0) mg/dL Ferritin (22.0-322.0) ng/mL C-Reactive Protein (0.00-0.80) mg/dL Total Protein 4.9 L (6.3-8.2) g/dL Total Protein (PEP) (6.2-8.2) g/dL Albumin 2.3 L (3.5-5.0) g/dL Albumin/Globulin Ratio 0.88 L (1.60-3.17) g/dL Vit D 1,25-Dihydroxy (20 - 79) pg/mL Urine Protein 1+ H (Negative) Urine Ketones Trace H (Negative) Urine Blood Moderate H (Negative) Ur Leukocyte Esterase Large H (Negative) Urine RBC 55 H (0-5) /hpf Urine WBC >182 H (0-5) /hpf Urine WBC Clumps Many H (None) /hpf Urine Bacteria Few H (None) /hpf Hyaline Casts 5 H (0-2) /lpf Urine Mucus Rare H (None) /hpf Rheumatoid Factor (0-15) IU/mL 10/16/21 10/16/21 Range/Units 06:55 11:32 ESR (0-15) mm/hr BUN (9-20) mg/dL Creatinine (0.66-1.25) mg/dL Est GFR (CKD-EPI)AfAm (60.0-200.0) Est GFR (CKD-EPI)NonAf (60.0-200.0) BUN/Creatinine Ratio (12.00-20.00) Ratio Glucose (70-110) mg/dL POC Glucose (mg/dL) 150 H 166 H (75-99) mg/dL Calcium (8.4-10.2) mg/dL Iron (65-175) ug/dL TIBC (228-460) ug/dL Transferrin (204.0-354.0) mg/dL Ferritin (22.0-322.0) ng/mL C-Reactive Protein (0.00-0.80) mg/dL Total Protein (6.3-8.2) g/dL Total Protein (PEP) (6.2-8.2) g/dL Albumin (3.5-5.0) g/dL Albumin/Globulin Ratio (1.60-3.17) g/dL Vit D 1,25-Dihydroxy (20 - 79) pg/mL Urine Protein (Negative) Urine Ketones (Negative) Urine Blood (Negative) Ur Leukocyte Esterase (Negative) Urine RBC (0-5) /hpf Urine WBC (0-5) /hpf Urine WBC Clumps (None) /hpf Urine Bacteria (None) /hpf Hyaline Casts (0-2) /lpf Urine Mucus (None) /hpf Rheumatoid Factor (0-15) IU/mL Microbiology - Last 24 Hours (Table) 10/12/21 13:45 Blood Culture - Preliminary Blood No Growth after 72 hours 10/12/21 13:25 Blood Culture - Preliminary Blood No Growth after 72 hours Assessment and Plan (1) Acute renal failure Current Visit: Yes Status: Acute Priority: High Code(s): N17.9 - ACUTE KIDNEY FAILURE, UNSPECIFIED SNOMED Code(s): 58046606 (2) Hypercalcemia Current Visit: Yes Status: Acute Priority: High Code(s): E83.52 - HYPERCALCEMIA SNOMED Code(s): 72631182 (3) Anemia Current Visit: Yes Status: Chronic Priority: High Code(s): D64.9 - ANEMIA, UNSPECIFIED SNOMED Code(s): 100922891 Plan: Dr. Saini did discuss the case with Portfolio Director. For hypercalcemia, dose of Zometa given and is on calcitonin per Nephrology. PTH low. Work up for multiple myeloma and nuclear medicine bone scan still pending. Patient is going to be starting dialysis today for progressive acute renal f ailure. hemoglobin yesterday was 7.7. Pending CBC today. recommendation is to transfuse for hemoglobin less than 7. Doctor attests: I performed a history and physical examination of this patient, developed impression and plan of care, discussed with dictator. I agree with dictators note, documented as a scribe.
[2021-10-16 13:16] LABS: Basophils % (A) 1 %; Eosinophils # (A) 0.2 k/uL (0-0.7); Eosinophils % (A) 2 %; Hypochromasia Marked; Lymphocytes # (A) 0.3 k/uL (1.0-4.8); Lymphocytes % (A) 3 %; MCH 32.3 pg (25.0-35.0); MCHC 31.1 g/dL (31.0-37.0); Macrocytosis Moderate; Mean Platelet Volume 8.8; Monocytes # (A) 0.5 k/uL (0-1.0); Monocytes % (A) 5 %; Neutrophils # (A) 7.6 k/uL (1.3-7.7); Neutrophils % (A) 87 %; Platelet Count 179 k/uL (150-450); RDW 15.4 % (11.5-15.5); WBC 8.7 k/uL (3.8-10.6)
[2021-10-16 13:19] LABS: MCV 103.6 fL (80.0-100.0)
[2021-10-16 14:28] LABS: C-ANCA <1:20 Titer (<1:20)
[2021-10-16 14:50] LABS: Free Lambda Lt Chain Qnt, Seru 9.53 mg/dL (0.57-2.63)
--- NOTE | 2021-10-16 15:12 | P.PN ---
Progress Note - Text Progress Note Date: 10/16/21 Hospital course This is a pleasant 76-year-old patient who follows with Dr. Axel Mcclure. Chronic stable medical conditions include cirrhosis with esophageal varices , osteoarthritis, diabetes, COPD on home oxygen 3 L. chronically short of breath. He presents accompanied by his with complaint of generalized weakness and. Of confusion on and off while he is mildly confused today as per at bedside however he is able to answer questions appropriately and follows commands His weakness was getting worse over the last few days. Patient also has poor eating habits although he is morbidly obese with BMI of 39.3 but our patient and he has history of dysphagia for the last 3 months with choking without obvious aspiration. Admitted with elevated creatinine. Acute kidney injury. Congested cough. October 15: Patient congested cough. Failed modified barium swallow. Discussed with the patient insisted the bedside. PEG tube will be ordered. Nephrology spoke to the patient and family about possible dialysis. Patient tired. In bed. Accu-Cheks running on the low side. We'll change IV fluids to D5W. October 16: Breathing a bit better. Nothing by mouth. Had right groin hemodialysis catheter placed. By Dr. Boyer yesterday. To commence hemodialysis today. insisted the bedside. CODE STATUS discussed with the patient and family. Made DO NOT RESUSCITATE. PEG tube scheduled for . Active Medications Albuterol/Ipratropium (Ipratropium-Albuterol 3 Ml Neb) 3 ml INHALATION RT-QID [facility] Last Admin: 10/16/21 08:50 Dose: Not Given Documented by: Budesonide (Budesonide 0.5 Mg/2 Ml Nebu) 0.5 mg INHALATION RT-BID [facility] Last Admin: 10/16/21 08:49 Dose: Not Given Documented by: Diphenhydramine HCl (Diphenhydramine 50 Mg/Ml 1 Ml Vial) 25 mg IVP Q6HR PRN PRN Reason: Allergy Symptoms Last Admin: 10/14/21 20:13 Dose: 25 mg Documented by: Famotidine (Famotidine 20 Mg/2 Ml Vial) 20 mg IV HS [facility] Last Admin: 10/15/21 22:37 Dose: 20 mg Documented by: Furosemide (Furosemide 10 Mg/Ml 2 Ml Vial) 20 mg IV DAILY [facility] Last Admin: 10/16/21 08:55 Dose: 20 mg Documented by: Heparin Sodium (Porcine) (Heparin Sodium,Porcine/Pf 5,000 Unit/0.5 Ml Syringe) 5,000 unit SQ Q12HR [facility] Last Admin: 10/16/21 08:55 Dose: 5,000 unit Documented by: Ampicillin Sodium/Sulbactam (Sodium 3 gm/ Sodium Chloride) 100 mls @ 200 mls/hr IVPB Q12HR [facility]; Protocol Last Admin: 10/16/21 08:55 Dose: 200 mls/hr Documented by: Dextrose/Sodium Chloride (Dextrose 5%-Ns Iv Soln) 1,000 mls @ 50 mls/hr IV .Q20H [facility] Last Admin: 10/16/21 08:54 Dose: 75 mls/hr Documented by: Iopamidol (Iopamidol Contrast (Oral Use) Vial) 30 ml PO Q60M PRN PRN Reason: CT Scan Stop: 10/16/21 16:19 Naloxone HCl (Naloxone 0.4 Mg/Ml 1 Ml Vial) 0.2 mg IV Q2M PRN PRN Reason: Opioid Reversal Past medical history to include: COPD, diabetes, GERD, cirrhosis with esophageal varices, home oxygen 3 L Social history: . Used to drink 7-8 drinks on the weekends not certain a few years. Did smoke in the past, stopped smoking in 1985. Family history: Lung cancer Physical examination: VITAL SIGNS: 97.9, 111, 18, 107/64, 93% on 2 L GENERAL: Laying in bed, awake tired EYES: Pupils equal. Conjunctiva normal. HEENT: External appearance of nose and ears normal, oral cavity grossly normal. NECK: JVD not raised; masses not palpable. HEART: First and second heart sounds are normal; no edema. LUNGS: Respiratory rate increased; decreased breath sounds. ABDOMEN: Soft, nontender, liver spleen not palpable, no masses palpable. Right groin hemodialysis catheter PSYCH: Able to answer simple questions MUSCULOSKELETAL:No Clubbing/cyanosis;muscles-grossly intact INVESTIGATIONS, reviewed in the clinical context: October 16: White count 8.7 hemoglobin 9 platelets 1794.2 creatinine 5.8 BUN 68.7 Sodium 138 potassium 4.2 BUN 69 creatinine 5.47 magnesium 11.6 Previous labs: Creatinine 1.28 on 06/23/2021, 0.8 on 05/28/2021 Assessment and plan: -Acute kidney injury secondary to ATN. Also prerenal component from poor oral intake.: Not improving Right groin dialysis catheter placed on October 15, by Dr. Boyer. To start hemodialysis today. 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 DuoNeb 4 times a day -Diabetes mellitus type 2, on oral hypoglycemic, uncontrolled with hypoglycemia. Add D5W. -GERD Protonix 40 mg -Severe dysphagia. With higher risk of aspiration. Failed modified barium swallow. Nothing by mouth. PEG tube scheduled on -Primary osteoarthritis Pain medications as needed -Hyperlipidemia zetia 10 mg daily Nothing by mouth. To start hemodialysis today. Otherwise nothing by mouth. IV fluids. Care was discussed with the patient and family at the bedside. Advanced care planning: End-of-life care was discussed with the patient and the and sister the bedside. Per patient's wishes he does not want any intubation or cardiac resuscitation. Patient's been made DO NOT RESUSCITATE. Questions were answered. Time spent for this was 20 minutes
[2021-10-16 15:15] LABS: Free Kappa Lt Chain Qnt, Serum 10.91 mg/dL (0.33-1.94)
[2021-10-16] MEDS: diphenhydrAMINE 50 MG/ML 1 ML VIAL IVP PRN (15:44)
[2021-10-16 16:24] LABS: Hepatitis B Surface AB- Quant 3.5 mIU/mL; Hepatitis B Surface Antibody Nonreactive (Nonreactive)
[2021-10-16 16:30] LABS: Glucose,Whole Blood 131 mg/dL (75-99)
[2021-10-16 20:18] LABS: Glucose,Whole Blood 122 mg/dL (75-99)
[2021-10-16] MEDS: FAMOTIDINE 20 MG/2 ML VIAL IV SCH (21:54)
[2021-10-17 07:00] LABS: Glucose,Whole Blood 114 mg/dL (75-99)
--- NOTE | 2021-10-17 07:33 | FL ---
Modified barium swallow. HISTORY: Dysphagia. Modified barium swallow was performed with the department of speech pathology. The patient was prese nted with various consistencies of barium. There is evidence of aspiration. Full report is to follow from the department of speech pathology. Impression: Aspiration
[2021-10-17] MEDS: IPRATROPIUM-ALBUTEROL 3 ML NEB INHALATION SCH ×4 (08:11→21:06)
[2021-10-17] MEDS: BUDESONIDE 0.5 MG/2 ML NEBU INHALATION SCH ×2 (08:11→21:06)
[2021-10-17] MEDS: AMPICILLIN-SULBACTAM 3 GM in SODIUM CHLORIDE 0.9% 100 ML IVPB SCH ×2 (08:32→20:35)
[2021-10-17] MEDS: HEPARIN SODIUM,PORCINE/PF 5,000 UNIT/0.5 ML SYRINGE SQ SCH ×2 (08:32→20:35)
[2021-10-17] MEDS: FUROSEMIDE 10 MG/ML 2 ML VIAL IV SCH (08:32)
--- NOTE | 2021-10-17 08:41 | CDI ---
Documentation Clarification Form Date: 10/17/2021 08:24:37 AM From: Janet Tinsley CCS, CCDS Admit Date: 10/12/2021 01:03:00 PM Patient Name: Tor Trejo Visit Number: [id number] Discharge Date: ATTENTION: The Clinical Documentation Specialists (CDI) and [facility] Coding Staff appreciate your assistance in clarifying documentation. Please respond to the clarification below the line at the bottom and electronically sign. The CDI & [facility] Coding staff will review the response and follow-up if needed. Please note: Queries are made part of the Legal Health Record. If you have any questions, please contact the author of this message via ITS. Dr. Jered Mclaughlin: Acute Urinary Tract Infection with Sepsis is documented in the 10/13 & 10/14 Attending Progress Notes an the 10/16 General Surgery Consult without further documentation in the record. Clarification is requested. 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 Clinical Indicators: Presented to the ED on 10/12 via EMS with Increased Confusion and Generalized Weakness with history of Dementia. Admit with GRADY, Dehydration and UTI 10/12 VS: T 97.7, P 91, R 24, BP 112/63, PO 99 4Lnc, BMI: 39.3 10/12 LAB: WBC 6.8, Hgb 9.3, Neutrophils 5.6, Lymphocytes 0.3; Na 134, BUN 65, Creatinine 3.96, Total Protein 5.6, Albumin 2.5. 10/12 UA: Turbid, 2+ Protein, Trace Blood, Large Esterase, RBC >182, WBC >182 10/12 Urine Culture: (Final): Enterococcus faecalis 10/12 Blood Culture: (Preliminary): Neg after 96 hrs. 10/15 VS: T 97.5, P 124, R 16, BP 108/59, PO 93 4Lnc Treatment 10/12: Bladder Scan, Urinary Catheter Management, O2 4Lnc, IV Na Cl 500 mls @ 999 mls/hr q31M, IV Na Cl 1,000 mls @ 75 mls/hr q13H, IV Rocephin 1,999 mg x1, INH Duoneb 3 ml QID, INH Pulmicort 0.5 mg BID, Heparin 5,000 units sq q12H Please clarify if the diagnoses of Sepsis and UTI: [ ] UTI with Sepsis confirmed, remains under treatment, please specify if POA [ ] UTI with Sepsis confirmed, resolved, please specify if POA [ ] UTI with Sepsis ruled out [ ] Other condition, please specify: [ ] Unable to determine (Template Last Revised: August 2020) Acute UTI with cystitis. No sepsis. MTDD
[2021-10-17 10:52] LABS: Basophils # (A) 0.04 X 10*3/uL (0.00-0.10); Basophils % (A) 0.5 %; Eosinophils % (A) 3.7 %; HCT 29.3 % (39.6-50.0); HGB 8.7 g/dL (13.0-17.0); Immature Grans, Automated 1.2 %; Lymphocytes # (A) 0.26 X 10*3/uL (0.90-5.00); Lymphocytes % (A) 3.2 %; MCHC 29.7 g/dL (32.0-37.0); MCV 104.3 fL (80.0-97.0); Mean Platelet Volume 9.3 fL (9.5-12.2); Monocytes # (A) 0.74 X 10*3/uL (0.20-1.00); Monocytes % (A) 9.2 %; NRBC Per 100 WBC 0 /100 WBCS (0.0-0.0); Neutrophils # (A) 6.62 X 10*3/uL (1.80-7.70); Neutrophils % (A) 82.2 %; Platelet Count 141 X 10*3/uL (140-440); RBC 2.81 X 10*6/uL (4.40-5.60); RDW 15.9 % (11.5-14.5); WBC 8.06 X 10*3/uL (4.50-10.00)
--- NOTE | 2021-10-17 11:03 | P.PN ---
Subjective Patient is seen in follow-up for acute kidney injury. Renal function had been worsening. Started on hemodialysis 10/16/2021. Tolerated 1 L ultrafiltration yesterday. Morning labs pending. Resting in bed. Vital signs are stable. General: Awake. Quite lethargic. HEENT: Head exam is unremarkable. LUNGS: Breath sounds decreased. HEART: Tachycardic. ABDOMEN: Soft, no distention. EXTREMITITES: 1+ edema. Objective - Vital Signs Vital signs: Vital Signs Temp 98.4 F 10/17/21 08:00 Pulse 114 H 10/17/21 08:21 Resp 18 10/17/21 08:00 BP 105/53 10/17/21 08:00 Pulse Ox 94 L 10/17/21 08:00 Intake & Output 10/16/21 10/17/21 10/17/21 18:59 06:59 18:59 Intake Total 600 Output Total 1150 100 Balance -550 -100 Intake: Intake, IV Titration 600 Amount Dextrose 5%-0.9% NaCl 1, 600 000 ml @ 50 mls/hr IV . Q20H [facility] Rx#:[id number] Output: Urine 150 100 Hemodialysis 1000 Other: Voiding Method Indwelling Catheter - Labs CBC & Chem 7: 10/17/21 05:43 10/16/21 06:05 Labs: Abnormal Lab Results - Last 24 Hours (Table) 10/15/21 10/15/21 10/16/21 Range/Units 13:14 18:26 06:05 RBC 2.80 L (4.30-5.90) m/uL Hgb 9.0 L (13.0-17.5) gm/dL Hct 29.0 L (39.0-53.0) % MCV 103.6 H D (80.0-100.0) fL MCHC (32.0-37.0) g/dL RDW (11.5-14.5) % MPV (9.5-12.2) fL Immature Gran # (0.00-0.04) X 10*3/uL Lymphocytes # 0.3 L (1.0-4.8) k/uL POC Glucose (mg/dL) (75-99) mg/dL Methylmalonic Acid 0.63 H (<0.40) umol/L Free [place] LC, Quant 10.91 H (0.33-1.94) mg/dL Free [place] LC, Quant 9.53 H (0.57-2.63) mg/dL 10/16/21 10/16/21 10/16/21 Range/Units 11:32 16:29 20:16 RBC (4.30-5.90) m/uL Hgb (13.0-17.5) gm/dL Hct (39.0-53.0) % MCV (80.0-100.0) fL MCHC (32.0-37.0) g/dL RDW (11.5-14.5) % MPV (9.5-12.2) fL Immature Gran # (0.00-0.04) X 10*3/uL Lymphocytes # (1.0-4.8) k/uL POC Glucose (mg/dL) 166 H 131 H 122 H (75-99) mg/dL Methylmalonic Acid (<0.40) umol/L Free [place] LC, Quant (0.33-1.94) mg/dL Free [place] LC, Quant (0.57-2.63) mg/dL 10/17/21 10/17/21 Range/Units 05:43 06:58 RBC 2.81 L (4.30-5.90) m/uL Hgb 8.7 L (13.0-17.5) gm/dL Hct 29.3 L (39.0-53.0) % MCV 104.3 H (80.0-100.0) fL MCHC 29.7 L (32.0-37.0) g/dL RDW 15.9 H (11.5-14.5) % MPV 9.3 L (9.5-12.2) fL Immature Gran # 0.10 H (0.00-0.04) X 10*3/uL Lymphocytes # 0.26 L (1.0-4.8) k/uL POC Glucose (mg/dL) 114 H (75-99) mg/dL Methylmalonic Acid (<0.40) umol/L Free [place] LC, Quant (0.33-1.94) mg/dL Free [place]ambda LC, Quant (0.57-2.63) mg/dL Microbiology - Last 24 Hours (Table) 10/12/21 13:45 Blood Culture - Preliminary Blood No Growth after 96 hours 10/12/21 13:25 Blood Culture - Preliminary Blood No Growth after 96 hours Assessment and Plan Plan: Assessment: 1. Acute kidney injury secondary to ATN secondary to hypercalcemia. Renal function has been progressively worsening since May 2021 when his creatinine was 0.8. Renal ultrasound showed absent left kidney with no hydronep hrosis in the right kidney. Oliguric. Started on hemodialysis 10/16/2021. Has a groin catheter. 2. Hypercalcemia. PTH appropriately suppressed. Vitamin D level 68.1,25 D3 level high at 117. Rest of the workup pending. Rule out malignancy. 3. Dysphagia. Failed swallow eval. PEG tube pending. 4. Diabetes mellitus. 5. UTI. Urine culture positive for enterococcus on antibiotics. 6. Anemia. Iron replete. Hematology following. 7. Diabetes mellitus. Plan: Maintain gentle IV hydration. Will stop once tube feeds initiated. Stop Lasix. Status post Zometa 10/14/2021. Also received a dose of calcitonin 10/15/2021. Follow-up pending workup for hypercalcemia. Follow-up bone scan. F/u serologies and quantify proteinuria - JAKOB, double-stranded DNA antibody and complements normal. ANCA and hep negative. Second treatment of hemodialysis today. Will maintain on Friday schedule for now. Follow-up morning labs.
[2021-10-17 11:42] LABS: Glucose,Whole Blood 121 mg/dL (75-99)
[2021-10-17 12:20] LABS: African American GFR (CKD) 13.5 (60.0-200.0); Albumin 2.4 g/dL (3.8-4.9); Albumin/Globulin Ratio 0.92 (1.60-3.17); Anion Gap 16.9 mmol/L (10.00-18.00); BUN/Creat Ratio 10.91 Ratio (12.00-20.00); Blood Urea Nitrogen 50.4 mg/dL (9.0-27.0); Calcium 9.6 mg/dL (8.7-10.3); Globulin 2.6 g/dL (1.6-3.3); Non-African American GFR(CKD) 11.6 (60.0-200.0); Phosphorus 2.5 mg/dL (2.4-5.1); Potassium 3.6 mmol/L (3.5-5.5); Total Bilirubin 0.4 mg/dL (0.30-1.20); Total Protein 4.9 g/dL (6.2-8.2)
--- NOTE | 2021-10-17 12:58 | P.PN ---
Subjective Progress Note Date: 10/17/21 CHIEF COMPLAINT: Weakness HISTORY OF PRESENT ILLNESS: Patient sweats with UTI and sepsis and acute kidney injury. He has dysphagia and failed swallowing eval. Scheduled for PEG tube placement tomorrow. Afebrile. WBC [age]-year-old woman 8.7 creatinine 4.6 potassium 3.6 magnesium 2.0 PHYSICAL EXAM: VITAL SIGNS: Reviewed. GENERAL: Well-developed in no acute distress. HEENT: No sclera icterus. Extraocular movements grossly intact. Moist buccal mucosa. Head is atraumatic, normocephalic. ABDOMEN: Soft. Nondistended. Nontender. NEUROLOGIC: Sleeping comfortably ASSESSMENT: 1. Severe protein calorie malnutrition 2. Dysphagia. Failed swallow eval PLAN: -Patient scheduled for PEG tube placement , 10/18/[address] priest -Keep patient nothing by mouth -Continue supportive care Physician Shipyard Supervisor note has been reviewed by physician. Signing provider agrees with the documented findings, assessment, and plan of care. Objective - Vital Signs Vital signs: Vital Signs Temp 98.4 F 10/17/21 08:00 Pulse 99 10/17/21 11:52 Resp 18 10/17/21 08:00 BP 105/53 10/17/21 08:00 Pulse Ox 94 L 10/17/21 08:00 Intake & Output 10/16/21 10/17/21 10/17/21 18:59 06:59 18:59 Intake Total 600 Output Total 1150 100 Balance -550 -100 Intake: Intake, IV Titration 600 Amount Dextrose 5%-0.9% NaCl 1, 600 000 ml @ 50 mls/hr IV . Q20H [facility] Rx#:[id number] Output: Urine 150 100 Hemodialysis 1000 Other: Voiding Method Indwelling Catheter - Labs CBC & Chem 7: 10/17/21 05:43 10/17/21 05:43 Labs: Abnormal Lab Results - Last 24 Hours (Table) 10/15/21 10/15/21 10/16/21 Range/Units 13:14 18:26 06:05 RBC 2.80 L (4.30-5.90) m/uL Hgb 9.0 L (13.0-17.5) gm/dL Hct 29.0 L (39.0-53.0) % MCV 103.6 H D (80.0-100.0) fL MCHC (32.0-37.0) g/dL RDW (11.5-14.5) % MPV (9.5-12.2) fL Immature Gran # (0.00-0.04) X 10*3/uL Lymphocytes # 0.3 L (1.0-4.8) k/uL Carbon Dioxide (20.0-27.5) mmol/L BUN (9.0-27.0) mg/dL Creatinine (0.6-1.5) mg/dL Est GFR (CKD-EPI)AfAm (60.0-200.0) Est GFR (CKD-EPI)NonAf (60.0-200.0) BUN/Creatinine Ratio (12.00-20.00) Ratio Glucose (70-110) mg/dL POC Glucose (mg/dL) (75-99) mg/dL Total Protein (6.2-8.2) g/dL Albumin (3.8-4.9) g/dL Albumin/Globulin Ratio (1.60-3.17) g/dL Methylmalonic Acid 0.63 H (<0.40) umol/L Free [place] LC, Quant 10.91 H (0.33-1.94) mg/dL Free Lambda LC, Quant 9.53 H (0.57-2.63) mg/dL 10/16/21 10/16/21 10/17/21 Range/Units 16:29 20:16 05:43 RBC (4.30-5.90) m/uL Hgb (13.0-17.5) gm/dL Hct (39.0-53.0) % MCV (80.0-100.0) fL MCHC (32.0-37.0) g/dL RDW (11.5-14.5) % MPV (9.5-12.2) fL Immature Gran # (0.00-0.04) X 10*3/uL Lymphocytes # (1.0-4.8) k/uL Carbon Dioxide 19.0 L (20.0-27.5) mmol/L BUN 50.4 H (9.0-27.0) mg/dL Creatinine 4.6 H (0.6-1.5) mg/dL Est GFR (CKD-EPI)AfAm 13.5 L (60.0-200.0) Est GFR (CKD-EPI)NonAf 11.6 L (60.0-200.0) BUN/Creatinine Ratio 10.91 L (12.00-20.00) Ratio Glucose 120 H (70-110) mg/dL POC Glucose (mg/dL) 131 H 122 H (75-99) mg/dL Total Protein 4.9 L (6.2-8.2) g/dL Albumin 2.4 L (3.8-4.9) g/dL Albumin/Globulin Ratio 0.92 L (1.60-3.17) g/dL Methylmalonic Acid (<0.40) umol/L Free [place] LC, Quant (0.33-1.94) mg/dL Free [place]ambda LC, Quant (0.57-2.63) mg/dL 10/17/21 10/17/21 10/17/21 Range/Units 05:43 06:58 11:40 RBC 2.81 L (4.30-5.90) m/uL Hgb 8.7 L (13.0-17.5) gm/dL Hct 29.3 L (39.0-53.0) % MCV 104.3 H (80.0-100.0) fL MCHC 29.7 L (32.0-37.0) g/dL RDW 15.9 H (11.5-14.5) % MPV 9.3 L (9.5-12.2) fL Immature Gran # 0.10 H (0.00-0.04) X 10*3/uL Lymphocytes # 0.26 L (1.0-4.8) k/uL Carbon Dioxide (20.0-27.5) mmol/L BUN (9.0-27.0) mg/dL Creatinine (0.6-1.5) mg/dL Est GFR (CKD-EPI)AfAm (60.0-200.0) Est GFR (CKD-EPI)NonAf (60.0-200.0) BUN/Creatinine Ratio (12.00-20.00) Ratio Glucose (70-110) mg/dL POC Glucose (mg/dL) 114 H 121 H (75-99) mg/dL Total Protein (6.2-8.2) g/dL Albumin (3.8-4.9) g/dL Albumin/Globulin Ratio (1.60-3.17) g/dL Methylmalonic Acid (<0.40) umol/L Free [place] LC, Quant (0.33-1.94) mg/dL Free Lambda LC, Quant (0.57-2.63) mg/dL Microbiology - Last 24 Hours (Table) 10/12/21 13:45 Blood Culture - Preliminary Blood No Growth after 96 hours 10/12/21 13:25 Blood Culture - Preliminary Blood No Growth after 96 hours
--- NOTE | 2021-10-17 14:17 | NM ---
EXAMINATION TYPE: NM bone scan whole body DATE OF EXAM: 10/17/2021 COMPARISON: CT chest October 15, 2021 HISTORY: Hypercalcemia. Overall weakness. Delayed whole-body scanning was performed following the injection of 23.6 mCi Tc 99m MDP. Images acq uired 3 hours post injection. Imaging includes whole-body projections in the anterior and posterior p rojection along with spot views of the thorax abdomen and pelvis FINDINGS: No suspicious focal increased radiotracer uptake to suggest metastatic disease to the bone. There is nonvisualized excretion from the kidneys and nonvisualized bladder or super scan type appearance with additional linear increased uptake noted in the bilateral tibias IMPRESSION: As above. Findings consistent with a metabolic SuperScan, correlate for renal osteodystro phy.
--- NOTE | 2021-10-17 14:25 | P.PN ---
Subjective Progress Note Date: 10/17/21 Bone scan performed without definite lesions of metastatic disease. Mediastinal adenopathy present in imaging. Have asked Pulmonary for their assistance in bx ?EBUS Objective - Vital Signs Vital signs: Vital Signs Temp 98.4 F 10/17/21 08:00 Pulse 114 H 10/17/21 08:21 Resp 18 10/17/21 08:00 BP 105/53 10/17/21 08:00 Pulse Ox 94 L 10/17/21 08:00 Intake & Output 10/16/21 10/17/21 10/17/21 18:59 06:59 18:59 Intake Total 600 Output Total 1150 100 Balance -550 -100 Intake: Intake, IV Titration 600 Amount Dextrose 5%-0.9% NaCl 1, 600 000 ml @ 50 mls/hr IV . Q20H [facility] Rx#:[id number] Output: Urine 150 100 Hemodialysis 1000 Other: Voiding Method Indwelling Catheter - Exam - Constitutional General appearance: Present: cooperative, no acute distress, obese - EENT Eyes: Present: anicteric sclerae, EOMI ENT: Present: hard of hearing - Respiratory Respiratory: bilateral: CTA, diminished - Cardiovascular Rhythm: regular Heart sounds: normal: S1, S2 Abnormal Heart Sounds: Absent: systolic murmur, diastolic murmur, rub, S3 Gallop, S4 Gallop, click, other - Peripheral edema leg Peripheral Edema: bilateral: 2+, Pitting - Gastrointestinal General gastrointestinal: Present: normal bowel sounds, soft - Integumentary Integumentary: Present: pale - Neurologic Neurologic: Present: CNII-XII intact (grossly) - Musculoskeletal Musculoskeletal: Present: generalized weakness - Psychiatric Psychiatric: Present: appropriate affect - Labs CBC & Chem 7: 10/17/21 05:43 10/17/21 05:43 Labs: Abnormal Lab Results - Last 24 Hours (Table) 10/15/21 10/16/21 10/16/21 Range/Units 13:14 06:05 06:05 RBC 2.80 L (4.30-5.90) m/uL Hgb 9.0 L (13.0-17.5) gm/dL Hct 29.0 L (39.0-53.0) % MCV 103.6 H D (80.0-100.0) fL Lymphocytes # 0.3 L (1.0-4.8) k/uL BUN 68.7 H (9.0-27.0) mg/dL Creatinine 5.8 H (0.6-1.5) mg/dL Est GFR (CKD-EPI)AfAm 10.2 L (60.0-200.0) Est GFR (CKD-EPI)NonAf 8.8 L (60.0-200.0) BUN/Creatinine Ratio 11.84 L (12.00-20.00) Ratio Glucose 144 H (70-110) mg/dL POC Glucose (mg/dL) (75-99) mg/dL Calcium 11.0 H (8.7-10.3) mg/dL Total Protein 4.9 L (6.2-8.2) g/dL Albumin 2.3 L (3.8-4.9) g/dL Albumin/Globulin Ratio 0.88 L (1.60-3.17) g/dL Free [place] LC, Quant 10.91 H (0.33-1.94) mg/dL Free [place] LC, Quant 9.53 H (0.57-2.63) mg/dL 10/16/21 10/16/21/ Range/Units 11:32 16:29 20:16 RBC (4.30-5.90) m/uL Hgb (13.0-17.5) gm/dL Hct (39.0-53.0) % MCV (80.0-100.0) fL Lymphocytes # (1.0-4.8) k/uL BUN (9.0-27.0) mg/dL Creatinine (0.6-1.5) mg/dL Est GFR (CKD-EPI)AfAm (60.0-200.0) Est GFR (CKD-EPI)NonAf (60.0-200.0) BUN/Creatinine Ratio (12.00-20.00) Ratio Glucose (70-110) mg/dL POC Glucose (mg/dL) 166 H 131 H 122 H (75-99) mg/dL Calcium (8.7-10.3) mg/dL Total Protein (6.2-8.2) g/dL Albumin (3.8-4.9) g/dL Albumin/Globulin Ratio (1.60-3.17) g/dL Free [place] LC, Quant (0.33-1.94) mg/dL Free [place] LC, Quant (0.57-2.63) mg/dL 10/17/21 Range/Units 06:58 RBC (4.30-5.90) m/uL Hgb (13.0-17.5) gm/dL Hct (39.0-53.0) % MCV (80.0-100.0) fL Lymphocytes # (1.0-4.8) k/uL BUN (9.0-27.0) mg/dL Creatinine (0.6-1.5) mg/dL Est GFR (CKD-EPI)AfAm (60.0-200.0) Est GFR (CKD-EPI)NonAf (60.0-200.0) BUN/Creatinine Ratio (12.00-20.00) Ratio Glucose (70-110) mg/dL POC Glucose (mg/dL) 114 H (75-99) mg/dL Calcium (8.7-10.3) mg/dL Total Protein (6.2-8.2) g/dL Albumin (3.8-4.9) g/dL Albumin/Globulin Ratio (1.60-3.17) g/dL Free [place] LC, Quant (0.33-1.94) mg/dL Free [place]ambda LC, Quant (0.57-2.63) mg/dL Microbiology - Last 24 Hours (Table) 10/12/21 13:45 Blood Culture - Preliminary Blood No Growth after 96 hours 10/12/21 13:25 Blood Culture - Preliminary Blood No Growth after 96 hours Assessment and Plan (1) Macrocytic anemia Narrative/Plan: Full anemia and monoclonal without significant etiology Current Visit: Yes Status: Acute Code(s): D53.9 - NUTRITIONAL ANEMIA, UNSPECIFIED SNOMED Code(s): 74709933 (2) Acute renal failure Narrative/Plan: Nephrology following Current Visit: Yes Status: Acute Priority: High Code(s): N17.9 - ACUTE KIDNEY FAILURE, UNSPECIFIED SNOMED Code(s): 01739025 (3) Dehydration Current Visit: Yes Status: Acute Code(s): E86.0 - DEHYDRATION SNOMED Code(s): 66533904 (4) Hypercalcemia Narrative/Plan: Receiving bisphos and calcitonin per nephro work-up pending bone scan negative Current Visit: Yes Status: Acute Priority: High Code(s): E83.52 - HYPERCALCEMIA SNOMED Code(s): 26603447 (5) Mediastinal lymphadenopathy Narrative/Plan: Have asked pulmonary to assess for approach and access of mediastinal ln bx. Current Visit: Yes Status: Acute Code(s): R59.0 - LOCALIZED ENLARGED LYMPH NODES SNOMED Code(s): 07845210 Plan: Dr. Tracy: I have completed the full history and physical and developed the above impression and plan, agree with dictation, dictated as a ascribe.
[2021-10-17 16:41] LABS: Glucose,Whole Blood 107 mg/dL (75-99)
--- NOTE | 2021-10-17 17:52 | P.PN ---
Subjective Progress Note Date: 10/16/21 Principal diagnosis: UTI and pressure ulcer to the sacral area Patient is a 76-year-old male presented to hospital with weakness in this patient noticed to have worsening of his kidney function patient also have a positive UA with urine culture finalized with Enterococcus faecalis did have a pressure ulcer to the sacral area but no evidence of any cellulitis, patient did get a dialysis catheter placement because of his worsening kidney function. On today's evaluation that is 10/16/2021, the patient is afebrile the patient is breathing comfortably on his Oxygen, the Patient Is not a Very Good Historian,, no vomiting or diarrhea has been reported Objective - Vital Signs Vital signs: Vital Signs Temp 98.4 F 10/16/21 14:00 Pulse 92 10/16/21 16:00 Resp 16 10/16/21 14:00 BP 109/63 10/16/21 14:00 Pulse Ox 96 10/16/21 14:00 Intake & Output 10/15/21 10/16/21 10/16/21 18:59 06:59 18:59 Output Total 120 125 150 Balance -120 -125 -150 Weight 131.542 kg Output: Urine 120 125 150 Other: Voiding Method Indwelling Catheter Indwelling Catheter - Exam GENERAL DESCRIPTION: An elderly male lying in bed in no distress RESPIRATORY SYSTEM: Unlabored breathing , decreased breath sounds at bases HEART: S1 S2 regular rate and rhythm , ABDOMEN: Soft , no tenderness EXTREMITIES: No edema feet - Labs CBC & Chem 7: 10/17/21 05:43 10/17/21 05:43 Labs: Abnormal Lab Results - Last 24 Hours (Table) 10/13/21 10/15/21 10/15/21 Range/Units 08:50 13:14 13:14 RBC (4.30-5.90) m/uL Hgb (13.0-17.5) gm/dL Hct (39.0-53.0) % MCV (80.0-100.0) fL Lymphocytes # (1.0-4.8) k/uL ESR (0-15) mm/hr BUN (9.0-27.0) mg/dL Creatinine (0.6-1.5) mg/dL Est GFR (CKD-EPI)AfAm (60.0-200.0) Est GFR (CKD-EPI)NonAf (60.0-200.0) BUN/Creatinine Ratio (12.00-20.00) Ratio Glucose (70-110) mg/dL POC Glucose (mg/dL) (75-99) mg/dL Calcium (8.7-10.3) mg/dL Iron 43 L (65-175) ug/dL TIBC 147 L (228-460) ug/dL Transferrin 105.0 L (204.0-354.0) mg/dL Ferritin 572.0 H (22.0-322.0) ng/mL C-Reactive Protein (0.00-0.80) mg/dL Total Protein (6.2-8.2) g/dL Total Protein (PEP) (6.2-8.2) g/dL Albumin (3.8-4.9) g/dL Albumin/Globulin Ratio (1.60-3.17) g/dL Vit D 1,25-Dihydroxy 117 H (20 - 79) pg/mL Urine Protein (Negative) Urine Ketones (Negative) Urine Blood (Negative) Ur Leukocyte Esterase (Negative) Urine RBC (0-5) /hpf Urine WBC (0-5) /hpf Urine WBC Clumps (None) /hpf Urine Bacteria (None) /hpf Hyaline Casts (0-2) /lpf Urine Mucus (None) /hpf Rheumatoid Factor (0-15) IU/mL Free [place] LC, Quant 10.91 H (0.33-1.94) mg/dL Free [place]ambda LC, Quant 9.53 H (0.57-2.63) mg/dL 10/15/21 10/15/21 10/15/21 Range/Units 13:14 18:26 18:26 RBC (4.30-5.90) m/uL Hgb (13.0-17.5) gm/dL Hct (39.0-53.0) % MCV (80.0-100.0) fL Lymphocytes # (1.0-4.8) k/uL ESR 61 H (0-15) mm/hr BUN (9.0-27.0) mg/dL Creatinine (0.6-1.5) mg/dL Est GFR (CKD-EPI)AfAm (60.0-200.0) Est GFR (CKD-EPI)NonAf (60.0-200.0) BUN/Creatinine Ratio (12.00-20.00) Ratio Glucose (70-110) mg/dL POC Glucose (mg/dL) (75-99) mg/dL Calcium (8.7-10.3) mg/dL Iron 42 L (65-175) ug/dL TIBC (228-460) ug/dL Transferrin (204.0-354.0) mg/dL Ferritin (22.0-322.0) ng/mL C-Reactive Protein 13.50 H (0.00-0.80) mg/dL Total Protein (6.2-8.2) g/dL Total Protein (PEP) (6.2-8.2) g/dL Albumin (3.8-4.9) g/dL Albumin/Globulin Ratio (1.60-3.17) g/dL Vit D 1,25-Dihydroxy (20 - 79) pg/mL Urine Protein (Negative) Urine Ketones (Negative) Urine Blood (Negative) Ur Leukocyte Esterase (Negative) Urine RBC (0-5) /hpf Urine WBC (0-5) /hpf Urine WBC Clumps (None) /hpf Urine Bacteria (None) /hpf Hyaline Casts (0-2) /lpf Urine Mucus (None) /hpf Rheumatoid Factor 65 H (0-15) IU/mL Free [place] LC, Quant (0.33-1.94) mg/dL Free Lambda LC, Quant (0.57-2.63) mg/dL 10/15/21 10/16/21 10/16/21 Range/Units 18:26 00:51 00:55 RBC (4.30-5.90) m/uL Hgb (13.0-17.5) gm/dL Hct (39.0-53.0) % MCV (80.0-100.0) fL Lymphocytes # (1.0-4.8) k/uL ESR (0-15) mm/hr BUN (9.0-27.0) mg/dL Creatinine (0.6-1.5) mg/dL Est GFR (CKD-EPI)AfAm (60.0-200.0) Est GFR (CKD-EPI)NonAf (60.0-200.0) BUN/Creatinine Ratio (12.00-20.00) Ratio Glucose (70-110) mg/dL POC Glucose (mg/dL) 126 H (75-99) mg/dL Calcium (8.7-10.3) mg/dL Iron (65-175) ug/dL TIBC (228-460) ug/dL Transferrin (204.0-354.0) mg/dL Ferritin (22.0-322.0) ng/mL C-Reactive Protein (0.00-0.80) mg/dL Total Protein (6.2-8.2) g/dL Total Protein (PEP) 5.0 L (6.2-8.2) g/dL Albumin (3.8-4.9) g/dL Albumin/Globulin Ratio (1.60-3.17) g/dL Vit D 1,25-Dihydroxy (20 - 79) pg/mL Urine Protein 1+ H (Negative) Urine Ketones Trace H (Negative) Urine Blood Moderate H (Negative) Ur Leukocyte Esterase Large H (Negative) Urine RBC 55 H (0-5) /hpf Urine WBC >182 H (0-5) /hpf Urine WBC Clumps Many H (None) /hpf Urine Bacteria Few H (None) /hpf Hyaline Casts 5 H (0-2) /lpf Urine Mucus Rare H (None) /hpf Rheumatoid Factor (0-15) IU/mL Free [place] LC, Quant (0.33-1.94) mg/dL Free Lambda LC, Quant (0.57-2.63) mg/dL 10/16/21 10/16/21 10/16/21 Range/Units 06:05 06:05 06:55 RBC 2.80 L (4.30-5.90) m/uL Hgb 9.0 L (13.0-17.5) gm/dL Hct 29.0 L (39.0-53.0) % MCV 103.6 H D (80.0-100.0) fL Lymphocytes # 0.3 L (1.0-4.8) k/uL ESR (0-15) mm/hr BUN 68.7 H (9.0-27.0) mg/dL Creatinine 5.8 H (0.6-1.5) mg/dL Est GFR (CKD-EPI)AfAm 10.2 L (60.0-200.0) Est GFR (CKD-EPI)NonAf 8.8 L (60.0-200.0) BUN/Creatinine Ratio 11.84 L (12.00-20.00) Ratio Glucose 144 H (70-110) mg/dL POC Glucose (mg/dL) 150 H (75-99) mg/dL Calcium 11.0 H (8.7-10.3) mg/dL Iron (65-175) ug/dL TIBC (228-460) ug/dL Transferrin (204.0-354.0) mg/dL Ferritin (22.0-322.0) ng/mL C-Reactive Protein (0.00-0.80) mg/dL Total Protein 4.9 L (6.2-8.2) g/dL Total Protein (PEP) (6.2-8.2) g/dL Albumin 2.3 L (3.8-4.9) g/dL Albumin/Globulin Ratio 0.88 L (1.60-3.17) g/dL Vit D 1,25-Dihydroxy (20 - 79) pg/mL Urine Protein (Negative) Urine Ketones (Negative) Urine Blood (Negative) Ur Leukocyte Esterase (Negative) Urine RBC (0-5) /hpf Urine WBC (0-5) /hpf Urine WBC Clumps (None) /hpf Urine Bacteria (None) /hpf Hyaline Casts (0-2) /lpf Urine Mucus (None) /hpf Rheumatoid Factor (0-15) IU/mL Free [place] LC, Quant (0.33-1.94) mg/dL Free [place]ambda LC, Quant (0.57-2.63) mg/dL 10/16/21 Range/Units 11:32 RBC (4.30-5.90) m/uL Hgb (13.0-17.5) gm/dL Hct (39.0-53.0) % MCV (80.0-100.0) fL Lymphocytes # (1.0-4.8) k/uL ESR (0-15) mm/hr BUN (9.0-27.0) mg/dL Creatinine (0.6-1.5) mg/dL Est GFR (CKD-EPI)AfAm (60.0-200.0) Est GFR (CKD-EPI)NonAf (60.0-200.0) BUN/Creatinine Ratio (12.00-20.00) Ratio Glucose (70-110) mg/dL POC Glucose (mg/dL) 166 H (75-99) mg/dL Calcium (8.7-10.3) mg/dL Iron (65-175) ug/dL TIBC (228-460) ug/dL Transferrin (204.0-354.0) mg/dL Ferritin (22.0-322.0) ng/mL C-Reactive Protein (0.00-0.80) mg/dL Total Protein (6.2-8.2) g/dL Total Protein (PEP) (6.2-8.2) g/dL Albumin (3.8-4.9) g/dL Albumin/Globulin Ratio (1.60-3.17) g/dL Vit D 1,25-Dihydroxy (20 - 79) pg/mL Urine Protein (Negative) Urine Ketones (Negative) Urine Blood (Negative) Ur Leukocyte Esterase (Negative) Urine RBC (0-5) /hpf Urine WBC (0-5) /hpf Urine WBC Clumps (None) /hpf Urine Bacteria (None) /hpf Hyaline Casts (0-2) /lpf Urine Mucus (None) /hpf Rheumatoid Factor (0-15) IU/mL Free [place] LC, Quant (0.33-1.94) mg/dL Free Lambda LC, Quant (0.57-2.63) mg/dL Microbiology - Last 24 Hours (Table) 10/12/21 13:45 Blood Culture - Preliminary Blood No Growth after 96 hours 10/12/21 13:25 Blood Culture - Preliminary Blood No Growth after 96 hours Assessment and Plan (1) UTI (urinary tract infection) Current Visit: Yes Status: Acute Code(s): N39.0 - URINARY TRACT INFECTION, SITE NOT SPECIFIED SNOMED Code(s): 88136475 Plan: 1patient presented to hospital with weakness mental status changes likely multifactorial in this patient did have a worsening of his kidney function and likely metabolic he also have a positive UA and a possible component of symptomatic urinary tract infection with the urine showing Enterococcus faecalis. 2patient with a stage II sacral pressure ulcer but no slough tissue however did have significant maceration and high risk of contamination from stool. 3 we will apply Triad cream to the sacral wound to protect it from the student maceration and keep the area of the pressure. 4-continue with Unasyn to cover for UTI Time with Patient: Less than 30
--- NOTE | 2021-10-17 17:54 | P.PN ---
Subjective Progress Note Date: 10/17/21 Principal diagnosis: UTI and pressure ulcer to the sacral area Patient is a 76-year-old male presented to hospital with weakness in this patient noticed to have worsening of his kidney function patient also have a positive UA with urine culture finalized with Enterococcus faecalis did have a pressure ulcer to the sacral area but no evidence of any cellulitis, patient did get a dialysis catheter placement because of his worsening kidney function. On today's evaluation that is 10/17/2021, the patient remains to be afebrile the patient is breathing comfortably on nasal cannula oxygen, however the patient seemed to be lethargic and not responding to the family that he did open his eyes to his name no vomiting or diarrhea has been reported Objective - Vital Signs Vital signs: Vital Signs Temp 98.4 F 10/17/21 08:00 Pulse 99 10/17/21 11:52 Resp 18 10/17/21 08:00 BP 105/53 10/17/21 08:00 Pulse Ox 94 L 10/17/21 08:00 Intake & Output 10/16/21 10/17/21 10/17/21 18:59 06:59 18:59 Intake Total 600 Output Total 1150 100 Balance -550 -100 Weight 131.542 kg Intake: Intake, IV Titration 600 Amount Dextrose 5%-0.9% NaCl 1, 600 000 ml @ 50 mls/hr IV . Q20H [facility] Rx#:[id number] Output: Urine 150 100 Hemodialysis 1000 Other: Voiding Method Indwelling Catheter - Exam GENERAL DESCRIPTION: An elderly male lying in bed in no distress RESPIRATORY SYSTEM: Unlabored breathing , decreased breath sounds at bases HEART: S1 S2 regular rate and rhythm , ABDOMEN: Soft , no tenderness EXTREMITIES: No edema feet - Labs CBC & Chem 7: 10/17/21 05:43 10/17/21 05:43 Labs: Abnormal Lab Results - Last 24 Hours (Table) 10/15/21 10/15/21 10/16/21 Range/Units 13:14 18:26 16:29 RBC (4.40-5.60) X 10*6/uL Hgb (13.0-17.0) g/dL Hct (39.6-50.0) % MCV (80.0-97.0) fL MCHC (32.0-37.0) g/dL RDW (11.5-14.5) % MPV (9.5-12.2) fL Immature Gran # (0.00-0.04) X 10*3/uL Lymphocytes # (0.90-5.00) X 10*3/uL Carbon Dioxide (20.0-27.5) mmol/L BUN (9.0-27.0) mg/dL Creatinine (0.6-1.5) mg/dL Est GFR (CKD-EPI)AfAm (60.0-200.0) Est GFR (CKD-EPI)NonAf (60.0-200.0) BUN/Creatinine Ratio (12.00-20.00) Ratio Glucose (70-110) mg/dL POC Glucose (mg/dL) 131 H (75-99) mg/dL Total Protein (6.2-8.2) g/dL Albumin (3.8-4.9) g/dL Albumin/Globulin Ratio (1.60-3.17) g/dL Methylmalonic Acid 0.63 H (<0.40) umol/L Free [place] LC, Quant 10.91 H (0.33-1.94) mg/dL Free Lambda LC, Quant 9.53 H (0.57-2.63) mg/dL 10/16/21 10/17/21 10/17/21 Range/Units 20:16 05:43 05:43 RBC 2.81 L (4.40-5.60) X 10*6/uL Hgb 8.7 L (13.0-17.0) g/dL Hct 29.3 L (39.6-50.0) % MCV 104.3 H (80.0-97.0) fL MCHC 29.7 L (32.0-37.0) g/dL RDW 15.9 H (11.5-14.5) % MPV 9.3 L (9.5-12.2) fL Immature Gran # 0.10 H (0.00-0.04) X 10*3/uL Lymphocytes # 0.26 L (0.90-5.00) X 10*3/uL Carbon Dioxide 19.0 L (20.0-27.5) mmol/L BUN 50.4 H (9.0-27.0) mg/dL Creatinine 4.6 H (0.6-1.5) mg/dL Est GFR (CKD-EPI)AfAm 13.5 L (60.0-200.0) Est GFR (CKD-EPI)NonAf 11.6 L (60.0-200.0) BUN/Creatinine Ratio 10.91 L (12.00-20.00) Ratio Glucose 120 H (70-110) mg/dL POC Glucose (mg/dL) 122 H (75-99) mg/dL Total Protein 4.9 L (6.2-8.2) g/dL Albumin 2.4 L (3.8-4.9) g/dL Albumin/Globulin Ratio 0.92 L (1.60-3.17) g/dL Methylmalonic Acid (<0.40) umol/L Free [place] LC, Quant (0.33-1.94) mg/dL Free Lambda LC, Quant (0.57-2.63) mg/dL 10/17/21 10/17/21 Range/Units 06:58 11:40 RBC (4.40-5.60) X 10*6/uL Hgb (13.0-17.0) g/dL Hct (39.6-50.0) % MCV (80.0-97.0) fL MCHC (32.0-37.0) g/dL RDW (11.5-14.5) % MPV (9.5-12.2) fL Immature Gran # (0.00-0.04) X 10*3/uL Lymphocytes # (0.90-5.00) X 10*3/uL Carbon Dioxide (20.0-27.5) mmol/L BUN (9.0-27.0) mg/dL Creatinine (0.6-1.5) mg/dL Est GFR (CKD-EPI)AfAm (60.0-200.0) Est GFR (CKD-EPI)NonAf (60.0-200.0) BUN/Creatinine Ratio (12.00-20.00) Ratio Glucose (70-110) mg/dL POC Glucose (mg/dL) 114 H 121 H (75-99) mg/dL Total Protein (6.2-8.2) g/dL Albumin (3.8-4.9) g/dL Albumin/Globulin Ratio (1.60-3.17) g/dL Methylmalonic Acid (<0.40) umol/L Free [place] LC, Quant (0.33-1.94) mg/dL Free [place]ambda LC, Quant (0.57-2.63) mg/dL Microbiology - Last 24 Hours (Table) 10/12/21 13:45 Blood Culture - Preliminary Blood No Growth after 96 hours 10/12/21 13:25 Blood Culture - Preliminary Blood No Growth after 96 hours Assessment and Plan (1) UTI (urinary tract infection) Current Visit: Yes Status: Acute Code(s): N39.0 - URINARY TRACT INFECTION, SITE NOT SPECIFIED SNOMED Code(s): 11643486 Plan: 1patient presented to hospital with weakness mental status changes likely multifactorial in this patient did have a worsening of his kidney function and likely metabolic he also have a positive UA and a possible component of symptomatic urinary tract infection with the urine showing Enterococcus faecalis. 2patient with a stage II sacral pressure ulcer but no slough tissue however did have significant maceration and high risk of contamination from stool. 3 we will apply Triad cream to the sacral wound to protect it from the student maceration and keep the area of the pressure. 4-patient CT chest did showed possible right upper lobe infiltrate and the patient has failed his swallow evaluation Gen. surgery has been consulted for PEG tube placement continue with Unasyn should cover for possible aspiration pneumonia and UTI Time with Patient: Less than 30
--- NOTE | 2021-10-17 18:24 | P.PN ---
Progress Note - Text Progress Note Date: 10/17/21 Hospital course This is a pleasant 76-year-old patient who follows with Dr. Axel Mcclure. [facility] scooter stable medical conditions include cirrhosis with esophageal varices , osteoarthritis, diabetes, COPD on home oxygen 3 L. chronically short of breath. He presents accompanied by his with complaint of generalized weakness and. Of confusion on and off while he is mildly confused today as per at bedside however he is able to answer questions appropriately and follows commands His weakness was getting worse over the last few days. Patient also has poor eating habits although he is morbidly obese with BMI of 39.3 but our patient and he has history of dysphagia for the last 3 months with choking without obvious aspiration. Admitted with elevated creatinine. Acute kidney injury. Congested cough. October 15: Patient congested cough. Failed modified barium swallow. Discussed with the patient insisted the bedside. PEG tube will be ordered. Nephrology spoke to the patient and family about possible dialysis. Patient tired. In bed. Accu-Cheks running on the low side. We'll change IV fluids to D5W. October 16: Breathing a bit better. Nothing by mouth. Had right groin hemodialysis catheter placed. By Dr. Boyer yesterday. To commence hemodialysis today. insisted the bedside. CODE STATUS discussed with the patient and family. Made DO NOT RESUSCITATE. PEG tube scheduled for . October 17: Patient was dialyzed yesterday. Scheduled for dialysis today. Tired. at the bedside. Nothing by mouth. IV fluids. Scheduled for PEG tube tomorrow. Active Medications Albuterol/Ipratropium (Ipratropium-Albuterol 3 Ml Neb) 3 ml INHALATION RT-QID [facility] Last Admin: 10/17/21 16:32 Dose: Not Given Documented by: Budesonide (Budesonide 0.5 Mg/2 Ml Nebu) 0.5 mg INHALATION RT-BID [facility] Last Admin: 10/17/21 08:11 Dose: 0.5 mg Documented by: Diphenhydramine HCl (Diphenhydramine 50 Mg/Ml 1 Ml Vial) 25 mg IVP Q6HR PRN PRN Reason: Allergy Symptoms Last Admin: 10/16/21 15:44 Dose: 25 mg Documented by: Famotidine (Famotidine 20 Mg/2 Ml Vial) 20 mg IV HS [facility] Last Admin: 10/16/21 21:54 Dose: 20 mg Documented by: Heparin Sodium (Porcine) (Heparin Sodium,Porcine/Pf 5,000 Unit/0.5 Ml Syringe) 5,000 unit SQ Q12HR [facility] Last Admin: 10/17/21 08:32 Dose: 5,000 unit Documented by: Ampicillin Sodium/Sulbactam (Sodium 3 gm/ Sodium Chloride) 100 mls @ 200 mls/hr IVPB Q12HR [facility]; Protocol Last Admin: 10/17/21 08:32 Dose: 200 mls/hr Documented by: Sodium Chloride (Saline 0.9%) 1,000 mls @ 50 mls/hr IV .Q20H [facility] Naloxone HCl (Naloxone 0.4 Mg/Ml 1 Ml Vial) 0.2 mg IV Q2M PRN PRN Reason: Opioid Reversal Past medical history to include: COPD, diabetes, GERD, cirrhosis with esophageal varices, home oxygen 3 L Social history: . Used to drink 7-8 drinks on the weekends not certain a few years. Did smoke in the past, stopped smoking in 1985. Family history: Lung cancer Physical examination: VITAL SIGNS: 97.9, 98, 16, 107/49, 95% on 3 L GENERAL: Laying in bed, awake tired EYES: Pupils equal. Conjunctiva normal. HEENT: External appearance of nose and ears normal, oral cavity grossly normal. NECK: JVD not raised; masses not palpable. HEART: First and second heart sounds are normal; no edema. LUNGS: Respiratory rate normal; decreased breath sounds. ABDOMEN: Soft, nontender, liver spleen not palpable, no masses palpable. Right groin hemodialysis catheter PSYCH: Able to answer simple questions MUSCULOSKELETAL:No Clubbing/cyanosis;muscles-grossly intact INVESTIGATIONS, reviewed in the clinical context: A : 18 hemoglobin 8.7 platelets 141 potassium 3.6 creatinine 4.6 October 16: White count 8.7 hemoglobin 9 platelets 1794.2 creatinine 5.8 BUN 68.7 Sodium 138 potassium 4.2 BUN 69 creatinine 5.47 magnesium 11.6 Previous labs: Creatinine 1.28 on 06/23/2021, 0.8 on 05/28/2021 Assessment and plan: -Acute kidney injury secondary to ATN. Also prerenal component from poor oral intake.: Not improving Right groin dialysis catheter placed on October 15, by Dr. Boyer. 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 DuoNeb 4 times a day -Diabetes mellitus type 2, on oral hypoglycemic, uncontrolled with hypoglycemia. D5W. -GERD Protonix 40 mg -Severe dysphagia. With higher risk of aspiration. Failed modified barium swallow. Nothing by mouth. PEG tube scheduled - -Primary osteoarthritis Pain medications as needed -Hyperlipidemia zetia 10 mg daily -DO NOT RESUSCITATE Nothing by mouth. Repeat hemodialysis today. IV fluids. Scheduled for PEG tube tomorrow.
[2021-10-17] MEDS ORDERED: LIDOCAINE 1% (10MG/ML) FOR IV START INTRADERMA PRN (18:55)
[2021-10-17] MEDS: diphenhydrAMINE 50 MG/ML 1 ML VIAL IVP PRN (19:36)
[2021-10-17] MEDS: LACTATED RINGERS 1,000 ML IV SCH (20:34)
[2021-10-17] MEDS: FAMOTIDINE 20 MG/2 ML VIAL IV SCH (20:35)
[2021-10-17 20:59] LABS: Glucose,Whole Blood 99 mg/dL (75-99)
[2021-10-18] MEDS: SODIUM CHLORIDE 0.9% 1,000 ML IV SCH ×2 (05:11→08:22)
[2021-10-18 06:47] LABS: Glucose,Whole Blood 106 mg/dL (75-99)
[2021-10-18 07:50] LABS: HCT 31.2 % (39.0-53.0); HGB 9.5 gm/dL (13.0-17.5); Hypochromasia Marked; MCH 31.7 pg (25.0-35.0); MCHC 30.6 g/dL (31.0-37.0); MCV 103.7 fL (80.0-100.0); Macrocytosis Moderate; Mean Platelet Volume 7.7; Platelet Count 138 k/uL (150-450); Poikilocytosis Slight; RBC 3.01 m/uL (4.30-5.90); RDW 15.2 % (11.5-15.5); WBC 7.1 k/uL (3.8-10.6)
[2021-10-18] MEDS: BUDESONIDE 0.5 MG/2 ML NEBU INHALATION SCH ×2 (07:59→21:21)
[2021-10-18] MEDS: IPRATROPIUM-ALBUTEROL 3 ML NEB INHALATION SCH ×4 (07:59→21:21)
[2021-10-18 08:02] LABS: ALT 13 U/L (4-49); AST 33 U/L (17-59); African American GFR (CKD) 17 (>60 ml/min/1.73 sqM); Albumin 2.3 g/dL (3.5-5.0); Albumin/Globulin Ratio 0.7; Alkaline Phosphatase 75 U/L (38-126); Anion Gap 9 mmol/L; Blood Urea Nitrogen 35 mg/dL (9-20); Carbon Dioxide 22 mmol/L (22-30); Chloride 114 mmol/L (98-107); Globulin 3.1 g/dL; Glucose 93 mg/dL (74-99); Magnesium 1.9 mg/dL (1.6-2.3); Non-African American GFR(CKD) 15 (>60 ml/min/1.73 sqM); Potassium 3.5 mmol/L (3.5-5.1); Sodium 145 mmol/L (137-145); Total Protein 5.4 g/dL (6.3-8.2)
[2021-10-18] MEDS: HEPARIN SODIUM,PORCINE/PF 5,000 UNIT/0.5 ML SYRINGE SQ SCH ×2 (08:19→20:38)
[2021-10-18] MEDS: LACTATED RINGERS 1,000 ML IV SCH (08:23)
[2021-10-18] MEDS: AMPICILLIN-SULBACTAM 3 GM in SODIUM CHLORIDE 0.9% 100 ML IVPB SCH ×2 (08:23→20:38)
[2021-10-18] MEDS ORDERED: POTASSIUM CHLORIDE 20 MEQ in WATER FOR INJECTION 1 100ML.BAG IVPB STA (10:21)
--- NOTE | 2021-10-18 10:21 | P.PN ---
Subjective Patient is seen in follow-up for acute kidney injury. Renal function had been worsening. Started on hemodialysis 10/16/2021. Tolerated 1 L ultrafiltration yesterday. Calcium level normal. Resting in bed. Scheduled for PEG tube placement today. Vital signs are stable. General: Awake. Quite lethargic. HEENT: Head exam is unremarkable. LUNGS: Rate and rhythm regular. HEART: Tachycardic. ABDOMEN: Soft, no distention. EXTREMITITES: 1+ edema. Objective - Vital Signs Vital signs: Vital Signs Temp 98.3 F 10/18/21 07:41 Pulse 100 10/18/21 08:15 Resp 18 10/18/21 07:41 BP 97/54 10/18/21 07:41 Pulse Ox 97 10/18/21 07:41 Intake & Output 10/17/21 10/18/21 10/18/21 18:59 06:59 18:59 Intake Total 300 100 Output Total 1150 Balance -850 100 Weight 131.542 kg Intake: Intake, IV Titration 100 Amount Ampicillin-Sulbactam 3 gm 100 In Sodium Chloride 0.9% 100 ml @ 200 mls/hr IVPB Q12HR [facility] Rx#:[id number] Oral 0 Hemodialysis 300 Output: Urine 150 Hemodialysis 1000 Other: Voiding Method Indwelling Catheter Indwelling Catheter - Labs CBC & Chem 7: 10/18/21 07:22 10/18/21 07:22 Labs: Abnormal Lab Results - Last 24 Hours (Table) 10/17/21 10/17/21 10/17/21 Range/Units 05:43 05:43 11:40 RBC 2.81 L (4.40-5.60) X 10*6/uL Hgb 8.7 L (13.0-17.0) g/dL Hct 29.3 L (39.6-50.0) % MCV 104.3 H (80.0-97.0) fL MCHC 29.7 L (32.0-37.0) g/dL RDW 15.9 H (11.5-14.5) % Plt Count (150-450) k/uL MPV 9.3 L (9.5-12.2) fL Immature Gran # 0.10 H (0.00-0.04) X 10*3/uL Lymphocytes # 0.26 L (0.90-5.00) X 10*3/uL Chloride (98-107) mmol/L Carbon Dioxide 19.0 L (20.0-27.5) mmol/L BUN 50.4 H (9.0-27.0) mg/dL Creatinine 4.6 H (0.6-1.5) mg/dL Est GFR (CKD-EPI)AfAm 13.5 L (60.0-200.0) Est GFR (CKD-EPI)NonAf 11.6 L (60.0-200.0) BUN/Creatinine Ratio 10.91 L (12.00-20.00) Ratio Glucose 120 H (70-110) mg/dL POC Glucose (mg/dL) 121 H (75-99) mg/dL Total Protein 4.9 L (6.2-8.2) g/dL Albumin 2.4 L (3.8-4.9) g/dL Albumin/Globulin Ratio 0.92 L (1.60-3.17) g/dL 10/17/21 10/18/21 10/18/21 Range/Units 16:40 06:45 07:22 RBC 3.01 L (4.40-5.60) X 10*6/uL Hgb 9.5 L (13.0-17.0) g/dL Hct 31.2 L (39.6-50.0) % MCV 103.7 H (80.0-97.0) fL MCHC 30.6 L (32.0-37.0) g/dL RDW (11.5-14.5) % Plt Count 138 L (150-450) k/uL MPV (9.5-12.2) fL Immature Gran # (0.00-0.04) X 10*3/uL Lymphocytes # (0.90-5.00) X 10*3/uL Chloride (98-107) mmol/L Carbon Dioxide (20.0-27.5) mmol/L BUN (9.0-27.0) mg/dL Creatinine (0.6-1.5) mg/dL Est GFR (CKD-EPI)AfAm (60.0-200.0) Est GFR (CKD-EPI)NonAf (60.0-200.0) BUN/Creatinine Ratio (12.00-20.00) Ratio Glucose (70-110) mg/dL POC Glucose (mg/dL) 107 H 106 H (75-99) mg/dL Total Protein (6.2-8.2) g/dL Albumin (3.8-4.9) g/dL Albumin/Globulin Ratio (1.60-3.17) g/dL 10/18/21 Range/Units 07:22 RBC (4.40-5.60) X 10*6/uL Hgb (13.0-17.0) g/dL Hct (39.6-50.0) % MCV (80.0-97.0) fL MCHC (32.0-37.0) g/dL RDW (11.5-14.5) % Plt Count (150-450) k/uL MPV (9.5-12.2) fL Immature Gran # (0.00-0.04) X 10*3/uL Lymphocytes # (0.90-5.00) X 10*3/uL Chloride 114 H (98-107) mmol/L Carbon Dioxide (20.0-27.5) mmol/L BUN 35 H (9.0-27.0) mg/dL Creatinine 3.78 H (0.6-1.5) mg/dL Est GFR (CKD-EPI)AfAm (60.0-200.0) Est GFR (CKD-EPI)NonAf (60.0-200.0) BUN/Creatinine Ratio (12.00-20.00) Ratio Glucose (70-110) mg/dL POC Glucose (mg/dL) (75-99) mg/dL Total Protein 5.4 L (6.2-8.2) g/dL Albumin 2.3 L (3.8-4.9) g/dL Albumin/Globulin Ratio (1.60-3.17) g/dL Microbiology - Last 24 Hours (Table) 10/12/21 13:45 Blood Culture - Preliminary Blood No Growth after 120 hours 10/12/21 13:25 Blood Culture - Preliminary Blood No Growth after 120 hours Assessment and Plan Plan: Assessment: 1. Acute kidney injury secondary to ATN secondary to hypercalcemia. Renal function has been progressively worsening since May 2021 when his creatinine was 0.8. Renal ultrasound showed absent left kidney with no hydronephrosis in the right kidney. Oliguric. Started on hemodialysis 10/16/2021. Has a groin catheter. 2. Hypercalcemia. PTH appropriately suppressed. Vitamin D level 68. 1,25 D3 level high at 117 - ?sarcoidosis. Rest of the workup pending. Bone scan showed no evidence of metastatic disease. 3. Dysphagia. Failed swallow eval. PEG tube pending. 4. Diabetes mellitus. 5. UTI. Urine culture positive for enterococcus on antibiotics. 6. Anemia. Iron replete. Hematology following. 7. Diabetes mellitus. 8. Edema. Third spacing due to hypoalbuminemia. Plan: Maintain gentle IV hydration. Will stop once tube feeds initiated. Status post Zometa 10/14/2021. Also received a dose of calcitonin 10/15/2021. Follow-up pending workup for hypercalcemia. ?mediastinal biopsy per pulmonology. F/u serologies and quantify proteinuria - JAKOB, double-stranded DNA antibody and complements normal. ANCA and hep negative. Third treatment of hemodialysis tomorrow. Will maintain on Friday schedule for now.
--- NOTE | 2021-10-18 10:45 | P.CNPUL ---
History of Present Illness Consult date: 10/18/21 Reason for consult: abnormal CXR/CT History of present illness: 76-year-old male patient who has been hospitalized several days back with generalized weakness, altered mentation and difficulties with oral intake and dysphagia. Endocrine this current admission, the patient was also found to be in acute kidney injury and hypercalcemia. Note that the patient's creatinine from 05/28/2021 was essentially within normal limits. The patient subsequently developed worsening renal function. The patient was admitted on 08/24/2021 and discharged on 08/27/2021 after being treated for acute kidney injury and hyperkalemia and previous workup included an ultrasound of the kidneys that showed absent kidney on the left, right kidney was 12.8 cm in size with a nonobstructive calculus on the previous CAT scan of the chest on 05/30/2021. During the course of this illness, the patient was treated for his hypercalcemia and obviously there was a concern for malignancy as the patient was noted to have mediastinal lymphadenopathy suspicious for an underlying malignancy. The patient is known to have liver cirrhosis due to previous history of alcohol abuse, COPD and the patient option dependent, has diabetes mellitus. In terms of the pulmonary findings, the patient has had previous thoracentesis of the right lung back in May 2021 with a total of 2 L of fluid was removed and the fluid was negative. Based on high protein and LDH content. The fluid cytology came back negative for malignancy. 3 especially right lung following the thoracentesis was incomplete. CAT scan of the chest that was done at that time showed atelectatic changes in the right lung base in addition to mediastinal lymphadenopathy/subcarinal lymphadenopathy. The CAT scan of the chest showed emphysema, scattered areas of bilateral ground glass pulmonary infiltrates and a 2.2 x 3.3 cm right atrial soft tissue mass versus thrombus this was not confirmed on a subsequent echo of the heart was also noted on the CAT scan. The pulmonary arteries were dilated. Liver was nodular consistent with liver cirrhosis. Subsequently, the patient was evaluated in July 2021 and another thoracentesis was done with a total of 1.9 L of fluid was removed and yet again the fluid cytology came back negative for malignancy. During this current admission, the patient was given gentle hydration, he did not respond to Lasix, he was given a temporary dialysis catheter and dialysis was initiated. This was considered to be an acute kidney injury in association with hyper kalemia. Renal function as mentioned was progressively getting worse and the patient was oliguric and the patient was started on hemodialysis on 10/16/2021 through a right femoral temporary hemodialysis catheter. As far as his hypercalcemia, intact PTH was suppressed, vitamin D level was 68 with a D3 level of 117 and the rest of the an active diseases workup was negative, and this included JAKOB, double-stranded DNA antibodies, complement and ANCA levels.. The patient was given Zometa and calcitonin.. The patient also failed a swallow evaluation. A PEG tube will be inserted on 10/18/2021. Meanwhile, with ongoing hemodialysis, the patient's creatinine from yesterday was at 4.6 with a pota ssium level of 3.6 and the most recent calcium level dropped down to 9.6. On a separate note, the patient was found to have also a enterococcal UTI, treated with IV Unasyn. From a pulmonary standpoint, the patient is currently on 3 L of O2 nasal cannula with a pulse ox of 95%. His breathing is nonlabored. A repeat computed tomography scan of the head and neck that was done on 10/15/2021 showed that the neck CAT scan was essentially within normal limits, the chest CAT scan showed bilateral pleural effusion right more than left, groundglass densities in the left upper lobe and bilateral compressive bibasilar atelectasis. As for the mediastinum, the patient had a subcarinal increased density reflecting a adenopathy measuring 2.2 cm in size. There was a right epicardial soft tissue nodule measuring 2.3 cm in size . Further review of the blood work showed that the patient's free Light chain and free lambda light chains were both elevated. Review of Systems Constitutional: Reports fatigue, Reports weakness, Reports weight loss Eyes: denies as per HPI, denies blurred vision, denies bulging eye, denies decreased vision, denies diplopia, denies discharge, denies dry eye, denies irritation, denies itching, denies pain, denies photophobia, denies loss of peripheral vision, denies loss of vision, denies tunnel vision/blind spots Ears: deny: decreased hearing, ear discharge, earache, tinnitus Ears, nose, mouth and throat: Reports as per HPI Breasts: absent: as per HPI, gynecomastia Cardiovascular: Reports decreased exercise tolerance, Reports dyspnea on exertion Respiratory: Reports cough, Reports dyspnea Gastrointestinal: Reports as per HPI, Reports loss of appetite, the patient had dysphagia Genitourinary: Reports as per HPI Musculoskeletal: Reports as per HPI Musculoskeletal: absent: ankle pain, ankle stiffness, ankle swelling Integumentary: Reports as per HPI Neurological: Reports as per HPI, generalized global weakness no occasional altered mentation Psychiatric: Reports as per HPI Endocrine: Reports as per HPI Hematologic/Lymphatic: Reports as per HPI Allergic/Immunologic: Reports as per HPI Past Medical History Past Medical History: Asthma, COPD, Diabetes Mellitus, GERD/Reflux, Liver Disease, Osteoarthritis (OA), Pneumonia, Respiratory Disorder Additional Past Medical History / Comment(s): Chronic asthma, chronic hypoxic respiratory failure, home oxygen at 3L/NC ATC, IDDM type II, neuriopathy bilateral feet, ischemic heart disease, liver cirrhosis/past ETOH abuse, portal hypertension, esophageal varicies, pneumonia, pneumonia with parapneumonic effusions/thoracentesis, umbilical hernias. History of Any Multi-Drug Resistant Organisms: None Reported Past Surgical History: Back Surgery, Cholecystectomy, Hernia Repair, Joint Replacement, Orthopedic Surgery, Tonsillectomy Additional Past Surgical History / Comment(s): Lumbar back surgery, R rotator cuff repair, R foot fracture with hardware since removed, R ankle has hardware, r total hip arthroplasty, varicose vein stripping/pt cannot recall laterality, bilateral inguinal hernia repairs, EGD, colonoscopy, bilateral cataract removal/lens implants Past Anesthesia/Blood Transfusion Reactions: No Reported Reaction Additional Past Anesthesia/Blood Transfusion Reaction / Comment(s): Hard to awaken. wears O2. Past Psychological History: No Psychological Hx Reported Additional Psychological History / Comment(s): Pt resides with his spouse. He is in a wheelchair. He has home oxygen and a glucometer. His spouse is his caregiver. Smoking Status: Former smoker Past Alcohol Use History: None Reported Additional Past Alcohol Use History / Comment(s): Pt started smoking in 1959 and quit in 1985. He quit drinking alcohol many years ago. Past Drug Use History: None Reported - Past Family History Father Family Medical History: Cancer Additional Family Medical History / Comment(s): Lung Cancer Mother Family Medical History: COPD Sister(s) Family Medical History: Cancer Additional Family Medical History / Comment(s): Lung Cancer Medications and Allergies Home Medications Medication Instructions Recorded Confirmed Type Ezetimibe [Zetia] 10 mg PO PC-SUPPER 06/10/18 10/12/21 History Propranolol [Inderal] 10 mg PO TID 06/10/18 10/12/21 History Insulin Glargine,Hum.rec.anlog 10 unit SQ HS 04/05/19 10/12/21 History [Lantus Solostar Pen] Budesonide [Pulmicort] 0.5 mg INHALATION RT-BID 10/16/19 10/12/21 History Ipratropium-Albuterol Nebulize 3 ml INHALATION RT-QID 10/16/19 10/12/21 History [Duoneb 0.5 mg-3 mg/3 ml Soln] Loratadine [Claritin] 10 mg PO DAILY PRN 10/16/19 10/12/21 History Omeprazole 40 mg PO DAILY 08/24/21 10/12/21 History traMADol HCL 50 mg PO DAILY PRN 08/24/21 10/12/21 History Ammonium Lactate Cream [Lac-Hydrin 1 applic TOPICAL DAILY PRN 10/12/21 10/12/21 History 12% Cream] Furosemide [Lasix] 40 mg PO BID 10/12/21 10/12/21 History Magnesium Oxide [Magox 400] 400 mg PO DAILY 10/12/21 10/12/21 History Allergies Allergy/AdvReac Type Severity Reaction Status Date / Time naproxen Allergy Rash/Hives Verified 08/24/21 13:26 Physical Exam Vitals: Vital Signs Temp Pulse Pulse Resp BP Pulse Ox 10/17/21 20:42 98.4 F 103 H 18 99/55 95 10/17/21 17:15 98.4 F 109 H 16 100/49 10/17/21 14:00 97.9 F 98 16 107/49 95 10/17/21 11:52 99 10/17/21 11:41 100 10/17/21 08:21 114 H 10/17/21 08:12 110 H 10/17/21 08:00 98.4 F 116 H 18 105/53 94 L 10/17/21 02:00 98.3 F 107 H 18 112/62 97 Intake and Output 10/17/21 10/17/21 10/17/21 06:59 14:59 22:59 Intake Total 300 Output Total 100 1150 Balance -100 -850 Intake: Oral 0 Hemodialysis 300 Output: Urine 100 150 Hemodialysis 1000 Other: Voiding Method Indwelling Catheter Weight 131.542 kg GENERAL EXAM: Alert, pleasant, morbidly obese 76-year-old gentleman, on 3 liters nasal cannula, fairly comfortable in no apparent distress. The patient is pale consistent with his underlying chronic anemia HEAD: Normocephalic. EYES: Normal reaction of pupils, equal size. NOSE: Clear with pink turbinates. THROAT: No erythema or exudates. NECK: No masses, no JVD. CHEST: No chest wall deformity. LUNGS: Equal air entry with crackles in the right lung base, diminished. The breath sounds are diminished in the lung bases bilaterally ABDOMEN: No hepatosplenomegaly, normal bowel sounds, no guarding or rigidity. The patient has hemodialysis catheter in the right femoral vein SPINE: No scoliosis or deformity SKIN: No rashes CENTRAL NERVOUS SYSTEM: No focal deficits, tone is normal in all 4 extremities. EXTREMITIES: There is no peripheral edema. No clubbing, no cyanosis. Peripheral pulses are intact. Results - Laboratory Findings CBC and BMP: 10/18/21 07:22 10/18/21 07:22 PT/INR, D-dimer PT 12.3 sec (9.0-12.0) H 10/12/21 11:33 INR 1.2 (<1.2) H 10/12/21 11:33 Abnormal lab findings: Abnormal Labs 10/12/21 10/12/21 10/12/21 11:33 11:33 11:33 RBC 2.93 L Hgb 9.3 L D Hct 28.7 L MCV MCHC RDW MPV Immature Gran # Lymphocytes # 0.3 L ESR PT 12.3 H INR 1.2 H APTT 18.8 L Sodium 134 L Chloride 95 L Carbon Dioxide 31 H BUN 65 H Creatinine 3.96 H Est GFR (CKD-EPI)AfAm Est GFR (CKD-EPI)NonAf BUN/Creatinine Ratio Glucose POC Glucose (mg/dL) Calcium 12.0 H Iron TIBC Transferrin Ferritin C-Reactive Protein Total Protein 5.6 L Total Protein (PEP) Albumin 2.5 L Albumin/Globulin Ratio Methylmalonic Acid Vit D 1,25-Dihydroxy PTH Intact Urine Protein Urine Ketones Urine Blood Ur Leukocyte Esterase Urine RBC Urine WBC Urine WBC Clumps Urine Bacteria Hyaline Casts Urine Mucus Rheumatoid Factor Free [place] LC, Quant Free Lambda LC, Quant 10/12/21 10/13/21 10/13/21 11:50 08:50 08:50 RBC Hgb Hct MCV MCHC RDW MPV Immature Gran # Lymphocytes # ESR PT INR APTT Sodium Chloride Carbon Dioxide BUN Creatinine Est GFR (CKD-EPI)AfAm Est GFR (CKD-EPI)NonAf BUN/Creatinine Ratio Glucose POC Glucose (mg/dL) Calcium Iron TIBC Transferrin Ferritin C-Reactive Protein Total Protein Total Protein (PEP) Albumin Albumin/Globulin Ratio Methylmalonic Acid Vit D 1,25-Dihydroxy 117 H PTH Intact 12.5 L Urine Protein 2+ H Urine Ketones Urine Blood Trace H Ur Leukocyte Esterase Large H Urine RBC >182 H Urine WBC >182 H Urine WBC Clumps Many H Urine Bacteria Hyaline Casts Urine Mucus Rheumatoid Factor Free [place] LC, Quant Free Lambda LC, Quant 10/13/21 10/14/21 10/14/21 11:58 06:45 06:45 RBC 2.55 L Hgb 7.7 L Hct 25.6 L MCV 100.4 H MCHC 30.1 L RDW 15.4 H MPV 9.4 L Immature Gran # Lymphocytes # 0.29 L ESR PT INR APTT Sodium Chloride Carbon Dioxide BUN 64.0 H Creatinine 4.7 H Est GFR (CKD-EPI)AfAm 13.2 L Est GFR (CKD-EPI)NonAf 11.4 L BUN/Creatinine Ratio Glucose POC Glucose (mg/dL) 103 H Calcium 11.9 H Iron TIBC Transferrin Ferritin C-Reactive Protein Total Protein Total Protein (PEP) Albumin Albumin/Globulin Ratio Methylmalonic Acid Vit D 1,25-Dihydroxy PTH Intact Urine Protein Urine Ketones Urine Blood Ur Leukocyte Esterase Urine RBC Urine WBC Urine WBC Clumps Urine Bacteria Hyaline Casts Urine Mucus Rheumatoid Factor Free [place] LC, Quant Free Lambda LC, Quant 10/14/21 10/14/21 10/15/21 20:36 20:52 13:14 RBC Hgb Hct MCV MCHC RDW MPV Immature Gran # Lymphocytes # ESR PT INR APTT Sodium Chloride Carbon Dioxide BUN 69 H Creatinine 5.47 H Est GFR (CKD-EPI)AfAm Est GFR (CKD-EPI)NonAf BUN/Creatinine Ratio Glucose POC Glucose (mg/dL) 67 L 106 H Calcium 11.6 H Iron 43 L TIBC 147 L Transferrin 105.0 L Ferritin 572.0 H C-Reactive Protein Total Protein 5.2 L Total Protein (PEP) Albumin 2.3 L Albumin/Globulin Ratio Methylmalonic Acid Vit D 1,25-Dihydroxy PTH Intact Urine Protein Urine Ketones Urine Blood Ur Leukocyte Esterase Urine RBC Urine WBC Urine WBC Clumps Urine Bacteria Hyaline Casts Urine Mucus Rheumatoid Factor Free [place] LC, Quant Free Lambda LC, Quant 10/15/21 10/15/21 10/15/21 13:14 13:14 18:26 RBC Hgb Hct MCV MCHC RDW MPV Immature Gran # Lymphocytes # ESR PT INR APTT Sodium Chloride Carbon Dioxide BUN Creatinine Est GFR (CKD-EPI)AfAm Est GFR (CKD-EPI)NonAf BUN/Creatinine Ratio Glucose POC Glucose (mg/dL) Calcium Iron 42 L TIBC Transferrin Ferritin C-Reactive Protein 13.50 H Total Protein Total Protein (PEP) Albumin Albumin/Globulin Ratio Methylmalonic Acid Vit D 1,25-Dihydroxy PTH Intact Urine Protein Urine Ketones Urine Blood Ur Leukocyte Esterase Urine RBC Urine WBC Urine WBC Clumps Urine Bacteria Hyaline Casts Urine Mucus Rheumatoid Factor 65 H Free [place] LC, Quant 10.91 H Free Lambda LC, Quant 9.53 H 10/15/21 10/15/21 10/15/21 18:26 18:26 18:26 RBC Hgb Hct MCV MCHC RDW MPV Immature Gran # Lymphocytes # ESR 61 H PT INR APTT Sodium Chloride Carbon Dioxide BUN Creatinine Est GFR (CKD-EPI)AfAm Est GFR (CKD-EPI)NonAf BUN/Creatinine Ratio Glucose POC Glucose (mg/dL) Calcium Iron TIBC Transferrin Ferritin C-Reactive Protein Total Protein Total Protein (PEP) 5.0 L Albumin Albumin/Globulin Ratio Methylmalonic Acid 0.63 H Vit D 1,25-Dihydroxy PTH Intact Urine Protein Urine Ketones Urine Blood Ur Leukocyte Esterase Urine RBC Urine WBC Urine WBC Clumps Urine Bacteria Hyaline Casts Urine Mucus Rheumatoid Factor Free [place] LC, Quant Free Lambda LC, Quant 10/16/21 10/16/21 10/16/21 00:51 00:55 06:05 RBC Hgb Hct MCV MCHC RDW MPV Immature Gran # Lymphocytes # ESR PT INR APTT Sodium Chloride Carbon Dioxide BUN 68.7 H Creatinine 5.8 H Est GFR (CKD-EPI)AfAm 10.2 L Est GFR (CKD-EPI)NonAf 8.8 L BUN/Creatinine Ratio 11.84 L Glucose 144 H POC Glucose (mg/dL) 126 H Calcium 11.0 H Iron TIBC Transferrin Ferritin C-Reactive Protein Total Protein 4.9 L Total Protein (PEP) Albumin 2.3 L Albumin/Globulin Ratio 0.88 L Methylmalonic Acid Vit D 1,25-Dihydroxy PTH Intact Urine Protein 1+ H Urine Ketones Trace H Urine Blood Moderate H Ur Leukocyte Esterase Large H Urine RBC 55 H Urine WBC >182 H Urine WBC Clumps Many H Urine Bacteria Few H Hyaline Casts 5 H Urine Mucus Rare H Rheumatoid Factor Free [place] LC, Quant Free Lambda LC, Quant 10/16/21 10/16/21 10/16/21 06:05 06:55 11:32 RBC 2.80 L Hgb 9.0 L Hct 29.0 L MCV 103.6 H D MCHC RDW MPV Immature Gran # Lymphocytes # 0.3 L ESR PT INR APTT Sodium Chloride Carbon Dioxide BUN Creatinine Est GFR (CKD-EPI)AfAm Est GFR (CKD-EPI)NonAf BUN/Creatinine Ratio Glucose POC Glucose (mg/dL) 150 H 166 H Calcium Iron TIBC Transferrin Ferritin C-Reactive Protein Total Protein Total Protein (PEP) Albumin Albumin/Globulin Ratio Methylmalonic Acid Vit D 1,25-Dihydroxy PTH Intact Urine Protein Urine Ketones Urine Blood Ur Leukocyte Esterase Urine RBC Urine WBC Urine WBC Clumps Urine Bacteria Hyaline Casts Urine Mucus Rheumatoid Factor Free [place] LC, Quant Free Lambda LC, Quant 10/16/21 10/16/21 10/17/21 16:29 20:16 05:43 RBC Hgb Hct MCV MCHC RDW MPV Immature Gran # Lymphocytes # ESR PT INR APTT Sodium Chloride Carbon Dioxide 19.0 L BUN 50.4 H Creatinine 4.6 H Est GFR (CKD-EPI)AfAm 13.5 L Est GFR (CKD-EPI)NonAf 11.6 L BUN/Creatinine Ratio 10.91 L Glucose 120 H POC Glucose (mg/dL) 131 H 122 H Calcium Iron TIBC Transferrin Ferritin C-Reactive Protein Total Protein 4.9 L Total Protein (PEP) Albumin 2.4 L Albumin/Globulin Ratio 0.92 L Methylmalonic Acid Vit D 1,25-Dihydroxy PTH Intact Urine Protein Urine Ketones Urine Blood Ur Leukocyte Esterase Urine RBC Urine WBC Urine WBC Clumps Urine Bacteria Hyaline Casts Urine Mucus Rheumatoid Factor Free [place] LC, Quant Free Lambda LC, Quant 10/17/21 10/17/2110/17/22 05:43 06:58 11:40 RBC 2.81 L Hgb 8.7 L Hct 29.3 L MCV 104.3 H MCHC 29.7 L RDW 15.9 H MPV 9.3 L Immature Gran # 0.10 H Lymphocytes # 0.26 L ESR PT INR APTT Sodium Chloride Carbon Dioxide BUN Creatinine Est GFR (CKD-EPI)AfAm Est GFR (CKD-EPI)NonAf BUN/Creatinine Ratio Glucose POC Glucose (mg/dL) 114 H 121 H Calcium Iron TIBC Transferrin Ferritin C-Reactive Protein Total Protein Total Protein (PEP) Albumin Albumin/Globulin Ratio Methylmalonic Acid Vit D 1,25-Dihydroxy PTH Intact Urine Protein Urine Ketones Urine Blood Ur Leukocyte Esterase Urine RBC Urine WBC Urine WBC Clumps Urine Bacteria Hyaline Casts Urine Mucus Rheumatoid Factor Free [place] LC, Quant Free Lambda LC, Quant 10/17/21 16:40 RBC Hgb Hct MCV MCHC RDW MPV Immature Gran # Lymphocytes # ESR PT INR APTT Sodium Chloride Carbon Dioxide BUN Creatinine Est GFR (CKD-EPI)AfAm Est GFR (CKD-EPI)NonAf BUN/Creatinine Ratio Glucose POC Glucose (mg/dL) 107 H Calcium Iron TIBC Transferrin Ferritin C-Reactive Protein Total Protein Total Protein (PEP) Albumin Albumin/Globulin Ratio Methylmalonic Acid Vit D 1,25-Dihydroxy PTH Intact Urine Protein Urine Ketones Urine Blood Ur Leukocyte Esterase Urine RBC Urine WBC Urine WBC Clumps Urine Bacteria Hyaline Casts Urine Mucus Rheumatoid Factor Free [place] LC, Quant Free Lambda LC, Quant Assessment and Plan Plan: 1 acute hypercalcemia under investigation. Concern is underlying malignancy. I reviewed a series of CAT scan of the chest that was done in May 2021 and September 2021. The patient did have bilateral pleural effusions and compressive atelectatic changes in lung bases bilaterally and the patient underwent thoracentesis of the right lung 2 with the fluid being in a state and the fluid cytology was negative for malignancy. The patient had incomplete reexpansion of the right lung with some ongoing volume loss. It is possible that the patient is harboring an endobronchial lesion in the distal bronchus intermedius causing incomplete expansion of the right lung specially the patient has some nonspecific subcarinal mildly enlarged mediastinal lymph nodes. The patient's most scan has been negative. There is a concern for myeloma of a light chains as the patient's serum light chain both I'll lambda were elevated. As such, possibility of light chain myeloma needs to be also considered and discussed this with further discussed with hematology oncology especially with underlying renal failure which could be also consistent with myeloma kidney. 2 acute kidney injury, currently on hemodialysis and the patient has already undergone 2 sessions of hemodialysis 3 Chronic hypoxic respiratory failure secondary to asthma/COPD 4 COPD with a history of heavy tobacco dependence however quit in 1985 5 Diabetes mellitus, with secondary peripheral diabetic neuropathy 6 Poor functional performance and utilizes a motorized scooter with limited ambulation 7 CHF with ischemic cardiomyopathy with an ejection fraction of 40-45% 8 history of questionable right atrial mass/thrombus as evident on a previous CAT scan of the chest that was done in May 2021. This was not seen on the echocardiogram. 9 anemia of chronic disease 10 exposure to agent orange 11 history of liver cirrhosis, with secondary portal hypertension and esophageal varices 12 morbid obesity 13 dysphagia, seeking a PEG tube insertion 14 enterococcal UTI Plan Patient is extremely debilitated We'll discuss with hematology oncology regarding the possibility of a light chain myeloma Review the computed tomography scan of the chest. Bronchoscopy may be needed at a later stage to evaluate the airway and at the same time sampling of the sub carinal lymph node may not be completely unreasonable specially there is no other alternative explanation for the patient's hypercalcemia and renal failure. The patient is extremely debiliated and he may not be able to tolerate bronch for now Proceed with a PEG tube insertion Hemodialysis per nephrology Continue IV Unasyn We'll continue to follow
[2021-10-18] MEDS ORDERED: LIDOCAINE 2% INJ 20 MG/ML (2 ML VIAL) ONE (10:59)
[2021-10-18] MEDS ORDERED: fentaNYL (PF) 50 MCG/ML 2 ML AMP ONE (10:59)
[2021-10-18] MEDS ORDERED: PHENYLEPHRINE-0.9% NACL SYG 1,000 MCG/10 ML SYRINGE ONE (10:59)
[2021-10-18] MEDS ORDERED: PROPOFOL 10 MG/ML 20 ML VIAL IV ONE (10:59)
[2021-10-18] MEDS ORDERED: MIDAZOLAM 2 MG/2 ML VIAL ONE (10:59)
[2021-10-18] MEDS ORDERED: IV FLUID CONTINUATION 1,000 ML IV ONE ×2 (11:04)
--- NOTE | 2021-10-18 11:26 | P.OP ---
Date of Procedure: 10/18/21 Preoperative Diagnosis: Malnutrition Postoperative Diagnosis: Severe protein calorie malnutrition Procedure(s) Performed: EGD with PEG tube placement Anesthesia: MAC Surgeon: Chapincito Machado Pathology: none sent Condition: stable Disposition: PACU Description of Procedure: The patient's placed on the endoscopy table in the lateral position. He received IV sedation. The gastro-/oropharynx passed in the esophagus and stomach. Scope was then placed through the pylorus. First second portion duodenum. Normal. Scope brought back. A suitable light reflux seen the anterior abdominal wall. The skin was incised at the area the light reflex. The needles placed in the stomach under direct visualization. The wire was then placed through the needle. And then the wire was snared and brought the oropharynx. The PEG tube sent to the wire. The wires then brought down to the stomach. The PEG tube bolster was secured with a 2.5 cm brenda. Patient top she will. Sent to recovery in stable condition.
--- NOTE | 2021-10-18 12:08 | XR ---
EXAMINATION TYPE: XR abdomen 1V DATE OF EXAM: 10/18/2021 11:53 AM CLINICAL HISTORY: Abdominal pain. Hypercalcemia. TECHNIQUE: Two portable supine KUB images of the abdomen are obtained. COMPARISON: None. FINDINGS: PEG tube in mild gaseous prominent stomach. Some paucity of bowel gas otherwise. Cholecyste ctomy clips are seen. Scattered pelvic phleboliths. Metallic hardware from right hip surgery is parti ally imaged. Bridging osteophytes in the lumbar spine are noted. There is ovoid 1.1 cm density over t he left sacrum of uncertain etiology and smaller punctate densities right lower quadrant perhaps tiny amount of retained barium in colonic diverticula. IMPRESSION: As above.
[2021-10-18 13:01] LABS: Albumin 2.31 g/dL (3.80-4.90); Gamma Globulin 1.16 g/dL (0.70-1.50)
[2021-10-18] MEDS ORDERED: IOPAMIDOL CONTRAST (ORAL USE) VIAL PO PRN (13:43)
--- NOTE | 2021-10-18 14:21 | P.PN ---
Subjective Progress Note Date: 10/18/21 Bone scan performed without definite lesions of metastatic disease. Dr. Saini had discussed with Pulmonary CT abdomen and pelvis planned for today, PO contrast only Plan for EGD with PEG today with Dr. Paulino Objective - Vital Signs Vital signs: Vital Signs Temp 97.7 F 10/18/21 13:53 Pulse 118 H 10/18/21 13:53 Resp 18 10/18/21 13:53 BP 103/47 10/18/21 13:53 Pulse Ox 96 10/18/21 13:53 Intake & Output 10/17/21 10/18/21 10/18/21 18:59 06:59 18:59 Intake Total 300 500 Output Total 1150 Balance -850 500 Weight 131.542 kg Intake: IV 400 Intake, IV Titration 100 Amount Ampicillin-Sulbactam 3 gm 100 In Sodium Chloride 0.9% 100 ml @ 200 mls/hr IVPB Q12HR [facility] Rx#:[id number] Oral 0 Hemodialysis 300 Output: Urine 150 Hemodialysis 1000 Other: Voiding Method Indwelling Catheter Indwelling Catheter # Bowel Movements 1 - Exam - Constitutional General appearance: Present: cooperative, no acute distress, obese - EENT Eyes: Present: anicteric sclerae, EOMI ENT: Present: hard of hearing - Respiratory Respiratory: bilateral: CTA, diminished - Cardiovascular Rhythm: regular Heart sounds: normal: S1, S2 Abnormal Heart Sounds: Absent: systolic murmur, diastolic murmur, rub, S3 Gallop, S4 Gallop, click, other - Peripheral edema leg Peripheral Edema: bilateral: 2+, Pitting - Gastrointestinal General gastrointestinal: Present: normal bowel sounds, soft - Integumentary Integumentary: Present: pale - Neurologic Neurologic: Present: CNII-XII intact (grossly) - Musculoskeletal Musculoskeletal: Present: generalized weakness - Psychiatric Psychiatric: Present: appropriate affect - Labs CBC & Chem 7: 10/18/21 07:22 10/18/21 07:22 Labs: Abnormal Lab Results - Last 24 Hours (Table) 10/15/21 10/17/21 10/18/21 Range/Units 18:26 16:40 06:45 RBC (4.30-5.90) m/uL Hgb (13.0-17.5) gm/dL Hct (39.0-53.0) % MCV (80.0-100.0) fL MCHC (31.0-37.0) g/dL Plt Count (150-450) k/uL Chloride (98-107) mmol/L BUN (9-20) mg/dL Creatinine (0.66-1.25) mg/dL POC Glucose (mg/dL) 107 H 106 H (75-99) mg/dL Total Protein (6.3-8.2) g/dL Albumin (3.5-5.0) g/dL Albumin (PEP) 2.31 L (3.80-4.90) g/dL Beta Globulins 0.55 L (0.60-1.30) g/dL 10/18/21 10/18/21 Range/Units 07:22 07:22 RBC 3.01 L (4.30-5.90) m/uL Hgb 9.5 L (13.0-17.5) gm/dL Hct 31.2 L (39.0-53.0) % MCV 103.7 H (80.0-100.0) fL MCHC 30.6 L (31.0-37.0) g/dL Plt Count 138 L (150-450) k/uL Chloride 114 H (98-107) mmol/L BUN 35 H (9-20) mg/dL Creatinine 3.78 H (0.66-1.25) mg/dL POC Glucose (mg/dL) (75-99) mg/dL Total Protein 5.4 L (6.3-8.2) g/dL Albumin 2.3 L (3.5-5.0) g/dL Albumin (PEP) (3.80-4.90) g/dL Beta Globulins (0.60-1.30) g/dL Microbiology - Last 24 Hours (Table) 10/12/21 13:45 Blood Culture - Preliminary Blood No Growth after 120 hours 10/12/21 13:25 Blood Culture - Preliminary Blood No Growth after 120 hours Assessment and Plan (1) Macrocytic anemia Narrative/Plan: Full anemia and monoclonal without significant etiology B12 deficiency is present and IM x1 given NO evidence of Iron deficiency Awaiting Protein electrophoresis FLC ratio without significance Current Visit: Yes Status: Acute Code(s): D53.9 - NUTRITIONAL ANEMIA, UNSPECIFIED SNOMED Code(s): 93660672 (2) Acute renal failure Narrative/Plan: Nephrology following Current Visit: Yes Status: Acute Priority: High Code(s): N17.9 - ACUTE KIDNEY FAILURE, UNSPECIFIED SNOMED Code(s): 53590158 (3) Dehydration Narrative/Plan: Status post EGD and PEG today Current Visit: Yes Status: Acute Code(s): E86.0 - DEHYDRATION SNOMED Code(s): 33220565 (4) Hypercalcemia Narrative/Plan: Receiving bisphos and calcitonin per nephro work-up pending bone scan negative Improved with IV fluids Current Visit: Yes Status: Acute Priority: High Code(s): E83.52 - HYPERCALCEMIA SNOMED Code(s): 35759448 (5) Mediastinal lymphadenopathy Narrative/Plan: Have asked pulmonary to assess for approach and access of mediastinal ln bx. Await for CT abdomen and pelvis for assessment of tissue biopsy Current Visit: Yes Status: Acute Code(s): R59.0 - LOCALIZED ENLARGED LYMPH NODES SNOMED Code(s): 98276403
[2021-10-18 15:58] LABS: Glucose,Whole Blood 113 mg/dL (75-99)
--- NOTE | 2021-10-18 16:55 | P.PN ---
Progress Note - Text Progress Note Date: 10/18/21 Hospital course This is a pleasant 76-year-old patient who follows with Dr. Axel Mcclure. [facility] scooter stable medical conditions include cirrhosis with esophageal varices , osteoarthritis, diabetes, COPD on home oxygen 3 L. chronically short of breath. He presents accompanied by his with complaint of generalized weakness and. Of confusion on and off while he is mildly confused today as per at bedside however he is able to answer questions appropriately and follows commands His weakness was getting worse over the last few days. Patient also has poor eating habits although he is morbidly obese with BMI of 39.3 but our patient and he has history of dysphagia for the last 3 months with choking without obvious aspiration. Admitted with elevated creatinine. Acute kidney injury. Congested cough. October 15: Patient congested cough. Failed modified barium swallow. Discussed with the patient insisted the bedside. PEG tube will be ordered. Nephrology spoke to the patient and family about possible dialysis. Patient tired. In bed. Accu-Cheks running on the low side. We'll change IV fluids to D5W. October 16: Breathing a bit better. Nothing by mouth. Had right groin hemodialysis catheter placed. By Dr. Boyer yesterday. To commence hemodialysis today. insisted the bedside. CODE STATUS discussed with the patient and family. Made DO NOT RESUSCITATE. PEG tube scheduled for . October 17: Patient was dialyzed yesterday. Scheduled for dialysis today. Tired. at the bedside. Nothing by mouth. IV fluids. Scheduled for PEG tube tomorrow. October 10: Patient is a PEG tube placed today. Diet. at the bedside. Start feeding tomorrow. Active Medications Albuterol/Ipratropium (Ipratropium-Albuterol 3 Ml Neb) 3 ml INHALATION RT-QID [facility] Last Admin: 10/17/21 16:32 Dose: Not Given Documented by: Budesonide (Budesonide 0.5 Mg/2 Ml Nebu) 0.5 mg INHALATION RT-BID [facility] Last Admin: 10/17/21 08:11 Dose: 0.5 mg Documented by: Diphenhydramine HCl (Diphenhydramine 50 Mg/Ml 1 Ml Vial) 25 mg IVP Q6HR PRN PRN Reason: Allergy Symptoms Last Admin: 10/16/21 15:44 Dose: 25 mg Documented by: Famotidine (Famotidine 20 Mg/2 Ml Vial) 20 mg IV HS [facility] Last Admin: 10/16/21 21:54 Dose: 20 mg Documented by: Heparin Sodium (Porcine) (Heparin Sodium,Porcine/Pf 5,000 Unit/0.5 Ml Syringe) 5,000 unit SQ Q12HR [facility] Last Admin: 10/17/21 08:32 Dose: 5,000 unit Documented by: Ampicillin Sodium/Sulbactam (Sodium 3 gm/ Sodium Chloride) 100 mls @ 200 mls/hr IVPB Q12HR [facility]; Protocol Last Admin: 10/17/21 08:32 Dose: 200 mls/hr Documented by: Sodium Chloride (Saline 0.9%) 1,000 mls @ 50 mls/hr IV .Q20H [facility] Naloxone HCl (Naloxone 0.4 Mg/Ml 1 Ml Vial) 0.2 mg IV Q2M PRN PRN Reason: Opioid Reversal Past medical history to include: COPD, diabetes, GERD, cirrhosis with esophageal varices, home oxygen 3 L Social history: . Used to drink 7-8 drinks on the weekends not certain a few years. Did smoke in the past, stopped smoking in 1985. Family history: Lung cancer Physical examination: VITAL SIGNS: 97.7, 118, 18, 103/47, 96% on 3 L. GENERAL: Laying in bed, awake tired EYES: Pupils equal. Conjunctiva normal. HEENT: External appearance of nose and ears normal, oral cavity grossly normal. NECK: JVD not raised; masses not palpable. HEART: First and second heart sounds are normal; no edema. LUNGS: Respiratory rate normal; decreased breath sounds. ABDOMEN: Soft, nontender, liver spleen not palpable, no masses palpable. Right groin hemodialysis catheter PSYCH: Able to answer simple questions MUSCULOSKELETAL:No Clubbing/cyanosis;muscles-grossly intact INVESTIGATIONS, reviewed in the clinical context: October 18: White count 7.1 hemoglobin 9.5 platelets 138in 3.5 and 35 crit and 3.78 October 17: 18 hemoglobin 8.7 platelets 141 potassium 3.6 creatinine 4.6 October 16: White count 8.7 hemoglobin 9 platelets 1794.2 creatinine 5.8 BUN 68.7 Sodium 138 potassium 4.2 BUN 69 creatinine 5.47 magnesium 11.6 Previous labs: Creatinine 1.28 on 06/23/2021, 0.8 on 05/28/2021 Assessment and plan: -Acute kidney injury secondary to ATN. Also prerenal component from poor oral intake.: Not improving Right groin dialysis catheter placed on October 15, by Dr. Boyer. 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 DuoNeb 4 times a day -Diabetes mellitus type 2, on oral hypoglycemic, uncontrolled with hypoglycemia. D5W. -GERD Protonix 40 mg -Severe dysphagia. With higher risk of aspiration. Failed modified barium swallow. Nothing by mouth. PEG tube placed October [address] Machado. -Primary osteoarthritis Pain medications as needed -Hyperlipidemia zetia 10 mg daily -DO NOT RESUSCITATE Nothing by mouth. PEG tube placed today. Consult dietitian. Discussed with at the bedside.
[2021-10-18 20:13] LABS: Glucose,Whole Blood 98 mg/dL (75-99)
[2021-10-18] MEDS: FAMOTIDINE 20 MG/2 ML VIAL IV SCH (20:38)
--- NOTE | 2021-10-18 21:48 | P.PN ---
Subjective Progress Note Date: 10/18/21 Principal diagnosis: UTI and pressure ulcer to the sacral area Patient is a 76-year-old male presented to hospital with weakness in this patient noticed to have worsening of his kidney function patient also have a positive UA with urine culture finalized with Enterococcus faecalis did have a pressure ulcer to the sacral area but no evidence of any cellulitis, patient did get a dialysis catheter placement because of his worsening kidney function. The patient is status post PEG tube placement completed on 10/18/2021 On today's evaluation that is 10/18/2021, the patient is afebrile , the patient is breathing comfortably on nasal cannula oxygen, patient is slightly more awake and alert but nonverbal no vomiting or diarrhea has been reported by the family the bedside Objective - Vital Signs Vital signs: Vital Signs Temp 97.7 F 10/18/21 13:53 Pulse 118 H 10/18/21 13:53 Resp 18 10/18/21 13:53 BP 103/47 10/18/21 13:53 Pulse Ox 96 10/18/21 13:53 Intake & Output 10/17/21 10/18/21 10/18/21 18:59 06:59 18:59 Intake Total 300 500 Output Total 1150 Balance -850 500 Weight 131.542 kg Intake: IV 400 Intake, IV Titration 100 Amount Ampicillin-Sulbactam 3 gm 100 In Sodium Chloride 0.9% 100 ml @ 200 mls/hr IVPB Q12HR [facility] Rx#:[id number] Oral 0 Hemodialysis 300 Output: Urine 150 Hemodialysis 1000 Other: Voiding Method Indwelling Catheter Indwelling Catheter # Voids 0 # Bowel Movements 0 - Exam GENERAL DESCRIPTION: An elderly male lying in bed in no distress RESPIRATORY SYSTEM: Unlabored breathing , decreased breath sounds at bases HEART: S1 S2 regular rate and rhythm , ABDOMEN: Soft , no tenderness EXTREMITIES: No edema feet - Labs CBC & Chem 7: 10/18/21 07:22 10/18/21 07:22 Labs: Abnormal Lab Results - Last 24 Hours (Table) 10/15/21 10/17/21 10/18/21 Range/Units 18:26 16:40 06:45 RBC (4.30-5.90) m/uL Hgb (13.0-17.5) gm/dL Hct (39.0-53.0) % MCV (80.0-100.0) fL MCHC (31.0-37.0) g/dL Plt Count (150-450) k/uL Chloride (98-107) mmol/L BUN (9-20) mg/dL Creatinine (0.66-1.25) mg/dL POC Glucose (mg/dL) 107 H 106 H (75-99) mg/dL Total Protein (6.3-8.2) g/dL Albumin (3.5-5.0) g/dL Albumin (PEP) 2.31 L (3.80-4.90) g/dL Beta Globulins 0.55 L (0.60-1.30) g/dL 10/18/21 10/18/21 Range/Units 07:22 07:22 RBC 3.01 L (4.30-5.90) m/uL Hgb 9.5 L (13.0-17.5) gm/dL Hct 31.2 L (39.0-53.0) % MCV 103.7 H (80.0-100.0) fL MCHC 30.6 L (31.0-37.0) g/dL Plt Count 138 L (150-450) k/uL Chloride 114 H (98-107) mmol/L BUN 35 H (9-20) mg/dL Creatinine 3.78 H (0.66-1.25) mg/dL POC Glucose (mg/dL) (75-99) mg/dL Total Protein 5.4 L (6.3-8.2) g/dL Albumin 2.3 L (3.5-5.0) g/dL Albumin (PEP) (3.80-4.90) g/dL Beta Globulins (0.60-1.30) g/dL Microbiology - Last 24 Hours (Table) 10/12/21 13:45 Blood Culture - Preliminary Blood No Growth after 120 hours 10/12/21 13:25 Blood Culture - Preliminary Blood No Growth after 120 hours Assessment and Plan (1) UTI (urinary tract infection) Current Visit: Yes Status: Acute Code(s): N39.0 - URINARY TRACT INFECTION, SITE NOT SPECIFIED SNOMED Code(s): 03282083 Plan: 1patient presented to hospital with weakness mental status changes likely multifactorial in this patient did have a worsening of his kidney function and likely metabolic he also have a positive UA and a possible component of symptomatic urinary tract infection with the urine showing Enterococcus faecalis. 2patient with a stage II sacral pressure ulcer but no slough tissue however did have significant maceration and high risk of contamination from stool. 3 we will apply Triad cream to the sacral wound to protect it from the student maceration and keep the area of the pressure. 4-patient CT chest did showed possible right upper lobe infiltrate and the patient has failed his swallow evaluation Gen. surgery has been consulted and the patient is status post PEG tube placement today on 10/10/2021, patient to continue with Unasyn should cover for possible aspiration pneumonia and UTI Time with Patient: Less than 30
[2021-10-19] MEDS: SODIUM CHLORIDE 0.9% 1,000 ML IV SCH (04:45)
[2021-10-19 07:27] LABS: Glucose,Whole Blood 116 mg/dL (75-99)
[2021-10-19] MEDS: AMPICILLIN-SULBACTAM 3 GM in SODIUM CHLORIDE 0.9% 100 ML IVPB SCH ×2 (07:58→20:47)
[2021-10-19] MEDS: HEPARIN SODIUM,PORCINE/PF 5,000 UNIT/0.5 ML SYRINGE SQ SCH ×2 (07:58→20:47)
[2021-10-19] MEDS: IPRATROPIUM-ALBUTEROL 3 ML NEB INHALATION SCH ×4 (08:33→20:39)
[2021-10-19] MEDS: BUDESONIDE 0.5 MG/2 ML NEBU INHALATION SCH ×2 (08:33→20:39)
--- NOTE | 2021-10-19 10:49 | P.PN ---
Subjective Patient is seen in follow-up for acute kidney injury. Renal function had been worsening. Started on hemodialysis 10/16/2021. Has undergone 2 treatments of hemodialysis so far. Currently undergoing third treatment. Calcium level improved. Resting in bed. PEG tube placed 10/10/2021. Vital signs are stable. General: Awake. Quite lethargic. HEENT: Head exam is unremarkable. LUNGS: Rate and rhythm regular. HEART: Tachycardic. ABDOMEN: Soft, no distention. EXTREMITITES: 1+ edema. Objective - Vital Signs Vital signs: Vital Signs Temp 98.2 F 10/19/21 08:00 Pulse 101 H 10/19/21 08:45 Resp 18 10/19/21 08:00 BP 107/52 10/19/21 08:00 Pulse Ox 99 10/19/21 08:00 Intake & Output 10/18/21 10/19/21 10/19/21 18:59 06:59 18:59 Intake Total 500 600 Output Total 200 200 Balance 300 400 Weight 131.542 kg Intake: IV 400 Intake, IV Titration 100 600 Amount Ampicillin-Sulbactam 3 gm 100 In Sodium Chloride 0.9% 100 ml @ 200 mls/hr IVPB Q12HR [facility] Rx#:[id number] Sodium Chloride 0.9% 1, 600 000 ml @ 50 mls/hr IV . Q20H [facility] Rx#:[id number] Output: Urine 200 200 Other: Voiding Method Indwelling Catheter Indwelling Catheter # Voids 0 0 # Bowel Movements 1 0 - Labs CBC & Chem 7: 10/18/21 07:22 10/18/21 07:22 Labs: Abnormal Lab Results - Last 24 Hours (Table) 10/15/21 10/18/21 10/19/21 Range/Units 18:26 15:57 07:25 POC Glucose (mg/dL) 113 H 116 H (75-99) mg/dL Albumin (PEP) 2.31 L (3.80-4.90) g/dL Beta Globulins 0.55 L (0.60-1.30) g/dL Microbiology - Last 24 Hours (Table) 10/12/21 13:45 Blood Culture - Final Blood No Growth after 144 hours 10/12/21 13:25 Blood Culture - Final Blood No Growth after 144 hours Assessment and Plan Plan: Assessment: 1. Acute kidney injury secondary to ATN secondary to hypercalcemia. Renal function has been progressively worsening since May 2021 when his creatinine was 0.8. Renal ultrasound showed absent left kidney with no hydronephrosis in the right kidney. Oliguric. Started on hemodialysis 10/16/2021. Has a groin catheter. 2. Hypercalcemia. PTH appropriately suppressed. Vitamin D level 68. CHAPITO 24; 1,25 D3 level high at 117 - ?sarcoidosis, malignancy. No Bence-Wilson protein id entified on serum immunofixation. Questionable paraprotein in the gamma region noted on serum electrophoresis. Bone scan showed no evidence of metastatic disease. 3. Dysphagia. Failed swallow eval. PEG tube pending. 4. Diabetes mellitus. 5. UTI. Urine culture positive for enterococcus on antibiotics. 6. Anemia. Iron replete. Hematology following. 7. Diabetes mellitus. 8. Edema. Third spacing due to hypoalbuminemia. Plan: Maintain gentle IV hydration. Will stop once tube feeds initiated. Status post Zometa 10/14/2021. Also received a dose of calcitonin 10/15/2021. ?mediastinal biopsy per pulmonology. F/u serologies and quantify proteinuria - JAKOB, double-stranded DNA antibody and complements normal. ANCA and hep negative. [place]/lambda ratio normal. No Bence-Wilson proteins identified on serum immunofixation. Currently seen while undergoing hemodialysis. Follow-up echocardiogram and CAT scan.
--- NOTE | 2021-10-19 11:17 | CA ---
Transthoracic Echo Report Name: Tor Trejo Age: 76 Gender: M : 1945 Exam Date: 10/19/2021 08:18 Exam Location: [place] [facility] Ht (in): 72 Wt (lb): 290 Ordering Physician: Jered Mclaughlin MD Attending/Referring Phys: Fuse Assembler Dee Dee Palumbo RDCS Procedure CPT: Indications: Assess LV Function Cardiac Hx: COPD, HTN, ETOH ABUSE, DM Technical Quality: Technically difficult study Contrast 1: Lumason Total Dose (mL): 5 Contrast 2: Total Dose (mL): MEASUREMENTS (Male / Female) Normal Values DOPPLER AV Peak Velocity 271.6 cm/s AV Peak Gradient 29.5 mmHg AV Mean Velocity 150.7 cm/s AV Mean Gradient 12.7 mmHg AV Velocity Time Integral 48.7 cm LVOT Peak Velocity 152.5 cm/s LVOT Peak Gradient 9.3 mmHg MV Area PHT 2.9 cm Mitral E Point Velocity 50.0 cm/s Mitral A Point Velocity 105.3 cm/s Mitral E to A Ratio 0.5 MV Deceleration Time 259.2 ms MV E' Velocity 5.8 cm/s Mitral E to MV E' Ratio 8.7 TR Peak Velocity 164.6 cm/s TR Peak Gradient 10.8 mmHg Right Ventricular Systolic Press 15.8 mmHg FINDINGS Left Ventricle Left ventricular cavity size normal. Hypokinetic anterior wall. Hypokinetic inferior wall. Left ventricular ejection fraction is estimated at 35-40%. Mid to distal septum apex and adjoining anteroapical lateral wall is hypokinetic Right Ventricle Right ventricle not well visualized. Right Atrium . Right atrium not well visualized. Left Atrium Normal left atrial size. Mitral Valve [id number] mitral regurgitation. Aortic Valve Aortic valve not well visualized. [id number] aortic stenosis with a peak gradient of 30 mmHg and a mean gradient of 13 mmHg. Tricuspid Valve Tricuspid valve not well visualized. Pulmonic Valve Pulmonic valve not well visualized. Pericardium No pericardial effusion Aorta Aortic root and proximal ascending aorta not well visualized. CONCLUSIONS Ischemic cardiomyopathy with ejection fraction of 35-40% with hypokinesia in the anteroapical septal lateral portion noted. Mild gradient across aortic valve no significant pulmonary hypertension. No pericardial effusion Previewed by: Dr. Gladis White MD (Electronically Signed) Final Date: 19 October 2021 11:16
[2021-10-19 11:31] LABS: Glucose,Whole Blood 93 mg/dL (75-99)
[2021-10-19] MEDS: IOPAMIDOL CONTRAST (ORAL USE) VIAL PO PRN ×2 (13:10→14:10)
--- NOTE | 2021-10-19 13:23 | P.PN ---
Progress Note - Text Progress Note Date: 10/19/21 Hospital course This is a pleasant 76-year-old patient who follows with Dr. Axel Mcclure. [facility] scooter stable medical conditions include cirrhosis with esophageal varices , osteoarthritis, diabetes, COPD on home oxygen 3 L. chronically short of breath. He presents accompanied by his with complaint of generalized weakness and. Of confusion on and off while he is mildly confused today as per at bedside however he is able to answer questions appropriately and follows commands His weakness was getting worse over the last few days. Patient also has poor eating habits although he is morbidly obese with BMI of 39.3 but our patient and he has history of dysphagia for the last 3 months with choking without obvious aspiration. Admitted with elevated creatinine. Acute kidney injury. Congested cough. October 15: Patient congested cough. Failed modified barium swallow. Discussed with the patient insisted the bedside. PEG tube will be ordered. Nephrology spoke to the patient and family about possible dialysis. Patient tired. In bed. Accu-Cheks running on the low side. We'll change IV fluids to D5W. October 16: Breathing a bit better. Nothing by mouth. Had right groin hemodialysis catheter placed. By Dr. Boyer yesterday. To commence hemodialysis today. insisted the bedside. CODE STATUS discussed with the patient and family. Made DO NOT RESUSCITATE. PEG tube scheduled for . October 17: Patient was dialyzed yesterday. Scheduled for dialysis today. Tired. at the bedside. Nothing by mouth. IV fluids. Scheduled for PEG tube tomorrow. October 18: Patient is a PEG tube placed today. Diet. at the bedside. Start feeding tomorrow. October 19: Getting hemodialysis today. PEG tube will be starting later today. Laying in bed. Awake. Tired. Active Medications Albuterol/Ipratropium (Ipratropium-Albuterol 3 Ml Neb) 3 ml INHALATION RT-QID [facility] Last Admin: 10/19/21 11:31 Dose: Not Given Documented by: Budesonide (Budesonide 0.5 Mg/2 Ml Nebu) 0.5 mg INHALATION RT-BID [facility] Last Admin: 10/19/21 08:33 Dose: 0.5 mg Documented by: Diphenhydramine HCl (Diphenhydramine 50 Mg/Ml 1 Ml Vial) 25 mg IVP Q6HR PRN PRN Reason: Allergy Symptoms Last Admin: 10/17/21 19:36 Dose: 25 mg Documented by: Famotidine (Famotidine 20 Mg/2 Ml Vial) 20 mg IV HS MARNIE Last Admin: 10/18/21 20:38 Dose: 20 mg Documented by: Heparin Sodium (Porcine) (Heparin Sodium,Porcine/Pf 5,000 Unit/0.5 Ml Syringe) 5,000 unit SQ Q12HR MARNIE Last Admin: 10/19/21 07:58 Dose: 5,000 unit Documented by: Ampicillin Sodium/Sulbactam (Sodium 3 gm/ Sodium Chloride) 100 mls @ 200 mls/hr IVPB Q12HR MARNIE; Protocol Last Admin: 10/19/21 07:58 Dose: 200 mls/hr Documented by: Sodium Chloride (Saline 0.9%) 1,000 mls @ 50 mls/hr IV .Q20H MARNIE Last Admin: 10/19/21 04:45 Dose: Not Given Documented by: Lactated Ringer's (Lactated Ringers) 1,000 mls @ 20 mls/hr IV .Q24H MARNIE Last Admin: 10/18/21 08:23 Dose: Not Given Documented by: Iopamidol (Iopamidol Contrast (Oral Use) Vial) 30 ml PO ONCE PRN PRN Reason: CT Scan Stop: 10/19/21 13:44 Iopamidol (Iopamidol Contrast (Oral Use) Vial) 30 ml PO Q60M PRN PRN Reason: CT Scan Stop: 10/20/21 11:57 Lidocaine HCl (Lidocaine 1% (10mg/Ml) For Iv Start) 0.1 ml INTRADERMA PER PROTOCOL PRN PRN Reason: IV Start Naloxone HCl (Naloxone 0.4 Mg/Ml 1 Ml Vial) 0.2 mg IV Q2M PRN PRN Reason: Opioid Reversal Past medical history to include: COPD, diabetes, GERD, cirrhosis with esophageal varices, home oxygen 3 L Social history: . Used to drink 7-8 drinks on the weekends not certain a few years. Did smoke in the past, stopped smoking in 1985. Family history: Lung cancer Physical examination: VITAL SIGNS: 98.2, 116, 18, 107/52, 99% on 3 L GENERAL: Laying in bed, awake tired EYES: Pupils equal. Conjunctiva normal. HEENT: External appearance of nose and ears normal, oral cavity grossly normal. NECK: JVD not raised; masses not palpable. HEART: First and second heart sounds are normal; no edema. LUNGS: Respiratory rate normal; decreased breath sounds. ABDOMEN: Soft, nontender, liver spleen not palpable, no masses palpable. Right groin hemodialysis catheter . PEG tube PSYCH: Able to answer simple questions MUSCULOSKELETAL:No Clubbing/cyanosis;muscles-grossly intact INVESTIGATIONS, reviewed in the clinical context: 2-D echocardiogram: LV function 35-40%. Wall motion abnormality. Bone scan: No suspicious focal increase uptake to suggest metastatic disease to the bone. Findings consistent with metabolic SuperScan. October 18: White count 7.1 hemoglobin 9.5 platelets 138in 3.5 and 35 crit and 3.78 Ig. IgA: 281. IgM: 68.4. Rheumatoid factor increased to 65. JAKOB screen: Negative double-stranded DNA antibody: Negative complement C3: 80.6 complement C4 24.9. Total complement: 66 free Light change: 10.9: Free lambda light chain: 9.53 Hepatitis B surface antigen/hepatitis B surface antibody/hepatitis B core total antibody/hepatitis B core IgM antibody/hepatitis C IgG antibody/: All nonreactive October 17: 18 hemoglobin 8.7 platelets 141 potassium 3.6 creatinine 4.6 October 16: White count 8.7 hemoglobin 9 platelets 1794.2 creatinine 5.8 BUN 68.7 Sodium 138 potassium 4.2 BUN 69 creatinine 5.47 magnesium 11.6 Previous labs: Creatinine 1.28 on 06/23/2021, 0.8 on 05/28/2021 Assessment and plan: -Acute kidney injury secondary to ATN. Also prerenal component from poor oral intake.: Not improving Right groin dialysis catheter placed on October 15, by Dr. Boyer. 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 DuoNeb 4 times a day -Diabetes mellitus type 2, on oral hypoglycemic, uncontrolled with hypoglycemia. D5W. -GERD Protonix 40 mg -Severe dysphagia. With higher risk of aspiration. Failed modified barium swallow. Nothing by mouth. PEG tube placed October [address] Machado. -PEG tube feeding. Nothing by mouth. 2 feeding to be started today. -Hypercalcemia. Received biphosphonate and calcitonin as per nephrology. Bone scan negative. -Mediastinal lymphadenopathy. Computed tomography scan abdomen and pelvis for further assessment per hematology. -Primary osteoarthritis Pain medications as needed -Hyperlipidemia zetia 10 mg daily -DO NOT RESUSCITATE Hemodialysis today. PEG tube feeding to be started later today. Computed tomography scan abdomen and pelvis per hematology for further assessment of lymphadenopathy/hypercalcemia..
--- NOTE | 2021-10-19 13:34 | P.PN ---
Subjective Progress Note Date: 10/19/21 10/19/2021, the patient is lethargic and weak. The patient undergoing hemodialysis. The patient underwent active insertion and enteral feeding has not been started. Calcium levels are nonelevated. Meanwhile, the patient is afebrile. The patient is on 3 L O2 nasal cannula. He is lethargic. Is a poor historian. Extremely debilitated. The patient does not have a good insight on his condition. Remains on IV Unasyn. Objective - Vital Signs Vital signs: Vital Signs Temp 98.2 F 10/19/21 08:00 Pulse 101 H 10/19/21 08:45 Resp 18 10/19/21 08:00 BP 107/52 10/19/21 08:00 Pulse Ox 99 10/19/21 08:00 Intake & Output 10/18/21 10/19/21 10/19/21 18:59 06:59 18:59 Intake Total 500 600 Output Total 200 200 Balance 300 400 Weight 131.542 kg Intake: IV 400 Intake, IV Titration 100 600 Amount Ampicillin-Sulbactam 3 gm 100 In Sodium Chloride 0.9% 100 ml @ 200 mls/hr IVPB Q12HR MARNIE Rx#:[id number] Sodium Chloride 0.9% 1, 600 000 ml @ 50 mls/hr IV . Q20H MARNIE Rx#:[id number] Output: Urine 200 200 Other: Voiding Method Indwelling Catheter Indwelling Catheter # Voids 0 0 # Bowel Movements 1 0 - Exam GENERAL EXAM: Alert, pleasant, morbidly obese 76-year-old gentleman, on 3 liters nasal cannula, fairly comfortable in no apparent distress. The patient is pale consistent with his underlying chronic anemia HEAD: Normocephalic. EYES: Normal reaction of pupils, equal size. NOSE: Clear with pink turbinates. THROAT: No erythema or exudates. NECK: No masses, no JVD. CHEST: No chest wall deformity. LUNGS: Equal air entry with crackles in the right lung base, diminished. The breath sounds are diminished in the lung bases bilaterally ABDOMEN: No hepatosplenomegaly, normal bowel sounds, no guarding or rigidity. The patient has hemodialysis catheter in the right femoral vein, and the patient has a PEG tube in place SPINE: No scoliosis or deformity SKIN: No rashes CENTRAL NERVOUS SYSTEM: No focal deficits, tone is normal in all 4 extremities. EXTREMITIES: There is no peripheral edema. No clubbing, no cyanosis. Peripheral pulses are intact. - Labs CBC & Chem 7: 10/18/21 07:22 10/18/21 07:22 Labs: Abnormal Lab Results - Last 24 Hours (Table) 10/18/21 10/19/21 Range/Units 15:57 07:25 POC Glucose (mg/dL) 113 H 116 H (75-99) mg/dL Microbiology - Last 24 Hours (Table) 10/12/21 13:45 Blood Culture - Final Blood No Growth after 144 hours 10/12/21 13:25 Blood Culture - Final Blood No Growth after 144 hours Assessment and Plan Plan: 1 acute hypercalcemia under investigation. Concern is underlying malignancy. I reviewed a series of CAT scan of the chest that was done in May 2021 and September 2021. The patient did have bilateral pleural effusions and compressive at electatic changes in lung bases bilaterally and the patient underwent thoracentesis of the right lung 2 with the fluid being in a state and the fluid cytology was negative for malignancy. The patient had incomplete reexpansion of the right lung with some ongoing volume loss. It is possible that the patient is harboring an endobronchial lesion in the distal bronchus intermedius causing incomplete expansion of the right lung specially the patient has some nonspecific subcarinal mildly enlarged mediastinal lymph nodes. The patient's most scan has been negative. There is a concern for myeloma of a light chains as the patient's serum light chain both I'll lambda were elevated. As such, possibility of light chain myeloma needs to be also considered and discussed this with further discussed with hematology oncology especially with underlying renal failure which could be also consistent with myeloma kidney. 2 acute kidney injury, currently on hemodialysis and the patient has already un dergone 2 sessions of hemodialysis 3 Chronic hypoxic respiratory failure secondary to asthma/COPD 4 COPD with a history of heavy tobacco dependence however quit in 1985 5 Diabetes mellitus, with secondary peripheral diabetic neuropathy 6 Poor functional performance and utilizes a motorized scooter with limited ambulation 7 CHF with ischemic cardiomyopathy with an ejection fraction of 40-45% 8 history of questionable right atrial mass/thrombus as evident on a previous CAT scan of the chest that was done in May 2021. This was not seen on the echocardiogram. 9 anemia of chronic disease 10 exposure to agent orange 11 history of liver cirrhosis, with secondary portal hypertension and esophageal varices 12 morbid obesity 13 dysphagia, seeking a PEG tube insertion 14 enterococcal UTI Plan Patient is extremely debilitated We'll discuss with hematology oncology regarding the possibility of a light chain myeloma Review the computed tomography scan of the chest. Bronchoscopy may be needed at a later stage to evaluate the airway and at the same time sampling of the subcarinal lymph node may not be completely unreasonable specially there is no other alternative explanation for the patient's hypercalcemia and renal failure. The patient is extremely debiliated and he may not be able to tolerate bronch for now PEG tube insertion has been completed without any complications Hemodialysis per nephrology, the patient is undergoing dialysis today Continue IV Unasyn I think the patient is not a good candidate for EBUS bronchoscopy. I believe that the yield of sampling the subcarinal lymph node is low and I highly doubt that sampling the mediastinal lymph nodes will change the course of our retraction or our treatment plan specially the patient has been extremely edita ilitated and may not be a good candidate for any form of cancer treatment. I would like to discuss this further with oncology. For now, I do not intend to do any bronchoscopy at this patient this point in time.
--- NOTE | 2021-10-19 14:20 | P.PN ---
Subjective Progress Note Date: 10/19/21 CHIEF COMPLAINT: Weakness HISTORY OF PRESENT ILLNESS: Patient admitted with UTI and sepsis and acute kidn ey injury. He has dysphagia and failed swallowing eval. Patient status post PEG tube placement. Denies any abdominal pain. He is getting hemodialysis today. Afebrile. Mildly tachycardic. No new labs Patient seen and examined with Dr. Machado PHYSICAL EXAM: VITAL SIGNS: Reviewed. GENERAL: Well-developed in no acute distress. HEENT: No sclera icterus. Extraocular movements grossly intact. Moist buccal mucosa. Head is atraumatic, normocephalic. ABDOMEN: Soft. Nondistended. Nontender. PEG tube site clean dry and intact NEUROLOGIC: Pleasantly confused ASSESSMENT: 1. Severe protein calorie malnutrition 2. Dysphagia. Failed swallow eval PLAN: -Consult dietitian to start peg tube feedings -Continue supportive care Physician Knot Bumper note has been reviewed by physician. Signing provider agrees with the documented findings, assessment, and plan of care. Objective - Vital Signs Vital signs: Vital Signs Temp 98.1 F 10/19/21 14:00 Pulse 108 H 10/19/21 14:00 Resp 19 10/19/21 14:00 BP 86/50 10/19/21 14:00 Pulse Ox 96 10/19/21 14:00 Intake & Output 10/18/21 10/19/21 10/19/21 18:59 06:59 18:59 Intake Total 500 600 Output Total 200 200 700 Balance 300 400 -700 Weight 131.542 kg Intake: IV 400 Intake, IV Titration 100 600 Amount Ampicillin-Sulbactam 3 gm 100 In Sodium Chloride 0.9% 100 ml @ 200 mls/hr IVPB Q12HR MARNIE Rx#:[id number] Sodium Chloride 0.9% 1, 600 000 ml @ 50 mls/hr IV . Q20H MARNIE Rx#:[id number] Output: Urine 200 200 Hemodialysis 700 Other: Voiding Method Indwelling Catheter Indwelling Catheter # Voids 0 0 # Bowel Movements 1 0 - Labs CBC & Chem 7: 10/18/21 07:22 10/18/21 07:22 Labs: Abnormal Lab Results - Last 24 Hours (Table) 10/18/21 10/19/21 Range/Units 15:57 07:25 POC Glucose (mg/dL) 113 H 116 H (75-99) mg/dL Microbiology - Last 24 Hours (Table) 10/12/21 13:45 Blood Culture - Final Blood No Growth after 144 hours 10/12/21 13:25 Blood Culture - Final Blood No Growth after 144 hours
--- NOTE | 2021-10-19 15:26 | CT ---
EXAMINATION TYPE: CT abdomen pelvis wo con DATE OF EXAM: 10/19/2021 COMPARISON: None HISTORY: malignancy workup, unable to obtain hx CT DLP: 1969.4 mGycm Automated exposure control for dose reduction was used. TECHNIQUE: Helical acquisition of images was performed from the lung bases through the pelvis. FINDINGS: Evaluation lung bases reveals a large pleural effusions and bilateral airspace consolidations consist ent with pneumonia or atelectasis. There is a PEG tube within the stomach The liver appears mildly lobulated and small in size possibly indicating cirrhosis. The spleen appear s prominent and there is moderate ascites. There is surgical absence of the gallbladder. There is no mass within the pancreas. Left kidney is identified with left pelvis possibly representing a renal transplant or ectopic kidney . There are tiny nonobstructing right renal calcifications with no hydronephrosis . There is a 15 mm nonobstructing left renal calcification. There is a catheter entering the right groin femoral vein and terminating inferior vena cava. There is a large pannus containing bowel loops but there is no evidence of bowel obstruction. There i s no free intraperitoneal air Evaluation of the pelvis is limited due to streak artifact from the right hip prosthesis. There is no definite pelvic mass. There is mild prostatic hypertrophy. There is a Molina in within a collapsed ur inary bladder. IMPRESSION: 1. Limited study. 2. Ascites. 3. Large bilateral pleural effusions and lung consolidation or atelectasis. 4. Left renal transplant or ectopic kidney. Nonobstructing left renal calcification. 5. Permacath in the right groin terminating in the IVC. 6. No abdominal mass or acute changes within the abdomen.
[2021-10-19] MEDS: diphenhydrAMINE 50 MG/ML 1 ML VIAL IVP PRN (15:57)
[2021-10-19 16:27] LABS: Glucose,Whole Blood 77 mg/dL (75-99)
--- NOTE | 2021-10-19 17:23 | P.PN ---
Subjective Progress Note Date: 10/19/21 Principal diagnosis: UTI and pressure ulcer to the sacral area Patient is a 76-year-old male presented to hospital with weakness in this patient noticed to have worsening of his kidney function patient also have a positive UA with urine culture finalized with Enterococcus faecalis did have a pressure ulcer to the sacral area but no evidence of any cellulitis, patient did get a dialysis catheter placement because of his worsening kidney function. The patient is status post PEG tube placement completed on 10/18/2021 On today's evaluation that is 10/19/2021, the patient remains to be afebrile , the patient is breathing comfortably on nasal cannula oxygen, patient is slightly sleepy lethargic and not a good historian no vomiting diarrhea or any other changes in clinical condition reported by the at the bedside Objective - Vital Signs Vital signs: Vital Signs Temp 98.1 F 10/19/21 14:00 Pulse 108 H 10/19/21 14:00 Resp 19 10/19/21 14:00 BP 86/50 10/19/21 14:00 Pulse Ox 96 10/19/21 14:00 Intake & Output 10/18/21 10/19/21 10/19/21 18:59 06:59 18:59 Intake Total 500 600 Output Total 200 200 700 Balance 300 400 -700 Weight 131.542 kg Intake: IV 400 Intake, IV Titration 100 600 Amount Ampicillin-Sulbactam 3 gm 100 In Sodium Chloride 0.9% 100 ml @ 200 mls/hr IVPB Q12HR MARNIE Rx#:[id number] Sodium Chloride 0.9% 1, 600 000 ml @ 50 mls/hr IV . Q20H MARNIE Rx#:[id number] Output: Urine 200 200 Hemodialysis 700 Other: Voiding Method Indwelling Catheter Indwelling Catheter # Voids 0 0 # Bowel Movements 1 0 - Exam GENERAL DESCRIPTION: An elderly male lying in bed in no distress RESPIRATORY SYSTEM: Unlabored breathing , decreased breath sounds at bases HEART: S1 S2 regular rate and rhythm , ABDOMEN: Soft , no tenderness EXTREMITIES: No edema feet - Labs CBC & Chem 7: 10/18/21 07:22 10/18/21 07:22 Labs: Abnormal Lab Results - Last 24 Hours (Table) 10/15/21 10/18/21 10/19/21 Range/Units 18:26 15:57 07:25 POC Glucose (mg/dL) 113 H 116 H (75-99) mg/dL Reverse T3 >100.0 H (9.0 - 27.0) ng/dL Microbiology - Last 24 Hours (Table) 10/12/21 13:45 Blood Culture - Final Blood No Growth after 144 hours 10/12/21 13:25 Blood Culture - Final Blood No Growth after 144 hours Assessment and Plan (1) UTI (urinary tract infection) Current Visit: Yes Status: Acute Code(s): N39.0 - URINARY TRACT INFECTION, SITE NOT SPECIFIED SNOMED Code(s): 19956203 Plan: 1patient presented to hospital with weakness mental status changes likely multifactorial in this patient did have a worsening of his kidney function and likely metabolic he also have a positive UA and a possible component of symptomatic urinary tract infection with the urine showing Enterococcus faecalis. 2patient with a stage II sacral pressure ulcer but no slough tissue however did have significant maceration and high risk of contamination from stool. 3 we will apply Triad cream to the sacral wound to protect it from the student maceration and keep the area of the pressure. 4-patient CT chest did showed possible right upper lobe infiltrate and the patient has failed his swallow evaluation Gen. surgery has been consulted and the patient is status post PEG tube placement today on 10/10/2021, patient is currently being treated with Unasyn which will be continued and monitor clinical course closely Time with Patient: Less than 30
--- NOTE | 2021-10-19 18:48 | P.PN ---
Subjective Progress Note Date: 10/19/21 A bit more awake today, however still lethargic. Objective - Vital Signs Vital signs: Vital Signs Temp 98.2 F 10/19/21 08:00 Pulse 101 H 10/19/21 08:45 Resp 18 10/19/21 08:00 BP 107/52 10/19/21 08:00 Pulse Ox 99 10/19/21 08:00 Intake & Output 10/18/21 10/19/21 10/19/21 18:59 06:59 18:59 Intake Total 500 600 Output Total 200 200 Balance 300 400 Weight 131.542 kg Intake: IV 400 Intake, IV Titration 100 600 Amount Ampicillin-Sulbactam 3 gm 100 In Sodium Chloride 0.9% 100 ml @ 200 mls/hr IVPB Q12HR MARNIE Rx#:[id number] Sodium Chloride 0.9% 1, 600 000 ml @ 50 mls/hr IV . Q20H MARNIE Rx#:[id number] Output: Urine 200 200 Other: Voiding Method Indwelling Catheter Indwelling Catheter # Voids 0 0 # Bowel Movements 1 0 - Exam - Constitutional General appearance: Present: cooperative, no acute distress, obese - EENT Eyes: Present: anicteric sclerae, EOMI ENT: Present: hard of hearing - Respiratory Respiratory: bilateral: CTA, diminished - Cardiovascular Rhythm: regular Heart sounds: normal: S1, S2 Abnormal Heart Sounds: Absent: systolic murmur, diastolic murmur, rub, S3 Gallop, S4 Gallop, click, other - Peripheral edema leg Peripheral Edema: bilateral: 2+, Pitting - Gastrointestinal General gastrointestinal: Present: normal bowel sounds, soft - Integumentary Integumentary: Present: pale - Neurologic Neurologic: Present: CNII-XII intact (grossly) - Musculoskeletal Musculoskeletal: Present: generalized weakness - Psychiatric Psychiatric: Present: appropriate affect - Labs CBC & Chem 7: 10/18/21 07:22 10/18/21 07:22 Labs: Abnormal Lab Results - Last 24 Hours (Table) 10/18/21 10/19/21 Range/Units 15:57 07:25 POC Glucose (mg/dL) 113 H 116 H (75-99) mg/dL Microbiology - Last 24 Hours (Table) 10/12/21 13:45 Blood Culture - Final Blood No Growth after 144 hours 10/12/21 13:25 Blood Culture - Final Blood No Growth after 144 hours Assessment and Plan (1) Macrocytic anemia Narrative/Plan: Full anemia and monoclonal without significant etiology B12 deficiency is present and IM x1 given NO evidence of Iron deficiency Protein electrophoresis Suspicion for paraprotein in Gamma region 0.61 FLC ratio without significance cbc in am Current Visit: Yes Status: Acute Code(s): D53.9 - NUTRITIONAL ANEMIA, UNSPECIFIED SNOMED Code(s): 48161344 (2) Acute renal failure Narrative/Plan: Nephrology following Current Visit: Yes Status: Acute Priority: High Code(s): N17.9 - ACUTE KIDNEY FAILURE, UNSPECIFIED SNOMED Code(s): 40680514 (3) Dehydration Narrative/Plan: Status post EGD and PEG today Current Visit: Yes Status: Acute Code(s): E86.0 - DEHYDRATION SNOMED Code (s): 81679767 (4) Hypercalcemia Narrative/Plan: Receiving bisphos and calcitonin per nephro work-up pending bone scan negative Improved with IV fluids Current Visit: Yes Status: Acute Priority: High Code(s): E83.52 - HYPERCALCEMIA SNOMED Code(s): 86087012 (5) Mediastinal lymphadenopathy Narrative/Plan: Have asked pulmonary to assess for approach and access of mediastinal ln bx. Await for CT abdomen and pelvis for assessment of tissue biopsy Current Visit: Yes Status: Acute Code(s): R59.0 - LOCALIZED ENLARGED LYMPH NODES SNOMED Code(s): 73801859 Plan: Dr. Tracy: I have completed the full history and physical and developed the above impression and plan, agree with dictation, dictated as a ascribe.
[2021-10-19 20:27] LABS: Glucose,Whole Blood 77 mg/dL (75-99)
[2021-10-19] MEDS: FAMOTIDINE 20 MG/2 ML VIAL IV SCH (20:47)
[2021-10-19] MEDS: LACTATED RINGERS 1,000 ML IV SCH (23:19)
[2021-10-20] MEDS: SODIUM CHLORIDE 0.9% 1,000 ML IV SCH (00:23)
[2021-10-20 07:16] LABS: Glucose,Whole Blood 82 mg/dL (75-99)
[2021-10-20] MEDS: BUDESONIDE 0.5 MG/2 ML NEBU INHALATION SCH ×2 (08:17→20:09)
[2021-10-20] MEDS: IPRATROPIUM-ALBUTEROL 3 ML NEB INHALATION SCH ×4 (08:17→20:09)
[2021-10-20] MEDS: AMPICILLIN-SULBACTAM 3 GM in SODIUM CHLORIDE 0.9% 100 ML IVPB SCH ×2 (09:00→21:58)
[2021-10-20] MEDS: HEPARIN SODIUM,PORCINE/PF 5,000 UNIT/0.5 ML SYRINGE SQ SCH ×2 (09:00→21:59)
[2021-10-20 09:04] LABS: Magnesium 1.9 mg/dL (1.5-2.4); Phosphorus 1.6 mg/dL (2.4-5.1)
--- NOTE | 2021-10-20 09:42 | P.PN ---
Subjective Patient is seen in follow-up for acute kidney injury. Renal function had been worsening. Started on hemodialysis 10/16/2021. Has undergone 3 treatments of hemodialysis so far. Calcium level improved. Resting in bed. Receiving tube feeds. Vital signs are stable. General: Awake. Quite lethargic. HEENT: Head exam is unremarkable. LUNGS: Rate and rhythm regular. HEART: Tachycardic. ABDOMEN: Soft, no distention. EXTREMITITES: 1+ edema. Objective - Vital Signs Vital signs: Vital Signs Temp 98.2 F 10/20/21 08:00 Pulse 100 10/20/21 08:33 Resp 16 10/20/21 08:00 BP 103/60 10/20/21 08:00 Pulse Ox 95 10/20/21 08:20 Intake & Output 10/19/21 10/20/21 10/20/21 18:59 06:59 18:59 Output Total 700 75 Balance -700 -75 Weight 131.542 kg 114 kg Output: Urine 75 Hemodialysis 700 Other: Voiding Method Indwelling Catheter Indwelling Catheter # Bowel Movements 2 - Labs CBC & Chem 7: 10/18/21 07:22 10/18/21 07:22 Labs: Abnormal Lab Results - Last 24 Hours (Table) 10/15/21 10/20/21 Range/Units 18:26 06:08 Phosphorus 1.6 L (2.4-5.1) mg/dL Reverse T3 >100.0 H (9.0 - 27.0) ng/dL Assessment and Plan Plan: Assessment: 1. Acute kidney injury secondary to ATN secondary to hypercalcemia. Renal function has been progressively worsening since May 2021 when his creati nine was 0.8. Renal ultrasound showed absent left kidney with no hydronephrosis in the right kidney. Started on hemodialysis 10/16/2021. Has a groin catheter. Urine output documented as 400 mL in the last 24 hours. 2. Hypercalcemia. PTH appropriately suppressed. Vitamin D level 68. CHAPITO 24; 1,25 D3 level high at 117 - ?sarcoidosis, malignancy. No Bence-Wilson protein identified on serum immunofixation. Questionable paraprotein in the gamma region noted on serum electrophoresis. Bone scan showed no evidence of metastatic disease. 3. Dysphagia. Failed swallow eval. Status post PEG tube placement. 4. Diabetes mellitus. 5. UTI. Urine culture positive for enterococcus on antibiotics. 6. Anemia. Iron replete. Hematology following. 7. Diabetes mellitus. 8. Volume overload. 9. Acute on chronic systolic CHF with ejection fraction of 35-40% with mild to moderate aortic stenosis and mitral regurgitation. Plan: Hemodialysis today mostly for ultrafiltration. Add IV Lasix. Add midodrine. Will give extra dose during dialysis if needed. Off IV fluids. Receiving tube feeds. Status post Zometa 10/14/2021. Also received a dose of calcitonin 10/15/2021. ?mediastinal biopsy per pulmonology. F/u serologies and quantify proteinuria - JAKOB, double-stranded DNA antibody and complements normal. ANCA and hep negative. [place]/lambda ratio normal. No Bence-Wilson proteins identified on serum immunofixation. Prognosis guarded.
[2021-10-20] MEDS ORDERED: Phosphorus Replacement Protoco 1 EACH MISC MISCELLANE PRN (09:43)
[2021-10-20] MEDS ORDERED: MAGNESIUM SULFATE-D5W PMX 1 GM in DEXTROSE/WATER 1 100ML.BAG IVPB SCH (09:45)
[2021-10-20 09:48] LABS: Basophils # (A) 0.04 X 10*3/uL (0.00-0.10); Basophils % (A) 0.5 %; Eosinophils # (A) 0.17 X 10*3/uL (0.04-0.35); Eosinophils % (A) 1.9 %; HGB 8.9 g/dL (13.0-17.0); Lymphocytes # (A) 0.32 X 10*3/uL (0.90-5.00); Lymphocytes % (A) 3.6 %; MCH 31.4 pg (27.0-32.0); MCHC 30.7 g/dL (32.0-37.0); MCV 102.5 fL (80.0-97.0); Mean Platelet Volume 8.8 fL (9.5-12.2); Monocytes # (A) 0.78 X 10*3/uL (0.20-1.00); Monocytes % (A) 8.8 %; NRBC Per 100 WBC 0.2 /100 WBCS (0.0-0.0); Neutrophils # (A) 7.36 X 10*3/uL (1.80-7.70); Neutrophils % (A) 83.2 %; Platelet Count 96 X 10*3/uL (140-440); RBC 2.83 X 10*6/uL (4.40-5.60); RDW 16.8 % (11.5-14.5); WBC 8.85 X 10*3/uL (4.50-10.00)
[2021-10-20 09:57] LABS: African American GFR (CKD) 18.8 (60.0-200.0); Albumin 2.5 g/dL (3.8-4.9); Albumin/Globulin Ratio 0.93 (1.60-3.17); Anion Gap 16.5 mmol/L (10.00-18.00); BUN/Creat Ratio 6.66 Ratio (12.00-20.00); Blood Urea Nitrogen 23.3 mg/dL (9.0-27.0); Calcium 8.5 mg/dL (8.7-10.3); Carbon Dioxide 20.5 mmol/L (20.0-27.5); Globulin 2.7 g/dL (1.6-3.3); Non-African American GFR(CKD) 16.2 (60.0-200.0); Potassium 3.4 mmol/L (3.5-5.5); Total Bilirubin 0.6 mg/dL (0.30-1.20); Total Protein 5.2 g/dL (6.2-8.2)
[2021-10-20] MEDS: MIDODRINE 5 MG TAB PO PRN (10:54)
[2021-10-20 11:37] LABS: Glucose,Whole Blood 91 mg/dL (75-99)
[2021-10-20] MEDS: POTASSIUM PHOSPHATE 10 MMOL in SODIUM CHLORIDE 0.9% 250 ML IV SCH ×2 (12:36→14:59)
[2021-10-20] MEDS: FUROSEMIDE 10 MG/ML 10 ML VIAL IV SCH ×2 (12:37→21:59)
[2021-10-20] MEDS: CYANOCOBALAMIN 1,000 MCG/ML 1 ML VIAL IM SCH (12:37)
--- NOTE | 2021-10-20 12:37 | P.PN ---
Subjective Progress Note Date: 10/20/21 CHIEF COMPLAINT: Protein malnutrition HISTORY OF PRESENT ILLNESS: The patient is a 76-year-old male status post gastrostomy tube placement, postoperative day 2. Family at bedside. Currently he is in session for dialysis. Goal tube feeds for 80 mL/hr. Currently he is 20 mL/hr. Nurse reports no residuals from tube feeding. ROS: No reports of nausea and vomiting. No bowel movements. No fevers or ch ills. No new chest pain. No productive sputum PHYSICAL EXAM: VITAL SIGNS: Reviewed CONSTITUTIONAL: Well developed and in no acute distress. EYES: Conjuctivae without sclera icterus. Extraocular movements grossly intact. HEAD, EARS, NOSE, THROAT: Moist buccal mucosa. Head is atraumatic, normo cephalic. Hears conversational speech. No nasal drainage. RESPIRATORY: Non-labored respirations and equal bilateral excursions. CARDIOVASCULAR: Palpable 2+ radial pulses. ABDOMEN: PEG tube intact. No cellulitis. MUSCULOSKELETAL: No gross deformity of the lower extremities noted. No clubbing. No cyanosis. SKIN: Good skin turgor. Well perfused. NEUROLOGIC: Cranial nerves II through XII grossly intact. No focal or lateralizing signs. PSYCH: Aphasia. CLINICAL LABS: Reviewed. WBC normal. Hgb 8.8 with anemia ASSESSMENT: 1. Moderate protein malnutrition 2. Dysphagia 3. End stage renal disease on hemodialysis 4. Aphasic PLAN: 1. Continue to increase tube feeds every 8 hrs until goal 80mL/hr as per dietitian 2. Renal dialysis per nephrology Objective - Vital Signs Vital signs: Vital Signs Temp 98.2 F 10/20/21 08:00 Pulse 100 10/20/21 08:33 Resp 16 10/20/21 08:00 BP 103/60 10/20/21 08:00 Pulse Ox 95 10/20/21 08:20 Intake & Output 10/19/21 10/20/21 10/20/21 18:59 06:59 18:59 Output Total 700 75 Balance -700 -75 Weight 131.542 kg 114 kg Output: Urine 75 Hemodialysis 700 Other: Voiding Method Indwelling Catheter Indwelling Catheter Indwelling Catheter # Bowel Movements 2 1 - Labs CBC & Chem 7: 10/20/21 06:16 10/20/21 06:08 Labs: Abnormal Lab Results - Last 24 Hours (Table) 10/15/21 10/20/2110/20/22 Range/Units 18:26 06:08 06:16 RBC 2.83 L (4.40-5.60) X 10*6/uL Hgb 8.9 L (13.0-17.0) g/dL Hct 29.0 L (39.6-50.0) % MCV 102.5 H (80.0-97.0) fL MCHC 30.7 L (32.0-37.0) g/dL RDW 16.8 H (11.5-14.5) % Plt Count 96 L (140-440) X 10*3/uL Plt Count Comment DECREASED A MPV 8.8 L (9.5-12.2) fL Absolute Nucleated RBC 0.02 H (0.00-0.00) X 10*3/uL Immature Gran # 0.18 H (0.00-0.04) X 10*3/uL Lymphocytes # 0.32 L (0.90-5.00) X 10*3/uL NRBC/100 WBC Diff 0.2 H (0.0-0.0) /100 WBCS Potassium 3.4 L (3.5-5.5) mmol/L Creatinine 3.5 H (0.6-1.5) mg/dL Est GFR (CKD-EPI)AfAm 18.8 L (60.0-200.0) Est GFR (CKD-EPI)NonAf 16.2 L (60.0-200.0) BUN/Creatinine Ratio 6.66 L (12.00-20.00) Ratio Calcium 8.5 L (8.7-10.3) mg/dL Phosphorus 1.6 L (2.4-5.1) mg/dL AST 39 H (14-35) U/L ALT 9 L (10-49) U/L Total Protein 5.2 L (6.2-8.2) g/dL Albumin 2.5 L (3.8-4.9) g/dL Albumin/Globulin Ratio 0.93 L (1.60-3.17) g/dL Reverse T3 >100.0 H (9.0 - 27.0) ng/dL
[2021-10-20] MEDS: MIDODRINE 5 MG TAB PO SCH ×2 (12:38→17:00)
[2021-10-20 14:08] LABS: Hepatitis A Antibody IgM Nonreactive (Nonreactive)
--- NOTE | 2021-10-20 16:39 | P.PN ---
Progress Note - Text Progress Note Date: 10/20/21 Hospital course This is a pleasant 76-year-old patient who follows with Dr. Axel Mcclure. [facility] scooter stable medical conditions include cirrhosis with esophageal varices , osteoarthritis, diabetes, COPD on home oxygen 3 L. chronically short of breath. He presents accompanied by his with complaint of generalized weakness and. Of confusion on and off while he is mildly confused today as per at bedside however he is able to answer questions appropriately and follows commands His weakness was getting worse over the last few days. Patient also has poor eating habits although he is morbidly obese with BMI of 39.3 but our patient and he has history of dysphagia for the last 3 months with choking without obvious aspiration. Admitted with elevated creatinine. Acute kidney injury. Congested cough. October 15: Patient congested cough. Failed modified barium swallow. Discussed with the patient insisted the bedside. PEG tube will be ordered. Nephrology spoke to the patient and family about possible dialysis. Patient tired. In bed. Accu-Cheks running on the low side. We'll change IV fluids to D5W. October 16: Breathing a bit better. Nothing by mouth. Had right groin hemodialysis catheter placed. By Dr. Boyer yesterday. To commence hemodialysis today. insisted the bedside. CODE STATUS discussed with the patient and family. Made DO NOT RESUSCITATE. PEG tube scheduled for . October 17: Patient was dialyzed yesterday. Scheduled for dialysis today. Tired. at the bedside. Nothing by mouth. IV fluids. Scheduled for PEG tube tomorrow. October 18: Patient is a PEG tube placed today. Diet. at the bedside. Start feeding tomorrow. October 19: Getting hemodialysis today. PEG tube will be starting later today. Laying in bed. Awake. Tired. October 20: Some trouble with hemodialysis access today. Could not be hemodialysis. PEG tube feeding at 20 mL an hour. Daughter the bedside. Otherwise patient's comfortable. Active Medications Albuterol/Ipratropium (Ipratropium-Albuterol 3 Ml Neb) 3 ml INHALATION RT-QID [facility] Last Admin: 10/20/21 15:12 Dose: 3 ml Documented by: Budesonide (Budesonide 0.5 Mg/2 Ml Nebu) 0.5 mg INHALATION RT-BID [facility] Last Admin: 10/20/21 08:17 Dose: 0.5 mg Documented by: Cyanocobalamin (Cyanocobalamin 1,000 Mcg/Ml 1 Ml Vial) 1,000 mcg IM DAILY [facility] Stop: 10/24/21 09:01 Last Admin: 10/20/21 12:37 Dose: 1,000 mcg Documented by: Diphenhydramine HCl (Diphenhydramine 50 Mg/Ml 1 Ml Vial) 25 mg IVP Q6HR PRN PRN Reason: Allergy Symptoms Last Admin: 10/19/21 15:57 Dose: 25 mg Documented by: Famotidine (Famotidine 20 Mg/2 Ml Vial) 20 mg IV HS [facility] Last Admin: 10/19/21 20:47 Dose: 20 mg Documented by: Furosemide (Furosemide 10 Mg/Ml 10 Ml Vial) 80 mg IV Q12HR [facility] Last Admin: 10/20/21 12:37 Dose: 80 mg Documented by: Heparin Sodium (Porcine) (Heparin Sodium,Porcine/Pf 5,000 Unit/0.5 Ml Syringe) 5,000 unit SQ Q12HR [facility] Last Admin: 10/20/21 09:00 Dose: 5,000 unit Documented by: Ampicillin Sodium/Sulbactam (Sodium 3 gm/ Sodium Chloride) 100 mls @ 200 mls/hr IVPB Q12HR [facility]; Protocol Last Admin: 10/20/21 09:00 Dose: 200 mls/hr Documented by: Lactated Ringer's (Lactated Ringers) 1,000 mls @ 20 mls/hr IV .Q24H [facility] Last Admin: 10/19/21 23:19 Dose: Not Given Documented by: Lidocaine HCl (Lidocaine 1% (10mg/Ml) For Iv Start) 0.1 ml INTRADERMA PER PROTOCOL PRN PRN Reason: IV Start Midodrine (Midodrine 5 Mg Tab) 5 mg PO AC-TID [facility] Last Admin: 10/20/21 12:38 Dose: Not Given Documented by: Midodrine (Midodrine 5 Mg Tab) 10 mg PO DAILY PRN PRN Reason: To be given before hemodialysi Last Admin: 10/20/21 10:54 Dose: 10 mg Documented by: Miscellaneous Information (Phosphorus Replacement Protoco 1 Each Misc) 1 each MISCELLANE DAILY PRN; Protocol PRN Reason: Per Protocol Naloxone HCl (Naloxone 0.4 Mg/Ml 1 Ml Vial) 0.2 mg IV Q2M PRN PRN Reason: Opioid Reversal Past medical history to include: COPD, diabetes, GERD, cirrhosis with esophageal varices, home oxygen 3 L Social history: . Used to drink 7-8 drinks on the weekends not certain a few years. Did smoke in the past, stopped smoking in 1985. Family history: Lung cancer Physical examination: VITAL SIGNS: 98.3, 110, 20, 94/47, 93% on 4 L GENERAL: Laying in bed, awake tired EYES: Pupils equal. Conjunctiva normal. HEENT: External appearance of nose and ears normal, oral cavity grossly normal. NECK: JVD not raised; masses not palpable. HEART: First and second heart sounds are normal; no edema. LUNGS: Respiratory rate normal; decreased breath sounds. ABDOMEN: Soft, nontender, liver spleen not palpable, no masses palpable. Right groin hemodialysis catheter . PEG tube PSYCH: Able to answer simple questions MUSCULOSKELETAL:No Clubbing/cyanosis;muscles-grossly intact INVESTIGATIONS, reviewed in the clinical context: October 20: White count 8.8 hemoglobin 8.9 platelets 96 potassium 3.4 creatinine 3.5 Computed tomography scan chest abdomen: Ascites. Large bilateral pleural effusion and lung consolidation. 2-D echocardiogram: LV function 35-40%. Wall motion abnormality. Bone scan: No suspicious focal increase uptake to suggest metastatic disease to the bone. Findings consistent with metabolic SuperScan. October 18: White count 7.1 hemoglobin 9.5 platelets 138in 3.5 and 35 crit and 3.78 Ig. IgA: 281. IgM: 68.4. Rheumatoid factor increased to 65. JAKOB screen: Negative double-stranded DNA antibody: Negative complement C3: 80.6 complement C4 24.9. Total complement: 66 free Light change: 10.9: Free lambda light chain: 9.53 Hepatitis B surface antigen/hepatitis B surface antibody/hepatitis B core total antibody/hepatitis B core IgM antibody/hepatitis C IgG antibody/: All nonreactive October 17: 18 hemoglobin 8.7 platelets 141 potassium 3.6 creatinine 4.6 October 16: White count 8.7 hemoglobin 9 platelets 1794.2 creatinine 5.8 BUN 68.7 Sodium 138 potassium 4.2 BUN 69 creatinine 5.47 magnesium 11.6 Previous labs: Creatinine 1.28 on 06/23/2021, 0.8 on 05/28/2021 Assessment and plan: -Acute kidney injury secondary to ATN. Also prerenal component from poor oral intake.: Not improving Right groin dialysis catheter placed on October 15, by Dr. Boyer. 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 DuoNeb 4 times a day -Diabetes mellitus type 2, on oral hypoglycemic, uncontrolled with hypoglycemia. D5W. -GERD Protonix 40 mg -Severe dysphagia. With higher risk of aspiration. Failed modified barium swallow. Nothing by mouth. PEG tube placed October [address] Machado. -PEG tube feeding. Nothing by mouth. 2 feeding to be started today. -Hypercalcemia. Received biphosphonate and calcitonin as per nephrology. Bone scan negative. -Mediastinal lymphadenopathy. Computed tomography scan abdomen and pelvis for further assessment per hematology. -Primary osteoarthritis Pain medications as needed -Hyperlipidemia zetia 10 mg daily -DO NOT RESUSCITATE Hemodialysis catheter malfunction today. No hemodialysis. Tube feeding at 20 mL hour. Other medications to continue. Discussed with daughter the bedside.
[2021-10-20 16:40] LABS: Glucose,Whole Blood 92 mg/dL (75-99)
[2021-10-20 21:29] LABS: Glucose,Whole Blood 99 mg/dL (75-99)
[2021-10-20] MEDS: FAMOTIDINE 20 MG/2 ML VIAL IV SCH (21:59)
[2021-10-21] MEDS: LACTATED RINGERS 1,000 ML IV SCH ×2 (05:40→20:51)
[2021-10-21 07:25] LABS: Glucose,Whole Blood 99 mg/dL (75-99)
[2021-10-21] MEDS ORDERED: fentaNYL (PF) 50 MCG/ML 2 ML AMP IV ONE (08:32)
[2021-10-21] MEDS ORDERED: LIDOCAINE 1% INJ 10MG/ML (20 ML MDV) SQ ONE (08:33)
[2021-10-21] MEDS ORDERED: IV FLUID CONTINUATION 500 ML IV ONE (08:35)
[2021-10-21] MEDS: BUDESONIDE 0.5 MG/2 ML NEBU INHALATION SCH ×2 (08:40→19:42)
[2021-10-21] MEDS: IPRATROPIUM-ALBUTEROL 3 ML NEB INHALATION SCH ×4 (08:40→19:42)
[2021-10-21] MEDS: FUROSEMIDE 10 MG/ML 10 ML VIAL IV SCH ×2 (09:34→20:46)
[2021-10-21] MEDS: HEPARIN SODIUM,PORCINE/PF 5,000 UNIT/0.5 ML SYRINGE SQ SCH ×2 (09:36→20:45)
[2021-10-21] MEDS: CYANOCOBALAMIN 1,000 MCG/ML 1 ML VIAL IM SCH (09:37)
[2021-10-21] MEDS: MIDODRINE 5 MG TAB PO SCH ×3 (09:37→17:03)
[2021-10-21] MEDS: AMPICILLIN-SULBACTAM 3 GM in SODIUM CHLORIDE 0.9% 100 ML IVPB SCH ×2 (09:37→20:46)
--- NOTE | 2021-10-21 10:05 | XR ---
EXAMINATION TYPE: XR chest 1V confirm line [facility] DATE OF EXAM: 10/21/2021 COMPARISON: 10/13/2021 INDICATION: Hemodialysis catheter insertion TECHNIQUE: Single frontal view of the chest is obtained. FINDINGS: The heart size is normal. The pulmonary vasculature is normal. Right lung infiltrate is present. Left lower lung field infiltrate is present. Small left and moderat e right pleural effusions are present. There is insertion of a double-lumen catheter on the right with the tips in the expected region of th e right atrium. No pneumothorax is evident. IMPRESSION: 1. Right lung and left lower lobe infiltrates. 2. Moderate right and small left pleural effusion. 3. Placement of a catheter with the tips in the expected region of the proximal right atrium.
[2021-10-21] MEDS: MIDODRINE 5 MG TAB PO PRN (11:21)
--- NOTE | 2021-10-21 11:22 | P.PN ---
Progress Note - Text Progress Note Date: 10/21/21 Hospital course This is a pleasant 76-year-old patient who follows with Dr. Axel Mcclure. [facility] scooter stable medical conditions include cirrhosis with esophageal varices , osteoarthritis, diabetes, COPD on home oxygen 3 L. chronically short of breath. He presents accompanied by his with complaint of generalized weakness and. Of confusion on and off while he is mildly confused today as per at bedside however he is able to answer questions appropriately and follows commands His weakness was getting worse over the last few days. Patient also has poor eating habits although he is morbidly obese with BMI of 39.3 but our patient and he has history of dysphagia for the last 3 months with choking without obvious aspiration. Admitted with elevated creatinine. Acute kidney injury. Congested cough. October 15: Patient congested cough. Failed modified barium swallow. Discussed with the patient insisted the bedside. PEG tube will be ordered. Nephrology spoke to the patient and family about possible dialysis. Patient tired. In bed. Accu-Cheks running on the low side. We'll change IV fluids to D5W. October 16: Breathing a bit better. Nothing by mouth. Had right groin hemodialysis catheter placed. By Dr. Boyer yesterday. To commence hemodialysis today. insisted the bedside. CODE STATUS discussed with the patient and family. Made DO NOT RESUSCITATE. PEG tube scheduled for . October 17: Patient was dialyzed yesterday. Scheduled for dialysis today. Tired. at the bedside. Nothing by mouth. IV fluids. Scheduled for PEG tube tomorrow. October 18: Patient is a PEG tube placed today. Diet. at the bedside. Start feeding tomorrow. October 19: Getting hemodialysis today. PEG tube will be starting later today. Laying in bed. Awake. Tired. October 20: Some trouble with hemodialysis access today. Could not be hemodialysis. PEG tube feeding at 20 mL an hour. Daughter the bedside. Otherwise patient's comfortable. October 21: Patient had a new dialysis catheter placed on the right upper chest. Groin [address] Boyer. PEG tube feeding at 60 mL an hour. Dialysis today. Tired. Active Medications Albuterol/Ipratropium (Ipratropium-Albuterol 3 Ml Neb) 3 ml INHALATION RT-QID [facility] Last Admin: 10/21/21 08:40 Dose: Not Given Documented by: Budesonide (Budesonide 0.5 Mg/2 Ml Nebu) 0.5 mg INHALATION RT-BID [facility] Last Admin: 10/21/21 08:40 Dose: Not Given Documented by: Cyanocobalamin (Cyanocobalamin 1,000 Mcg/Ml 1 Ml Vial) 1,000 mcg IM DAILY [facility] Stop: 10/24/21 09:01 Last Admin: 10/21/21 09:37 Dose: 1,000 mcg Documented by: Diphenhydramine HCl (Diphenhydramine 50 Mg/Ml 1 Ml Vial) 25 mg IVP Q6HR PRN PRN Reason: Allergy Symptoms Last Admin: 10/19/21 15:57 Dose: 25 mg Documented by: Famotidine (Famotidine 20 Mg/2 Ml Vial) 20 mg IV HS [facility] Last Admin: 10/20/21 21:59 Dose: 20 mg Documented by: Furosemide (Furosemide 10 Mg/Ml 10 Ml Vial) 80 mg IV Q12HR [facility] Last Admin: 10/21/21 09:34 Dose: 80 mg Documented by: Heparin Sodium (Porcine) (Heparin Sodium,Porcine/Pf 5,000 Unit/0.5 Ml Syringe) 5,000 unit SQ Q12HR [facility] Last Admin: 10/21/21 09:36 Dose: 5,000 unit Documented by: Ampicillin Sodium/Sulbactam (Sodium 3 gm/ Sodium Chloride) 100 mls @ 200 mls/hr IVPB Q12HR [facility]; Protocol Last Admin: 10/21/21 09:37 Dose: 200 mls/hr Documented by: Lactated Ringer's (Lactated Ringers) 1,000 mls @ 20 mls/hr IV .Q24H [facility] Last Admin: 10/21/21 05:40 Dose: Not Given Documented by: Lidocaine HCl (Lidocaine 1% (10mg/Ml) For Iv Start) 0.1 ml INTRADERMA PER PROTOCOL PRN PRN Reason: IV Start Midodrine (Midodrine 5 Mg Tab) 5 mg PO AC-TID [facility] Last Admin: 10/21/21 09:37 Dose: 5 mg Documented by: Midodrine (Midodrine 5 Mg Tab) 10 mg PO DAILY PRN PRN Reason: To be given before hemodialysi Last Admin: 10/20/21 10:54 Dose: 10 mg Documented by: Miscellaneous Information (Phosphorus Replacement Protoco 1 Each Misc) 1 each MISCELLANE DAILY PRN; Protocol PRN Reason: Per Protocol Naloxone HCl (Naloxone 0.4 Mg/Ml 1 Ml Vial) 0.2 mg IV Q2M PRN PRN Reason: Opioid Reversal Past medical history to include: COPD, diabetes, GERD, cirrhosis with esophageal varices, home oxygen 3 L Social history: . Used to drink 7-8 drinks on the weekends not certain a few years. Did smoke in the past, stopped smoking in 1985. Family history: Lung cancer Physical examination: VITAL SIGNS: On 122, 92/48, 93% on 5 L GENERAL: Laying in bed, tired EYES: Pupils equal. Conjunctiva normal. HEENT: External appearance of nose and ears normal, oral cavity grossly normal. NECK: JVD not raised; masses not palpable. HEART: First and second heart sounds are normal; no edema. LUNGS: Respiratory rate normal; decreased breath sounds. ABDOMEN: Soft, nontender, liver spleen not palpable, no masses palpable. Right groin hemodialysis catheter . PEG tube PSYCH: Lethargic MUSCULOSKELETAL:No Clubbing/cyanosis;muscles-grossly intact INVESTIGATIONS, reviewed in the clinical context: October 20: White count 8.8 hemoglobin 8.9 platelets 96 potassium 3.4 creatinine 3.5 Computed tomography scan chest abdomen: Ascites. Large bilateral pleural effusion and lung consolidation. 2-D echocardiogram: LV function 35-40%. Wall motion abnormality. Bone scan: No suspicious focal increase uptake to suggest metastatic disease to the bone. Findings consistent with metabolic SuperScan. October 18: White count 7.1 hemoglobin 9.5 platelets 138in 3.5 and 35 crit and 3.78 Ig. IgA: 281. IgM: 68.4. Rheumatoid factor increased to 65. JAKOB screen: Negative double-stranded DNA antibody: Negative complement C3: 80.6 complement C4 24.9. Total complement: 66 free Light change: 10.9: Free lambda light chain: 9.53 Hepatitis B surface antigen/hepatitis B surface antibody/hepatitis B core total antibody/hepatitis B core IgM antibody/hepatitis C IgG antibody/: All nonreactive October 17: 18 hemoglobin 8.7 platelets 141 potassium 3.6 creatinine 4.6 October 16: White count 8.7 hemoglobin 9 platelets 1794.2 creatinine 5.8 BUN 68.7 Sodium 138 potassium 4.2 BUN 69 creatinine 5.47 magnesium 11.6 Previous labs: Creatinine 1.28 on 06/23/2021, 0.8 on 05/28/2021 Assessment and plan: -Acute kidney injury secondary to ATN. Also prerenal component from poor oral intake.: Not improving Right groin dialysis catheter placed on October 15, by Dr. Boyer. 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 Possible contribution of cirrhosis. I.e. hepatic encephalopathy.: New diagnosis Add lactulose daily - cirrhosis with esophageal varices secondary to alcoholism in the past Follow clinically. 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 DuoNeb 4 times a day -Diabetes mellitus type 2, on oral hypoglycemic, uncontrolled with hypoglycemia. D5W. -GERD Protonix 40 mg -Severe dysphagia. With higher risk of aspiration. Failed modified barium swallow. Nothing by mouth. PEG tube placed October [address] Machado. -PEG tube feeding. Nothing by mouth. 2 feeding to be started today. -Hypercalcemia. Received biphosphonate and calcitonin as per nephrology. Bone scan negative. -Mediastinal lymphadenopathy. Computed tomography scan abdomen and pelvis for further assessment per hematology. -Primary osteoarthritis Pain medications as needed -Hyperlipidemia zetia 10 mg daily -DO NOT RESUSCITATE Hemodialysis catheter place a right upper chest wall. Start lactulose 20 g. PEG tube feeding tube. Advance as tolerated.
[2021-10-21] MEDS ORDERED: LACTULOSE 20 GM/30 ML CUP PO SCH (11:30)
[2021-10-21 11:49] LABS: Glucose,Whole Blood 122 mg/dL (75-99)
--- NOTE | 2021-10-21 12:15 | P.PN ---
Subjective Patient is seen in follow-up for acute kidney injury. Renal function had been worsening. Started on hemodialysis 10/16/2021. Receiving tube feeds. Tolerating dialysis well. Permacath placed 10/20/2021. Groin catheter removed. present at bedside. Vital signs are stable. General: Awake. Quite lethargic. HEENT: Head exam is unremarkable. LUNGS: Rate and rhythm regular. HEART: Tachycardic. ABDOMEN: Soft, no distention. EXTREMITITES: 1+ edema. Objective - Vital Signs Vital signs: Vital Signs Temp 98.6 F 10/21/21 09:19 Pulse 83 10/21/21 09:19 Resp 22 10/21/21 09:19 BP 92/48 10/21/21 09:19 Pulse Ox 93 L 10/21/21 09:19 Intake & Output 10/20/21 10/21/21 10/21/21 18:59 06:59 18:59 Output Total 20 Balance -20 Weight 113 kg Output: Urine 20 Other: Voiding Method Indwelling Catheter Indwelling Catheter Indwelling Catheter # Bowel Movements 1 - Labs CBC & Chem 7: 10/20/21 06:16 10/20/21 06:08 Labs: Abnormal Lab Results - Last 24 Hours (Table) 10/21/21 Range/Units 11:47 POC Glucose (mg/dL) 122 H (75-99) mg/dL Assessment and Plan Plan: Assessment: 1. Acute kidney injury secondary to ATN secondary to hypercalcemia. Renal function has been progressively worsening since May 2021 when his creatinine was 0.8. Renal ultrasound showed absent left kidney with no hydronephrosis in the right kidney. Started on hemodialysis 10/16/2021. Has permacath. Oliguric. 2. Hypercalcemia. PTH appropriately suppressed. Vitamin D level 68. CHAPITO 24; 1,25 D3 level high at 117 - ?sarcoidosis, malignancy. No Bence-Wilson protein identified on serum immunofixation. Questionable paraprotein in the gamma region noted on serum electrophoresis. Bone scan showed no evidence of metastatic disease. 3. Dysphagia. Failed swallow eval. Status post PEG tube placement. 4. Diabetes mellitus. 5. UTI. Urine culture positive for enterococcus on antibiotics. 6. Anemia. Iron replete. Hematology following. 7. Diabetes mellitus. 8. Volume overload. 9. Acute on chronic systolic CHF with ejection fraction of 35-40% with mild to moderate aortic stenosis and mitral regurgitation. Plan: Currently seen was undergoing hemodialysis. Next treatment tomorrow. Maintain IV Lasix. Maintain midodrine. Will give extra dose during dialysis if needed. Receiving tube feeds. Status post Zometa 10/14/2021. Also received a dose of calcitonin 10/15/2021. ?mediastinal biopsy per pulmonology. F/u serologies and quantify proteinuria - JAKOB, double-stranded DNA antibody and complements normal. ANCA and hep negative. [place]/lambda ratio normal. No Bence-Wilson proteins identified on serum immunofixation. Prognosis guarded.
--- NOTE | 2021-10-21 12:55 | OP ---
OPERATIVE REPORT PREOPERATIVE DIAGNOSIS: Acute and chronic renal failure. PROCEDURE: 1. Placement of a 23 cm dialysis catheter, right jugular approach. 2. Removal of the right femoral catheter. Sedation time is 25 minutes. DESCRIPTION OF PROCEDURE: This patient was brought to the cath laboratory. Right side of the neck and chest was prepped and drapes were applied in a sterile manner. Lidocaine 1% was infiltrated into neck and chest area. Ultrasound-guided micropuncture was introduced into the right jugular vein. Micropuncture guidewire was passed. After that we passed a 4-[place] dilator and then a regular guidewire was passed. The guidewire was visualized and parked in the inferior vena cava. Then we created a tunnel. Through the tunnel we brought a 20 cm dialysis catheter. The dilator was advanced on the top of the guidewire. Then sheath was advanced on top of the guidewire. Through the sheath we introduced the dialysis catheter. Sheath was removed. Tip of catheter was in superior vena cavoatrial junction. Flushed with heparin saline and hep-locked, secured with 3-0 nylon. Then the groin was prepped. Drapes were applied in sterile manner. Stitches were removed. Dialysis catheter was removed from the right groin. Pressure dressing was applied. Patient tolerated the procedure well and was transferred to the recovery room in satisfactory condition. MMODL / IJN: [id number] /
--- NOTE | 2021-10-21 13:06 | P.BASOAP ---
Subjective Progress Note Date: 10/21/21 CHIEF COMPLAINT: Protein malnutrition HISTORY OF PRESENT ILLNESS: The patient is a 76-year-old male status post gastrostomy tube placement. Family at bedside. Currently he has another hemodialysis session. Currently he is 50 mL/hr. He denies abdominal pain. ROS: No reports of nausea and vomiting. No bowel movements. No fevers or chills. No new chest pain. No productive sputum PHYSICAL EXAM: VITAL SIGNS: Reviewed CONSTITUTIONAL: Well developed and in no acute distress. EYES: Conjuctivae without sclera icterus. Extraocular movements grossly intact. HEAD, EARS, NOSE, THROAT: Moist buccal mucosa. Head is atraumatic, normocephalic. Hears conversational speech. No nasal drainage. RESPIRATORY: Non-labored respirations and equal bilateral excursions. CARDIOVASCULAR: Palpable 2+ radial pulses. ABDOMEN: PEG tube intact. No cellulitis. MUSCULOSKELETAL: No gross deformity of the lower extremities noted. No clubbing. No cyanosis. SKIN: Good skin turgor. Well perfused. NEUROLOGIC: Cranial nerves II through XII grossly intact. No focal or lateralizing signs. PSYCH: Aphasia. CLINICAL LABS: Reviewed. BS 122 ASSESSMENT: 1. Moderate protein malnutrition 2. Dysphagia 3. End stage renal disease on hemodialysis PLAN: 1. He is tolerating tube feeds. Continue to increase tube feeds until goal 80mL/hr Objective - Vital Signs Vital signs: Vital Signs Temp 98.6 F 10/21/21 09:19 Pulse 83 10/21/21 09:19 Resp 22 10/21/21 09:19 BP 92/48 10/21/21 09:19 Pulse Ox 93 L 10/21/21 09:19 Intake & Output 10/20/21 10/21/21 10/21/21 18:59 06:59 18:59 Output Total 20 Balance -20 Weight 113 kg Output: Urine 20 Other: Voiding Method Indwelling Catheter Indwelling Catheter Indwelling Catheter # Bowel Movements 1 - Labs CBC & Chem 7: 10/20/21 06:16 10/20/21 06:08 Labs: Abnormal Lab Results - Last 24 Hours (Table) 10/21/21 Range/Units 11:47 POC Glucose (mg/dL) 122 H (75-99) mg/dL Assessment/Plan Plan: Date: 10/13/21 Initial Weight: Initial BMI: Current Weight: 113 kg Current BMI: 39.3 Type of Surgery: Total Volume in Band: Previous Volume: Volume Removed: Volume Added: Band Size:
[2021-10-21 16:29] LABS: Glucose,Whole Blood 117 mg/dL (75-99)
[2021-10-21 20:12] VITALS: RESP 18
--- NOTE | 2021-10-21 20:19 | IR ---
EXAMINATION TYPE: IR cvc insert central tunneled DATE OF EXAM: 10/21/2021 CLINICAL HISTORY: Failed dialysis TECHNIQUE: Fluoroscopy. COMPARISON: None. FINDINGS: Fluoroscopic guidance was provided during right internal jugular dialysis catheter inserti on procedure performed by Dr. Keen. A total of 36 seconds of fluoroscopic time was utilized durin g the procedure and 321 spot images was acquired. IMPRESSION: As Above.
[2021-10-21] MEDS: FAMOTIDINE 20 MG/2 ML VIAL IV SCH (20:45)
[2021-10-21 21:09] LABS: Glucose,Whole Blood 143 mg/dL (75-99)
--- NOTE | 2021-10-21 23:22 | P.PN ---
Subjective Progress Note Date: 10/20/21 Principal diagnosis: UTI and pressure ulcer to the sacral area Patient is a 76-year-old male presented to hospital with weakness in this patient noticed to have worsening of his kidney function patient also have a positive UA with urine culture finalized with Enterococcus faecalis did have a pressure ulcer to the sacral area but no evidence of any cellulitis, patient did get a dialysis catheter placement because of his worsening kidney function. The patient is status post PEG tube placement completed on 10/18/2021 On today's evaluation that is 10/20/2021, the patient continues to be afebrile , the patient is breathing comfortably on nasal cannula oxygen, patient is not a good historian, however no vomiting diarrhea or any other changes in clinical condition reported by the at the bedside Objective - Vital Signs Vital signs: Vital Signs Temp 98.3 F 10/20/21 14:00 Pulse 116 H 10/20/21 15:22 Resp 20 10/20/21 14:00 BP 94/47 10/20/21 14:00 Pulse Ox 93 L 10/20/21 14:00 Intake & Output 10/19/21 10/20/21 10/20/21 18:59 06:59 18:59 Output Total 700 75 Balance -700 -75 Weight 131.542 kg 114 kg Output: Urine 75 Hemodialysis 700 Other: Voiding Method Indwelling Catheter Indwelling Catheter Indwelling Catheter # Bowel Movements 2 1 - Exam GENERAL DESCRIPTION: An elderly male lying in bed in no distress RESPIRATORY SYSTEM: Unlabored breathing , decreased breath sounds at bases HEART: S1 S2 regular rate and rhythm , ABDOMEN: Soft , no tenderness EXTREMITIES: No edema feet - Labs CBC & Chem 7: 10/20/21 06:16 10/20/21 06:08 Labs: Abnormal Lab Results - Last 24 Hours (Table) 10/20/21 10/20/21 Range/Units 06:08 06:16 RBC 2.83 L (4.40-5.60) X 10*6/uL Hgb 8.9 L (13.0-17.0) g/dL Hct 29.0 L (39.6-50.0) % MCV 102.5 H (80.0-97.0) fL MCHC 30.7 L (32.0-37.0) g/dL RDW 16.8 H (11.5-14.5) % Plt Count 96 L (140-440) X 10*3/uL Plt Count Comment DECREASED A MPV 8.8 L (9.5-12.2) fL Absolute Nucleated RBC 0.02 H (0.00-0.00) X 10*3/uL Immature Gran # 0.18 H (0.00-0.04) X 10*3/uL Lymphocytes # 0.32 L (0.90-5.00) X 10*3/uL NRBC/100 WBC Diff 0.2 H (0.0-0.0) /100 WBCS Potassium 3.4 L (3.5-5.5) mmol/L Creatinine 3.5 H (0.6-1.5) mg/dL Est GFR (CKD-EPI)AfAm 18.8 L (60.0-200.0) Est GFR (CKD-EPI)NonAf 16.2 L (60.0-200.0) BUN/Creatinine Ratio 6.66 L (12.00-20.00) Ratio Calcium 8.5 L (8.7-10.3) mg/dL Phosphorus 1.6 L (2.4-5.1) mg/dL AST 39 H (14-35) U/L ALT 9 L (10-49) U/L Total Protein 5.2 L (6.2-8.2) g/dL Albumin 2.5 L (3.8-4.9) g/dL Albumin/Globulin Ratio 0.93 L (1.60-3.17) g/dL Assessment and Plan (1) UTI (urinary tract infection) Current Visit: Yes Status: Acute Code(s): N39.0 - URINARY TRACT INFECTION, SITE NOT SPECIFIED SNOMED Code(s): 92344655 Plan: 1patient presented to hospital with weakness mental status changes likely multifactorial in this patient did have a worsening of his kidney function and likely metabolic he also have a positive UA and a possible component of sy mptomatic urinary tract infection with the urine showing Enterococcus faecalis. 2patient with a stage II sacral pressure ulcer but no slough tissue, overall wound base looks clean local wound care switched over to dicloxacillin dressing [address] chest did showed possible right upper lobe infiltrate and the patient has failed his swallow evaluation Gen. surgery has been consulted and the patient is status post PEG tube placement today on 10/18/2021, patient to continue with the Unasyn Time with Patient: Less than 30
--- NOTE | 2021-10-21 23:25 | P.PN ---
Subjective Progress Note Date: 10/21/21 Principal diagnosis: UTI and pressure ulcer to the sacral area Patient is a 76-year-old male presented to hospital with weakness in this patient noticed to have worsening of his kidney function patient also have a positive UA with urine culture finalized with Enterococcus faecalis did have a pressure ulcer to the sacral area but no evidence of any cellulitis, patient did get a dialysis catheter placement because of his worsening kidney function. The patient is status post PEG tube placement completed on 10/18/2021, patient did have worsening of the kidney function right IJ dialysis catheter has been placed for 10/20/2021 and the groin catheter was removed On today's evaluation that is 10/21/2021, the patient remains to be afebrile , the patient is breathing comfortably on nasal cannula oxygen, patient is slightly lethargic and did not provide any history no vomiting or diarrhea has been reported Objective - Vital Signs Vital signs: Vital Signs Temp 97.9 F 10/21/21 14:00 Pulse 100 10/21/21 14:00 Resp 20 10/21/21 14:00 BP 94/56 10/21/21 14:00 Pulse Ox 97 10/21/21 14:00 Intake & Output 10/20/21 10/21/21 10/21/21 18:59 06:59 18:59 Intake Total 900 Output Total 20 1600 Balance -20 -700 Weight 113 kg Intake: Hemodialysis 900 Output: Urine 20 Hemodialysis 1600 Other: Voiding Method Indwelling Catheter Indwelling Catheter Indwelling Catheter # Bowel Movements 1 - Exam GENERAL DESCRIPTION: An elderly male lying in bed in no distress RESPIRATORY SYSTEM: Unlabored breathing , decreased breath sounds at bases HEART: S1 S2 regular rate and rhythm , ABDOMEN: Soft , no tenderness EXTREMITIES: No edema feet - Labs CBC & Chem 7: 10/20/21 06:16 10/20/21 06:08 Labs: Abnormal Lab Results - Last 24 Hours (Table) 10/21/21 Range/Units 11:47 POC Glucose (mg/dL) 122 H (75-99) mg/dL Assessment and Plan (1) UTI (urinary tract infection) Current Visit: Yes Status: Acute Code(s): N39.0 - URINARY TRACT INFECTION, SITE NOT SPECIFIED SNOMED Code(s): 78456641 Plan: 1patient presented to hospital with weakness mental status changes likely multifactorial in this patient did have a worsening of his kidney function and likely metabolic he also have a positive UA and a possible component of symptomatic urinary tract infection with the urine showing Enterococcus faecalis. 2patient with a stage II sacral pressure ulcer but no slough tissue, overall wound base looks clean local wound care to continue with Aquacel silver dressing [address] chest did showed possible right upper lobe infiltrate and the patient has failed his swallow evaluation concerning for possible aspiration, patient did get a PEG tube, continue Unasyn and monitor clinical course closely Time with Patient: Less than 30
[2021-10-22] MEDS: MIDODRINE 5 MG TAB PO SCH ×3 (05:57→17:42)
[2021-10-22 06:48] LABS: Glucose,Whole Blood 177 mg/dL (75-99)
[2021-10-22] MEDS: AMPICILLIN-SULBACTAM 3 GM in SODIUM CHLORIDE 0.9% 100 ML IVPB SCH ×2 (07:29→20:12)
[2021-10-22] MEDS: CYANOCOBALAMIN 1,000 MCG/ML 1 ML VIAL IM SCH (07:29)
[2021-10-22] MEDS: HEPARIN SODIUM,PORCINE/PF 5,000 UNIT/0.5 ML SYRINGE SQ SCH ×2 (07:29→19:49)
[2021-10-22] MEDS: IPRATROPIUM-ALBUTEROL 3 ML NEB INHALATION SCH ×4 (08:35→20:05)
[2021-10-22] MEDS: BUDESONIDE 0.5 MG/2 ML NEBU INHALATION SCH ×2 (08:35→20:05)
[2021-10-22 09:30] LABS: Anisocytosis Slight; Basophils # (A) 0.1 k/uL (0-0.2); Basophils % (A) 0 %; Eosinophils # (A) 0.1 k/uL (0-0.7); Eosinophils % (A) 1 %; HCT 30.1 % (39.0-53.0); HGB 9.1 gm/dL (13.0-17.5); Hypochromasia Marked; Lymphocytes # (A) 0.4 k/uL (1.0-4.8); Lymphocytes % (A) 2 %; MCH 31.7 pg (25.0-35.0); MCHC 30.1 g/dL (31.0-37.0); MCV 105.1 fL (80.0-100.0); Macrocytosis Moderate; Mean Platelet Volume 8.7; Monocytes # (A) 1.1 k/uL (0-1.0); Monocytes % (A) 7 %; Neutrophils # (A) 13.3 k/uL (1.3-7.7); Neutrophils % (A) 87 %; Platelet Count 139 k/uL (150-450); Poikilocytosis Slight; RBC 2.86 m/uL (4.30-5.90); RDW 16.9 % (11.5-15.5); WBC 15.3 k/uL (3.8-10.6)
[2021-10-22] MEDS: FUROSEMIDE 10 MG/ML 10 ML VIAL IV SCH (09:56)
--- NOTE | 2021-10-22 10:30 | P.PN ---
Subjective Patient is seen in follow-up for acute kidney injury. Renal function had been worsening. Started on hemodialysis 10/16/2021. Receiving tube feeds. Tolerating dialysis well. Permacath placed 10/20/2021. Groin catheter removed. Patient is quite lethargic. Not responding much to verbal commands. Vital signs are stable. General: Awake. Quite lethargic. HEENT: Head exam is unremarkable. LUNGS: Rate and rhythm regular. HEART: Tachycardic. ABDOMEN: Soft, no distention. EXTREMITITES: 2+ edema. Objective - Vital Signs Vital signs: Vital Signs Temp 97.5 F L 10/22/21 07:47 Pulse 98 10/22/21 08:46 Resp 18 10/22/21 07:47 BP 90/49 10/22/21 07:47 Pulse Ox 96 10/22/21 07:47 Intake & Output 10/21/21 10/22/21 10/22/21 18:59 06:59 18:59 Intake Total 900 0 Output Total 1600 Balance -700 0 Weight 114.5 kg Intake: Oral 0 Hemodialysis 900 Output: Hemodialysis 1600 Other: Voiding Method Indwelling Catheter Indwelling Catheter - Labs CBC & Chem 7: 10/22/21 05:43 10/20/21 06:08 Labs: Abnormal Lab Results - Last 24 Hours (Table) 10/21/21 10/21/21 10/21/21 Range/Units 11:47 16:27 21:08 WBC (3.8-10.6) k/uL RBC (4.30-5.90) m/uL Hgb (13.0-17.5) gm/dL Hct (39.0-53.0) % MCV (80.0-100.0) fL MCHC (31.0-37.0) g/dL RDW (11.5-15.5) % Plt Count (150-450) k/uL Neutrophils # (1.3-7.7) k/uL Lymphocytes # (1.0-4.8) k/uL Monocytes # (0-1.0) k/uL POC Glucose (mg/dL) 122 H 117 H 143 H (75-99) mg/dL 10/22/21 10/22/21 Range/Units 05:43 06:47 WBC 15.3 H (3.8-10.6) k/uL RBC 2.86 L (4.30-5.90) m/uL Hgb 9.1 L (13.0-17.5) gm/dL Hct 30.1 L (39.0-53.0) % MCV 105.1 H (80.0-100.0) fL MCHC 30.1 L (31.0-37.0) g/dL RDW 16.9 H (11.5-15.5) % Plt Count 139 L (150-450) k/uL Neutrophils # 13.3 H (1.3-7.7) k/uL Lymphocytes # 0.4 L (1.0-4.8) k/uL Monocytes # 1.1 H (0-1.0) k/uL POC Glucose (mg/dL) 177 H (75-99) mg/dL Assessment and Plan Plan: Assessment: 1. Acute kidney injury secondary to ATN secondary to hypercalcemia. Renal function has been progressively worsening since May 2021 when his creatinine was 0.8. Renal ultrasound showed absent left kidney with no hydronephrosis in the right kidney. Started on hemodialysis 10/16/2021. Has permacath. Oliguric. 2. Hypercalcemia. PTH appropriately suppressed. Vitamin D level 68. CHAPITO 24; 1,25 D3 level high at 117 - ?sarcoidosis, malignancy. No Bence-Wilson protein identified on serum immunofixation. Questionable paraprotein in the gamma region noted on serum electrophoresis. Bone scan showed no evidence of metastatic disease. 3. Dysphagia. Failed swallow eval. Status post PEG tube placement. 4. Diabetes mellitus. 5. UTI. Urine culture positive for enterococcus on antibiotics. 6. Anemia. Iron replete. Hematology following. 7. Diabetes mellitus. 8. Volume overload. 9. Acute on chronic systolic CHF with ejection fraction of 35-40% with mild to moderate aortic stenosis and mitral regurgitation. Plan: Hemodialysis today. Stop Lasix as patient is oliguric. Increase dose of idodrine. Will give extra dose during dialysis if needed. Receiving tube feeds. Status post Zometa 10/14/2021. Also received a dose of calcitonin 10/15/2021. ?mediastinal biopsy per pulmonology. F/u serologies and quantify proteinuria - JAKOB, double-stranded DNA antibody and complements normal. ANCA and hep negative. [place]/lambda ratio normal. No Bence-Wilson proteins identified on serum immunofixation. Prognosis guarded.
[2021-10-22] MEDS: MIDODRINE 5 MG TAB PO PRN (10:35)
[2021-10-22 10:57] LABS: Glucose,Whole Blood 204 mg/dL (75-99)
[2021-10-22 11:16] LABS: Phosphorus 2.8 mg/dL (2.4-5.1)
[2021-10-22 11:19] LABS: African American GFR (CKD) 18.8 (60.0-200.0); Albumin 2.2 g/dL (3.8-4.9); Albumin/Globulin Ratio 0.84 (1.60-3.17); Anion Gap 13.5 mmol/L (10.00-18.00); BUN/Creat Ratio 6.43 Ratio (12.00-20.00); Blood Urea Nitrogen 22.5 mg/dL (9.0-27.0); Calcium 8.6 mg/dL (8.7-10.3); Carbon Dioxide 22.6 mmol/L (20.0-27.5); Globulin 2.7 g/dL (1.6-3.3); Non-African American GFR(CKD) 16.2 (60.0-200.0); Potassium 4.1 mmol/L (3.5-5.5); Total Bilirubin 0.5 mg/dL (0.30-1.20); Total Protein 4.9 g/dL (6.2-8.2)
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
[2021-10-22 12:39] VITALS: BMI 34.2
--- NOTE | 2021-10-22 16:00 | P.PN ---
Subjective Progress Note Date: 10/22/21 Principal diagnosis: hypercalcemia, anemia In follow-up today patient answering questions with nodding of the head. He denied pain or hunger. Objective - Vital Signs Vital signs: Vital Signs Temp 97.5 F L 10/22/21 07:47 Pulse 98 10/22/21 08:46 Resp 18 10/22/21 07:47 BP 90/49 10/22/21 07:47 Pulse Ox 96 10/22/21 07:47 Intake & Output 10/21/21 10/22/21 10/22/21 18:59 06:59 18:59 Intake Total 900 0 Output Total 1600 Balance -700 0 Weight 114.5 kg 114.5 kg Intake: Oral 0 Hemodialysis 900 Output: Hemodialysis 1600 Other: Voiding Method Indwelling Catheter Indwelling Catheter Indwelling Catheter - Exam WD, muscle wasting noted in upper body, S1 S2, BBS CTA, resp effort in labored, shallow, distended abd, faint bowel sounds, 2+ pitting lower extremity edema - Labs CBC & Chem 7: 10/22/21 05:43 10/22/21 05:43 Labs: Abnormal Lab Results - Last 24 Hours (Table) 10/21/21 10/21/21 10/22/21 Range/Units 16:27 21:08 05:43 WBC (3.8-10.6) k/uL RBC (4.30-5.90) m/uL Hgb (13.0-17.5) gm/dL Hct (39.0-53.0) % MCV (80.0-100.0) fL MCHC (31.0-37.0) g/dL RDW (11.5-15.5) % Plt Count (150-450) k/uL Neutrophils # (1.3-7.7) k/uL Lymphocytes # (1.0-4.8) k/uL Monocytes # (0-1.0) k/uL Creatinine 3.5 H (0.6-1.5) mg/dL Est GFR (CKD-EPI)AfAm 18.8 L (60.0-200.0) Est GFR (CKD-EPI)NonAf 16.2 L (60.0-200.0) BUN/Creatinine Ratio 6.43 L (12.00-20.00) Ratio Glucose 164 H (70-110) mg/dL POC Glucose (mg/dL) 117 H 143 H (75-99) mg/dL Calcium 8.6 L (8.7-10.3) mg/dL AST 40 H (14-35) U/L ALT 8 L (10-49) U/L Total Protein 4.9 L (6.2-8.2) g/dL Albumin 2.2 L (3.8-4.9) g/dL Albumin/Globulin Ratio 0.84 L (1.60-3.17) g/dL 10/22/21 10/22/21 10/22/21 Range/Units 05:43 06:47 10:56 WBC 15.3 H (3.8-10.6) k/uL RBC 2.86 L (4.30-5.90) m/uL Hgb 9.1 L (13.0-17.5) gm/dL Hct 30.1 L (39.0-53.0) % MCV 105.1 H (80.0-100.0) fL MCHC 30.1 L (31.0-37.0) g/dL RDW 16.9 H (11.5-15.5) % Plt Count 139 L (150-450) k/uL Neutrophils # 13.3 H (1.3-7.7) k/uL Lymphocytes # 0.4 L (1.0-4.8) k/uL Monocytes # 1.1 H (0-1.0) k/uL Creatinine (0.6-1.5) mg/dL Est GFR (CKD-EPI)AfAm (60.0-200.0) Est GFR (CKD-EPI)NonAf (60.0-200.0) BUN/Creatinine Ratio (12.00-20.00) Ratio Glucose (70-110) mg/dL POC Glucose (mg/dL) 177 H 204 H (75-99) mg/dL Calcium (8.7-10.3) mg/dL AST (14-35) U/L ALT (10-49) U/L Total Protein (6.2-8.2) g/dL Albumin (3.8-4.9) g/dL Albumin/Globulin Ratio (1.60-3.17) g/dL Assessment and Plan (1) Acute renal failure Current Visit: Yes Status: Acute Priority: High Code(s): N17.9 - ACUTE KIDNEY FAILURE, UNSPECIFIED SNOMED Code(s): 28748884 (2) Hypercalcemia Current Visit: Yes Status: Acute Priority: High Code(s): E83.52 - HYPERC ALCEMIA SNOMED Code(s): 69249513 (3) Anemia Current Visit: Yes Status: Chronic Priority: High Code(s): D64.9 - ANEMIA, UNSPECIFIED SNOMED Code(s): 885136990 Plan: Hypercalcemia treated with medications, normal today Patient is on dialysis for progressive acute renal failure. Hemoglobin stable. Recommendation is to transfuse for hemoglobin less than 7. Pending stability of pt so EBUS with biopsy may be considered by Pulmonary for assessment of the mediastinal LAD.
[2021-10-22] MEDS ORDERED: MORPHINE SULFATE 2 MG/ML SYRINGE IVP PRN (16:28)
[2021-10-22] MEDS ORDERED: ACETAMINOPHEN TAB 325 MG TAB PO PRN (16:32)
--- NOTE | 2021-10-22 16:34 | P.PN ---
Progress Note - Text Progress Note Date: 10/22/21 Hospital course This is a pleasant 76-year-old patient who follows with Dr. Axel Mcclure. [facility] scooter stable medical conditions include cirrhosis with esophageal varices , osteoarthritis, diabetes, COPD on home oxygen 3 L. chronically short of breath. He presents accompanied by his with complaint of generalized weakness and. Of confusion on and off while he is mildly confused today as per at bedside however he is able to answer questions appropriately and follows commands His weakness was getting worse over the last few days. Patient also has poor eating habits although he is morbidly obese with BMI of 39.3 but our patient and he has history of dysphagia for the last 3 months with choking without obvious aspiration. Admitted with elevated creatinine. Acute kidney injury. Congested cough. October 15: Patient congested cough. Failed modified barium swallow. Discussed with the patient insisted the bedside. PEG tube will be ordered. Nephrology spoke to the patient and family about possible dialysis. Patient tired. In bed. Accu-Cheks running on the low side. We'll change IV fluids to D5W. October 16: Breathing a bit better. Nothing by mouth. Had right groin hemodialysis catheter placed. By Dr. Boyer yesterday. To commence hemodialysis today. insisted the bedside. CODE STATUS discussed with the patient and family. Made DO NOT RESUSCITATE. PEG tube scheduled for . October 17: Patient was dialyzed yesterday. Scheduled for dialysis today. Tired. at the bedside. Nothing by mouth. IV fluids. Scheduled for PEG tube tomorrow. October 18: Patient is a PEG tube placed today. Diet. at the bedside. Start feeding tomorrow. October 19: Getting hemodialysis today. PEG tube will be starting later today. Laying in bed. Awake. Tired. October 20: Some trouble with hemodialysis access today. Could not be hemodialysis. PEG tube feeding at 20 mL an hour. Daughter the bedside. Otherwise patient's comfortable. October 21: Patient had a new dialysis catheter placed on the right upper chest. Groin [address] Boyer. PEG tube feeding at 60 mL an hour. Dialysis today. Tired. October 22: Blood pressure is running low. 2 feeding. Dialysis currently held pending family meeting. Following commands. Tired. Mouth breathing. Active Medications Albuterol/Ipratropium (Ipratropium-Albuterol 3 Ml Neb) 3 ml INHALATION RT-QID [facility] Last Admin: 10/22/21 16:27 Dose: Not Given Documented by: Budesonide (Budesonide 0.5 Mg/2 Ml Nebu) 0.5 mg INHALATION RT-BID [facility] Last Admin: 10/22/21 08:35 Dose: 0.5 mg Documented by: Cyanocobalamin (Cyanocobalamin 1,000 Mcg/Ml 1 Ml Vial) 1,000 mcg IM DAILY MARNIE Stop: 10/24/21 09:01 Last Admin: 10/22/21 07:29 Dose: 1,000 mcg Documented by: Diphenhydramine HCl (Diphenhydramine 50 Mg/Ml 1 Ml Vial) 25 mg IVP Q6HR PRN PRN Reason: Allergy Symptoms Last Admin: 10/19/21 15:57 Dose: 25 mg Documented by: Famotidine (Famotidine 20 Mg/2 Ml Vial) 20 mg IV HS [facility] Last Admin: 10/21/21 20:45 Dose: 20 mg Documented by: Heparin Sodium (Porcine) (Heparin Sodium,Porcine/Pf 5,000 Unit/0.5 Ml Syringe) 5,000 unit SQ Q12HR MARNIE Last Admin: 10/22/21 07:29 Dose: 5,000 unit Documented by: Ampicillin Sodium/Sulbactam (Sodium 3 gm/ Sodium Chloride) 100 mls @ 200 mls/hr IVPB Q12HR MARNIE; Protocol Last Admin: 10/22/21 07:29 Dose: 200 mls/hr Documented by: Lactated Ringer's (Lactated Ringers) 1,000 mls @ 20 mls/hr IV .Q24H [facility] Last Admin: 10/21/21 20:51 Dose: Not Given Documented by: Lidocaine HCl (Lidocaine 1% (10mg/Ml) For Iv Start) 0.1 ml INTRADERMA PER PROTOCOL PRN PRN Reason: IV Start Midodrine (Midodrine 5 Mg Tab) 10 mg PO DAILY PRN PRN Reason: To be given before hemodialysi Last Admin: 10/22/21 10:35 Dose: 10 mg Documented by: Midodrine (Midodrine 5 Mg Tab) 10 mg PO AC-TID [facility] Last Admin: 10/22/21 12:11 Dose: 10 mg Documented by: Miscellaneous Information (Phosphorus Replacement Protoco 1 Each Misc) 1 each MISCELLANE DAILY PRN; Protocol PRN Reason: Per Protocol Naloxone HCl (Naloxone 0.4 Mg/Ml 1 Ml Vial) 0.2 mg IV Q2M PRN PRN Reason: Opioid Reversal Past medical history to include: COPD, diabetes, GERD, cirrhosis with esophageal varices, home oxygen 3 L Social history: . Used to drink 7-8 drinks on the weekends not certain a few years. Did smoke in the past, stopped smoking in 1985. Family history: Lung cancer Physical examination: VITAL SIGNS: 97.4, 115, 18, 93 with 63, 99% 6 L GENERAL: Laying in bed, tired EYES: Pupils equal. Conjunctiva normal. HEENT: External appearance of nose and ears normal, oral cavity dry mucous membranes NECK: JVD not raised; masses not palpable. HEART: First and second heart sounds are normal; no edema. LUNGS: Respiratory rate normal; decreased breath sounds. ABDOMEN: Soft, nontender, liver spleen not palpable, no masses palpable. Right groin hemodialysis catheter . PEG tube PSYCH: Unable to assess MUSCULOSKELETAL:No Clubbing/cyanosis;muscles-grossly intact INVESTIGATIONS, reviewed in the clinical context: October 22: White count 15.3 hemoglobin 9.1 platelets 139 potassium 4.1 creatinine 3.5 October 20: White count 8.8 hemoglobin 8.9 platelets 96 potassium 3.4 creatinine 3.5 Computed tomography scan chest abdomen: Ascites. Large bilateral pleural effusion and lung consolidation. 2-D echocardiogram: LV function 35-40%. Wall motion abnormality. Bone scan: No suspicious focal increase uptake to suggest metastatic disease to the bone. Findings consistent with metabolic SuperScan. October 18: White count 7.1 hemoglobin 9.5 platelets 138in 3.5 and 35 crit and 3.78 Ig. IgA: 281. IgM: 68.4. Rheumatoid factor increased to 65. JAKOB screen: Negative double-stranded DNA antibody: Negative complement C3: 80.6 complement C4 24.9. Total complement: 66 free Light change: 10.9: Free lambda light chain: 9.53 Hepatitis B surface antigen/hepatitis B surface antibody/hepatitis B core total antibody/hepatitis B core IgM antibody/hepatitis C IgG antibody/: All nonreactive October 17: 18 hemoglobin 8.7 platelets 141 potassium 3.6 creatinine 4.6 October 16: White count 8.7 hemoglobin 9 platelets 1794.2 creatinine 5.8 BUN 68.7 Sodium 138 potassium 4.2 BUN 69 creatinine 5.47 magnesium 11.6 Previous labs: Creatinine 1.28 on 06/23/2021, 0.8 on 05/28/2021 Assessment and plan: -Acute kidney injury secondary to ATN. Also prerenal component from poor oral intake.: Not improving Right groin dialysis catheter placed on October 15, by Dr. Boyer. Started on hemodialysis. 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 Possible contribution of cirrhosis. I.e. hepatic encephalopathy.: New diagnosis Add lactulose daily - cirrhosis with esophageal varices secondary to alcoholism in the past Follow clinically. 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 DuoNeb 4 times a day -Diabetes mellitus type 2, on oral hypoglycemic, uncontrolled with hypoglycemia. D5W. -GERD Protonix 40 mg -Severe dysphagia. With higher risk of aspiration. Failed modified barium swallow. Nothing by mouth. PEG tube placed October [address] Machado. -PEG tube feeding. Nothing by mouth. 2 feeding to be started today. -Hypercalcemia. Received biphosphonate and calcitonin as per nephrology. Bone scan negative. -Mediastinal lymphadenopathy. Computed tomography scan abdomen and pelvis for further assessment per hematology. -Primary osteoarthritis Pain medications as needed -Hyperlipidemia zetia 10 mg daily -DO NOT RESUSCITATE Continue tube feeding. Medication treatment plan. Blood pressure running low. Hold off hemodialysis to family meeting. Prognosis not good.
--- NOTE | 2021-10-22 16:36 | P.EN ---
Date of service: 10/22/2021 Advanced care planning: Had a family meeting in the room. Presents with patient's and 3 sons and several other family members. Patient is following some commands. Not really able to speak. Patient's overall poor prognosis was discussed. Tender stent. He wanted patient to be comfortable. Patient is expressing wishes to go home. At the present time patient 2 feeding and hemodialysis will be discontinued. We'll use when necessary medications including morphine, scopolamine patch, Zofran, Benadryl. Per patient's wishes family is discussing about taking the patient home. Respecting his wishes. Plan is to watch the patient overnight. Informational visit to hospice for possible DC home tomorrow. We'll see how clinical course overnight. Comfort measures. Total time spent for ACP was 30 minutes
[2021-10-22] MEDS ORDERED: SCOPOLAMINE 1 MG/72 HR PATCH TRANSDERM SCH (16:45)
[2021-10-22] MEDS ORDERED: ONDANSETRON 4 MG/2 ML VIAL IVP PRN (16:54)
[2021-10-22] MEDS: LACTATED RINGERS 1,000 ML IV SCH (17:47)
[2021-10-22] MEDS: FAMOTIDINE 20 MG/2 ML VIAL IV SCH (19:55)
[2021-10-22] MEDS: MORPHINE SULFATE 2 MG/ML SYRINGE IVP PRN (22:11)
[2021-10-23] MEDS: diphenhydrAMINE 50 MG/ML 1 ML VIAL IVP PRN (02:05)
[2021-10-23] MEDS: IPRATROPIUM-ALBUTEROL 3 ML NEB INHALATION SCH ×2 (07:39→11:45)
[2021-10-23] MEDS: BUDESONIDE 0.5 MG/2 ML NEBU INHALATION SCH (07:39)
[2021-10-23 07:59] VITALS: PULSE 86
[2021-10-23 08:05] VITALS: BP 73/40; TEMP 99
[2021-10-23] MEDS: MIDODRINE 5 MG TAB PO SCH ×3 (08:12→10:21)
[2021-10-23] MEDS: HEPARIN SODIUM,PORCINE/PF 5,000 UNIT/0.5 ML SYRINGE SQ SCH (08:13)
[2021-10-23] MEDS: AMPICILLIN-SULBACTAM 3 GM in SODIUM CHLORIDE 0.9% 100 ML IVPB SCH (08:13)
[2021-10-23] MEDS: CYANOCOBALAMIN 1,000 MCG/ML 1 ML VIAL IM SCH (08:13)
[2021-10-23] MEDS: LACTATED RINGERS 1,000 ML IV SCH (08:14)
[2021-10-23] MEDS: MORPHINE SULFATE 2 MG/ML SYRINGE IVP PRN (09:22)
--- NOTE | 2021-10-23 16:24 | P.DS ---
Providers Date of admission: 10/12/21 13:03 Expected date of discharge: 10/23/21 Attending physician: Jered Mclaughlin Consults: 10/12/21 13:34 Consult Physician Urgent Consulting Provider: Alivia Ryan Consult Reason/Comments: bernie Do you want consulting provider notified?: Yes 10/14/21 19:03 Consult Physician Routine Consulting Provider: Ama Martinez Consult Reason/Comments: stage 3 coccyx pressure ulcer Do you want consulting provider notified?: Yes 10/15/21 13:07 Consult Physician Routine Consulting Provider: Akil Saini Consult Reason/Comments: hypercalcemia Do you want consulting provider notified?: Yes 10/15/21 14:41 Consult Physician Routine Consulting Provider: [place] Machado Consult Reason/Comments: PEG tube insertion Do you want consulting provider notified?: Yes 10/15/21 18:47 Consult Physician Urgent Consulting Provider: Loc Keen Consult Reason/Comments: permanent dialysis cath placement - for dialysis tomorrow Do you want consulting provider notified?: Yes 10/17/21 14:21 Consult Physician Routine Consulting Provider: Carlos Bermudez Consult Reason/Comments: EBUS with Biopsy Do you want consulting provider notified?: Yes 10/20/21 12:18 Consult Physician Routine Consulting Provider: Loc Keen Consult Reason/Comments: new hemodialysis cath needed, current one not working Do you want consulting provider notified?: Yes Primary care physician: Axel Mcclure [facility] Course: Hospital course This is a pleasant 76-year-old patient who follows with Dr. Axel Mcclure. Chronic stable medical conditions include cirrhosis with esophageal varices , osteoarthritis, diabetes, COPD on home oxygen 3 L. chronically short of breath. He presents accompanied by his with complaint of generalized weakness and. Of confusion on and off while he is mildly confused today as per at bedside however he is able to answer questions appropriately and follows commands His weakness was getting worse over the last few days. Patient also has poor eating habits although he is morbidly obese with BMI of 39.3 but our patient and he has history of dysphagia for the last 3 months with choking without obvious aspiration. Admitted with elevated creatinine. Acute kidney injury. Congested cough. October 15: Patient congested cough. Failed modified barium swallow. Discussed with the patient insisted the bedside. PEG tube will be ordered. Nephrology spoke to the patient and family about possible dialysis. Patient tired. In bed. Accu-Cheks running on the low side. We'll change IV fluids to D5W. October 16: Breathing a bit better. Nothing by mouth. Had right groin hemodialysis catheter placed. By Dr. Boyer yesterday. To commence hemodialysis today. insisted the bedside. CODE STATUS discussed with the patient and family. Made DO NOT RESUSCITATE. PEG tube scheduled for . October 17: Patient was dialyzed yesterday. Scheduled for dialysis today. Tired. at the bedside. Nothing by mouth. IV fluids. Scheduled for PEG tube tomorrow. October 18: Patient is a PEG tube placed today. Diet. at the bedside. Start feeding tomorrow. October 19: Getting hemodialysis today. PEG tube will be starting later today. Laying in bed. Awake. Tired. October 20: Some trouble with hemodialysis access today. Could not be hemodialysis. PEG tube feeding at 20 mL an hour. Daughter the bedside. Otherwise patient's comfortable. October 21: Patient had a new dialysis catheter placed on the right upper chest. Groin [address] Boyer. PEG tube feeding at 60 mL an hour. Dorothy lysis today. Tired. October 22: Blood pressure is running low. 2 feeding. Dialysis currently held pending family meeting. Following commands. Tired. Mouth breathing. October 23: Had a family meeting yesterday. Patient was made comfort care. Morphine when necessary. Scopolamine patch. Plan was to see patient any better he could then go home with hospice. Patient today secondary to underlying condition. Family presence including . Discussed with . Questions answered. Past medical history to include: COPD, diabetes, GERD, cirrhosis with esophageal varices, home oxygen 3 L Social history: . Used to drink 7-8 drinks on the weekends not certain a few years. Did smoke in the past, stopped smoking in 1985. Family history: Lung cancer Physical examination: Patient unresponsive. No spontaneous breathing or respiration. INVESTIGATIONS, reviewed in the clinical context: October 22: White count 15.3 hemoglobin 9.1 platelets 139 potassium 4.1 creatinine 3.5 October 20: White count 8.8 hemoglobin 8.9 platelets 96 potassium 3.4 creatinine 3.5 Computed tomography scan chest abdomen: Ascites. Large bilateral pleural effusion and lung consolidation. 2-D echocardiogram: LV function 35-40%. Wall motion abnormality. Bone scan: No suspicious focal increase uptake to suggest metastatic disease to the bone. Findings consistent with metabolic SuperScan. October 18: White count 7.1 hemoglobin 9.5 platelets 138in 3.5 and 35 crit and 3.78 Ig. IgA: 281. IgM: 68.4. Rheumatoid factor increased to 65. JAKOB screen: Negative double-stranded DNA antibody: Negative complement C3: 80.6 complement C4 24.9. Total complement: 66 free Light change: 10.9: Free lambda light chain: 9.53 Hepatitis B surface antigen/hepatitis B surface antibody/hepatitis B core total antibody/hepatitis B core IgM antibody/hepatitis C IgG antibody/: All nonreactive October 17: 18 hemoglobin 8.7 platelets 141 potassium 3.6 creatinine 4.6 October 16: White count 8.7 hemoglobin 9 platelets 1794.2 creatinine 5.8 BUN 68.7 Sodium 138 potassium 4.2 BUN 69 creatinine 5.47 magnesium 11.6 Previous labs: Creatinine 1.28 on 06/23/2021, 0.8 on 05/28/2021 Cause of : Cirrhosis Assessment and plan: -Acute kidney injury secondary to ATN. Also prerenal component from poor oral intake.: Not improving Right groin dialysis catheter placed on October 15, by Dr. Boyer. Started on hemodialysis. 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 Possible contribution of cirrhosis. I.e. hepatic encephalopathy.: New diagnosis Add lactulose daily - cirrhosis with esophageal varices secondary to alcoholism in the past Follow clinically. 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 DuoNeb 4 times a day -Diabetes mellitus type 2, on oral hypoglycemic, uncontrolled with hypoglycemia. D5W. -GERD Protonix 40 mg -Severe dysphagia. With higher risk of aspiration. Failed modified barium swallow. Nothing by mouth. PEG tube placed October [address] Machado. -PEG tube feeding. Nothing by mouth. 2 feeding to be started today. -Hypercalcemia. Received biphosphonate and calcitonin as per nephrology. Bone scan negative. -Mediastinal lymphadenopathy. Computed tomography scan abdomen and pelvis for further assessment per hematology. -Primary osteoarthritis Pain medications as needed -Hyperlipidemia zetia 10 mg daily -DO NOT RESUSCITATE Disposition: Patient Plan - Discharge Summary Discharge Rx Participant: No New Discharge Prescriptions: Discontinued Propranolol [Inderal] 10 mg PO TID Ezetimibe [Zetia] 10 mg PO PC-SUPPER Insulin Glargine,Hum.rec.anlog [Lantus Solostar Pen] 10 unit SQ HS Loratadine [Claritin] 10 mg PO DAILY PRN PRN Reason: Allergy Symptoms Ipratropium-Albuterol Nebulize [Duoneb 0.5 mg-3 mg/3 ml Soln] 3 ml INHALATION RT-QID Budesonide [Pulmicort] 0.5 mg INHALATION RT-BID Omeprazole 40 mg PO DAILY traMADol HCL 50 mg PO DAILY PRN PRN Reason: Pain Furosemide [Lasix] 40 mg PO BID Ammonium Lactate Cream [Lac-Hydrin 12% Cream] 1 applic TOPICAL DAILY PRN PRN Reason: Dry Skin Magnesium Oxide [Magox 400] 400 mg PO DAILY Follow up Appointment(s)/Referral(s): Dialysis,[facility] [NON-STAFF] - 10/22/21 5:00 am (Chair times will be Mondays, Wednesdays, and Fridays at 5:00a.m. Patient to show up at 4:45a.m. for first visit. ) Axel Mcclure MD [Primary Care Provider] - 1-2 days Discharge Disposition: - Preliminary Cause of Preliminary Cause of : Cirrhosis from alcoholism
--- NOTE | 2021-10-29 12:15 | CDI ---
Documentation Clarification Form Date: 10/29/2021 11:57:21 AM From: Waleska Schwartz RN, CCDS Email: [email or web address] Admit Date: 10/12/2021 01:03:00 PM Patient Name: Tor Trejo Visit Number: [id number] Discharge Date: 10/23/2021 12:34:00 PM ATTENTION: The Clinical Documentation Specialists (CDI) and [facility] Coding Staff appreciate your assistance in clarifying documentation. Please respond to the clarification below the line at the bottom and electronically sign. The CDI & [facility] Coding staff will review the response and follow-up if needed. Please note: Queries are made part of the Legal Health Record. If you have any questions, please contact the author of this message via ITS. Dr. Jered Mclaughlin Your patient had a diagnosis of chronic respiratory failure with increased supplemental oxygen use. Based on this information and the findings below, is there an additional diagnosis that is clinically appropriate for this patient? History/Risk Factors: alcohol cirrhosis with esophageal varices, osteoarthritis, diabetes, COPD on home oxygen 3 L. chronically short of breath. Admitted with renal failure and hypercalcemia Former tobacco use: quit smoking in 1985 Home oxygen: 3LNC Clinical Indicators: 10/15 CT chest: Bilateral pleural effusions as noted above with basilar compressive atelectasis and/or infiltrates. Ground-glass density left upper lobe may reflect acute edema or inflammatory process. 10/21 CXR: Right lung and left lower lobe infiltrates. Moderate right and small left pleural effusion. 10/22: Mouth breathing 10/18: Consult: reports dyspnea on exertion Vital signs: RR 18- 24, HR high of 120 Pulse oximetry: 89% on 3LNC Lung/Breathing assessment: decreased breath sounds Treatment: Breathing tx: Duonebs QID. Pulmicort BID O2: 3-6LNC Is there an additional diagnosis that is clinically appropriate for this patient? [ ] Acute on Chronic Respiratory Failure [ ] Other Diagnosis, please specify [ ] Unable to determine (Template Last Revised: August 2020) Acute on chronic respiratory failure MTDD
--- NOTE | 2021-10-30 23:09 | P.PN ---
Subjective Progress Note Date: 10/22/21 Principal diagnosis: UTI and pressure ulcer to the sacral area Patient is a 76-year-old male presented to hospital with weakness in this patient noticed to have worsening of his kidney function patient also have a positive UA with urine culture finalized with Enterococcus faecalis did have a pressure ulcer to the sacral area but no evidence of any cellulitis, patient did get a dialysis catheter placement because of his worsening kidney function. The patient is status post PEG tube placement completed on 10/18/2021, patient did have worsening of the kidney function right IJ dialysis catheter has been placed for 10/20/2021 and the groin catheter was removed On today's evaluation that is 10/22/2021, the patient is afebrile , the patient is breathing comfortably on nasal cannula oxygen, patient is sleepy lethargic and did not provide any history no vomiting or diarrhea has been reported by the nursing staff Objective - Vital Signs Vital signs: Vital Signs Temp 98.3 F 10/22/21 20:00 Pulse 105 H 10/22/21 20:00 Resp 18 10/22/21 20:00 BP 87/44 10/22/21 20:00 Pulse Ox 97 10/22/21 20:00 Intake & Output 10/22/21 10/22/21 10/23/21 06:59 18:59 06:59 Intake Total 0 Balance 0 Weight 114.5 kg 114.5 kg Intake: Oral 0 Other: Voiding Method Indwelling Catheter Indwelling Catheter Incontinent # Bowel Movements 1 - Exam GENERAL DESCRIPTION: An elderly male lying in bed in no distress RESPIRATORY SYSTEM: Unlabored breathing , decreased breath sounds at bases HEART: S1 S2 regular rate and rhythm , ABDOMEN: Soft , no tenderness EXTREMITIES: No edema feet - Labs CBC & Chem 7: 10/22/21 05:43 10/22/21 05:43 Labs: Abnormal Lab Results - Last 24 Hours (Table) 10/22/21 10/22/21 10/22/21 Range/Units 05:43 05:43 06:47 WBC 15.3 H (3.8-10.6) k/uL RBC 2.86 L (4.30-5.90) m/uL Hgb 9.1 L (13.0-17.5) gm/dL Hct 30.1 L (39.0-53.0) % MCV 105.1 H (80.0-100.0) fL MCHC 30.1 L (31.0-37.0) g/dL RDW 16.9 H (11.5-15.5) % Plt Count 139 L (150-450) k/uL Neutrophils # 13.3 H (1.3-7.7) k/uL Lymphocytes # 0.4 L (1.0-4.8) k/uL Monocytes # 1.1 H (0-1.0) k/uL Creatinine 3.5 H (0.6-1.5) mg/dL Est GFR (CKD-EPI)AfAm 18.8 L (60.0-200.0) Est GFR (CKD-EPI)NonAf 16.2 L (60.0-200.0) BUN/Creatinine Ratio 6.43 L (12.00-20.00) Ratio Glucose 164 H (70-110) mg/dL POC Glucose (mg/dL) 177 H (75-99) mg/dL Calcium 8.6 L (8.7-10.3) mg/dL AST 40 H (14-35) U/L ALT 8 L (10-49) U/L Total Protein 4.9 L (6.2-8.2) g/dL Albumin 2.2 L (3.8-4.9) g/dL Albumin/Globulin Ratio 0.84 L (1.60-3.17) g/dL 10/22/21 Range/Units 10:56 WBC (3.8-10.6) k/uL RBC (4.30-5.90) m/uL Hgb (13.0-17.5) gm/dL Hct (39.0-53.0) % MCV (80.0-100.0) fL MCHC (31.0-37.0) g/dL RDW (11.5-15.5) % Plt Count (150-450) k/uL Neutrophils # (1.3-7.7) k/uL Lymphocytes # (1.0-4.8) k/uL Monocytes # (0-1.0) k/uL Creatinine (0.6-1.5) mg/dL Est GFR (CKD-EPI)AfAm (60.0-200.0) Est GFR (CKD-EPI)NonAf (60.0-200.0) BUN/Creatinine Ratio (12.00-20.00) Ratio Glucose (70-110) mg/dL POC Glucose (mg/dL) 204 H (75-99) mg/dL Calcium (8.7-10.3) mg/dL AST (14-35) U/L ALT (10-49) U/L Total Protein (6.2-8.2) g/dL Albumin (3.8-4.9) g/dL Albumin/Globulin Ratio (1.60-3.17) g/dL Assessment and Plan (1) UTI (urinary tract infection) Status: Acute Code(s): N39.0 - URINARY TRACT INFECTION, SITE NOT SPECIFIED SNOMED Code(s): 56003102 Plan: 1patient presented to hospital with weakness mental status changes likely multifactorial in this patient did have a worsening of his kidney function and likely metabolic he also have a positive UA and a possible component of symptomatic urinary tract infection with the urine showing Enterococcus faecalis. 2patient with a stage II sacral pressure ulcer but no slough tissue, overall wound base looks clean local wound care to continue with Aquacel silver dressing [address] chest did showed possible right upper lobe infiltrate and the patient has failed his swallow evaluation concerning for possible aspiration, patient did get a PEG tube, patient to continue with Unasyn however family is leaning towards hospice oriented care which may be appropriate for him Time with Patient: Less than 30
== END 2021-10-23 12:34 | disposition expired | DRG 682 ==
LOC: EC 10:45 → 4SSUR 13:03
PROVIDERS: ADMIT Hospitalist; ATTEND Hospitalist
PROC: 3E0336Z Introduction of Nutritional Substance into Peripheral Vein, Percutaneous Approach (ICD-10-PCS; 2021-10-15)
PROC: 04HK33Z Insertion of Infusion Device into Right Femoral Artery, Percutaneous Approach (ICD-10-PCS; 2021-10-15)
PROC: B5181ZA Fluoroscopy of Superior Vena Cava using Low Osmolar Contrast, Guidance (ICD-10-PCS; 2021-10-15)
PROC: 5A1D70Z Performance of Urinary Filtration, Intermittent, Less than 6 Hours Per Day (ICD-10-PCS; 2021-10-16)
PROC: 0DH63UZ Insertion of Feeding Device into Stomach, Percutaneous Approach (ICD-10-PCS; principal; 2021-10-18 10:50)
PROC: 04PYX3Z Removal of Infusion Device from Lower Artery, External Approach (ICD-10-PCS; 2021-10-21)
PROC: 02H633Z Insertion of Infusion Device into Right Atrium, Percutaneous Approach (ICD-10-PCS; 2021-10-21)
PROC: 02HV33Z Insertion of Infusion Device into Superior Vena Cava, Percutaneous Approach (ICD-10-PCS; 2021-10-21 08:09)
PROC: B548ZZA Ultrasonography of Superior Vena Cava, Guidance (ICD-10-PCS; 2021-10-21 08:09)
DX: N17.0 Acute kidney failure with tubular necrosis (principal); E43 Unspecified severe protein-calorie malnutrition; G93.41 Metabolic encephalopathy; I50.23 Acute on chronic systolic (congestive) heart failure; J96.21 Acute and chronic respiratory failure with hypoxia; I13.2 Hypertensive heart and chronic kidney disease with heart failure and with stage 5 chronic kidney disease, or end stage renal disease; I85.10 Secondary esophageal varices without bleeding; J96.11 Chronic respiratory failure with hypoxia; J98.11 Atelectasis; K76.6 Portal hypertension; R47.01 Aphasia; T82.41XA Breakdown (mechanical) of vascular dialysis catheter, initial encounter; Z51.5 Encounter for palliative care; N30.90 Cystitis, unspecified without hematuria; Z66 Do not resuscitate; B95.2 Enterococcus as the cause of diseases classified elsewhere; D53.9 Nutritional anemia, unspecified; D86.9 Sarcoidosis, unspecified; E11.22 Type 2 diabetes mellitus with diabetic chronic kidney disease; E11.40 Type 2 diabetes mellitus with diabetic neuropathy, unspecified; E11.649 Type 2 diabetes mellitus with hypoglycemia without coma; E66.01 Morbid (severe) obesity due to excess calories; E78.5 Hyperlipidemia, unspecified; E83.52 Hypercalcemia; E86.0 Dehydration; E88.09 Other disorders of plasma-protein metabolism, not elsewhere classified; F10.11 Alcohol abuse, in remission; K70.30 Alcoholic cirrhosis of liver without ascites; M19.91 Primary osteoarthritis, unspecified site; J43.9 Emphysema, unspecified; N18.6 End stage renal disease; F03.90 Unspecified dementia, unspecified severity, without behavioral disturbance, psychotic disturbance, mood disturbance, and anxiety; G89.29 Other chronic pain; I08.0 Rheumatic disorders of both mitral and aortic valves; I25.10 Atherosclerotic heart disease of native coronary artery without angina pectoris; N18.32 Chronic kidney disease, stage 3b; R59.0 Localized enlarged lymph nodes; R26.9 Unspecified abnormalities of gait and mobility; L89.152 Pressure ulcer of sacral region, stage 2; R00.0 Tachycardia, unspecified; E53.8 Deficiency of other specified B group vitamins; K21.9 Gastro-esophageal reflux disease without esophagitis; R13.10 Dysphagia, unspecified; Y71.2 Prosthetic and other implants, materials and accessory cardiovascular devices associated with adverse incidents; Z68.39 Body mass index [BMI] 39.0-39.9, adult; Z79.4 Long term (current) use of insulin; Z79.51 Long term (current) use of inhaled steroids; Z79.899 Other long term (current) drug therapy; Z80.1 Family history of malignant neoplasm of trachea, bronchus and lung; Z82.5 Family history of asthma and other chronic lower respiratory diseases; Z85.118 Personal history of other malignant neoplasm of bronchus and lung; Z87.01 Personal history of pneumonia (recurrent); Z87.891 Personal history of nicotine dependence; Z96.1 Presence of intraocular lens; Z96.641 Presence of right artificial hip joint; Z99.2 Dependence on renal dialysis; Z99.81 Dependence on supplemental oxygen; Z90.49 Acquired absence of other specified parts of digestive tract; Z87.19 Personal history of other diseases of the digestive system
CPT/HCPCS: 36415; 36556; 36558; 43246; 70490; 71045; 71250; 74018; 74176; 74230; 76770; 76937; 77001; 78306; 80048; 80053; 80074; 81001; 82140; 82164; 82306; 82607; 82652; 82728; 82746; 82784; 83519; 83540; 83550; 83735; 83883; 83921; 83970; 84100; 84165; 84443; 84482; 85025; 85027; 85610; 85652; 85730; 86038; 86140; 86160; 86162; 86225; 86255; 86334; 86431; 86704; 86706; 87040; 87077; 87086; 87186; 90935; 93005; 93306; 94640; 94760; 96361; 96374; 99285